=== PATIENT | female | born 1960 | race Caucasian/White ===

== ENCOUNTER 2018-04-07 12:57 | Outpatient (RCR) | payer OTHER, SELFPAY ==
[2018-04-07 13:20] VITALS: BP 145/76; PULSE 82; RESP 18; TEMP 37.1; BMI 44.7
--- NOTE | 2018-04-07 14:40 | PCM.WC.HP ---
(1) Chronic venous insufficiency Status: Chronic Current Visit: Yes Code(s): I87.2 - Venous insufficiency (chronic) (peripheral) (2) Post-phlebitic syndrome Status: Chronic Current Visit: Yes Code(s): I87.009 - Postthrombotic syndrome without complications of unspecified extremity (3) Venous ulcer of left leg Status: Chronic Current Visit: Yes Code(s): I83.029 - Varicose veins of left lower extremity with ulcer of unspecified site; L97.929 - Non-pressure chronic ulcer of unspecified part of left lower leg with unspecified severity (4) Diabetes mellitus Status: Acute Current Visit: No Qualifiers: Diabetes mellitus type: type 2 Code(s): E11.9 - Type 2 diabetes mellitus without complications (5) History of DVT of lower extremity Status: Chronic Current Visit: Yes Code(s): Z86.718 - Personal history of other venous thrombosis and embolism (6) Leg pain, left Status: Chronic Current Visit: Yes Code(s): M79.605 - Pain in left leg (7) Left leg swelling Status: Chronic Current Visit: Yes Code(s): M79.89 - Other specified soft tissue disorders (8) Hypertension Status: Chronic Current Visit: No Code(s): I10 - Essential (primary) hypertension (9) COPD (chronic obstructive pulmonary disease) Status: Chronic Current Visit: No Code(s): J44.9 - Chronic obstructive pulmonary disease, unspecified (10) Hyperlipidemia Status: Chronic Current Visit: No Code(s): E78.5 - Hyperlipidemia, unspecified (11) Morbid obesity with BMI of 40.0-44.9, adult Status: Chronic Current Visit: No Code(s): E66.01 - Morbid (severe) obesity due to excess calories; Z68.41 - Body mass index (BMI) 40.0-44.9, adult (12) Tobacco abuse Status: Chronic Current Visit: No Code(s): Z72.0 - Tobacco use (13) Tobacco abuse counseling Status: Chronic Current Visit: No Code(s): Z71.6 - Tobacco abuse counseling (14) Hyperpigmentation Status: Chronic Current Visit: No Code(s): L81.9 - Disorder of pigmentation, unspecified History of Present Illness Date of Service: 04/07/18 Chief Complaint: Chronic venous insufficiency, postphlebitic syndrome with inflammation, venous ulceration of the left lower extremity, left lower extremity swelling, left lower extremity pain History of Wound: This is a 57-year-old female who presents with an ulceration on the medial aspect of her left calf. The ulceration has been present for several months. Patient has recently developed erythema and redness about the ulceration, thought to be a cellulitis. She was treated by her primary care physician with 2 courses of oral antibiotics, including doxycycline and Cipro. She presents now for definitive management. She suffers from multiple medical problems, including diabetes mellitus, morbid obesity, and has a history of left lower extremity deep vein thrombosis on 2 occasions in the remote past. She intermittently wears compression stockings, which are obtained [id number], and likely of insufficient compression. 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 Her 2 prior episodes of deep vein thrombosis in the past occurred after childbirth in 1978, and after an appendectomy in 1999. Past Medical History Past Medical History: Chronic Problems Chronic venous insufficiency (Chronic) Post-phlebitic syndrome (Chronic) Venous ulcer of left leg (Chronic) History of DVT of lower extremity (Chronic) Leg pain, left (Chronic) Left leg swelling (Chronic) Hypertension (Chronic) COPD (chronic obstructive pulmonary disease) (Chronic) Hyperlipidemia (Chronic) Morbid obesity with BMI of 40.0-44.9, adult (Chronic) Tobacco abuse (Chronic) Tobacco abuse counseling (Chronic) Hyperpigmentation (Chronic) Past Medical History: Patient has a history of borderline diabetes mellitus, hypertension, chronic obstructive pulmonary disease, hyperlipidemia, and obesity. Her history is negative for myocardial infarction, congestive heart failure, cerebrovascular accident, renal disease, and thyroid disease. Surgical History: - - Patient has undergone hysterectomy and appendectomy in the past. Home Medications: Ambulatory Orders Medication Instructions Recorded Hydrochlorothiazide [Hctz] 25 mg PO DAILY 04/07/18 Losartan Potassium 50 mg PO 04/07/18 - Family History Paternal - - Patient's father is 81 years of age, with a history of coronary artery disease, hypertension, and prostate cancer. Patient's mother is 76 years of age and healthy. Social History: The patient is a . 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 She denies use of alcohol. She smokes 1-1/2 packs of cigarettes per day, for many years. Smoking Status: Current every day smoker Tobacco Use: Cigarettes Alcohol: None Drugs: None Review of Systems Constitutional: Denies: Chills, Fever, Weight Change Eyes: Denies: Pain, Vision Change HEENT: Denies: Difficulty Hearing, Difficulty Swallowing, Sinus Congestion Cardiovascular: Denies: Chest Pain, Palpitations Respiratory: Denies: Cough, Shortness of Breath Gastrointestinal: Denies: Diarrhea, Nausea, Vomiting Genitourinary: Denies: Dysuria, Hematuria Endocrine: Denies: Heat/ Cold Intolerance, Polydipsia, Polyuria Hematologic/ Lymphatic: Denies: Easy Bruising, Easy Bleeding - Physical Exam Vital Signs Temp Pulse Resp BP 98.7 F 82 18 145/76 H 04/07/18 13:20 04/07/18 13:20 04/07/18 13:20 04/07/18 13:20 General: Alert, Oriented x3, Cooperative, No apparent distress, Well developed, Well nourished, - - The patient is obese HEENT: Atraumatic, PERRLA, EOMI, Normocephalic Oral: Moist Mucosa, No Gingival or Mucosal Lesions/ Ulcerations Neck: Supple, No JVD, Negative Carotid Bruits, Negative Hepatojugular Reflux, No Nodes, No Nuchal Rigidity, Trachea Midline Lungs: Clear to auscultation, Normal air movement, No rhonchi, No wheeze, No rales Cardiovascular: Regular rate, Regular Rhythm, Normal S1, Normal S2, No murmurs Abdomen: Bowel Sounds Present, Soft, Non Tender, Non-Distended, Obese Extremities: No clubbing, No cyanosis, No Calf Tenderness, Edema, - - Moderate swelling and edema is noted in the left lower extremity. There are clustered ulcerations on the medial aspect of the left mid calf. Dimensions are documented elsewhere. There is mild erythema, appearing to be inflammatory rather than infectious. Mild hyperpigmentation is noted about the ulceration. The ulceration demonstrates a moderate amount of bioburden, and the base of the ulceration is fibrous. Wound Measurements and Assessment WC - Nurse 1 - General Ulcer Measurement Start: 04/07/18 13:05 Freq: Status: Active Protocol: Activity Type Activity Date Activity User E-Sign Co-Sign Detail Recorded Client Recorded Date Recorded By Document 04/07/18 13:20 DL [id number] 04/07/18 13:48 DL 04/07/18 13:20 Wound Center Nurse 1 [Ulcer Assessment] #1 L Med Lower Leg -Current Size (cm) - Length 2 -Current Size (cm) - Width 0.7 -Current Size (cm) - Depth 0.1 -Total Square Cm 1.4 -Photo Taken Yes -Classification - Thickness Partial Thickness -Exudate Amt None Present (0 %) -Wound Margin Flat & Intact -Granulation Amt None Present (0 %) -Necrosis Amt Large (67-100%) -Necrotic Tissue Type Adherent Slough -Structure Exposed N/A -Texture (Wendy-wound Skin Appearance) Localized Edema -Moisture (Wendy-wound Skin Appearance Dry/Scaly ) -Color (Wendy-wound Skin Appearance) Erythema Hemosiderin Staining -Temperature (Wendy-wound Skin No Abnormality Appearance) (Pt Warm) -Tenderness on Palpation (Wendy-wound Yes Skin Appearance) -Ulcer Cleansing Wound Cleanser -Foul Odor after Cleansing No -Anesthetic Used 4% Lidocaine Solution [Edema Assessment] -Right Calf (cm) 43.4 -Right Ankle (cm) 24.5 -Left Calf (cm) 50.5 -Left Ankle (cm) 30 Musculoskeletal: No Muscle Wasting Neurological: Cranial nerves II-XII grossly intact, Neuro grossly intact Psych/Mental Status: Normal Affect, Appropriate, Alert and oriented to time, place, person, mood and affect Debridement Note Laterality: Left - Medial calf Type of Debridement: Excisional debridement Anesthesia Used: 5% Lidocaine Gel Depth: Down to and including healthy tissue, in the subcutaneous layer Percentage of wound debrided: 100 Instrument Used: 7mm curette Severity: Fat Layer Exposed Amount of bleeding with debridement: Mild Bleeding Controlled with: Compression and gauze Patient tolerated procedure well Assessment/Plan Active Problems Chronic venous insufficiency (Chronic) Post-phlebitic syndrome (Chronic) Venous ulcer of left leg (Chronic) History of DVT of lower extremity (Chronic) Leg pain, left (Chronic) Left leg swelling (Chronic) Assessment: This is an obese 57-year-old female with a history of left lower extremity deep vein thrombosis on 2 occasions in the past. She appears to suffer from postphlebitic syndrome in the left lower extremity, with chronic swelling, edema, and pain in the left lower extremity. For several months she has had an ulceration on the left medial calf, which has developed into a cellulitis recently, treated by 2 courses of oral antibiotics as prescribed by her primary care physician. She presents at this time for the purpose of definitive management. Patient has other pre-existing medical problems, which include, but are not limited to, hypertension, obesity, diabetes mellitus, chronic obstructive pulmonary disease, hyperlipidemia, etc. Plan: Conservative treatment measures are to be implemented. A lengthy discussion has been undertaken as to the appropriate measures to be employed. The patient is to elevate her lower extremities as much as possible. She currently sleeps on a flat mattress at night. Leg elevation, even during daytime hours, has been encouraged. Her legs are to be rated level with her heart, or higher. Prolonged idle sitting has been discouraged. Activity has been encouraged. Weight loss has also been recommended. Initially, compression to the left lower extremity will be initiated by means of Tubigrip's, though compression will be enhanced, once the results of her noninvasive lower extremity arterial study are known. We are to obtain a noninvasive lower extremity arterial study, as well as a venous duplex examination. Routine laboratory studies will be obtained, including a CBC, conference of metabolic profile, serum prealbumin, and hemoglobin A1c. We will initiate the use of collagenase Santyl topically, applied by the patient on a daily basis. Patient has been advised in the appropriate means of applying the collagenase Santyl dressing. Patient is return in 1 week for reassessment. Influenza vaccine was not administered today. Patient is a smoker. She has been advised to cease smoking, and of the adverse consequences of the smoking habit. She is to collaborate with her primary care physician in this regard. Patient stands 5 feet 5 inches tall. She weighs 268 pounds. Her BMI is 44.7, which places her in an obese class III category. Weight loss has been recommended, and collaboration with the patient's primary care physician has been advised.
[2018-04-07 16:01] LABS: Hematocrit 44.8 % (37-47); Hemoglobin 14.7 g/dl (12.0-15.0); Mean Corp Hgb Conc 32.8 g/gl (32-36); Mean Corpuscular Hgb 29.9 pg (27.0-32.0); Mean Corpuscular Volume 91.2 fL (81-99); Mean Platelet Vol. 10.2 fl (6.2-12.0); Platelet Count 311 K/mm3 (150-450); RBC Distribution Width CV 12.9 % (11.6-14.6); RBC Distribution Width SD 42.4 fl (35.1-43.9); Red Blood Count 4.91 M/mm3 (4.2-5.4); White Blood Count 7.3 K/mm3 (4.4-11.0)
[2018-04-07 16:08] LABS: Scan Indicated on CBC? Y/N NO
[2018-04-07 16:33] LABS: Hemoglobin A1c 6.6 % (4.2-6.3)
[2018-04-07 16:34] LABS: AST(SGOT) 13 U/L (15-37); Alanine Aminotransfer ALT/SGPT 23 U/L (13-56); Albumin, Serum 3.5 g/dL (3.2-5.0); Alkaline Phosphatase 98 U/L (45-117); Anion Gap 7 (5-15); BUN 10 mg/dL (7-18); BUN/Creat Ratio 19.1 RATIO (10-20); Chloride 102 mmol/L (98-107); Creatinine, Serum 0.52 mg/dL (0.55-1.02); EST Glomerular Filtration Rate 128 mL/min (>60); Est Glom Filt Rate - Afr Amer 155 mL/min (>60); Estimated Creatinine Clearance 107.41 ml/min; Globulin 3.5 g/dL (2.2-4.2); Glucose 105 mg/dL (74-106); Potassium 3.6 mmol/L (3.5-5.1); Prealbumin 18.2 mg/dL (20.0-40.0); Sodium Level 143 mmol/L (136-145)
== END 2018-04-09 23:59 ==
LOC: WC 12:57
PROVIDERS: Visit Provider Surgery
DX: E11.622 Type 2 diabetes mellitus with other skin ulcer (principal); I83.022 Varicose veins of left lower extremity with ulcer of calf; L97.222 Non-pressure chronic ulcer of left calf with fat layer exposed; J44.9 Chronic obstructive pulmonary disease, unspecified; M79.89 Other specified soft tissue disorders; I10 Essential (primary) hypertension; Z86.718 Personal history of other venous thrombosis and embolism; E78.5 Hyperlipidemia, unspecified; E66.01 Morbid (severe) obesity due to excess calories; Z68.41 Body mass index [BMI] 40.0-44.9, adult; Z71.3 Dietary counseling and surveillance
CPT/HCPCS: 11042; 80053; 83036; 84134; 85027; 99204; G0463

== ENCOUNTER 2018-05-05 15:00 | Outpatient (RCR) | payer OTHER, SELFPAY ==
[2018-04-10 02:14] VITALS: BP 145/76; PULSE 82; RESP 18; TEMP 37.1
[2018-04-14 14:30] VITALS: BP 148/70; PULSE 82; RESP 16; TEMP 37.2
--- NOTE | 2018-04-14 16:09 | PCM.WC.HP ---
(1) Chronic venous insufficiency Status: Chronic Current Visit: Yes Code(s): I87.2 - Venous insufficiency (chronic) (peripheral) (2) Post-phlebitic syndrome Status: Chronic Current Visit: Yes Code(s): I87.009 - Postthrombotic syndrome without complications of unspecified extremity (3) Venous ulcer of left leg Status: Chronic Current Visit: Yes Code(s): I83.029 - Varicose veins of left lower extremity with ulcer of unspecified site; L97.929 - Non-pressure chronic ulcer of unspecified part of left lower leg with unspecified severity (4) Diabetes mellitus Status: Chronic Current Visit: No Code(s): E11.9 - Type 2 diabetes mellitus without complications (5) History of DVT of lower extremity Status: Chronic Current Visit: Yes Code(s): Z86.718 - Personal history of other venous thrombosis and embolism (6) Leg pain, left Status: Chronic Current Visit: Yes Code(s): M79.605 - Pain in left leg (7) Left leg swelling Status: Chronic Current Visit: Yes Code(s): M79.89 - Other specified soft tissue disorders (8) Hypertension Status: Chronic Current Visit: No Code(s): I10 - Essential (primary) hypertension (9) COPD (chronic obstructive pulmonary disease) Status: Chronic Current Visit: No Code(s): J44.9 - Chronic obstructive pulmonary disease, unspecified (10) Hyperlipidemia Status: Chronic Current Visit: No Code(s): E78.5 - Hyperlipidemia, unspecified (11) Morbid obesity with BMI of 40.0-44.9, adult Status: Chronic Current Visit: No Code(s): E66.01 - Morbid (severe) obesity due to excess calories; Z68.41 - Body mass index (BMI) 40.0-44.9, adult (12) Tobacco abuse Status: Chronic Current Visit: Yes Code(s): Z72.0 - Tobacco use (13) Tobacco abuse counseling Status: Chronic Current Visit: Yes Code(s): Z71.6 - Tobacco abuse counseling (14) Hyperpigmentation Status: Chronic Current Visit: Yes Code(s): L81.9 - Disorder of pigmentation, unspecified History of Present Illness Chief Complaint: Chronic venous insufficiency, postphlebitic syndrome with inflammation, venous ulceration of the left lower extremity, left lower extremity swelling, left lower extremity pain History of Wound: This is a 57-year-old female who presented with an ulceration on the medial aspect of her left calf. The ulceration has been present for several months. Patient has recently developed erythema and redness about the ulceration, thought to be a cellulitis. She was treated by her primary care physician with 2 courses of oral antibiotics, including doxycycline and Cipro. She presents now for definitive management. She suffers from multiple medical problems, including diabetes mellitus, morbid obesity, and has a history of left lower extremity deep vein thrombosis on 2 occasions in the remote past. She intermittently wears compression stockings, which are obtained [id number], and likely of insufficient compression. 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 Her 2 prior episodes of deep vein thrombosis in the past occurred after childbirth in 1978, and after an appendectomy in 1999. Past Medical History Past Medical History: Chronic Problems Chronic venous insufficiency (Chronic) Post-phlebitic syndrome (Chronic) Venous ulcer of left leg (Chronic) Diabetes mellitus (Chronic) History of DVT of lower extremity (Chronic) Leg pain, left (Chronic) Left leg swelling (Chronic) Hypertension (Chronic) COPD (chronic obstructive pulmonary disease) (Chronic) Hyperlipidemia (Chronic) Morbid obesity with BMI of 40.0-44.9, adult (Chronic) Tobacco abuse (Chronic) Tobacco abuse counseling (Chronic) Hyperpigmentation (Chronic) Surgical History: - - Patient has undergone hysterectomy and appendectomy in the past. Home Medications: Ambulatory Orders Medication Instructions Recorded Hydrochlorothiazide [Hctz] 25 mg PO DAILY 04/07/18 Losartan Potassium 50 mg PO 04/07/18 - Family History Paternal - - Patient's father is 81 years of age, with a history of coronary artery disease, hypertension, and prostate cancer. Patient's mother is 76 years of age and healthy. Smoking Status: Current every day smoker Tobacco Use: Cigarettes Review of Systems Constitutional: Denies: Chills, Fever, Weight Change Eyes: Denies: Pain, Vision Change HEENT: Denies: Difficulty Hearing, Difficulty Swallowing, Sinus Congestion Cardiovascular: Denies: Chest Pain, Palpitations Respiratory: Denies: Cough, Shortness of Breath Gastrointestinal: Denies: Diarrhea, Nausea, Vomiting Genitourinary: Denies: Dysuria, Hematuria Endocrine: Denies: Heat/ Cold Intolerance, Polydipsia, Polyuria Hematologic/ Lymphatic: Denies: Easy Bruising, Easy Bleeding - Physical Exam Vital Signs Temp Pulse Resp BP 98.9 F 82 16 148/70 H 04/14/18 14:30 04/14/18 14:30 04/14/18 14:30 04/14/18 14:30 General: Alert, Oriented x3, Cooperative, No apparent distress, Well developed, Well nourished HEENT: Atraumatic, PERRLA, EOMI, Normocephalic Oral: Moist Mucosa Neck: No JVD Lungs: Normal air movement Abdomen: Non-Distended Extremities: No clubbing, No cyanosis, No Calf Tenderness, Edema, - - Mild swelling and edema persist in the left lower extremity. The ulcerations on the left medial supramalleolar area persist, little changed in size. Chronic hyperpigmentation persists in the area. Limb circumferences and ulcer dimensions are documented elsewhere. There is no sign of infection or cellulitis. There is a moderate amount of bioburden. Wound Measurements and Assessment WC - Nurse 1 - General Ulcer Measurement Start: 04/14/18 14:30 Freq: Status: Active Protocol: Activity Type Activity Date Activity User E-Sign Co-Sign Detail Recorded Client Recorded Date Recorded By Document 04/14/18 14:30 [id number] 04/14/18 14:36 04/14/18 14:30 Wound Center Nurse 1 [Ulcer Assessment] #1 L Med Lower Leg -Combined with other wound No -Current Size (cm) - Length 2.2 -Photo Taken No -Epithelialization None Present -Tunneling No -Undermining/Tunneling No -Circular Undermining No -Exudate Amt Small (1-33%) -Exudate Type Serosanguineous -Wound Margin Flat & Intact -Granulation Amt None Present (0 %) -Slough/Fibrin Yes -Necrosis Amt Large (67-100%) -Necrotic Tissue Type Adherent Slough -Structure Exposed N/A -Texture (Wendy-wound Skin Appearance) Assessed Localized Edema Scarring -Moisture (Wendy-wound Skin Appearance Assessed ) Dry/Scaly -Color (Wendy-wound Skin Appearance) Assessed Hemosiderin Staining -Temperature (Wendy-wound Skin No Abnormality Appearance) (Pt Warm) -Tenderness on Palpation (Wendy-wound No Skin Appearance) -Ulcer Cleansing Rinsed/ Irrigated with Saline -Foul Odor after Cleansing No -Anesthetic Used 4% Lidocaine Solution [Edema Assessment] -Lower Limb Edema Present Yes -Right Calf (cm) 42.4 -Right Ankle (cm) 24.0 -Left Calf (cm) 48.5 -Left Ankle (cm) 29.5 VERONIQUE - Nurse 2 - General Ulcer CM Notes Start: 04/14/18 14:30 Freq: Status: Active Protocol: Activity Type Activity Date Activity User E-Sign Co-Sign Detail Recorded Client Recorded Date Recorded By Document 04/14/18 15:15 [id number] 04/14/18 15:28 04/14/18 15:15 Wound Center Nurse 2 [Procedure/Treatment] #1 L Med Lower Leg -Time 15:15 -Correct Patient Yes -Correct Side, Site, Position Yes -Correct Procedure Yes -Procedure Performed Yes -Type of Procedure Debridement -Clinical Debridement Subcutaneous -Post Debridement Size (cm) - Length 2.0 -Post Debridement Size (cm) - Width 0.9 -Post Debridement Size (cm) - Depth 0.2 -Total Square Cm 1.80 -Wound/Ulcer Outcome Not Healed -Ulcer Cleansing Rinsed/ Irrigated with Saline -Foul Odor after Cleansing No -Bioengineered Tissue No -Topical Lidocaine (%) 4 -Lidocaine (ml) 10 -Bleeding Controlled with NA -Treatment Response Procedure Tolerated Well [See Physician Procedure note for Specifics] Pain Scale: 0-10 Numeric [Pain] -Is Patient Pain Free? Yes Musculoskeletal: No Muscle Wasting Neurological: Cranial nerves II-XII grossly intact, Neuro grossly intact Psych/Mental Status: Normal Affect, Appropriate, Alert and oriented to time, place, person, mood and affect Debridement Note Post-Debridement Measurements/Treatment - Nurse 2 - General Ulcer CM Notes Start: 04/14/18 14:30 Freq: Status: Active Protocol: Activity Type Activity Date Activity User E-Sign Co-Sign Detail Recorded Client Recorded Date Recorded By Document 04/14/18 15:15 [id number] 04/14/18 15:28 04/14/18 15:15 Wound Center Nurse 2 #1 L Med Lower Leg -Time 15:15 -Correct Patient Yes -Correct Side, Site, Position Yes -Correct Procedure Yes -Procedure Performed Yes -Type of Procedure Debridement -Clinical Debridement Subcutaneous -Post Debridement Size (cm) - Length 2.0 -Post Debridement Size (cm) - Width 0.9 -Post Debridement Size (cm) - Depth 0.2 -Total Square Cm 1.80 -Wound/Ulcer Outcome Not Healed -Ulcer Cleansing Rinsed/ Irrigated with Saline -Foul Odor after Cleansing No -Bioengineered Tissue No -Topical Lidocaine (%) 4 -Lidocaine (ml) 10 -Bleeding Controlled with NA -Treatment Response Procedure Tolerated Well Pain Scale: 0-10 Numeric Is Patient Pain Free? Yes Laterality: Left - Medial calf Type of Debridement: Excisional debridement Anesthesia Used: 5% Lidocaine Gel Depth: Down to and including healthy tissue, in the subcutaneous layer Percentage of wound debrided: 100 Instrument Used: 3mm curette Severity: Fat Layer Exposed Amount of bleeding with debridement: Mild Bleeding Controlled with: Compression and gauze Patient tolerated procedure well Assessment/Plan Active Problems Chronic venous insufficiency (Chronic) Post-phlebitic syndrome (Chronic) Venous ulcer of left leg (Chronic) History of DVT of lower extremity (Chronic) Leg pain, left (Chronic) Left leg swelling (Chronic) Tobacco abuse (Chronic) Tobacco abuse counseling (Chronic) Hyperpigmentation (Chronic) Assessment: This is an obese 57-year-old female with a history of left lower extremity deep vein thrombosis on 2 occasions in the past. She appears to suffer from postphlebitic syndrome in the left lower extremity, with chronic swelling, edema, and pain in the left lower extremity. For several months she has had an ulceration on the left medial calf, which has developed into a cellulitis recently, treated by 2 courses of oral antibiotics as prescribed by her primary care physician. She presents at this time for the purpose of definitive management. Patient has other pre-existing medical problems, which include, but are not limited to, hypertension, obesity, diabetes mellitus, chronic obstructive pulmonary disease, hyperlipidemia, etc. Plan: Conservative treatment measures are to be continued. A lengthy discussion has been undertaken as to the appropriate measures to be employed. The patient is to elevate her lower extremities as much as possible. She currently sleeps on a flat mattress at night. Leg elevation, even during daytime hours, has been encouraged. Her legs are to be rated level with her heart, or higher. Prolonged idle sitting has been discouraged. Activity has been encouraged. Weight loss has also been recommended. Initially, compression to the left lower extremity will be initiated by means of Tubigrip's, though compression will be enhanced, once the results of her noninvasive lower extremity arterial study are known. We are to obtain a noninvasive lower extremity arterial study, as well as a venous duplex examination, which are scheduled for later this week. Laboratory results have been reviewed, with results as follows: Glucose 105, BUN 10, creatinine 0.52, total protein 7.0, albumin 3.5, calcium 9.0, AST 13, alkaline phosphatase 98, ALT 23, bilirubin 0.70, sodium 143, potassium 3.6, chloride 102, serum prealbumin 18.2. White blood count 7.3, hemoglobin 14.7, hematocrit 44.8, platelets 311,000. We will continue the use of collagenase Santyl topically, applied by the patient on a daily basis. Patient has been advised in the appropriate means of applying the collagenase Santyl dressing. Patient is return in 1 week for reassessment. Influenza vaccine was not administered today. Patient is a smoker. She has been advised to cease smoking, and of the adverse consequences of the smoking habit. She is to collaborate with her primary care physician in this regard. Patient stands 5 feet 5 inches tall. She weighs 268 pounds. Her BMI is 44.7, which places her in an obese class III category. Weight loss has been recommended, and collaboration with the patient's primary care physician has been advised.
--- NOTE | 2018-04-18 08:52 | VDLE_ITS ---
Reason For Study: Non-healing wound RIGHT LEFT CFV is compressible, spontaneous, phasic, CFV, FV, POP V are patent, compressible, competent and demonstrates normal spontaneous,phasic and demonstrate augmentation. INCOMPETENCY with augmentation. FV is compressible, spontaneous, phasic, T/P trunk is compressible competent and demonstrates normal PTV is compressible augmentation. PER V is compressible POP V is compressible, spontaneous, phasic, competent and demonstrates normal SFJ is competent augmentation. GSV is INCOMPETENT with reflux greater than .5 T/P Trunk is compressible. sec and diameter of .38 x .38 cm PTV is compressible. SSV is INCOMPETENT with reflux greater than .5 RT PerV is compressible. sec and diameter of .25 x .24 cm SFJ is iNCOMPETENT for greater than.5 sec GSV is INCOMPETENT with reflux greater POP V measures 1.8 x 1.7 x 1.6 cm. than .5 sec and diameter of .59 x .59 cm SSV is competent INCOMPETENT bpo specialist 13 cm prox to medial malleolus POP V measures 1.8 x 1.7 x 1.7 cm Hypoechoic structure noted RT medial pop space measuring 3.7 x 1.8 x 4.3 cm. Non- vascular. Procedure Exam performed in department. A preliminary report was called and/or faxed to [facility]. <> Interpretation Summary Deep veins of the lower extremities are bilaterally patent and compressible segmentally. There is no evidence of deep vein thrombosis on either side. Valvular competence appears intact within the proximal deep venous system on the right . The left common femoral vein, femoral vein, and popliteal vein are incompetent. The greater saphenous veins appear bilaterally patent and compressible segmentally. The right sapheno-femoral junction is incompetent . The left sapheno-femoral junction is competent . Segmental valvular incompetence is noted within the greater saphenous veins bilaterally. The right small saphenous vein is patent and competent. The left small saphenous vein is patent and incompetent. An incompetent bpo specialist vein is noted in the right calf, located 13 centimeters proximal to the right medial malleolus. A non-vascular, hypoechoic structure is noted in the right medial popliteal space, measuring 3.7 cm x 1.8 cm x 4.3 cm. This probably represents a popliteal cyst. Clinical correlation is advised. Ordering Physician: Damir Woods Performed By: Geraldine Cartagena RVT
[2018-04-21 14:21] VITALS: BP 130/76; PULSE 86; RESP 20; TEMP 36.6
--- NOTE | 2018-04-21 15:26 | PCM.WC.HP ---
(1) Chronic venous insufficiency Status: Chronic Current Visit: Yes Code(s): I87.2 - Venous insufficiency (chronic) (peripheral) (2) Post-phlebitic syndrome Status: Chronic Current Visit: Yes Code(s): I87.009 - Postthrombotic syndrome without complications of unspecified extremity (3) Venous ulcer of left leg Status: Chronic Current Visit: Yes Code(s): I83.029 - Varicose veins of left lower extremity with ulcer of unspecified site; L97.929 - Non-pressure chronic ulcer of unspecified part of left lower leg with unspecified severity (4) Diabetes mellitus Status: Chronic Current Visit: No Qualifiers: Diabetes mellitus type: type 2 Code(s): E11.9 - Type 2 diabetes mellitus without complications (5) History of DVT of lower extremity Status: Chronic Current Visit: Yes Code(s): Z86.718 - Personal history of other venous thrombosis and embolism (6) Leg pain, left Status: Chronic Current Visit: Yes Code(s): M79.605 - Pain in left leg (7) Left leg swelling Status: Chronic Current Visit: Yes Code(s): M79.89 - Other specified soft tissue disorders (8) Hypertension Status: Chronic Current Visit: No Code(s): I10 - Essential (primary) hypertension (9) COPD (chronic obstructive pulmonary disease) Status: Chronic Current Visit: No Code(s): J44.9 - Chronic obstructive pulmonary disease, unspecified (10) Hyperlipidemia Status: Chronic Current Visit: No Code(s): E78.5 - Hyperlipidemia, unspecified (11) Morbid obesity with BMI of 40.0-44.9, adult Status: Chronic Current Visit: No Code(s): E66.01 - Morbid (severe) obesity due to excess calories; Z68.41 - Body mass index (BMI) 40.0-44.9, adult (12) Tobacco abuse Status: Chronic Current Visit: Yes Code(s): Z72.0 - Tobacco use (13) Tobacco abuse counseling Status: Chronic Current Visit: Yes Code(s): Z71.6 - Tobacco abuse counseling (14) Hyperpigmentation Status: Chronic Current Visit: Yes Code(s): L81.9 - Disorder of pigmentation, unspecified History of Present Illness Chief Complaint: Chronic venous insufficiency, postphlebitic syndrome with inflammation, venous ulceration of the left lower extremity, left lower extremity swelling, left lower extremity pain History of Wound: This is a 57-year-old female who presented with an ulceration on the medial aspect of her left calf. The ulceration has been present for several months. Patient has recently developed erythema and redness about the ulceration, thought to be a cellulitis. She was treated by her primary care physician with 2 courses of oral antibiotics, including doxycycline and Cipro. She presents now for definitive management. She suffers from multiple medical problems, including diabetes mellitus, morbid obesity, and has a history of left lower extremity deep vein thrombosis on 2 occasions in the remote past. She intermittently wears compression stockings, which are obtained [id number], and likely of insufficient compression. 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 Her 2 prior episodes of deep vein thrombosis in the past occurred after childbirth in 1978, and after an appendectomy in 1999. Past Medical History Past Medical History: Chronic Problems Chronic venous insufficiency (Chronic) Post-phlebitic syndrome (Chronic) Venous ulcer of left leg (Chronic) Diabetes mellitus (Chronic) History of DVT of lower extremity (Chronic) Leg pain, left (Chronic) Left leg swelling (Chronic) Hypertension (Chronic) COPD (chronic obstructive pulmonary disease) (Chronic) Hyperlipidemia (Chronic) Morbid obesity with BMI of 40.0-44.9, adult (Chronic) Tobacco abuse (Chronic) Tobacco abuse counseling (Chronic) Hyperpigmentation (Chronic) Surgical History: - - Patient has undergone hysterectomy and appendectomy in the past. Home Medications: Ambulatory Orders Medication Instructions Recorded Hydrochlorothiazide [Hctz] 25 mg PO DAILY 04/07/18 Losartan Potassium 50 mg PO 04/07/18 - Family History Paternal - - Patient's father is 81 years of age, with a history of coronary artery disease, hypertension, and prostate cancer. Patient's mother is 76 years of age and healthy. Smoking Status: Current every day smoker Tobacco Use: Cigarettes Review of Systems Constitutional: Denies: Chills, Fever, Weight Change Eyes: Denies: Pain, Vision Change HEENT: Denies: Difficulty Hearing, Difficulty Swallowing, Sinus Congestion Cardiovascular: Denies: Chest Pain, Palpitations Respiratory: Denies: Cough, Shortness of Breath Gastrointestinal: Denies: Diarrhea, Nausea, Vomiting Genitourinary: Denies: Dysuria, Hematuria Endocrine: Denies: Heat/ Cold Intolerance, Polydipsia, Polyuria Hematologic/ Lymphatic: Denies: Easy Bruising, Easy Bleeding - Physical Exam Vital Signs Temp Pulse Resp BP 97.8 F 86 20 H 130/76 H 04/21/18 14:21 04/21/18 14:21 04/21/18 14:21 04/21/18 14:21 General: Alert, Oriented x3, Cooperative, No apparent distress, Well developed, Well nourished HEENT: Atraumatic, PERRLA, EOMI, Normocephalic Oral: Moist Mucosa Neck: No JVD Lungs: Normal air movement Abdomen: Non-Distended Extremities: No clubbing, No cyanosis, No Calf Tenderness, Edema, - - Mild swelling and edema persist in the left lower extremity. The clustered ulcerations on the left medial calf persist. There is a moderate amount of bioburden. There is no sign of infection or cellulitis. Dimensions are documented elsewhere. Hyperpigmentation is noted in the troy-ulcer area. Skin: No rashes Wound Measurements and Assessment WC - Nurse 1 - General Ulcer Measurement Start: 04/14/18 14:30 Freq: Status: Active Protocol: Activity Type Activity Date Activity User E-Sign Co-Sign Detail Recorded Client Recorded Date Recorded By Document 04/21/18 14:21 [id number] 04/21/18 14:24 04/21/18 14:21 Wound Center Nurse 1 [Ulcer Assessment] #1 L Med Lower Leg -Combined with other wound No -Current Size (cm) - Length 2.0 -Current Size (cm) - Width 0.7 -Current Size (cm) - Depth 0.1 -Total Square Cm 1.40 -Photo Taken No -Epithelialization Small 1-33% -Tunneling No -Undermining/Tunneling No -Circular Undermining No -Exudate Amt Small (1-33%) -Exudate Type Serosanguineous -Wound Margin Flat & Intact -Granulation Amt None Present (0 %) -Slough/Fibrin Yes -Necrosis Amt Large (67-100%) -Necrotic Tissue Type Adherent Slough -Structure Exposed N/A -Texture (Troy-wound Skin Appearance) Assessed Localized Edema -Moisture (Troy-wound Skin Appearance Assessed ) Dry/Scaly -Color (Troy-wound Skin Appearance) Assessed Hemosiderin Staining -Temperature (Troy-wound Skin No Abnormality Appearance) (Pt Warm) -Tenderness on Palpation (Troy-wound No Skin Appearance) -Ulcer Cleansing Rinsed/ Irrigated with Saline -Foul Odor after Cleansing No -Anesthetic Used 4% Lidocaine Solution [Edema Assessment] -Lower Limb Edema Present Yes -Left Calf (cm) 47.5 -Left Ankle (cm) 27.5 - Nurse 2 - General Ulcer CM Notes Start: 04/14/18 14:30 Freq: Status: Active Protocol: Activity Type Activity Date Activity User E-Sign Co-Sign Detail Recorded Client Recorded Date Recorded By Document 04/21/18 15:11 DV [id number] 04/21/18 15:19 DV 04/21/18 15:11 Wound Center Nurse 2 [Procedure/Treatment] #1 L Med Lower Leg -Time 15:14 -Correct Patient Yes -Correct Side, Site, Position Yes -Correct Procedure Yes -Procedure Performed Yes -Type of Procedure Debridement -Clinical Debridement Subcutaneous -Post Debridement Size (cm) - Length 2.0 -Post Debridement Size (cm) - Width 1.0 -Post Debridement Size (cm) - Depth 0.2 -Total Square Cm 2.00 -Wound/Ulcer Outcome Not Healed -Ulcer Cleansing Rinsed/ Irrigated with Saline -Foul Odor after Cleansing No -Bioengineered Tissue No -Bleeding Controlled with NA -Treatment Response Procedure Tolerated Well [See Physician Procedure note for Specifics] Pain Scale: 0-10 Numeric [Pain] -Is Patient Pain Free? Yes Musculoskeletal: No Muscle Wasting Neurological: Cranial nerves II-XII grossly intact, Neuro grossly intact Psych/Mental Status: Normal Affect, Appropriate, Alert and oriented to time, place, person, mood and affect Debridement Note Post-Debridement Measurements/Treatment - Nurse 2 - General Ulcer CM Notes Start: 04/14/18 14:30 Freq: Status: Active Protocol: Activity Type Activity Date Activity User E-Sign Co-Sign Detail Recorded Client Recorded Date Recorded By Document 04/14/18 15:15 JS [id number] 04/14/18 15:28 JS Document 04/21/18 15:11 DV [id number] 04/21/18 15:19 DV 04/14/18 04/21/18 15:15 15:11 Wound Center Nurse 2 #1 L Med Lower Leg -Time 15:15 15:14 -Correct Patient Yes Yes -Correct Side, Site, Position Yes Yes -Correct Procedure Yes Yes -Procedure Performed Yes Yes -Type of Procedure Debridement Debridement -Clinical Debridement Subcutaneous Subcutaneous -Post Debridement Size (cm) - Length 2.0 2.0 -Post Debridement Size (cm) - Width 0.9 1.0 -Post Debridement Size (cm) - Depth 0.2 0.2 -Total Square Cm 1.80 2.00 -Wound/Ulcer Outcome Not Healed Not Healed -Ulcer Cleansing Rinsed/ Rinsed/ Irrigated with Irrigated with Saline Saline -Foul Odor after Cleansing No No -Bioengineered Tissue No No -Topical Lidocaine (%) 4 -Lidocaine (ml) 10 -Bleeding Controlled with NA NA -Treatment Response Procedure Procedure Tolerated Well Tolerated Well Pain Scale: 0-10 Numeric Is Patient Pain Free? Yes Yes Laterality: Left - Medial calf Type of Debridement: Excisional debridement Anesthesia Used: 5% Lidocaine Gel Depth: Down to and including healthy tissue, in the subcutaneous layer Percentage of wound debrided: 100 Instrument Used: 3mm curette Severity: Fat Layer Exposed Amount of bleeding with debridement: Mild Bleeding Controlled with: Compression and gauze Patient tolerated procedure well Assessment/Plan Active Problems Chronic venous insufficiency (Chronic) Post-phlebitic syndrome (Chronic) Venous ulcer of left leg (Chronic) History of DVT of lower extremity (Chronic) Leg pain, left (Chronic) Left leg swelling (Chronic) Tobacco abuse (Chronic) Tobacco abuse counseling (Chronic) Hyperpigmentation (Chronic) Assessment: This is an obese 57-year-old female with a history of left lower extremity deep vein thrombosis on 2 occasions in the past. She appears to suffer from postphlebitic syndrome in the left lower extremity, with chronic swelling, edema, and pain in the left lower extremity. For several months she has had an ulceration on the left medial calf, which has developed into a cellulitis recently, treated by 2 courses of oral antibiotics as prescribed by her primary care physician. She presents at this time for the purpose of definitive management. Patient has other pre-existing medical problems, which include, but are not limited to, hypertension, obesity, diabetes mellitus, chronic obstructive pulmonary disease, hyperlipidemia, etc. recent vascular studies have been completed, with results reviewed. Her noninvasive lower extremity arterial study reveals a normal result. Triphasic waveforms are noted at ankle level bilaterally. Resting ankle?brachial indices are bilaterally normal. Thus, there is no evidence of significant arterial occlusive disease in either lower extremity. The patient's venous duplex examination reveals valvular incompetence involving the left great saphenous vein and the left small saphenous vein. Plan: Conservative treatment measures are to be continued. A lengthy discussion has been undertaken as to the appropriate measures to be employed. The patient is to elevate her lower extremities as much as possible. She currently sleeps on a flat mattress at night. Leg elevation, even during daytime hours, has been encouraged. Her legs are to be elevated level with her heart, or higher. Prolonged idle sitting has been discouraged. Activity has been encouraged. Weight loss has also been recommended. Compression is now to be implemented by means of a 3M 2 layer compression wrap to the left lower extremity, which will be changed twice weekly. We are to use Danitza topically to the ulcerations. Laboratory results have been reviewed, with results as follows: Glucose 105, BUN 10, creatinine 0.52, total protein 7.0, albumin 3.5, calcium 9.0, AST 13, alkaline phosphatase 98, ALT 23, bilirubin 0.70, sodium 143, potassium 3.6, chloride 102, serum prealbumin 18.2. White blood count 7.3, hemoglobin 14.7, hematocrit 44.8, platelets 311,000. Ultimately, given the patient's history, clinical manifestations, and results of her venous duplex examination, patient may be a candidate for endovenous ablation of the incompetent superficial veins in the left lower extremity. Patient is to return in 1 week for reassessment. Influenza vaccine was not administered today. Patient is a smoker. She has been advised to cease smoking, and of the adverse consequences of the smoking habit. She is to collaborate with her primary care physician in this regard. Patient stands 5 feet 5 inches tall. She weighs 268 pounds. Her BMI is 44.7, which places her in an obese class III category. Weight loss has been recommended, and collaboration with the patient's primary care physician has been advised.
[2018-04-24 13:25] VITALS: BP 147/83; PULSE 75; RESP 18; TEMP 37
--- NOTE | 2018-04-27 21:24 | LEAS ---
Arterial Study - Arterial Study Arterial Study: This is a 57-year-old female with a history of hypertension, chronic obstructive pulmonary disease, and tobacco abuse. She presents with a chronic nonhealing wound to the left lower extremity. Suspecting the presence of atherosclerotic peripheral arterial occlusive disease, the patient was brought to the noninvasive vascular laboratory at this time for the purpose of bilateral noninvasive lower extremity arterial assessment. Doppler signal assessment was used to evaluate the pulses at ankle level bilaterally. The posterior tibial and dorsalis pedis pulses were triphasic bilaterally. Segmental limb pressures were obtained bilaterally at ankle level. The right ankle pressure, as determined by posterior tibial pulse, was measured at 147 mmHg. The right ankle pressure, as determined by dorsalis pedis pulse, was measured at 130 mmHg. The left ankle pressure, as determined by posterior tibial pulse, was measured at 132 mmHg. The left ankle pressure, as determined by dorsalis pedis pulse, was measured at 126 mmHg. Pulse?volume recordings were obtained bilaterally and segmentally. Waveform amplitudes appeared to be satisfactory at all levels bilaterally, including low thigh, calf, ankle, and digital levels. Resting ankle?brachial indices were calculated bilaterally. The resting right ankle?brachial index was calculated to be 1.16. The resting left ankle?brachial index was calculated to be 1.04. Impression: Based upon the findings of this resting noninvasive lower extremity arterial study, there is no evidence of significant atherosclerotic peripheral arterial occlusive disease in the lower extremities bilaterally. Triphasic waveforms are noted at ankle level bilaterally. Resting ankle?brachial indices are bilaterally normal. In summary, this represents a normal resting noninvasive lower extremity arterial study bilaterally.
[2018-04-28 15:42] VITALS: RESP 18; TEMP 36.9
--- NOTE | 2018-04-28 16:51 | PCM.WC.HP ---
(1) Chronic venous insufficiency Status: Chronic Current Visit: Yes Code(s): I87.2 - Venous insufficiency (chronic) (peripheral) (2) Post-phlebitic syndrome Status: Chronic Current Visit: Yes Code(s): I87.009 - Postthrombotic syndrome without complications of unspecified extremity (3) Venous ulcer of left leg Status: Chronic Current Visit: Yes Code(s): I83.029 - Varicose veins of left lower extremity with ulcer of unspecified site; L97.929 - Non-pressure chronic ulcer of unspecified part of left lower leg with unspecified severity (4) Diabetes mellitus Status: Chronic Current Visit: No Qualifiers: Diabetes mellitus type: type 2 Code(s): E11.9 - Type 2 diabetes mellitus without complications (5) History of DVT of lower extremity Status: Chronic Current Visit: Yes Code(s): Z86.718 - Personal history of other venous thrombosis and embolism (6) Leg pain, left Status: Chronic Current Visit: Yes Code(s): M79.605 - Pain in left leg (7) Left leg swelling Status: Chronic Current Visit: Yes Code(s): M79.89 - Other specified soft tissue disorders (8) Hypertension Status: Chronic Current Visit: No Code(s): I10 - Essential (primary) hypertension (9) COPD (chronic obstructive pulmonary disease) Status: Chronic Current Visit: No Code(s): J44.9 - Chronic obstructive pulmonary disease, unspecified (10) Hyperlipidemia Status: Chronic Current Visit: No Code(s): E78.5 - Hyperlipidemia, unspecified (11) Morbid obesity with BMI of 40.0-44.9, adult Status: Chronic Current Visit: No Code(s): E66.01 - Morbid (severe) obesity due to excess calories; Z68.41 - Body mass index (BMI) 40.0-44.9, adult (12) Tobacco abuse Status: Chronic Current Visit: Yes Code(s): Z72.0 - Tobacco use (13) Tobacco abuse counseling Status: Chronic Current Visit: Yes Code(s): Z71.6 - Tobacco abuse counseling (14) Hyperpigmentation Status: Chronic Current Visit: Yes Code(s): L81.9 - Disorder of pigmentation, unspecified History of Present Illness Chief Complaint: Chronic venous insufficiency, postphlebitic syndrome with inflammation, venous ulceration of the left lower extremity, left lower extremity swelling, left lower extremity pain History of Wound: This is a 57-year-old female who presented with an ulceration on the medial aspect of her left calf. The ulceration had been present for several months. Patient had recently developed erythema and redness about the ulceration, thought to be a cellulitis. She was treated by her primary care physician with 2 courses of oral antibiotics, including doxycycline and Cipro. She presented here for definitive management. She suffers from multiple medical problems, including diabetes mellitus, morbid obesity, and has a history of left lower extremity deep vein thrombosis on 2 occasions in the remote past. She intermittently wears compression stockings, which are obtained [id number], and likely of insufficient compression. 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 Her 2 prior episodes of deep vein thrombosis in the past occurred after childbirth in 1978, and after an appendectomy in 1999. Past Medical History Past Medical History: Chronic Problems Chronic venous insufficiency (Chronic) Post-phlebitic syndrome (Chronic) Venous ulcer of left leg (Chronic) Diabetes mellitus (Chronic) History of DVT of lower extremity (Chronic) Leg pain, left (Chronic) Left leg swelling (Chronic) Hypertension (Chronic) COPD (chronic obstructive pulmonary disease) (Chronic) Hyperlipidemia (Chronic) Morbid obesity with BMI of 40.0-44.9, adult (Chronic) Tobacco abuse (Chronic) Tobacco abuse counseling (Chronic) Hyperpigmentation (Chronic) Surgical History: - - Patient has undergone hysterectomy and appendectomy in the past. Home Medications: Ambulatory Orders Medication Instructions Recorded Hydrochlorothiazide [Hctz] 25 mg PO DAILY 04/07/18 Losartan Potassium 50 mg PO 04/07/18 - Family History Paternal - - Patient's father is 81 years of age, with a history of coronary artery disease, hypertension, and prostate cancer. Patient's mother is 76 years of age and healthy. Smoking Status: Current every day smoker Tobacco Use: Cigarettes Review of Systems Constitutional: Denies: Chills, Fever, Weight Change Eyes: Denies: Pain, Vision Change HEENT: Denies: Difficulty Hearing, Difficulty Swallowing, Sinus Congestion Cardiovascular: Denies: Chest Pain, Palpitations Respiratory: Denies: Cough, Shortness of Breath Gastrointestinal: Denies: Diarrhea, Nausea, Vomiting Genitourinary: Denies: Dysuria, Hematuria Endocrine: Denies: Heat/ Cold Intolerance, Polydipsia, Polyuria Hematologic/ Lymphatic: Denies: Easy Bruising, Easy Bleeding - Physical Exam Vital Signs Temp Pulse Resp BP 98.4 F 75 18 147/83 H 04/28/18 15:42 04/24/18 13:25 04/28/18 15:42 04/24/18 13:25 General: Alert, Oriented x3, Cooperative, No apparent distress, Well developed, Well nourished HEENT: Atraumatic, PERRLA, EOMI, Normocephalic Oral: Moist Mucosa Neck: No JVD Lungs: Normal air movement Abdomen: Non-Distended Extremities: No clubbing, No cyanosis, No Calf Tenderness, - - Only slight swelling and edema persist in the lower extremities. The clustered ulcerations (2) in the left medial calf persists. There is a moderate amount of bioburden and some nonviable, fibrotic tissue. There is no evidence of infection or cellulitis. Ulcer dimensions are documented elsewhere. Limb circumferences are also documented elsewhere. Skin: No rashes Wound Measurements and Assessment WC - Nurse 1 - General Ulcer Measurement Start: 04/14/18 14:30 Freq: Status: Active Protocol: Activity Type Activity Date Activity User E-Sign Co-Sign Detail Recorded Client Recorded Date Recorded By Document 04/28/18 15:42 [facility] [id number] 04/28/18 15:54 [facility] 04/28/18 15:42 Wound Center Nurse 1 [Ulcer Assessment] #1 L Med Lower Leg -Combined with other wound No -Current Size (cm) - Length 2.1 -Current Size (cm) - Width 0.9 -Current Size (cm) - Depth 0.1 -Total Square Cm 1.89 -Photo Taken No -Epithelialization Small 1-33% -Tunneling No -Undermining/Tunneling No -Circular Undermining No -Exudate Amt Small (1-33%) -Exudate Type Serosanguineous -Wound Margin Distinct, Outline Attached -Granulation Amt Medium (34-66%) -Granulation Quality Red -Slough/Fibrin Yes -Necrosis Amt Medium (34-66%) -Necrotic Tissue Type Adherent Slough -Texture (Wendy-wound Skin Appearance) Scarring -Moisture (Wendy-wound Skin Appearance Dry/Scaly ) -Color (Wendy-wound Skin Appearance) Hemosiderin Staining -Temperature (Wendy-wound Skin No Abnormality Appearance) (Pt Warm) -Tenderness on Palpation (Wendy-wound Yes Skin Appearance) -Ulcer Cleansing Wound Cleanser -Foul Odor after Cleansing No -Anesthetic Used 4% Lidocaine Solution [Edema Assessment] -Lower Limb Edema Present Yes -Right Calf (cm) 41.6 -Right Ankle (cm) 24.7 -Left Calf (cm) 46 -Left Ankle (cm) 27.1 WC - Nurse 2 - General Ulcer CM Notes Start: 04/14/18 14:30 Freq: Status: Active Protocol: Activity Type Activity Date Activity User E-Sign Co-Sign Detail Recorded Client Recorded Date Recorded By Document 04/28/18 16:45 DV [id number] 04/28/18 16:48 DV 04/28/18 16:45 Wound Center Nurse 2 [Procedure/Treatment] #1 L Med Lower Leg -Time 16:47 -Correct Patient Yes -Correct Side, Site, Position Yes -Correct Procedure Yes -Procedure Performed Yes -Type of Procedure Debridement -Clinical Debridement Subcutaneous -Post Debridement Size (cm) - Length 2.5 -Post Debridement Size (cm) - Width 1.0 -Post Debridement Size (cm) - Depth 0.1 -Total Square Cm 2.50 -Wound/Ulcer Outcome Not Healed -Ulcer Cleansing Rinsed/ Irrigated with Saline -Foul Odor after Cleansing No -Bioengineered Tissue No -Bleeding Controlled with Pressure -Treatment Response Procedure Tolerated Well [See Physician Procedure note for Specifics] Pain Scale: 0-10 Numeric [Pain] -Is Patient Pain Free? Yes Musculoskeletal: No Muscle Wasting Neurological: Cranial nerves II-XII grossly intact, Neuro grossly intact Psych/Mental Status: Normal Affect, Appropriate, Alert and oriented to time, place, person, mood and affect Debridement Note Post-Debridement Measurements/Treatment WC - Nurse 2 - General Ulcer CM Notes Start: 04/14/18 14:30 Freq: Status: Active Protocol: Activity Type Activity Date Activity User E-Sign Co-Sign Detail Recorded Client Recorded Date Recorded By Document 04/14/18 15:15 JS [id number] 04/14/18 15:28 JS Document 04/21/18 15:11 DV [id number] 04/21/18 15:19 DV Document 04/28/18 16:45 DV [id number] 04/28/18 16:48 DV 04/14/18 04/21/18 04/28/18 15:15 15:11 16:45 Wound Center Nurse 2 #1 L Med Lower Leg -Time 15:15 15:14 16:47 -Correct Patient Yes Yes Yes -Correct Side, Site, Position Yes Yes Yes -Correct Procedure Yes Yes Yes -Procedure Performed Yes Yes Yes -Type of Procedure Debridement Debridement Debridement -Clinical Debridement Subcutaneous Subcutaneous Subcutaneous -Post Debridement Size (cm) - Length 2.0 2.0 2.5 -Post Debridement Size (cm) - Width 0.9 1.0 1.0 -Post Debridement Size (cm) - Depth 0.2 0.2 0.1 -Total Square Cm 1.80 2.00 2.50 -Wound/Ulcer Outcome Not Healed Not Healed Not Healed -Ulcer Cleansing Rinsed/ Rinsed/ Rinsed/ Irrigated with Irrigated with Irrigated with Saline Saline Saline -Foul Odor after Cleansing No No No -Bioengineered Tissue No No No -Topical Lidocaine (%) 4 -Lidocaine (ml) 10 -Bleeding Controlled with NA NA Pressure -Treatment Response Procedure Procedure Procedure Tolerated Well Tolerated Well Tolerated Well Pain Scale: 0-10 Numeric Is Patient Pain Free? Yes Yes Yes Laterality: Left - Medial calf Type of Debridement: Excisional debridement Anesthesia Used: 5% Lidocaine Gel Depth: Down to and including healthy tissue, in the subcutaneous layer Percentage of wound debrided: 100 Instrument Used: 7mm curette Severity: Fat Layer Exposed Amount of bleeding with debridement: Mild Bleeding Controlled with: Compression and gauze Patient tolerated procedure well Assessment/Plan Active Problems Chronic venous insufficiency (Chronic) Post-phlebitic syndrome (Chronic) Venous ulcer of left leg (Chronic) History of DVT of lower extremity (Chronic) Leg pain, left (Chronic) Left leg swelling (Chronic) Tobacco abuse (Chronic) Tobacco abuse counseling (Chronic) Hyperpigmentation (Chronic) Assessment: This is an obese 57-year-old female with a history of left lower extremity deep vein thrombosis on 2 occasions in the past. She appears to suffer from postphlebitic syndrome in the left lower extremity, with chronic swelling, edema, and pain in the left lower extremity. For several months she has had an ulceration on the left medial calf, which has developed into a cellulitis recently, treated by 2 courses of oral antibiotics as prescribed by her primary care physician. She presents at this time for the purpose of definitive management. Patient has other pre-existing medical problems, which include, but are not limited to, hypertension, obesity, diabetes mellitus, chronic obstructive pulmonary disease, hyperlipidemia, etc. recent vascular studies have been completed, with results reviewed. Her noninvasive lower extremity arterial study reveals a normal result. Triphasic waveforms are noted at ankle level bilaterally. Resting ankle?brachial indices are bilaterally normal. Thus, there is no evidence of significant arterial occlusive disease in either lower extremity. The patient's venous duplex examination reveals valvular incompetence involving the left great saphenous vein and the left small saphenous vein. Plan: Conservative treatment measures are to be continued. A lengthy discussion has been undertaken as to the appropriate measures to be employed. The patient is to elevate her lower extremities as much as possible. She currently sleeps on a flat mattress at night. Leg elevation, even during daytime hours, has been encouraged. Her legs are to be elevated level with her heart, or higher. Prolonged idle sitting has been discouraged. Activity has been encouraged. Weight loss has also been recommended. Compression is to be implemented by means of SurePress, which will be applied by the patient on a daily basis. The patient is to be instructed in the appropriate means of application. Additionally, we will now transition to the use of collagenase Santyl topically, to be applied once daily. Laboratory results have been reviewed, with results as follows: Glucose 105, BUN 10, creatinine 0.52, total protein 7.0, albumin 3.5, calcium 9.0, AST 13, alkaline phosphatase 98, ALT 23, bilirubin 0.70, sodium 143, potassium 3.6, chloride 102, serum prealbumin 18.2. White blood count 7.3, hemoglobin 14.7, hematocrit 44.8, platelets 311,000. Ultimately, given the patient's history, clinical manifestations, and results of her venous duplex examination, patient may be a candidate for endovenous ablation of the incompetent superficial veins in the left lower extremity. The patient has once again been counseled as to the benefits of smoking cessation. Patient is to return in 1 week for reassessment. Influenza vaccine was not administered today. Patient is a smoker. She has been advised to cease smoking, and of the adverse consequences of the smoking habit. She is to collaborate with her primary care physician in this regard. Patient stands 5 feet 5 inches tall. She weighs 268 pounds. Her BMI is 44.7, which places her in an obese class III category. Weight loss has been recommended, and collaboration with the patient's primary care physician has been advised.
[2018-05-05 14:56] VITALS: BP 152/82; PULSE 87; RESP 18; TEMP 36.5
--- NOTE | 2018-05-05 16:22 | PCM.WC.HP ---
(1) Chronic venous insufficiency Status: Chronic Current Visit: Yes Code(s): I87.2 - Venous insufficiency (chronic) (peripheral) (2) Post-phlebitic syndrome Status: Chronic Current Visit: Yes Code(s): I87.009 - Postthrombotic syndrome without complications of unspecified extremity (3) Venous ulcer of left leg Status: Chronic Current Visit: Yes Code(s): I83.029 - Varicose veins of left lower extremity with ulcer of unspecified site; L97.929 - Non-pressure chronic ulcer of unspecified part of left lower leg with unspecified severity (4) Diabetes mellitus Status: Chronic Current Visit: No Qualifiers: Diabetes mellitus type: type 2 Code(s): E11.9 - Type 2 diabetes mellitus without complications (5) History of DVT of lower extremity Status: Chronic Current Visit: Yes Code(s): Z86.718 - Personal history of other venous thrombosis and embolism (6) Leg pain, left Status: Chronic Current Visit: Yes Code(s): M79.605 - Pain in left leg (7) Left leg swelling Status: Chronic Current Visit: Yes Code(s): M79.89 - Other specified soft tissue disorders (8) Hypertension Status: Chronic Current Visit: No Code(s): I10 - Essential (primary) hypertension (9) COPD (chronic obstructive pulmonary disease) Status: Chronic Current Visit: No Code(s): J44.9 - Chronic obstructive pulmonary disease, unspecified (10) Hyperlipidemia Status: Chronic Current Visit: No Code(s): E78.5 - Hyperlipidemia, unspecified (11) Morbid obesity with BMI of 40.0-44.9, adult Status: Chronic Current Visit: No Code(s): E66.01 - Morbid (severe) obesity due to excess calories; Z68.41 - Body mass index (BMI) 40.0-44.9, adult (12) Tobacco abuse Status: Chronic Current Visit: Yes Code(s): Z72.0 - Tobacco use (13) Tobacco abuse counseling Status: Chronic Current Visit: Yes Code(s): Z71.6 - Tobacco abuse counseling (14) Hyperpigmentation Status: Chronic Current Visit: Yes Code(s): L81.9 - Disorder of pigmentation, unspecified History of Present Illness Chief Complaint: Chronic venous insufficiency, postphlebitic syndrome with inflammation, venous ulceration of the left lower extremity, left lower extremity swelling, left lower extremity pain History of Wound: This is a 57-year-old female who presented with an ulceration on the medial aspect of her left calf. The ulceration had been present for several months. Patient had recently developed erythema and redness about the ulceration, thought to be a cellulitis. She was treated by her primary care physician with 2 courses of oral antibiotics, including doxycycline and Cipro. She presented here for definitive management. She suffers from multiple medical problems, including diabetes mellitus, morbid obesity, and has a history of left lower extremity deep vein thrombosis on 2 occasions in the remote past. She intermittently wears compression stockings, which are obtained [id number], and likely of insufficient compression. 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 Her 2 prior episodes of deep vein thrombosis in the past occurred after childbirth in 1978, and after an appendectomy in 1999. Past Medical History Past Medical History: Chronic Problems Chronic venous insufficiency (Chronic) Post-phlebitic syndrome (Chronic) Venous ulcer of left leg (Chronic) Diabetes mellitus (Chronic) History of DVT of lower extremity (Chronic) Leg pain, left (Chronic) Left leg swelling (Chronic) Hypertension (Chronic) COPD (chronic obstructive pulmonary disease) (Chronic) Hyperlipidemia (Chronic) Morbid obesity with BMI of 40.0-44.9, adult (Chronic) Tobacco abuse (Chronic) Tobacco abuse counseling (Chronic) Hyperpigmentation (Chronic) Surgical History: - - Patient has undergone hysterectomy and appendectomy in the past. Home Medications: Ambulatory Orders Medication Instructions Recorded Hydrochlorothiazide [Hctz] 25 mg PO DAILY 04/07/18 Losartan Potassium 50 mg PO 04/07/18 - Family History Paternal - - Patient's father is 81 years of age, with a history of coronary artery disease, hypertension, and prostate cancer. Patient's mother is 76 years of age and healthy. Smoking Status: Current every day smoker Tobacco Use: Cigarettes Review of Systems Constitutional: Denies: Chills, Fever, Weight Change Eyes: Denies: Pain, Vision Change HEENT: Denies: Difficulty Hearing, Difficulty Swallowing, Sinus Congestion Cardiovascular: Denies: Chest Pain, Palpitations Respiratory: Denies: Cough, Shortness of Breath Gastrointestinal: Denies: Diarrhea, Nausea, Vomiting Genitourinary: Denies: Dysuria, Hematuria Endocrine: Denies: Heat/ Cold Intolerance, Polydipsia, Polyuria Hematologic/ Lymphatic: Denies: Easy Bruising, Easy Bleeding - Physical Exam Vital Signs Temp Pulse Resp BP 97.7 F L 87 18 152/82 H 05/05/18 14:56 05/05/18 14:56 05/05/18 14:56 05/05/18 14:56 General: Alert, Oriented x3, Cooperative, No apparent distress, Well developed, Well nourished HEENT: Atraumatic, PERRLA, EOMI, Normocephalic Oral: Moist Mucosa Neck: No JVD Lungs: Normal air movement Abdomen: Non-Distended Extremities: No clubbing, No cyanosis, No Calf Tenderness, - - Slight swelling and edema persist in the left lower extremity, though improving. The paired ulcerations on the left medial calf persist, little changed in size or appearance. There is a moderate amount of bioburden and some nonviable tissue present. Dimensions are documented elsewhere. There is no obvious sign of infection or cellulitis, but cultures have been obtained today, both aerobic and anaerobic by swab. Skin: No rashes Wound Measurements and Assessment WC - Nurse 1 - General Ulcer Measurement Start: 04/14/18 14:30 Freq: Status: Active Protocol: Activity Type Activity Date Activity User E-Sign Co-Sign Detail Recorded Client Recorded Date Recorded By Document 05/05/18 14:56 DL [id number] 05/05/18 15:02 DL 05/05/18 14:56 Wound Center Nurse 1 [Ulcer Assessment] #1 L Med Lower Leg -Current Size (cm) - Length 2 -Current Size (cm) - Width 0.6 -Current Size (cm) - Depth 0.1 -Total Square Cm 1.2 -Photo Taken No -Exudate Amt Small (1-33%) -Exudate Type Serosanguineous -Wound Margin Distinct, Outline Attached -Granulation Amt None Present (0 %) -Necrosis Amt Large (67-100%) -Necrotic Tissue Type Adherent Slough -Structure Exposed N/A -Texture (Wendy-wound Skin Appearance) Scarring -Moisture (Wendy-wound Skin Appearance No Abnormality ) -Color (Wendy-wound Skin Appearance) Hemosiderin Staining -Temperature (Wendy-wound Skin No Abnormality Appearance) (Pt Warm) -Ulcer Cleansing Rinsed/ Irrigated with Saline -Foul Odor after Cleansing No -Anesthetic Used 4% Lidocaine Solution [Edema Assessment] -Right Calf (cm) 41 -Right Ankle (cm) 24 -Left Calf (cm) 45 -Left Ankle (cm) 23.8 VERONIQUE - Nurse 2 - General Ulcer CM Notes Start: 04/14/18 14:30 Freq: Status: Active Protocol: Activity Type Activity Date Activity User E-Sign Co-Sign Detail Recorded Client Recorded Date Recorded By Document 05/05/18 16:17 DV [id number] 05/05/18 16:22 DV 05/05/18 16:17 Wound Center Nurse 2 [Procedure/Treatment] #1 L Med Lower Leg -Time 16:17 -Correct Patient Yes -Correct Side, Site, Position Yes -Correct Procedure Yes -Procedure Performed Yes -Type of Procedure Debridement -Clinical Debridement Subcutaneous -Post Debridement Size (cm) - Length 2.5 -Post Debridement Size (cm) - Width 1.0 -Post Debridement Size (cm) - Depth 0.2 -Total Square Cm 2.50 -Wound/Ulcer Outcome Not Healed -Ulcer Cleansing Rinsed/ Irrigated with Saline -Foul Odor after Cleansing No -Bioengineered Tissue No -Bleeding Controlled with Pressure -Treatment Response Procedure Tolerated Well [See Physician Procedure note for Specifics] Pain Scale: 0-10 Numeric [Pain] -Is Patient Pain Free? Yes Musculoskeletal: No Muscle Wasting Neurological: Cranial nerves II-XII grossly intact, Neuro grossly intact Psych/Mental Status: Normal Affect, Appropriate, Alert and oriented to time, place, person, mood and affect Debridement Note Post-Debridement Measurements/Treatment - Nurse 2 - General Ulcer CM Notes Start: 04/14/18 14:30 Freq: Status: Active Protocol: Activity Type Activity Date Activity User E-Sign Co-Sign Detail Recorded Client Recorded Date Recorded By Document 04/14/18 15:15 JS [id number] 04/14/18 15:28 JS Document 04/21/18 15:11 DV [id number] 04/21/18 15:19 DV Document 04/28/18 16:45 DV [id number] 04/28/18 16:48 DV Document 05/05/18 16:17 DV [id number] 05/05/18 16:22 DV 04/14/18 04/21/18 04/28/18 15:15 15:11 16:45 Wound Center Nurse 2 #1 L [facility] Lower Leg -Time 15:15 15:14 16:47 -Correct Patient Yes Yes Yes -Correct Side, Site, Position Yes Yes Yes -Correct Procedure Yes Yes Yes -Procedure Performed Yes Yes Yes -Type of Procedure Debridement Debridement Debridement -Clinical Debridement Subcutaneous Subcutaneous Subcutaneous -Post Debridement Size (cm) - Length 2.0 2.0 2.5 -Post Debridement Size (cm) - Width 0.9 1.0 1.0 -Post Debridement Size (cm) - Depth 0.2 0.2 0.1 -Total Square Cm 1.80 2.00 2.50 -Wound/Ulcer Outcome Not Healed Not Healed Not Healed -Ulcer Cleansing Rinsed/ Rinsed/ Rinsed/ Irrigated with Irrigated with Irrigated with Saline Saline Saline -Foul Odor after Cleansing No No No -Bioengineered Tissue No No No -Topical Lidocaine (%) 4 -Lidocaine (ml) 10 -Bleeding Controlled with NA NA Pressure -Treatment Response Procedure Procedure Procedure Tolerated Well Tolerated Well Tolerated Well Pain Scale: 0-10 Numeric Is Patient Pain Free? Yes Yes Yes 05/05/18 16:17 Wound Center Nurse 2 #1 L [facility] Lower Leg -Time 16:17 -Correct Patient Yes -Correct Side, Site, Position Yes -Correct Procedure Yes -Procedure Performed Yes -Type of Procedure Debridement -Clinical Debridement Subcutaneous -Post Debridement Size (cm) - Length 2.5 -Post Debridement Size (cm) - Width 1.0 -Post Debridement Size (cm) - Depth 0.2 -Total Square Cm 2.50 -Wound/Ulcer Outcome Not Healed -Ulcer Cleansing Rinsed/ Irrigated with Saline -Foul Odor after Cleansing No -Bioengineered Tissue No -Topical Lidocaine (%) -Lidocaine (ml) -Bleeding Controlled with Pressure -Treatment Response Procedure Tolerated Well Pain Scale: 0-10 Numeric Is Patient Pain Free? Yes Laterality: Left - Medial calf Type of Debridement: Excisional debridement Anesthesia Used: 5% Lidocaine Gel Depth: Down to and including healthy tissue, in the subcutaneous layer Percentage of wound debrided: 100 Instrument Used: 7mm curette Severity: Fat Layer Exposed Amount of bleeding with debridement: Mild Bleeding Controlled with: Compression and gauze Patient tolerated procedure well Because of a relative lack of progression in ulcer healing, swab cultures were obtained today for aerobic and anaerobic bacterial growth. Culture results will be awaited. Assessment/Plan Active Problems Chronic venous insufficiency (Chronic) Post-phlebitic syndrome (Chronic) Venous ulcer of left leg (Chronic) History of DVT of lower extremity (Chronic) Leg pain, left (Chronic) Left leg swelling (Chronic) Tobacco abuse (Chronic) Tobacco abuse counseling (Chronic) Hyperpigmentation (Chronic) Assessment: This is an obese 57-year-old female with a history of left lower extremity deep vein thrombosis on 2 occasions in the past. She appears to suffer from postphlebitic syndrome in the left lower extremity, with chronic swelling, edema, and pain in the left lower extremity. For several months she has had an ulceration on the left medial calf, which has developed into a cellulitis recently, treated by 2 courses of oral antibiotics as prescribed by her primary care physician. She presents at this time for the purpose of definitive management. Patient has other pre-existing medical problems, which include, but are not limited to, hypertension, obesity, diabetes mellitus, chronic obstructive pulmonary disease, hyperlipidemia, etc. recent vascular studies have been completed, with results reviewed. Her noninvasive lower extremity arterial study reveals a normal result. Triphasic waveforms are noted at ankle level bilaterally. Resting ankle?brachial indices are bilaterally normal. Thus, there is no evidence of significant arterial occlusive disease in either lower extremity. The patient's venous duplex examination reveals valvular incompetence involving the left great saphenous vein and the left small saphenous vein. Plan: Conservative treatment measures are to be continued. A lengthy discussion has been undertaken as to the appropriate measures to be employed. The patient is to elevate her lower extremities as much as possible. She currently sleeps on a flat mattress at night. Leg elevation, even during daytime hours, has been encouraged. Her legs are to be elevated level with her heart, or higher. Prolonged idle sitting has been discouraged. Activity has been encouraged. Weight loss has also been recommended. Compression is to be implemented by means of SurePress, which will be applied by the patient on a daily basis. The patient is to be instructed in the appropriate means of application. Additionally, we will now transition to the use of collagenase Santyl topically, to be applied once daily. Laboratory results have been reviewed, with results as follows: Glucose 105, BUN 10, creatinine 0.52, total protein 7.0, albumin 3.5, calcium 9.0, AST 13, alkaline phosphatase 98, ALT 23, bilirubin 0.70, sodium 143, potassium 3.6, chloride 102, serum prealbumin 18.2. White blood count 7.3, hemoglobin 14.7, hematocrit 44.8, platelets 311,000. Ultimately, given the patient's history, clinical manifestations, and results of her venous duplex examination, patient may be a candidate for endovenous ablation of the incompetent superficial veins in the left lower extremity. The patient has once again been counseled as to the benefits of smoking cessation. Patient is to return in 1 week for reassessment. We are to await the results of swab cultures. Influenza vaccine was not administered today. Patient is a smoker. She has been advised to cease smoking, and of the adverse consequences of the smoking habit. She is to collaborate with her primary care physician in this regard. Patient stands 5 feet 5 inches tall. She weighs 268 pounds. Her BMI is 44.7, which places her in an obese class III category. Weight loss has been recommended, and collaboration with the patient's primary care physician has been advised.
--- NOTE | 2018-05-05 16:26 | HP.PCM_ITS ---
(1) Chronic venous insufficiency Status: Chronic Current Visit: Yes Code(s): I87.2 - Venous insufficiency (chronic) (peripheral) (2) Post-phlebitic syndrome Status: Chronic Current Visit: Yes Code(s): I87.009 - Postthrombotic syndrome without complications of unspecified extremity (3) Venous ulcer of left leg Status: Chronic Current Visit: Yes Code(s): I83.029 - Varicose veins of left lower extremity with ulcer of unspecified site; L97.929 - Non-pressure chronic ulcer of unspecified part of left lower leg with unspecified severity (4) Diabetes mellitus Status: Chronic Current Visit: No Qualifiers: Diabetes mellitus type: type 2 Code(s): E11.9 - Type 2 diabetes mellitus without complications (5) History of DVT of lower extremity Status: Chronic Current Visit: Yes Code(s): Z86.718 - Personal history of other venous thrombosis and embolism (6) Leg pain, left Status: Chronic Current Visit: Yes Code(s): M79.605 - Pain in left leg (7) Left leg swelling Status: Chronic Current Visit: Yes Code(s): M79.89 - Other specified soft tissue disorders (8) Hypertension Status: Chronic Current Visit: No Code(s): I10 - Essential (primary) hypertension (9) COPD (chronic obstructive pulmonary disease) Status: Chronic Current Visit: No Code(s): J44.9 - Chronic obstructive pulmonary disease, unspecified (10) Hyperlipidemia Status: Chronic Current Visit: No Code(s): E78.5 - Hyperlipidemia, unspecified (11) Morbid obesity with BMI of 40.0-44.9, adult Status: Chronic Current Visit: No Code(s): E66.01 - Morbid (severe) obesity due to excess calories; Z68.41 - Body mass index (BMI) 40.0-44.9, adult (12) Tobacco abuse Status: Chronic Current Visit: Yes Code(s): Z72.0 - Tobacco use (13) Tobacco abuse counseling Status: Chronic Current Visit: Yes Code(s): Z71.6 - Tobacco abuse counseling (14) Hyperpigmentation Status: Chronic Current Visit: Yes Code(s): L81.9 - Disorder of pigmentation, unspecified History of Present Illness Chief Complaint: Chronic venous insufficiency, postphlebitic syndrome with inflammation, venous ulceration of the left lower extremity, left lower extremity swelling, left lower extremity pain History of Wound: This is a 57-year-old female who presented with an ulceration on the medial aspect of her left calf. The ulceration had been present for several months. Patient had recently developed erythema and redness about the ulceration, thought to be a cellulitis. She was treated by her primary care physician with 2 courses of oral antibiotics, including doxycycline and Cipro. She presented here for definitive management. She suffers from multiple medical problems, including diabetes mellitus, morbid obesity, and has a history of left lower extremity deep vein thrombosis on 2 occasions in the remote past. She intermittently wears compression stockings, which are obtained [id number], and likely of insufficient compression. 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 Her 2 prior episodes of deep vein thrombosis in the past occurred after childbirth in 1978, and after an appendectomy in 1999. Past Medical History Past Medical History: Chronic Problems Chronic venous insufficiency (Chronic) Post-phlebitic syndrome (Chronic) Venous ulcer of left leg (Chronic) Diabetes mellitus (Chronic) History of DVT of lower extremity (Chronic) Leg pain, left (Chronic) Left leg swelling (Chronic) Hypertension (Chronic) COPD (chronic obstructive pulmonary disease) (Chronic) Hyperlipidemia (Chronic) Morbid obesity with BMI of 40.0-44.9, adult (Chronic) Tobacco abuse (Chronic) Tobacco abuse counseling (Chronic) Hyperpigmentation (Chronic) Surgical History: - - Patient has undergone hysterectomy and appendectomy in the past. Home Medications: Ambulatory Orders Medication Instructions Recorded Hydrochlorothiazide [Hctz] 25 mg PO DAILY 04/07/18 Losartan Potassium 50 mg PO 04/07/18 - Family History Paternal - - Patient's father is 81 years of age, with a history of coronary artery disease, hypertension, and prostate cancer. Patient's mother is 76 years of age and healthy. Smoking Status: Current every day smoker Tobacco Use: Cigarettes Review of Systems Constitutional: Denies: Chills, Fever, Weight Change Eyes: Denies: Pain, Vision Change HEENT: Denies: Difficulty Hearing, Difficulty Swallowing, Sinus Congestion Cardiovascular: Denies: Chest Pain, Palpitations Respiratory: Denies: Cough, Shortness of Breath Gastrointestinal: Denies: Diarrhea, Nausea, Vomiting Genitourinary: Denies: Dysuria, Hematuria Endocrine: Denies: Heat/ Cold Intolerance, Polydipsia, Polyuria Hematologic/ Lymphatic: Denies: Easy Bruising, Easy Bleeding - Physical Exam Vital Signs Temp Pulse Resp BP 97.7 F L 87 18 152/82 H 05/05/18 14:56 05/05/18 14:56 05/05/18 14:56 05/05/18 14:56 General: Alert, Oriented x3, Cooperative, No apparent distress, Well developed, Well nourished HEENT: Atraumatic, PERRLA, EOMI, Normocephalic Oral: Moist Mucosa Neck: No JVD Lungs: Normal air movement Abdomen: Non-Distended Extremities: No clubbing, No cyanosis, No Calf Tenderness, - - Slight swelling and edema persist in the left lower extremity, though improving. The paired ulcerations on the left medial calf persist, little changed in size or appearance. There is a moderate amount of bioburden and some nonviable tissue present. Dimensions are documented elsewhere. There is no obvious sign of infection or cellulitis, but cultures have been obtained today, both aerobic and anaerobic by swab. Skin: No rashes Wound Measurements and Assessment WC - Nurse 1 - General Ulcer Measurement Start: 04/14/18 14:30 Freq: Status: Active Protocol: Activity Type Activity Date Activity User E-Sign Co-Sign Detail Recorded Client Recorded Date Recorded By Document 05/05/18 14:56 DL [id number] 05/05/18 15:02 DL 05/05/18 14:56 Wound Center Nurse 1 [Ulcer Assessment] #1 L Med Lower Leg -Current Size (cm) - Length 2 -Current Size (cm) - Width 0.6 -Current Size (cm) - Depth 0.1 -Total Square Cm 1.2 -Photo Taken No -Exudate Amt Small (1-33%) -Exudate Type Serosanguineous -Wound Margin Distinct, Outline Attached -Granulation Amt None Present (0 %) -Necrosis Amt Large (67-100%) -Necrotic Tissue Type Adherent Slough -Structure Exposed N/A -Texture (Wendy-wound Skin Appearance) Scarring -Moisture (Wendy-wound Skin Appearance No Abnormality ) -Color (Wendy-wound Skin Appearance) Hemosiderin Staining -Temperature (Wendy-wound Skin No Abnormality Appearance) (Pt Warm) -Ulcer Cleansing Rinsed/ Irrigated with Saline -Foul Odor after Cleansing No -Anesthetic Used 4% Lidocaine Solution [Edema Assessment] -Right Calf (cm) 41 -Right Ankle (cm) 24 -Left Calf (cm) 45 -Left Ankle (cm) 23.8 VERONIQUE - Nurse 2 - General Ulcer CM Notes Start: 04/14/18 14:30 Freq: Status: Active Protocol: Activity Type Activity Date Activity User E-Sign Co-Sign Detail Recorded Client Recorded Date Recorded By Document 05/05/18 16:17 DV [id number] 05/05/18 16:22 DV 05/05/18 16:17 Wound Center Nurse 2 [Procedure/Treatment] #1 L Med Lower Leg -Time 16:17 -Correct Patient Yes -Correct Side, Site, Position Yes -Correct Procedure Yes -Procedure Performed Yes -Type of Procedure Debridement -Clinical Debridement Subcutaneous -Post Debridement Size (cm) - Length 2.5 -Post Debridement Size (cm) - Width 1.0 -Post Debridement Size (cm) - Depth 0.2 -Total Square Cm 2.50 -Wound/Ulcer Outcome Not Healed -Ulcer Cleansing Rinsed/ Irrigated with Saline -Foul Odor after Cleansing No -Bioengineered Tissue No -Bleeding Controlled with Pressure -Treatment Response Procedure Tolerated Well [See Physician Procedure note for Specifics] Pain Scale: 0-10 Numeric [Pain] -Is Patient Pain Free? Yes Musculoskeletal: No Muscle Wasting Neurological: Cranial nerves II-XII grossly intact, Neuro grossly intact Psych/Mental Status: Normal Affect, Appropriate, Alert and oriented to time, place, person, mood and affect Debridement Note Post-Debridement Measurements/Treatment - Nurse 2 - General Ulcer CM Notes Start: 04/14/18 14:30 Freq: Status: Active Protocol: Activity Type Activity Date Activity User E-Sign Co-Sign Detail Recorded Client Recorded Date Recorded By Document 04/14/18 15:15 JS [id number] 04/14/18 15:28 JS Document 04/21/18 15:11 DV [id number] 04/21/18 15:19 DV Document 04/28/18 16:45 DV [id number] 04/28/18 16:48 DV Document 05/05/18 16:17 DV [id number] 05/05/18 16:22 DV 04/14/18 04/21/18 04/28/18 15:15 15:11 16:45 Wound Center Nurse 2 #1 L [facility] Lower Leg -Time 15:15 15:14 16:47 -Correct Patient Yes Yes Yes -Correct Side, Site, Position Yes Yes Yes -Correct Procedure Yes Yes Yes -Procedure Performed Yes Yes Yes -Type of Procedure Debridement Debridement Debridement -Clinical Debridement Subcutaneous Subcutaneous Subcutaneous -Post Debridement Size (cm) - Length 2.0 2.0 2.5 -Post Debridement Size (cm) - Width 0.9 1.0 1.0 -Post Debridement Size (cm) - Depth 0.2 0.2 0.1 -Total Square Cm 1.80 2.00 2.50 -Wound/Ulcer Outcome Not Healed Not Healed Not Healed -Ulcer Cleansing Rinsed/ Rinsed/ Rinsed/ Irrigated with Irrigated with Irrigated with Saline Saline Saline -Foul Odor after Cleansing No No No -Bioengineered Tissue No No No -Topical Lidocaine (%) 4 -Lidocaine (ml) 10 -Bleeding Controlled with NA NA Pressure -Treatment Response Procedure Procedure Procedure Tolerated Well Tolerated Well Tolerated Well Pain Scale: 0-10 Numeric Is Patient Pain Free? Yes Yes Yes 05/05/18 16:17 Wound Center Nurse 2 #1 L [facility] Lower Leg -Time 16:17 -Correct Patient Yes -Correct Side, Site, Position Yes -Correct Procedure Yes -Procedure Performed Yes -Type of Procedure Debridement -Clinical Debridement Subcutaneous -Post Debridement Size (cm) - Length 2.5 -Post Debridement Size (cm) - Width 1.0 -Post Debridement Size (cm) - Depth 0.2 -Total Square Cm 2.50 -Wound/Ulcer Outcome Not Healed -Ulcer Cleansing Rinsed/ Irrigated with Saline -Foul Odor after Cleansing No -Bioengineered Tissue No -Topical Lidocaine (%) -Lidocaine (ml) -Bleeding Controlled with Pressure -Treatment Response Procedure Tolerated Well Pain Scale: 0-10 Numeric Is Patient Pain Free? Yes Laterality: Left - Medial calf Type of Debridement: Excisional debridement Anesthesia Used: 5% Lidocaine Gel Depth: Down to and including healthy tissue, in the subcutaneous layer Percentage of wound debrided: 100 Instrument Used: 7mm curette Severity: Fat Layer Exposed Amount of bleeding with debridement: Mild Bleeding Controlled with: Compression and gauze Patient tolerated procedure well Because of a relative lack of progression in ulcer healing, swab cultures were obtained today for aerobic and anaerobic bacterial growth. Culture results will be awaited. Assessment/Plan Active Problems Chronic venous insufficiency (Chronic) Post-phlebitic syndrome (Chronic) Venous ulcer of left leg (Chronic) History of DVT of lower extremity (Chronic) Leg pain, left (Chronic) Left leg swelling (Chronic) Tobacco abuse (Chronic) Tobacco abuse counseling (Chronic) Hyperpigmentation (Chronic) Assessment: This is an obese 57-year-old female with a history of left lower extremity deep vein thrombosis on 2 occasions in the past. She appears to suffer from postphlebitic syndrome in the left lower extremity, with chronic swelling, edema, and pain in the left lower extremity. For several months she has had an ulceration on the left medial calf, which has developed into a cellulitis recently, treated by 2 courses of oral antibiotics as prescribed by her primary care physician. She presents at this time for the purpose of definitive management. Patient has other pre-existing medical problems, which include, but are not limited to, hypertension, obesity, diabetes mellitus, chronic obstructive pulmonary disease, hyperlipidemia, etc. recent vascular studies have been completed, with results reviewed. Her noninvasive lower extremity arterial study reveals a normal result. Triphasic waveforms are noted at ankle level bilaterally. Resting ankle?brachial indices are bilaterally normal. Thus, there is no evidence of significant arterial occlusive disease in either lower extremity. The patient's venous duplex examination reveals valvular incompetence involving the left great saphenous vein and the left small saphenous vein. Plan: Conservative treatment measures are to be continued. A lengthy discussion has been undertaken as to the appropriate measures to be employed. The patient is to elevate her lower extremities as much as possible. She currently sleeps on a flat mattress at night. Leg elevation, even during daytime hours, has been encouraged. Her legs are to be elevated level with her heart, or higher. Prolonged idle sitting has been discouraged. Activity has been encouraged. Weight loss has also been recommended. Compression is to be implemented by means of SurePress, which will be applied by the patient on a daily basis. The patient is to be instructed in the appropriate means of application. Additionally, we will now transition to the use of collagenase Santyl topically, to be applied once daily. Laboratory results have been reviewed, with results as follows: Glucose 105, BUN 10, creatinine 0.52, total protein 7.0, albumin 3.5, calcium 9.0, AST 13, alkaline phosphatase 98, ALT 23, bilirubin 0.70, sodium 143, potassium 3.6, chloride 102, serum prealbumin 18.2. White blood count 7.3, hemoglobin 14.7, hematocrit 44.8, platelets 311,000. Jaylin ramirez, given the patient's history, clinical manifestations, and results of her venous duplex examination, patient may be a candidate for endovenous ablation of the incompetent superficial veins in the left lower extremity. The patient has once again been counseled as to the benefits of smoking cessation. Patient is to return in 1 week for reassessment. We are to await the results of swab cultures. Influenza vaccine was not administered today. Patient is a smoker. She has been advised to cease smoking, and of the adverse consequences of the smoking habit. She is to collaborate with her primary care physician in this regard. Patient stands 5 feet 5 inches tall. She weighs 268 pounds. Her BMI is 44.7, which places her in an obese class III category. Weight loss has been recommended, and collaboration with the patient's primary care physician has been advised.
[2018-05-06 17:07] LABS: M R Staph aureus DNA By PCR POSITIVE (Negative); Probe Check PASS; Staph aureus DNA By PCR POSITIVE (Negative)
--- NOTE | 2018-05-09 16:33 | WC ---
Mrs. Bailonter contacted regarding culture results and Rx faxed to her pharmacy ([facility]) Fax confirmation from pharmacy was received.
== END 2018-05-09 23:59 ==
LOC: WC 15:00
PROVIDERS: Referring Provider Surgery; Visit Provider Surgery
DX: E11.622 Type 2 diabetes mellitus with other skin ulcer (principal); I83.022 Varicose veins of left lower extremity with ulcer of calf; L97.222 Non-pressure chronic ulcer of left calf with fat layer exposed; J44.9 Chronic obstructive pulmonary disease, unspecified; M79.89 Other specified soft tissue disorders; I10 Essential (primary) hypertension; Z86.718 Personal history of other venous thrombosis and embolism; E78.5 Hyperlipidemia, unspecified; E66.01 Morbid (severe) obesity due to excess calories; Z68.41 Body mass index [BMI] 40.0-44.9, adult; Z71.3 Dietary counseling and surveillance; F17.210 Nicotine dependence, cigarettes, uncomplicated
CPT/HCPCS: 11042; 29581; 87070; 87075; 87077; 87186; 87205; 87640; 93923; 93970

== ENCOUNTER 2018-06-09 16:30 | Outpatient (RCR) | payer OTHER, SELFPAY ==
[2018-05-10 01:47] VITALS: BP 152/82; PULSE 87; RESP 18; TEMP 36.5
[2018-05-12 14:18] VITALS: BP 144/81; PULSE 93; RESP 18; TEMP 36.3; BMI 44.7
--- NOTE | 2018-05-12 15:33 | HP.PCM_ITS ---
(1) Chronic venous insufficiency Status: Chronic Current Visit: Yes Code(s): I87.2 - Venous insufficiency (chronic) (peripheral) (2) Post-phlebitic syndrome Status: Chronic Current Visit: Yes Code(s): I87.009 - Postthrombotic syndrome without complications of unspecified extremity (3) Venous ulcer of left leg Status: Chronic Current Visit: Yes Code(s): I83.029 - Varicose veins of left lower extremity with ulcer of unspecified site; L97.929 - Non-pressure chronic ulcer of unspecified part of left lower leg with unspecified severity (4) Diabetes mellitus Status: Chronic Current Visit: No Code(s): E11.9 - Type 2 diabetes mellitus without complications (5) History of DVT of lower extremity Status: Chronic Current Visit: No Code(s): Z86.718 - Personal history of other venous thrombosis and embolism (6) Leg pain, left Status: Chronic Current Visit: Yes Code(s): M79.605 - Pain in left leg (7) Left leg swelling Status: Chronic Current Visit: Yes Code(s): M79.89 - Other specified soft tissue disorders (8) Hypertension Status: Chronic Current Visit: No Code(s): I10 - Essential (primary) hypertension (9) COPD (chronic obstructive pulmonary disease) Status: Chronic Current Visit: No Code(s): J44.9 - Chronic obstructive pulmonary disease, unspecified (10) Hyperlipidemia Status: Chronic Current Visit: No Code(s): E78.5 - Hyperlipidemia, unspecified (11) Morbid obesity with BMI of 40.0-44.9, adult Status: Chronic Current Visit: No Code(s): E66.01 - Morbid (severe) obesity due to excess calories; Z68.41 - Body mass index (BMI) 40.0-44.9, adult (12) Tobacco abuse Status: Chronic Current Visit: Yes Code(s): Z72.0 - Tobacco use (13) Tobacco abuse counseling Status: Chronic Current Visit: Yes Code(s): Z71.6 - Tobacco abuse counseling (14) Hyperpigmentation Status: Chronic Current Visit: Yes Code(s): L81.9 - Disorder of pigmentation, unspecified History of Present Illness Chief Complaint: Chronic venous insufficiency, postphlebitic syndrome with inflammation, venous ulceration of the left lower extremity, left lower extremity swelling, left lower extremity pain History of Wound: This is a 57-year-old female who presented with an ulceration on the medial aspect of her left calf. The ulceration had been present for several months. Patient had recently developed erythema and redness about the ulceration, thought to be a cellulitis. She was treated by her primary care physician with 2 courses of oral antibiotics, including doxycycline and Cipro. She presented here for definitive management. She suffers from multiple medical problems, including diabetes mellitus, morbid obesity, and has a history of left lower extremity deep vein thrombosis on 2 occasions in the remote past. She intermittently wears compression stockings, which are obtained [id number], and likely of insufficient compression. 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 Her 2 prior episodes of deep vein thrombosis in the past occurred after childbirth in 1978, and after an appendectomy in 1999. Past Medical History Past Medical History: Chronic Problems Chronic venous insufficiency (Chronic) Post-phlebitic syndrome (Chronic) Venous ulcer of left leg (Chronic) Diabetes mellitus (Chronic) History of DVT of lower extremity (Chronic) Leg pain, left (Chronic) Left leg swelling (Chronic) Hypertension (Chronic) COPD (chronic obstructive pulmonary disease) (Chronic) Hyperlipidemia (Chronic) Morbid obesity with BMI of 40.0-44.9, adult (Chronic) Tobacco abuse (Chronic) Tobacco abuse counseling (Chronic) Hyperpigmentation (Chronic) Surgical History: - - Patient has undergone hysterectomy and appendectomy in the past. Home Medications: Ambulatory Orders Medication Instructions Recorded Hydrochlorothiazide [Hctz] 25 mg PO DAILY 04/07/18 Losartan Potassium 50 mg PO 04/07/18 - Family History Paternal - - Patient's father is 81 years of age, with a history of coronary artery disease, hypertension, and prostate cancer. Patient's mother is 76 years of age and healthy. Smoking Status: Current every day smoker Tobacco Use: Cigarettes Review of Systems Constitutional: Denies: Chills, Fever, Weight Change Eyes: Denies: Pain, Vision Change HEENT: Denies: Difficulty Hearing, Difficulty Swallowing, Sinus Congestion Cardiovascular: Denies: Chest Pain, Palpitations Respiratory: Denies: Cough, Shortness of Breath Gastrointestinal: Denies: Diarrhea, Nausea, Vomiting Genitourinary: Denies: Dysuria, Hematuria Endocrine: Denies: Heat/ Cold Intolerance, Polydipsia, Polyuria Hematologic/ Lymphatic: Denies: Easy Bruising, Easy Bleeding - Physical Exam Vital Signs Temp Pulse Resp BP 97.3 F L 93 18 144/81 H 05/12/18 14:18 05/12/18 14:18 05/12/18 14:18 05/12/18 14:18 General: Alert, Oriented x3, Cooperative, No apparent distress, Well developed, Well nourished HEENT: Atraumatic, PERRLA, EOMI, Normocephalic Oral: Moist Mucosa Neck: No JVD Lungs: Normal air movement Abdomen: Non-Distended Extremities: No clubbing, No cyanosis, No Calf Tenderness, Edema, - - Only mild swelling and edema is noted in the lower extremity. The paired ulcerations on the left medial calf persist, but are superficial and small in size. Dimensions are documented elsewhere. The ulcerations are surrounded by hyperpigmentation. Skin: No rashes Wound Measurements and Assessment WC - Nurse 1 - General Ulcer Measurement Start: 05/12/18 14:18 Freq: Status: Active Protocol: Activity Type Activity Date Activity User E-Sign Co-Sign Detail Recorded Client Recorded Date Recorded By Document 05/12/18 14:18 [id number] 05/12/18 14:20 TM 05/12/18 14:18 Wound Center Nurse 1 [Ulcer Assessment] #1 L Med Lower Leg -Combined with other wound No -Current Size (cm) - Length 2.1 -Current Size (cm) - Width 0.9 -Current Size (cm) - Depth 0.1 -Total Square Cm 1.89 -Photo Taken No -Epithelialization Small 1-33% -Tunneling No -Undermining/Tunneling No -Circular Undermining No -Classification - Thickness Full Thickness without Exposed Support Structure -Exudate Amt Small (1-33%) -Exudate Type Serosanguineous -Wound Margin Distinct, Outline Attached -Granulation Amt Large (67-100%) -Granulation Quality Herculaneum -Slough/Fibrin Yes -Necrosis Amt Small (1-33%) -Necrotic Tissue Type Adherent Slough -Structure Exposed Fascia Fat Layer Exposed -Texture (Wendy-wound Skin Appearance) Assessed Localized Edema Scarring -Moisture (Wendy-wound Skin Appearance No Abnormality ) Assessed -Color (Wendy-wound Skin Appearance) Assessed Hemosiderin Staining -Temperature (Wendy-wound Skin No Abnormality Appearance) (Pt Warm) -Tenderness on Palpation (Wendy-wound No Skin Appearance) -Ulcer Cleansing Rinsed/ Irrigated with Saline -Foul Odor after Cleansing No -Anesthetic Used 4% Lidocaine Solution [Edema Assessment] -Lower Limb Edema Present Yes -Left Calf (cm) 46.5 -Left Ankle (cm) 26.0 - Nurse 2 - General Ulcer CM Notes Start: 05/12/18 14:18 Freq: Status: Active Protocol: Activity Type Activity Date Activity User E-Sign Co-Sign Detail Recorded Client Recorded Date Recorded By Document 05/12/18 15:20 DV [id number] 05/12/18 15:25 DV 05/12/18 15:20 Wound Center Nurse 2 [Procedure/Treatment] #1 L Med Lower Leg -Time 15:22 -Correct Patient Yes -Correct Side, Site, Position Yes -Correct Procedure Yes -Procedure Performed Yes -Type of Procedure Debridement -Clinical Debridement Subcutaneous -Post Debridement Size (cm) - Length 2.0 -Post Debridement Size (cm) - Width 0.6 -Post Debridement Size (cm) - Depth 0.2 -Total Square Cm 1.20 -Wound/Ulcer Outcome Not Healed -Ulcer Cleansing Rinsed/ Irrigated with Saline -Foul Odor after Cleansing No -Bioengineered Tissue No -Bleeding Controlled with Pressure -Offloading No -Treatment Response Procedure Tolerated Well [See Physician Procedure note for Specifics] Pain Scale: 0-10 Numeric [Pain] -Is Patient Pain Free? Yes Neurological: Cranial nerves II-XII grossly intact, Neuro grossly intact Psych/Mental Status: Normal Affect, Appropriate, Alert and oriented to time, place, person, mood and affect Debridement Note Post-Debridement Measurements/Treatment - Nurse 2 - General Ulcer CM Notes Start: 05/12/18 14:18 Freq: Status: Active Protocol: Activity Type Activity Date Activity User E-Sign Co-Sign Detail Recorded Client Recorded Date Recorded By Document 05/12/18 15:20 DV [id number] 05/12/18 15:25 DV 05/12/18 15:20 Wound Center Nurse 2 #1 L Med Lower Leg -Time 15:22 -Correct Patient Yes -Correct Side, Site, Position Yes -Correct Procedure Yes -Procedure Performed Yes -Type of Procedure Debridement -Clinical Debridement Subcutaneous -Post Debridement Size (cm) - Length 2.0 -Post Debridement Size (cm) - Width 0.6 -Post Debridement Size (cm) - Depth 0.2 -Total Square Cm 1.20 -Wound/Ulcer Outcome Not Healed -Ulcer Cleansing Rinsed/ Irrigated with Saline -Foul Odor after Cleansing No -Bioengineered Tissue No -Bleeding Controlled with Pressure -Offloading No -Treatment Response Procedure Tolerated Well Pain Scale: 0-10 Numeric Is Patient Pain Free? Yes Laterality: Left - Medial calf Type of Debridement: Excisional debridement Anesthesia Used: 5% Lidocaine Gel Depth: Down to and including healthy tissue, in the subcutaneous layer Percentage of wound debrided: 100 Instrument Used: 3mm curette Severity: Fat Layer Exposed Amount of bleeding with debridement: Mild Bleeding Controlled with: Compression and gauze Patient tolerated procedure well Assessment/Plan Active Problems Chronic venous insufficiency (Chronic) Post-phlebitic syndrome (Chronic) Venous ulcer of left leg (Chronic) Leg pain, left (Chronic) Left leg swelling (Chronic) Tobacco abuse (Chronic) Tobacco abuse counseling (Chronic) Hyperpigmentation (Chronic) Assessment: This is an obese 57-year-old female with a history of left lower extremity deep vein thrombosis on 2 occasions in the past. She appears to suffer from postphlebitic syndrome in the left lower extremity, with chronic swe lling, edema, and pain in the left lower extremity. For several months she has had an ulceration on the left medial calf, which has developed into a cellulitis recently, treated by 2 courses of oral antibiotics as prescribed by her primary care physician. She presents at this time for the purpose of definitive management. Patient has other pre-existing medical problems, which include, but are not limited to, hypertension, obesity, diabetes mellitus, chronic obstructive pulmonary disease, hyperlipidemia, etc. recent vascular studies have been completed, with results reviewed. Her noninvasive lower extremity arterial study reveals a normal result. Triphasic waveforms are noted at ankle level bilaterally. Resting ankle?brachial indices are bilaterally normal. Thus, there is no evidence of significant arterial occlusive disease in either lower extremity. The patient's venous duplex examination reveals valvular incompetence involving the left great saphenous vein and the left small saphenous vein. The patient's recent cultures were positive for MRSA and Streptococcus agalactiae. In accordance with the patient's culture results, the patient has been placed on clindamycin 450 mg p.o. 3 times daily for 7 days. She is currently in the midst of this prescription. Plan: Conservative treatment measures are to be continued. A lengthy discussion has been undertaken as to the appropriate measures to be employed. The patient is to elevate her lower extremities as much as possible. She currently sleeps on a flat mattress at night. Leg elevation, even during daytime hours, has been encouraged. Her legs are to be elevated level with her heart, or higher. Prolonged idle sitting has been discouraged. Activity has been encouraged. Weight loss has also been recommended. Compression is to be implemented by means of SurePress, which will be applied by the patient on a daily basis. The patient is to be instructed in the appropriate means of application. Additionally, we will continue the use of collagenase Santyl topically, to be applied once daily. Laboratory results have been reviewed, with results as follows: Glucose 105, BUN 10, creatinine 0.52, total protein 7.0, albumin 3.5, calcium 9.0, AST 13, alkaline phosphatase 98, ALT 23, bilirubin 0.70, sodium 143, potassium 3.6, chloride 102, serum prealbumin 18.2. White blood count 7.3, hemoglobin 14.7, hematocrit 44.8, platelets 311,000. Ultimately, given the patient's history, clinical manifestations, and results of her venous duplex examination, patient may be a candidate for endovenous ablation of the incompetent superficial veins in the left lower extremity. The patient has once again been counseled as to the benefits of smoking cessation. Patient is to return in 1 week for reassessment. She may ultimately be a candidate for venous ablation of the incompetent superficial veins of the left lower extremity. Influenza vaccine was not administered today. Patient is a smoker. She has been advised to cease smoking, and of the adverse consequences of the smoking habit. She is to collaborate with her primary care physician in this regard. Patient stands 5 feet 5 inches tall. She weighs 268 pounds. Her BMI is 44.7, which places her in an obese class III category. Weight loss has been recommended, and collaboration with the patient's primary care physician has been advised.
[2018-05-19 13:54] VITALS: BP 158/79; PULSE 86; RESP 18; TEMP 36.2; BMI 44.7
[2018-05-19 14:05] VITALS: BP 158/79; PULSE 86; RESP 20; BMI 44.7
--- NOTE | 2018-05-19 14:18 | PCM.WC.HP ---
(1) Chronic venous insufficiency Status: Chronic Current Visit: Yes Code(s): I87.2 - Venous insufficiency (chronic) (peripheral) (2) Post-phlebitic syndrome Status: Chronic Current Visit: Yes Code(s): I87.009 - Postthrombotic syndrome without complications of unspecified extremity (3) Venous ulcer of left leg Status: Chronic Current Visit: Yes Code(s): I83.029 - Varicose veins of left lower extremity with ulcer of unspecified site; L97.929 - Non-pressure chronic ulcer of unspecified part of left lower leg with unspecified severity (4) Diabetes mellitus Status: Chronic Current Visit: No Qualifiers: Diabetes mellitus type: type 2 Code(s): E11.9 - Type 2 diabetes mellitus without complications (5) History of DVT of lower extremity Status: Chronic Current Visit: No Code(s): Z86.718 - Personal history of other venous thrombosis and embolism (6) Leg pain, left Status: Chronic Current Visit: Yes Code(s): M79.605 - Pain in left leg (7) Left leg swelling Status: Chronic Current Visit: Yes Code(s): M79.89 - Other specified soft tissue disorders (8) Hypertension Status: Chronic Current Visit: No Code(s): I10 - Essential (primary) hypertension (9) COPD (chronic obstructive pulmonary disease) Status: Chronic Current Visit: No Code(s): J44.9 - Chronic obstructive pulmonary disease, unspecified (10) Hyperlipidemia Status: Chronic Current Visit: No Code(s): E78.5 - Hyperlipidemia, unspecified (11) Morbid obesity with BMI of 40.0-44.9, adult Status: Chronic Current Visit: No Code(s): E66.01 - Morbid (severe) obesity due to excess calories; Z68.41 - Body mass index (BMI) 40.0-44.9, adult (12) Tobacco abuse Status: Chronic Current Visit: Yes Code(s): Z72.0 - Tobacco use (13) Tobacco abuse counseling Status: Chronic Current Visit: Yes Code(s): Z71.6 - Tobacco abuse counseling (14) Hyperpigmentation Status: Chronic Current Visit: Yes Code(s): L81.9 - Disorder of pigmentation, unspecified History of Present Illness Chief Complaint: Chronic venous insufficiency, postphlebitic syndrome with inflammation, venous ulceration of the left lower extremity, left lower extremity swelling, left lower extremity pain History of Wound: This is a 57-year-old female who presented with an ulceration on the medial aspect of her left calf. The ulceration had been present for several months. Patient had recently developed erythema and redness about the ulceration, thought to be a cellulitis. She was treated by her primary care physician with 2 courses of oral antibiotics, including doxycycline and Cipro. She presented here for definitive management. She suffers from multiple medical problems, including diabetes mellitus, morbid obesity, and has a history of left lower extremity deep vein thrombosis on 2 occasions in the remote past. She intermittently wears compression stockings, which are obtained [id number], and likely of insufficient compression. 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 Her 2 prior episodes of deep vein thrombosis in the past occurred after childbirth in 1978, and after an appendectomy in 1999. Past Medical History Past Medical History: Chronic Problems Chronic venous insufficiency (Chronic) Post-phlebitic syndrome (Chronic) Venous ulcer of left leg (Chronic) Diabetes mellitus (Chronic) History of DVT of lower extremity (Chronic) Leg pain, left (Chronic) Left leg swelling (Chronic) Hypertension (Chronic) COPD (chronic obstructive pulmonary disease) (Chronic) Hyperlipidemia (Chronic) Morbid obesity with BMI of 40.0-44.9, adult (Chronic) Tobacco abuse (Chronic) Tobacco abuse counseling (Chronic) Hyperpigmentation (Chronic) Surgical History: - - Patient has undergone hysterectomy and appendectomy in the past. Home Medications: Ambulatory Orders Medication Instructions Recorded Hydrochlorothiazide [Hctz] 25 mg PO DAILY 04/07/18 Losartan Potassium 50 mg PO 04/07/18 - Family History Paternal - - Patient's father is 81 years of age, with a history of coronary artery disease, hypertension, and prostate cancer. Patient's mother is 76 years of age and healthy. Smoking Status: Current every day smoker Tobacco Use: Cigarettes Review of Systems Constitutional: Denies: Chills, Fever, Weight Change Eyes: Denies: Pain, Vision Change HEENT: Denies: Difficulty Hearing, Difficulty Swallowing, Sinus Congestion Cardiovascular: Denies: Chest Pain, Palpitations Respiratory: Denies: Cough, Shortness of Breath Gastrointestinal: Denies: Diarrhea, Nausea, Vomiting Genitourinary: Denies: Dysuria, Hematuria Endocrine: Denies: Heat/ Cold Intolerance, Polydipsia, Polyuria Hematologic/ Lymphatic: Denies: Easy Bruising, Easy Bleeding - Physical Exam Vital Signs Temp Pulse Resp BP 97.1 F L 86 20 H 158/79 H 05/19/18 13:54 05/19/18 14:05 05/19/18 14:05 05/19/18 14:05 General: Alert, Oriented x3, Cooperative, No apparent distress, Well developed, Well nourished HEENT: Atraumatic, PERRLA, EOMI, Normocephalic Oral: Moist Mucosa Neck: No JVD Lungs: Normal air movement Abdomen: Non-Distended Extremities: No clubbing, No cyanosis, No Calf Tenderness, Edema, - - Mild swelling and edema are noted in the left lower extremity. Chronic hyperpigmentation is noted on the medial aspect of the left calf. The paired ulcerations on the left medial calf shows some improvement. The base of each ulceration is pink and healthy in appearance, with evidence of active granulation tissue. There is evidence of peripheral epithelialization. There is no sign of infection or cellulitis. Dimensions are documented elsewhere. Skin: No rashes Wound Measurements and Assessment WC - Nurse 1 - General Ulcer Measurement Start: 05/12/18 14:18 Freq: Status: Active Protocol: Activity Type Activity Date Activity User E-Sign Co-Sign Detail Recorded Client Recorded Date Recorded By Document 05/19/18 14:05 DL [id number] 05/19/18 14:08 DL 05/19/18 14:05 Wound Center Nurse 1 [Ulcer Assessment] #1 L Med Lower Leg -Current Size (cm) - Length 1.9 -Current Size (cm) - Width 0.5 -Current Size (cm) - Depth 0.1 -Total Square Cm 0.95 -Photo Taken No -Exudate Amt Small (1-33%) -Exudate Type Serosanguineous -Wound Margin Indistinct, Non -Visible -Granulation Amt Large (67-100%) -Granulation Quality Pale [place] -Necrosis Amt Small (1-33%) -Necrotic Tissue Type Adherent Slough -Structure Exposed N/A -Texture (Wendy-wound Skin Appearance) Scarring -Moisture (Wendy-wound Skin Appearance Maceration ) -Color (Wendy-wound Skin Appearance) Hemosiderin Staining -Temperature (Wendy-wound Skin No Abnormality Appearance) (Pt Warm) -Tenderness on Palpation (Wendy-wound No Skin Appearance) -Ulcer Cleansing Rinsed/ Irrigated with Saline -Foul Odor after Cleansing No -Anesthetic Used 4% Lidocaine Solution [Edema Assessment] -Right Calf (cm) 40 -Right Ankle (cm) 22.6 -Left Calf (cm) 44 -Left Ankle (cm) 24.4 WC - Nurse 2 - General Ulcer CM Notes Start: 05/12/18 14:18 Freq: Status: Active Protocol: Activity Type Activity Date Activity User E-Sign Co-Sign Detail Recorded Client Recorded Date Recorded By Document 05/19/18 13:54 JS [id number] 05/19/18 13:58 JS 05/19/18 13:54 Wound Center Nurse 2 [Procedure/Treatment] #1 L Med Lower Leg -Time 14:12 -Correct Patient Yes -Correct Side, Site, Position Yes -Correct Procedure Yes -Procedure Performed Yes -Type of Procedure Debridement -Clinical Debridement Subcutaneous -Post Debridement Size (cm) - Length 2.0 -Post Debridement Size (cm) - Width 0.8 -Post Debridement Size (cm) - Depth 0.1 -Total Square Cm 1.60 -Wound/Ulcer Outcome Not Healed -Ulcer Cleansing Rinsed/ Irrigated with Saline -Foul Odor after Cleansing No -Bioengineered Tissue No -Injectable Lidocaine (%) 4 -Bleeding Controlled with NA -Offloading No -Treatment Response Procedure Tolerated Well Musculoskeletal: No Muscle Wasting Neurological: Cranial nerves II-XII grossly intact, Neuro grossly intact Psych/Mental Status: Normal Affect, Appropriate, Alert and oriented to time, place, person, mood and affect Debridement Note Post-Debridement Measurements/Treatment - Nurse 2 - General Ulcer CM Notes Start: 05/12/18 14:18 Freq: Status: Active Protocol: Activity Type Activity Date Activity User E-Sign Co-Sign Detail Recorded Client Recorded Date Recorded By Document 05/12/18 15:20 DV [id number] 05/12/18 15:25 DV Document 05/19/18 13:54 JS [id number] 05/19/18 13:58 05/12/18 05/19/18 15:20 13:54 Wound Center Nurse 2 #1 L Med Lower Leg -Time 15:22 14:12 -Correct Patient Yes Yes -Correct Side, Site, Position Yes Yes -Correct Procedure Yes Yes -Procedure Performed Yes Yes -Type of Procedure Debridement Debridement -Clinical Debridement Subcutaneous Subcutaneous -Post Debridement Size (cm) - Length 2.0 2.0 -Post Debridement Size (cm) - Width 0.6 0.8 -Post Debridement Size (cm) - Depth 0.2 0.1 -Total Square Cm 1.20 1.60 -Wound/Ulcer Outcome Not Healed Not Healed -Ulcer Cleansing Rinsed/ Rinsed/ Irrigated with Irrigated with Saline Saline -Foul Odor after Cleansing No No -Bioengineered Tissue No No -Injectable Lidocaine (%) 4 -Bleeding Controlled with Pressure NA -Offloading No No -Treatment Response Procedure Procedure Tolerated Well Tolerated Well Pain Scale: 0-10 Numeric Is Patient Pain Free? Yes Laterality: Left - Medial calf Type of Debridement: Excisional debridement Anesthesia Used: 5% Lidocaine Gel Depth: Down to and including healthy tissue, in the subcutaneous layer Percentage of wound debrided: 100 Instrument Used: 3mm curette Severity: Fat Layer Exposed Amount of bleeding with debridement: Mild Bleeding Controlled with: Compression and gauze Patient tolerated procedure well Assessment/Plan Active Problems Chronic venous insufficiency (Chronic) Post-phlebitic syndrome (Chronic) Venous ulcer of left leg (Chronic) Leg pain, left (Chronic) Left leg swelling (Chronic) Tobacco abuse (Chronic) Tobacco abuse counseling (Chronic) Hyperpigmentation (Chronic) Assessment: This is an obese 57-year-old female with a history of left lower extremity deep vein thrombosis on 2 occasions in the past. She appears to suffer from postphlebitic syndrome in the left lower extremity, with chronic swelling, edema, and pain in the left lower extremity. For several months she has had an ulceration on the left medial calf, which has developed into a cellulitis recently, treated by 2 courses of oral antibiotics as prescribed by her primary care physician. She presented at this time for the purpose of definitive management. Patient has other pre-existing medical problems, which include, but are not limited to, hypertension, obesity, diabetes mellitus, chronic obstructive pulmonary disease, hyperlipidemia, etc. Recent vascular studies have been completed, with results reviewed. Her noninvasive lower extremity arterial study reveals a normal result. Triphasic waveforms are noted at ankle level bilaterally. Resting ankle?brachial indices are bilaterally normal. Thus, there is no evidence of significant arterial occlusive disease in either lower extremity. The patient's venous duplex examination reveals valvular incompetence involving the left great saphenous vein and the left small saphenous vein. The patient's recent cultures were positive for MRSA and Streptococcus agalactiae. In accordance with the patient's culture results, the patient was prescribed clindamycin 450 mg p.o. 3 times daily for 7 days, which has now been completed. Plan: Conservative treatment measures are to be continued. A lengthy discussion has been undertaken as to the appropriate measures to be employed. The patient is to elevate her lower extremities as much as possible. She currently sleeps on a flat mattress at night. Leg elevation, even during daytime hours, has been encouraged. Her legs are to be elevated level with her heart, or higher. Prolonged idle sitting has been discouraged. Activity has been encouraged. Weight loss has also been recommended. Compression is to becontinued by means of SurePress, which will be applied by the patient on a daily basis. The patient is to be instructed in the appropriate means of application. Additionally, we will addition to the use of Danitza topically, which will be changed every other day. Laboratory results have been reviewed, with results as follows: Glucose 105, BUN 10, creatinine 0.52, total protein 7.0, albumin 3.5, calcium 9.0, AST 13, alkaline phosphatase 98, ALT 23, bilirubin 0.70, sodium 143, potassium 3.6, chloride 102, serum prealbumin 18.2. White blood count 7.3, hemoglobin 14.7, hematocrit 44.8, platelets 311,000. Ultimately, given the patient's history, clinical manifestations, and results of her venous duplex examination, the patient may be a candidate for endovenous ablation of the incompetent superficial veins in the left lower extremity. The patient has once again been counseled as to the benefits of smoking cessation. Patient is to return in 1 week for reassessment. She may ultimately be a candidate for endovenous ablation of the incompetent superficial veins of the left lower extremity. Influenza vaccine was not administered today. Patient is a smoker. She has been advised to cease smoking, and of the adverse consequences of the smoking habit. She is to collaborate with her primary care physician in this regard. Patient stands 5 feet 5 inches tall. She weighs 268 pounds. Her BMI is 44.7, which places her in an obese class III category. Weight loss has been recommended, and collaboration with the patient's primary care physician has been advised.
[2018-05-27 11:32] VITALS: BP 145/73; PULSE 79; RESP 13; TEMP 36.6; BMI 44.7
--- NOTE | 2018-05-27 12:43 | HP.PCM_ITS ---
(1) Chronic venous insufficiency Status: Chronic Current Visit: Yes Code(s): I87.2 - Venous insufficiency (chronic) (peripheral) (2) Post-phlebitic syndrome Status: Chronic Current Visit: Yes Code(s): I87.009 - Postthrombotic syndrome without complications of unspecified extremity (3) Venous ulcer of left leg Status: Chronic Current Visit: Yes Code(s): I83.029 - Varicose veins of left lower extremity with ulcer of unspecified site; L97.929 - Non-pressure chronic ulcer of unspecified part of left lower leg with unspecified severity (4) Diabetes mellitus Status: Chronic Current Visit: No Qualifiers: Diabetes mellitus type: type 2 Code(s): E11.9 - Type 2 diabetes mellitus without complications (5) History of DVT of lower extremity Status: Chronic Current Visit: No Code(s): Z86.718 - Personal history of other venous thrombosis and embolism (6) Leg pain, left Status: Chronic Current Visit: Yes Code(s): M79.605 - Pain in left leg (7) Left leg swelling Status: Chronic Current Visit: Yes Code(s): M79.89 - Other specified soft tissue disorders (8) Hypertension Status: Chronic Current Visit: No Code(s): I10 - Essential (primary) hypertension (9) COPD (chronic obstructive pulmonary disease) Status: Chronic Current Visit: No Code(s): J44.9 - Chronic obstructive pulmonary disease, unspecified (10) Hyperlipidemia Status: Chronic Current Visit: No Code(s): E78.5 - Hyperlipidemia, unspecified (11) Morbid obesity with BMI of 40.0-44.9, adult Status: Chronic Current Visit: No Code(s): E66.01 - Morbid (severe) obesity due to excess calories; Z68.41 - Body mass index (BMI) 40.0-44.9, adult (12) Tobacco abuse Status: Chronic Current Visit: Yes Code(s): Z72.0 - Tobacco use (13) Tobacco abuse counseling Status: Chronic Current Visit: Yes Code(s): Z71.6 - Tobacco abuse counseling (14) Hyperpigmentation Status: Chronic Current Visit: Yes Code(s): L81.9 - Disorder of pigmentation, unspecified History of Present Illness Chief Complaint: Chronic venous insufficiency, postphlebitic syndrome with inflammation, venous ulceration of the left lower extremity, left lower extremity swelling, left lower extremity pain History of Wound: This is a 57-year-old female who presented with an ulceration on the medial aspect of her left calf. The ulceration had been present for several months. Patient had recently developed erythema and redness about the ulceration, thought to be a cellulitis. She was treated by her primary care physician with 2 courses of oral antibiotics, including doxycycline and Cipro. She presented here for definitive management. She suffers from multiple medical problems, including diabetes mellitus, morbid obesity, and has a history of left lower extremity deep vein thrombosis on 2 occasions in the remote past. She intermittently wears compression stockings, which are obtained [id number], and likely of insufficient compression. 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 Her 2 prior episodes of deep vein thrombosis in the past occurred after childbirth in 1978, and after an appendectomy in 1999. Past Medical History Past Medical History: Chronic Problems Chronic venous insufficiency (Chronic) Post-phlebitic syndrome (Chronic) Venous ulcer of left leg (Chronic) Diabetes mellitus (Chronic) History of DVT of lower extremity (Chronic) Leg pain, left (Chronic) Left leg swelling (Chronic) Hypertension (Chronic) COPD (chronic obstructive pulmonary disease) (Chronic) Hyperlipidemia (Chronic) Morbid obesity with BMI of 40.0-44.9, adult (Chronic) Tobacco abuse (Chronic) Tobacco abuse counseling (Chronic) Hyperpigmentation (Chronic) Surgical History: - - Patient has undergone hysterectomy and appendectomy in the past. Home Medications: Ambulatory Orders Medication Instructions Recorded Hydrochlorothiazide [Hctz] 25 mg PO DAILY 04/07/18 Losartan Potassium 50 mg PO 04/07/18 - Family History Paternal - - Patient's father is 81 years of age, with a history of coronary artery disease, hypertension, and prostate cancer. Patient's mother is 76 years of age and healthy. Smoking Status: Current every day smoker Tobacco Use: Cigarettes Review of Systems Constitutional: Denies: Chills, Fever, Weight Change Eyes: Denies: Pain, Vision Change HEENT: Denies: Difficulty Hearing, Difficulty Swallowing, Sinus Congestion Cardiovascular: Denies: Chest Pain, Palpitations Respiratory: Denies: Cough, Shortness of Breath Gastrointestinal: Denies: Diarrhea, Nausea, Vomiting Genitourinary: Denies: Dysuria, Hematuria Endocrine: Denies: Heat/ Cold Intolerance, Polydipsia, Polyuria Hematologic/ Lymphatic: Denies: Easy Bruising, Easy Bleeding - Physical Exam Vital Signs Temp Pulse Resp BP 97.8 F 79 13 145/73 H 05/27/18 11:32 05/27/18 11:32 05/27/18 11:32 05/27/18 11:32 General: Alert, Oriented x3, Cooperative, No apparent distress, Well developed, Well nourished HEENT: Atraumatic, PERRLA, EOMI, Normocephalic Oral: Moist Mucosa Neck: No JVD Lungs: Normal air movement Abdomen: Non-Distended Extremities: No clubbing, No cyanosis, No edema, No Calf Tenderness, - - There is no significant swelling or edema in the left lower extremity. Chronic hyperpigmentation persists on the left medial calf, in the gaiter area. The left medial calf ulceration is now nearly completely healed. There is no sign of infection or cellulitis. Ulcer dimensions are documented elsewhere. Wound Measurements and Assessment WC - Nurse 1 - General Ulcer Measurement Start: 05/12/18 14:18 Freq: Status: Active Protocol: Activity Type Activity Date Activity User E-Sign Co-Sign Detail Recorded Client Recorded Date Recorded By Document 05/27/18 11:32 OK [id number] 05/27/18 11:37 OK 05/27/18 11:32 Wound Center Nurse 1 [Ulcer Assessment] #1 L Med Lower Leg -Combined with other wound No -Current Size (cm) - Length 0.1 -Current Size (cm) - Width 0.1 -Current Size (cm) - Depth 0.1 -Total Square Cm 0.01 -Photo Taken No -Epithelialization Large 67-100% -Tunneling No -Undermining/Tunneling No -Circular Undermining No -Exudate Amt None Present (0 %) -Wound Margin Flat & Intact -Granulation Amt None Present (0 %) -Slough/Fibrin No -Structure Exposed N/A -Texture (Wendy-wound Skin Appearance) Assessed Localized Edema -Moisture (Wendy-wound Skin Appearance Assessed ) Dry/Scaly -Color (Wendy-wound Skin Appearance) Assessed Hemosiderin Staining -Temperature (Wendy-wound Skin No Abnormality Appearance) (Pt Warm) -Tenderness on Palpation (Wendy-wound No Skin Appearance) -Ulcer Cleansing Rinsed/ Irrigated with Saline -Foul Odor after Cleansing No [Edema Assessment] -Lower Limb Edema Present Yes -Right Calf (cm) 42.0 -Right Ankle (cm) 23.5 -Left Calf (cm) 46.5 -Left Ankle (cm) 26.0 WC - Nurse 2 - General Ulcer CM Notes Start: 05/12/18 14:18 Freq: Status: Active Protocol: Activity Type Activity Date Activity User E-Sign Co-Sign Detail Recorded Client Recorded Date Recorded By Document 05/27/18 12:33 DV [id number] 05/27/18 12:35 DV 05/27/18 12:33 Wound Center Nurse 2 [Procedure/Treatment] #1 L Med Lower Leg -Time 12:34 -Correct Patient Yes -Correct Side, Site, Position Yes -Correct Procedure Yes -Procedure Performed Yes -Type of Procedure Debridement -Clinical Debridement Subcutaneous -Post Debridement Size (cm) - Length 0.1 -Post Debridement Size (cm) - Width 0.1 -Post Debridement Size (cm) - Depth 0.1 -Total Square Cm 0.01 -Wound/Ulcer Outcome Not Healed -Ulcer Cleansing Rinsed/ Irrigated with Saline -Foul Odor after Cleansing No -Bioengineered Tissue No -Bleeding Controlled with NA -Offloading No -Treatment Response Procedure Tolerated Well [See Physician Procedure note for Specifics] Pain Scale: 0-10 Numeric [Pain] -Is Patient Pain Free? No Musculoskeletal: No Muscle Wasting Neurological: Cranial nerves II-XII grossly intact, Neuro grossly intact Psych/Mental Status: Normal Affect, Appropriate, Alert and oriented to time, place, person, mood and affect Debridement Note Post-Debridement Measurements/Treatment - Nurse 2 - General Ulcer CM Notes Start: 05/12/18 14:18 Freq: Status: Active Protocol: Activity Type Activity Date Activity User E-Sign Co-Sign Detail Recorded Client Recorded Date Recorded By Document 05/12/18 15:20 DV [id number] 05/12/18 15:25 DV Document 05/19/18 13:54 JS [id number] 05/19/18 13:58 JS Document 05/27/18 12:33 DV [id number] 05/27/18 12:35 DV 05/12/18 05/19/18 05/27/18 15:20 13:54 12:33 Wound Center Nurse 2 #1 L Med Lower Leg -Time 15:22 14:12 12:34 -Correct Patient Yes Yes Yes -Correct Side, Site, Position Yes Yes Yes -Correct Procedure Yes Yes Yes -Procedure Performed Yes Yes Yes -Type of Procedure Debridement Debridement Debridement -Clinical Debridement Subcutaneous Subcutaneous Subcutaneous -Post Debridement Size (cm) - Length 2.0 2.0 0.1 -Post Debridement Size (cm) - Width 0.6 0.8 0.1 -Post Debridement Size (cm) - Depth 0.2 0.1 0.1 -Total Square Cm 1.20 1.60 0.01 -Wound/Ulcer Outcome Not Healed Not Healed Not Healed -Ulcer Cleansing Rinsed/ Rinsed/ Rinsed/ Irrigated with Irrigated with Irrigated with Saline Saline Saline -Foul Odor after Cleansing No No No -Bioengineered Tissue No No No -Injectable Lidocaine (%) 4 -Bleeding Controlled with Pressure NA NA -Offloading No No No -Treatment Response Procedure Procedure Procedure Tolerated Well Tolerated Well Tolerated Well Pain Scale: 0-10 Numeric Is Patient Pain Free? Yes No Laterality: Left - Medial calf Type of Debridement: Selective debridement Anesthesia Used: 5% Lidocaine Gel Depth: Down to and including healthy tissue Percentage of wound debrided: 100 Instrument Used: 3mm curette Severity: Limited To Skin Breakdown Amount of bleeding with debridement: Mild Bleeding Controlled with: Compression and gauze Patient tolerated procedure well Assessment/Plan Active Problems Chronic venous insufficiency (Chronic) Post-phlebitic syndrome (Chronic) Venous ulcer of left leg (Chronic) Leg pain, left (Chronic) Left leg swelling (Chronic) Tobacco abuse (Chronic) Tobacco abuse counseling (Chronic) Hyperpigmentation (Chronic) Assessment: This is an obese 57-year-old female with a history of left lower extremity deep vein thrombosis on 2 occasions in the past. She appears to suffer from postphlebitic syndrome in the left lower extremity, with chronic swelling, edema, and pain in the left lower extremity. For several months she has had an ulceration on the left medial calf, which has developed into a cellulitis recently, treated by 2 courses of oral antibiotics as prescribed by her primary care physician. She presented at this time for the purpose of definitive management. Patient has other pre-existing medical problems, which include, but are not limited to, hypertension, obesity, diabetes mellitus, c hronic obstructive pulmonary disease, hyperlipidemia, etc. Recent vascular studies have been completed, with results reviewed. Her noninvasive lower extremity arterial study reveals a normal result. Triphasic waveforms are noted at ankle level bilaterally. Resting ankle?brachial indices are bilaterally normal. Thus, there is no evidence of significant arterial occlusive disease in either lower extremity. The patient's venous duplex examination reveals valvular incompetence involving the left great saphenous vein and the left small saphenous vein. Plan: Conservative treatment measures are to be continued. A lengthy discussion has been undertaken as to the appropriate measures to be employed. The patient is to elevate her lower extremities as much as possible. She currently sleeps on a flat mattress at night. Leg elevation, even during daytime hours, has been encouraged. Her legs are to be elevated level with her heart, or higher. Prolonged idle sitting has been discouraged. Activity has been encouraged. Weight loss has also been recommended. Compression is to be continued by means of SurePress, which will be applied by the patient on a daily basis. The patient is to be instructed in the appropriate means of application. Additionally, we will continue the use of Danitza topically, which will be changed every other day. Laboratory results have been reviewed, with results as follows: Glucose 105, BUN 10, creatinine 0.52, total protein 7.0, albumin 3.5, calcium 9.0, AST 13, alkaline phosphatase 98, ALT 23, bilirubin 0.70, sodium 143, potassium 3.6, chloride 102, serum prealbumin 18.2. White blood count 7.3, hemoglobin 14.7, hematocrit 44.8, platelets 311,000. Ultimately, given the patient's history, clinical manifestations, and results of her venous duplex examination, the patient may be a candidate for endovenous ablation of the incompetent superficial veins in the left lower extremity. The patient has once again been counseled as to the benefits of smoking cessation. Patient is to return in 2 weeks for reassessment. She may ultimately be a candidate for endovenous ablation of the incompetent superficial veins of the left lower extremity. The nature of the procedure has been discussed with the patient once again today. Influenza vaccine was not administered today. Patient is a smoker. She has been advised to cease smoking, and of the adverse consequences of the smoking habit. She is to collaborate with her primary care physician in this regard. Patient stands 5 feet 5 inches tall. She weighs 268 pounds. Her BMI is 44.7, which places her in an obese class III category. Weight loss has been recommended, and collaboration with the patient's primary care physician has been advised.
[2018-06-09 16:31] VITALS: BP 147/89; PULSE 96; RESP 18; TEMP 37.1; BMI 44.7
--- NOTE | 2018-06-09 16:58 | PCM.WC.HP ---
(1) Chronic venous insufficiency Status: Chronic Current Visit: Yes Code(s): I87.2 - Venous insufficiency (chronic) (peripheral) (2) Post-phlebitic syndrome Status: Chronic Current Visit: Yes Code(s): I87.009 - Postthrombotic syndrome without complications of unspecified extremity (3) Venous ulcer of left leg Status: Chronic Current Visit: Yes Code(s): I83.029 - Varicose veins of left lower extremity with ulcer of unspecified site; L97.929 - Non-pressure chronic ulcer of unspecified part of left lower leg with unspecified severity (4) Diabetes mellitus Status: Chronic Current Visit: No Qualifiers: Diabetes mellitus type: type 2 Code(s): E11.9 - Type 2 diabetes mellitus without complications (5) History of DVT of lower extremity Status: Chronic Current Visit: No Code(s): Z86.718 - Personal history of other venous thrombosis and embolism (6) Leg pain, left Status: Chronic Current Visit: Yes Code(s): M79.605 - Pain in left leg (7) Left leg swelling Status: Chronic Current Visit: Yes Code(s): M79.89 - Other specified soft tissue disorders (8) Hypertension Status: Chronic Current Visit: No Code(s): I10 - Essential (primary) hypertension (9) COPD (chronic obstructive pulmonary disease) Status: Chronic Current Visit: No Code(s): J44.9 - Chronic obstructive pulmonary disease, unspecified (10) Hyperlipidemia Status: Chronic Current Visit: No Code(s): E78.5 - Hyperlipidemia, unspecified (11) Morbid obesity with BMI of 40.0-44.9, adult Status: Chronic Current Visit: No Code(s): E66.01 - Morbid (severe) obesity due to excess calories; Z68.41 - Body mass index (BMI) 40.0-44.9, adult (12) Tobacco abuse Status: Chronic Current Visit: Yes Code(s): Z72.0 - Tobacco use (13) Tobacco abuse counseling Status: Chronic Current Visit: Yes Code(s): Z71.6 - Tobacco abuse counseling (14) Hyperpigmentation Status: Chronic Current Visit: Yes Code(s): L81.9 - Disorder of pigmentation, unspecified History of Present Illness Chief Complaint: Chronic venous insufficiency, postphlebitic syndrome with inflammation, venous ulceration of the left lower extremity, left lower extremity swelling, left lower extremity pain History of Wound: This is a 57-year-old female who presented with an ulceration on the medial aspect of her left calf. The ulceration had been present for several months. Patient had recently developed erythema and redness about the ulceration, thought to be a cellulitis. She was treated by her primary care physician with 2 courses of oral antibiotics, including doxycycline and Cipro. She presented here for definitive management. She suffers from multiple medical problems, including diabetes mellitus, morbid obesity, and has a history of left lower extremity deep vein thrombosis on 2 occasions in the remote past. She intermittently wears compression stockings, which are obtained [id number], and likely of insufficient compression. 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 Her 2 prior episodes of deep vein thrombosis in the past occurred after childbirth in 1978, and after an appendectomy in 1999. Past Medical History Past Medical History: Chronic Problems Chronic venous insufficiency (Chronic) Post-phlebitic syndrome (Chronic) Venous ulcer of left leg (Chronic) Diabetes mellitus (Chronic) History of DVT of lower extremity (Chronic) Leg pain, left (Chronic) Left leg swelling (Chronic) Hypertension (Chronic) COPD (chronic obstructive pulmonary disease) (Chronic) Hyperlipidemia (Chronic) Morbid obesity with BMI of 40.0-44.9, adult (Chronic) Tobacco abuse (Chronic) Tobacco abuse counseling (Chronic) Hyperpigmentation (Chronic) Surgical History: - - Patient has undergone hysterectomy and appendectomy in the past. Home Medications: Ambulatory Orders Medication Instructions Recorded Hydrochlorothiazide [Hctz] 25 mg PO DAILY 04/07/18 Losartan Potassium 50 mg PO 04/07/18 - Family History Paternal - - Patient's father is 81 years of age, with a history of coronary artery disease, hypertension, and prostate cancer. Patient's mother is 76 years of age and healthy. Smoking Status: Current every day smoker Tobacco Use: Cigarettes Review of Systems Constitutional: Denies: Chills, Fever, Weight Change Eyes: Denies: Pain, Vision Change HEENT: Denies: Difficulty Hearing, Difficulty Swallowing, Sinus Congestion Cardiovascular: Denies: Chest Pain, Palpitations Respiratory: Denies: Cough, Shortness of Breath Gastrointestinal: Denies: Diarrhea, Nausea, Vomiting Genitourinary: Denies: Dysuria, Hematuria Endocrine: Denies: Heat/ Cold Intolerance, Polydipsia, Polyuria Hematologic/ Lymphatic: Denies: Easy Bruising, Easy Bleeding - Physical Exam Vital Signs Temp Pulse Resp BP 98.7 F 96 18 147/89 H 18 16:31 1218 16:31 1218 16:31 1218 16:31 General: Alert, Oriented x3, Cooperative, No apparent distress, Well developed, Well nourished HEENT: Atraumatic, PERRLA, EOMI, Normocephalic Oral: Moist Mucosa Neck: No JVD Lungs: Normal air movement Abdomen: Non-Distended Extremities: No clubbing, No cyanosis, No Calf Tenderness, - - There is no significant swelling or edema in the patient's lower extremities. Her ulcerations on the left medial calf are now completely healed and epithelialized. The chronic hyperpigmentation in the left medial gaiter area persists. There are no other open wounds or ulcerations. Skin: No rashes Wound Measurements and Assessment WC - Nurse 1 - General Ulcer Measurement Start: 05/12/18 14:18 Freq: Status: Active Protocol: Activity Type Activity Date Activity User E-Sign Co-Sign Detail Recorded Client Recorded Date Recorded By Document 06/09/18 16:31 [id number] 06/09/18 16:36 DL 06/09/18 16:31 Wound Center Nurse 1 [Ulcer Assessment] #1 L Med Lower Leg -Current Size (cm) - Length 0 -Current Size (cm) - Width 0 -Current Size (cm) - Depth 0 -Total Square Cm 0 -Photo Taken Yes -Exudate Amt None Present (0 %) -Wound Margin Flat & Intact -Granulation Amt Large (67-100%) -Granulation Quality [place] -Necrosis Amt None Present (0 %) -Structure Exposed N/A -Texture (Wendy-wound Skin Appearance) Scarring -Moisture (Wendy-wound Skin Appearance No Abnormality ) -Color (Wendy-wound Skin Appearance) No Abnormality Hemosiderin Staining -Temperature (Wendy-wound Skin No Abnormality Appearance) (Pt Warm) -Ulcer Cleansing Rinsed/ Irrigated with Saline -Foul Odor after Cleansing No [Edema Assessment] -Left Calf (cm) 45.5 -Left Ankle (cm) 25.5 WC - Nurse 2 - General Ulcer CM Notes Start: 05/12/18 14:18 Freq: Status: Active Protocol: Activity Type Activity Date Activity User E-Sign Co-Sign Detail Recorded Client Recorded Date Recorded By Document 06/09/18 16:54 [id number] 06/09/18 16:55 06/09/18 16:54 Wound Center Nurse 2 [Procedure/Treatment] #1 L Med Lower Leg -Time 16:54 -Correct Patient Yes -Correct Side, Site, Position Yes -Correct Procedure Yes -Procedure Performed No -Post Debridement Size (cm) - Length 0 -Post Debridement Size (cm) - Width 0 -Post Debridement Size (cm) - Depth 0 -Total Square Cm 0 -Wound/Ulcer Outcome Healed- Epithelialized [See Physician Procedure note for Specifics] Pain Scale: 0-10 Numeric [Pain] -Is Patient Pain Free? Yes Musculoskeletal: No Muscle Wasting Neurological: Cranial nerves II-XII grossly intact, Neuro grossly intact Psych/Mental Status: Normal Affect, Appropriate, Alert and oriented to time, place, person, mood and affect Debridement Note Post-Debridement Measurements/Treatment - Nurse 2 - General Ulcer CM Notes Start: 05/12/18 14:18 Freq: Status: Active Protocol: Activity Type Activity Date Activity User E-Sign Co-Sign Detail Recorded Client Recorded Date Recorded By Document 05/12/18 15:20 DV [id number] 05/12/18 15:25 DV Document 05/19/18 13:54 JS [id number] 05/19/18 13:58 JS Document 05/27/18 12:33 DV [id number] 05/27/18 12:35 DV Document 06/09/18 16:54 [id number] 06/09/18 16:55 JS 05/12/18 05/19/18 05/27/18 15:20 13:54 12:33 Wound Center Nurse 2 #1 L Med Lower Leg -Time 15:22 14:12 12:34 -Correct Patient Yes Yes Yes -Correct Side, Site, Position Yes Yes Yes -Correct Procedure Yes Yes Yes -Procedure Performed Yes Yes Yes -Type of Procedure Debridement Debridement Debridement -Clinical Debridement Subcutaneous Subcutaneous Subcutaneous -Post Debridement Size (cm) - Length 2.0 2.0 0.1 -Post Debridement Size (cm) - Width 0.6 0.8 0.1 -Post Debridement Size (cm) - Depth 0.2 0.1 0.1 -Total Square Cm 1.20 1.60 0.01 -Wound/Ulcer Outcome Not Healed Not Healed Not Healed -Ulcer Cleansing Rinsed/ Rinsed/ Rinsed/ Irrigated with Irrigated with Irrigated with Saline Saline Saline -Foul Odor after Cleansing No No No -Bioengineered Tissue No No No -Injectable Lidocaine (%) 4 -Bleeding Controlled with Pressure NA NA -Offloading No No No -Treatment Response Procedure Procedure Procedure Tolerated Well Tolerated Well Tolerated Well Pain Scale: 0-10 Numeric Is Patient Pain Free? Yes No 06/09/18 16:54 Wound Center Nurse 2 #1 L Med Lower Leg -Time 16:54 -Correct Patient Yes -Correct Side, Site, Position Yes -Correct Procedure Yes -Procedure Performed No -Type of Procedure -Clinical Debridement -Post Debridement Size (cm) - Length 0 -Post Debridement Size (cm) - Width 0 -Post Debridement Size (cm) - Depth 0 -Total Square Cm 0 -Wound/Ulcer Outcome Healed- Epithelialized -Ulcer Cleansing -Foul Odor after Cleansing -Bioengineered Tissue -Injectable Lidocaine (%) -Bleeding Controlled with -Offloading -Treatment Response Pain Scale: 0-10 Numeric Is Patient Pain Free? Yes No debridement was completed today Assessment/Plan Active Problems Chronic venous insufficiency (Chronic) Post-phlebitic syndrome (Chronic) Venous ulcer of left leg (Chronic) Leg pain, left (Chronic) Left leg swelling (Chronic) Tobacco abuse (Chronic) Tobacco abuse counseling (Chronic) Hyperpigmentation (Chronic) Assessment: This is an obese 57-year-old female with a history of left lower extremity deep vein thrombosis on 2 occasions in the past. She appears to suffer from postphlebitic syndrome in the left lower extremity, with chronic swelling, edema, and pain in the left lower extremity. For several months she has had an ulceration on the left medial calf, which developed into a cellulitis, and was treated by 2 courses of oral antibiotics as prescribed by her primary care physician. She presented for the purpose of definitive management. Patient has other pre-existing medical problems, which include, but are not limited to, hypertension, obesity, diabetes mellitus, chronic obstructive pulmonary disease, hyperlipidemia, etc. Recent vascular studies have been completed, with results reviewed. Her noninvasive lower extremity arterial study reveals a normal result. Triphasic waveforms are noted at ankle level bilaterally. Resting ankle?brachial indices are bilaterally normal. Thus, there is no evidence of significant arterial occlusive disease in either lower extremity. The patient's venous duplex examination reveals valvular incompetence involving the left great saphenous vein and the left small saphenous vein. At today's visit, it is noted that the patient's left lower extremity venous ulceration is now completely healed and epithelialized. Plan: The patient's left lower extremity venous ulceration is now completely healed and epithelialized. The patient is to be discharged. Conservative treatment measures are to be continued. A lengthy discussion has been undertaken as to the appropriate measures to be employed. The patient is to elevate her lower extremities as much as possible. She currently sleeps on a flat mattress at night. Leg elevation, even during daytime hours, has been encouraged. Her legs are to be elevated level with her heart, or higher. Prolonged idle sitting has been discouraged. Activity has been encouraged. Weight loss has also been recommended. Compression is to be continued by means of graduated compression stockings, which have been prescribed today. Pression stockings are to be of 20-30 mmHg compression, of knee-high length. As mentioned, conservative treatment measures have been discussed with the patient thoroughly, and she has been encouraged to implement these measures for the long-term. She will be discharged, and will follow-up henceforth on an as-needed basis. Ultimately, given the patient's history, clinical manifestations, and results of her venous duplex examination, the patient may be a candidate for endovenous ablation of the incompetent superficial veins in the left lower extremity. We have briefly discussed the potential benefits of an endovenous ablation procedure of the left lower extremity. The patient wishes to consider this possibility. The patient has once again been counseled as to the benefits of smoking cessation. Influenza vaccine was not administered today. Patient is a smoker. She has been advised to cease smoking, and of the adverse consequences of the smoking habit. She is to collaborate with her primary care physician in this regard. Patient stands 5 feet 5 inches tall. She weighs 268 pounds. Her BMI is 44.7, which places her in an obese class III category. Weight loss has been recommended, and collaboration with the patient's primary care physician has been advised.
--- NOTE | 2018-06-09 17:04 | HP.PCM_ITS ---
(1) Chronic venous insufficiency Status: Chronic Current Visit: Yes Code(s): I87.2 - Venous insufficiency (chronic) (peripheral) (2) Post-phlebitic syndrome Status: Chronic Current Visit: Yes Code(s): I87.009 - Postthrombotic syndrome without complications of unspecified extremity (3) Venous ulcer of left leg Status: Chronic Current Visit: Yes Code(s): I83.029 - Varicose veins of left lower extremity with ulcer of unspecified site; L97.929 - Non-pressure chronic ulcer of unspecified part of left lower leg with unspecified severity (4) Diabetes mellitus Status: Chronic Current Visit: No Qualifiers: Diabetes mellitus type: type 2 Code(s): E11.9 - Type 2 diabetes mellitus without complications (5) History of DVT of lower extremity Status: Chronic Current Visit: No Code(s): Z86.718 - Personal history of other venous thrombosis and embolism (6) Leg pain, left Status: Chronic Current Visit: Yes Code(s): M79.605 - Pain in left leg (7) Left leg swelling Status: Chronic Current Visit: Yes Code(s): M79.89 - Other specified soft tissue disorders (8) Hypertension Status: Chronic Current Visit: No Code(s): I10 - Essential (primary) hypertension (9) COPD (chronic obstructive pulmonary disease) Status: Chronic Current Visit: No Code(s): J44.9 - Chronic obstructive pulmonary disease, unspecified (10) Hyperlipidemia Status: Chronic Current Visit: No Code(s): E78.5 - Hyperlipidemia, unspecified (11) Morbid obesity with BMI of 40.0-44.9, adult Status: Chronic Current Visit: No Code(s): E66.01 - Morbid (severe) obesity due to excess calories; Z68.41 - Body mass index (BMI) 40.0-44.9, adult (12) Tobacco abuse Status: Chronic Current Visit: Yes Code(s): Z72.0 - Tobacco use (13) Tobacco abuse counseling Status: Chronic Current Visit: Yes Code(s): Z71.6 - Tobacco abuse counseling (14) Hyperpigmentation Status: Chronic Current Visit: Yes Code(s): L81.9 - Disorder of pigmentation, unspecified History of Present Illness Chief Complaint: Chronic venous insufficiency, postphlebitic syndrome with inflammation, venous ulceration of the left lower extremity, left lower extremity swelling, left lower extremity pain History of Wound: This is a 57-year-old female who presented with an ulceration on the medial aspect of her left calf. The ulceration had been present for several months. Patient had recently developed erythema and redness about the ulceration, thought to be a cellulitis. She was treated by her primary care physician with 2 courses of oral antibiotics, including doxycycline and Cipro. She presented here for definitive management. She suffers from multiple medical problems, including diabetes mellitus, morbid obesity, and has a history of left lower extremity deep vein thrombosis on 2 occasions in the remote past. She intermittently wears compression stockings, which are obtained [id number], and likely of insufficient compression. 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 Her 2 prior episodes of deep vein thrombosis in the past occurred after childbirth in 1978, and after an appendectomy in 1999. Past Medical History Past Medical History: Chronic Problems Chronic venous insufficiency (Chronic) Post-phlebitic syndrome (Chronic) Venous ulcer of left leg (Chronic) Diabetes mellitus (Chronic) History of DVT of lower extremity (Chronic) Leg pain, left (Chronic) Left leg swelling (Chronic) Hypertension (Chronic) COPD (chronic obstructive pulmonary disease) (Chronic) Hyperlipidemia (Chronic) Morbid obesity with BMI of 40.0-44.9, adult (Chronic) Tobacco abuse (Chronic) Tobacco abuse counseling (Chronic) Hyperpigmentation (Chronic) Surgical History: - - Patient has undergone hysterectomy and appendectomy in the past. Home Medications: Ambulatory Orders Medication Instructions Recorded Hydrochlorothiazide [Hctz] 25 mg PO DAILY 04/07/18 Losartan Potassium 50 mg PO 04/07/18 - Family History Paternal - - Patient's father is 81 years of age, with a history of coronary artery disease, hypertension, and prostate cancer. Patient's mother is 76 years of age and healthy. Smoking Status: Current every day smoker Tobacco Use: Cigarettes Review of Systems Constitutional: Denies: Chills, Fever, Weight Change Eyes: Denies: Pain, Vision Change HEENT: Denies: Difficulty Hearing, Difficulty Swallowing, Sinus Congestion Cardiovascular: Denies: Chest Pain, Palpitations Respiratory: Denies: Cough, Shortness of Breath Gastrointestinal: Denies: Diarrhea, Nausea, Vomiting Genitourinary: Denies: Dysuria, Hematuria Endocrine: Denies: Heat/ Cold Intolerance, Polydipsia, Polyuria Hematologic/ Lymphatic: Denies: Easy Bruising, Easy Bleeding - Physical Exam Vital Signs Temp Pulse Resp BP 98.7 F 96 18 147/89 H 18 16:31 1218 16:31 1218 16:31 1218 16:31 General: Alert, Oriented x3, Cooperative, No apparent distress, Well developed, Well nourished HEENT: Atraumatic, PERRLA, EOMI, Normocephalic Oral: Moist Mucosa Neck: No JVD Lungs: Normal air movement Abdomen: Non-Distended Extremities: No clubbing, No cyanosis, No Calf Tenderness, - - There is no significant swelling or edema in the patient's lower extremities. Her ulcerations on the left medial calf are now completely healed and epithelialized. The chronic hyperpigmentation in the left medial gaiter area persists. There are no other open wounds or ulcerations. Skin: No rashes Wound Measurements and Assessment WC - Nurse 1 - General Ulcer Measurement Start: 05/12/18 14:18 Freq: Status: Active Protocol: Activity Type Activity Date Activity User E-Sign Co-Sign Detail Recorded Client Recorded Date Recorded By Document 06/09/18 16:31 [id number] 06/09/18 16:36 DL 06/09/18 16:31 Wound Center Nurse 1 [Ulcer Assessment] #1 L Med Lower Leg -Current Size (cm) - Length 0 -Current Size (cm) - Width 0 -Current Size (cm) - Depth 0 -Total Square Cm 0 -Photo Taken Yes -Exudate Amt None Present (0 %) -Wound Margin Flat & Intact -Granulation Amt Large (67-100%) -Granulation Quality [place] -Necrosis Amt None Present (0 %) -Structure Exposed N/A -Texture (Wendy-wound Skin Appearance) Scarring -Moisture (Wendy-wound Skin Appearance No Abnormality ) -Color (Wendy-wound Skin Appearance) No Abnormality Hemosiderin Staining -Temperature (Wendy-wound Skin No Abnormality Appearance) (Pt Warm) -Ulcer Cleansing Rinsed/ Irrigated with Saline -Foul Odor after Cleansing No [Edema Assessment] -Left Calf (cm) 45.5 -Left Ankle (cm) 25.5 WC - Nurse 2 - General Ulcer CM Notes Start: 05/12/18 14:18 Freq: Status: Active Protocol: Activity Type Activity Date Activity User E-Sign Co-Sign Detail Recorded Client Recorded Date Recorded By Document 06/09/18 16:54 [id number] 06/09/18 16:55 06/09/18 16:54 Wound Center Nurse 2 [Procedure/Treatment] #1 L Med Lower Leg -Time 16:54 -Correct Patient Yes -Correct Side, Site, Position Yes -Correct Procedure Yes -Procedure Performed No -Post Debridement Size (cm) - Length 0 -Post Debridement Size (cm) - Width 0 -Post Debridement Size (cm) - Depth 0 -Total Square Cm 0 -Wound/Ulcer Outcome Healed- Epithelialized [See Physician Procedure note for Specifics] Pain Scale: 0-10 Numeric [Pain] -Is Patient Pain Free? Yes Musculoskeletal: No Muscle Wasting Neurological: Cranial nerves II-XII grossly intact, Neuro grossly intact Psych/Mental Status: Normal Affect, Appropriate, Alert and oriented to time, place, person, mood and affect Debridement Note Post-Debridement Measurements/Treatment - Nurse 2 - General Ulcer CM Notes Start: 05/12/18 14:18 Freq: Status: Active Protocol: Activity Type Activity Date Activity User E-Sign Co-Sign Detail Recorded Client Recorded Date Recorded By Document 05/12/18 15:20 DV [id number] 05/12/18 15:25 DV Document 05/19/18 13:54 JS [id number] 05/19/18 13:58 JS Document 05/27/18 12:33 DV [id number] 05/27/18 12:35 DV Document 06/09/18 16:54 [id number] 06/09/18 16:55 JS 05/12/18 05/19/18 05/27/18 15:20 13:54 12:33 Wound Center Nurse 2 #1 L Med Lower Leg -Time 15:22 14:12 12:34 -Correct Patient Yes Yes Yes -Correct Side, Site, Position Yes Yes Yes -Correct Procedure Yes Yes Yes -Procedure Performed Yes Yes Yes -Type of Procedure Debridement Debridement Debridement -Clinical Debridement Subcutaneous Subcutaneous Subcutaneous -Post Debridement Size (cm) - Length 2.0 2.0 0.1 -Post Debridement Size (cm) - Width 0.6 0.8 0.1 -Post Debridement Size (cm) - Depth 0.2 0.1 0.1 -Total Square Cm 1.20 1.60 0.01 -Wound/Ulcer Outcome Not Healed Not Healed Not Healed -Ulcer Cleansing Rinsed/ Rinsed/ Rinsed/ Irrigated with Irrigated with Irrigated with Saline Saline Saline -Foul Odor after Cleansing No No No -Bioengineered Tissue No No No -Injectable Lidocaine (%) 4 -Bleeding Controlled with Pressure NA NA -Offloading No No No -Treatment Response Procedure Procedure Procedure Tolerated Well Tolerated Well Tolerated Well Pain Scale: 0-10 Numeric Is Patient Pain Free? Yes No 06/09/18 16:54 Wound Center Nurse 2 #1 L Med Lower Leg -Time 16:54 -Correct Patient Yes -Correct Side, Site, Position Yes -Correct Procedure Yes -Procedure Performed No -Type of Procedure -Clinical Debridement -Post Debridement Size (cm) - Length 0 -Post Debridement Size (cm) - Width 0 -Post Debridement Size (cm) - Depth 0 -Total Square Cm 0 -Wound/Ulcer Outcome Healed- Epithelialized -Ulcer Cleansing -Foul Odor after Cleansing -Bioengineered Tissue -Injectable Lidocaine (%) -Bleeding Controlled with -Offloading -Treatment Response Pain Scale: 0-10 Numeric Is Patient Pain Free? Yes No debridement was completed today Assessment/Plan Active Problems Chronic venous insufficiency (Chronic) Post-phlebitic syndrome (Chronic) Venous ulcer of left leg (Chronic) Leg pain, left (Chronic) Left leg swelling (Chronic) Tobacco abuse (Chronic) Tobacco abuse counseling (Chronic) Hyperpigmentation (Chronic) Assessment: This is an obese 57-year-old female with a history of left lower extremity deep vein thrombosis on 2 occasions in the past. She appears to suffer from postphlebitic syndrome in the left lower extremity, with chronic swelling, edema, and pain in the left lower extremity. For several months she has had an ulceration on the left medial calf, which developed into a cellulitis, and was treated by 2 courses of oral antibiotics as prescribed by her primary care physician. She presented for the purpose of definitive management. Patient has other pre-existing medical problems, which include, but are not limited to, hypertension, obesity, diabetes mellitus, chronic obstructive pulmonary disease, hyperlipidemia, etc. Recent vascular studies have been completed, with results reviewed. Her noninvasive lower extremity arterial study reveals a normal result. Triphasic waveforms are noted at ankle level bilaterally. Resting ankle?brachial indices are bilaterally normal. Thus, there is no evidence of significant arterial occlusive disease in either lower extremity. The patient's venous duplex examination reveals valvular incompetence involving the left great saphenous vein and the left small saphenous vein. At today's visit, it is noted that the patient's left lower extremity venous ulceration is now completely healed and epithelialized. Plan: The patient's left lower extremity venous ulceration is now completely healed and epithelialized. The patient is to be discharged. Conservative treatment measures are to be continued. A lengthy discussion has been undertaken as to the appropriate measures to be employed. The patient is to elevate her lower extremities as much as possible. She currently sleeps on a flat mattress at night. Leg elevation, even during daytime hours, has been encouraged. Her legs are to be elevated level with her heart, or higher. Prolonged idle sitting has been discouraged. Activity has been encouraged. Weight loss has also been recommended. Compression is to be continued by means of graduated compression stockings, which have been prescribed today. Pression stockings are to be of 20-30 mmHg compression, of knee-high length. As mentioned, conservative treatment measures have been discussed with the patient thoroughly, and she has been encouraged to implement these measures for the long-term. She will be discharged, and will follow-up henceforth on an as-need ed basis. Ultimately, given the patient's history, clinical manifestations, and results of her venous duplex examination, the patient may be a candidate for endovenous ablation of the incompetent superficial veins in the left lower extremity. We have briefly discussed the potential benefits of an endovenous ablation procedure of the left lower extremity. The patient wishes to consider this possibility. The patient has once again been counseled as to the benefits of smoking cessation. Influenza vaccine was not administered today. Patient is a smoker. She has been advised to cease smoking, and of the adverse consequences of the smoking habit. She is to collaborate with her primary care physician in this regard. Patient stands 5 feet 5 inches tall. She weighs 268 pounds. Her BMI is 44.7, which places her in an obese class III category. Weight loss has been recommended, and collaboration with the patient's primary care physician has been advised.
== END 2018-06-09 23:59 ==
LOC: WC 16:30
PROVIDERS: Referring Provider Surgery; Visit Provider Surgery
DX: E11.622 Type 2 diabetes mellitus with other skin ulcer (principal); I83.022 Varicose veins of left lower extremity with ulcer of calf; L97.222 Non-pressure chronic ulcer of left calf with fat layer exposed; J44.9 Chronic obstructive pulmonary disease, unspecified; M79.89 Other specified soft tissue disorders; I10 Essential (primary) hypertension; Z86.718 Personal history of other venous thrombosis and embolism; E78.5 Hyperlipidemia, unspecified; E66.01 Morbid (severe) obesity due to excess calories; Z68.41 Body mass index [BMI] 40.0-44.9, adult; Z71.3 Dietary counseling and surveillance; F17.210 Nicotine dependence, cigarettes, uncomplicated; Z86.14 Personal history of Methicillin resistant Staphylococcus aureus infection; L97.221 Non-pressure chronic ulcer of left calf limited to breakdown of skin
CPT/HCPCS: 11042; 97597; 99211; G0463

== ENCOUNTER 2021-04-04 09:45 | Outpatient (RCR) | payer OTHER, SELFPAY ==
[2021-03-14 09:22] VITALS: BP 141/66; PULSE 74; RESP 20; TEMP 36.1; BMI 44.9
--- NOTE | 2021-03-14 13:02 | HP.PCM_ITS ---
History of Present Illness Date of Service: 03/14/21 Chief Complaint: Chronic venous insufficiency, postphlebitic syndrome with inflammation, venous ulceration of the left lower extremity, left lower extremity swelling, left lower extremity pain History of Wound: This is a 60-year-old female who presented with an ulceration on the posterior and medial aspect of her left calf. The ulceration had been present for several months. The patient has had prior ulcerations in these areas in the past. She has been using antibiotic ointment topically, as well as peroxide. She has noted mild redness about the ulcerations. She presented here for definitive management. She suffers from multiple medical problems, including diabetes mellitus, morbid obesity, and has a history of left lower extremity deep vein thrombosis on at least 2 occasions in the remote past. She intermittently wears compression stockings, but has not been doing so recently. She claims to sleep on a flat mattress at night. 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 Prior episodes of deep vein thrombosis in the past occurred after childbirth in 1978, and after an appendectomy in 1999. FORMERLY [facility], 1928–1983 Medical History (Updated 03/14/21 @ 13:[address] Damir Woods MD) Cellulitis and abscess of left leg Medical History no medical history no medical history (Patient has a history of tobacco abuse, diabetes mellitus, hypertension, hyperlipidemia, morbid obesity, chronic obstructive pulmonary disease left leg swelling, left leg pain, history of left lower extremity deep vein thrombosis, and postphlebitic syndrome with inflammation involving her left lower) Home Medications hydrochlorothiazide 25 mg PO DAILY 04/07/18 [History Last Taken Unknown] losartan 50 mg PO 04/07/18 [History Last Taken Unknown] ipratropium-albuterol [Combivent] spray INHALATION 03/14/21 [History Last Taken Unknown] Allergy/AdvReac Type Severity Reaction Status Date / Time No Known Allergies Allergy Verified 03/14/21 09:39 Family History no significant family his no significant family history (Patient's father has a history of coronary artery disease, hypertension, and prostate cancer.) Surgical History no surgical history no surgical history (Patient has a history of hysterectomy and appendectomy in the past.) Social History Smoking Status: Current every day smoker Vital Signs Vital Signs Vital Signs: 03/14/21 09:22 Temperature 97 F L Temperature Source Temporal Pulse Rate 74 Respiratory Rate 20 H Blood Pressure 141/66 H Blood Pressure Mean 91 Blood Pressure Source Monitor Weight Weight: 270 lb 3.969 oz Body Mass Index (BMI) 44.9 Physical Exam Const alert, oriented x3, no apparent distress and well nourished Constitutional Narrative: The patient is morbidly obese. General Appearance: cooperative, comfortable and well developed Orientation / Consciousness: awake, oriented to person, oriented to place and oriented to time HEENT normocephalic and head/scalp atraumatic Head and Scalp: normal to inspection, normocephalic and atraumatic External Ear: external ears normal Eyes PERRL and EOMs intact bilaterally General Eye: normal appearance of both eyes Resp normal respiratory effort, normal air movement, no retractions and no use of accessory muscles Effort and Inspection: able to speak in complete sentences Extremity no calf tenderness Extremity Narrative: The left lower extremity is swollen, edematous, and erythematous. General Extremity: Negative for clubbing or cyanosis Skin Wound Narrative: Ulcerations are noted on the left posterior calf and on the left medial calf. There is a moderate amount of bioburden and nonviable, necrotic tissue. Dimensions are documented elsewhere. Erythema surrounds the ulcerations and is rather diffuse in the left gaiter area. Neuro oriented x3, CN's II-XII intact bilaterally and moves all extremities Sensorium / Orientation: awake, alert, oriented to person, oriented to place and oriented to time Psych Appearance: grossly normal and appropriate Attitude: calm Activity / Motor Behavior: appropriate eye contact Speech: normal speech Mood & Affect: euthymic mood Thought Process: normal thought process Thought Content: normal thought content Attention / Concentration: attention grossly intact Debridement Note Debridement Note Wound debrided: Left medial calf Laterality: Left Type of Debridement: Excisional debridement Anesthesia Used: 5% Lidocaine Gel Depth: Down to and including healthy tissue and in the subcutaneous layer Percentage of wound debrided: 100 Instrument Used: 5mm curette Tissue Removed: Bioburden and nonviable tissue Severity: Fat Layer Exposed Amount of bleeding with debridement: Mild Bleeding Controlled with: Compression and gauze Patient tolerated procedure: Patient tolerated procedure well Debridement Free Text: Because of the amount of nonviable and necrotic tissue containing within the left calf wounds, and the surrounding erythema, which is suspected to be cellulitis, swab cultures have been obtained for both aerobic and anaerobic bacterial growth. Post-Debridement Measurements and Additional Note: Post-Debridement Measurements/Treatment VERONIQUE - Nurse 1 - General Ulcer Assessment Start: 03/14/21 09:17 Freq: Status: Active Protocol: TRISHA Activity Type Activity Date Activity User E-Sign Co-Sign Detail Recorded Client Recorded Date Recorded By Document 03/14/21 09:22 DL [id number] 03/14/21 09:35 DL 03/14/21 09:22 - Today's Visit Information Type of service Initial Visit Arrival Mode Ambulatory Transfer Assistance None Patient Identification Verified (Name & Yes ) Patient Requires Transmission-Based No Precautions Safety Precautions NA Finger Stick Blood Sugar(mg/dl) (if no checked indicated): Blood Sugar Stated by Patient Height and Weight Height 5 ft 5 in Weight 270 lb 3.969 oz Weight in Pounds 270.2 lbs Body Mass Index (BMI) 44.9 BMI Classification Obese BSA - Cat 2.25 Vital Signs Temperature (97.8 F-99.1 F) 97 F L Temperature Source Temporal Pulse Rate (60-100) 74 Pulse Location Monitor Respiratory Rate (12-18) 20 H Respiratory rate source Observation Blood Pressure (90/60-120/80) 141/66 H Blood Pressure Mean 91 Source Monitor Pain Scale: 0-10 Numeric Is Patient Pain Free? Yes Lower Extremity Assessment/ Foot Assessment/ Toe Nail Assessment Left -Posterior Tibial Palpable Yes -Posterior Tibial Doppler Multiphasic -Dorsalis Pedis Palpable Yes -Dorsalis Pedis Doppler Multiphasic -Extremity Color Hemosiderin -Hair Growth on Legs Yes -Hair Growth on Toes Yes -Temperature of Extremity Warm -Capillary Refill Less than 3 Seconds -Dependent Rubor No -Blanched when Elevated No -Lipodermatosclerosis No -Other Deformity No -Prior Foot Ulcer No -Charcot Joint No -Prior Amputation No -Thick Yes -Discolored Yes -Deformed No -Improper Length & Hygeine No Right -Posterior Tibial Palpable Yes -Posterior Tibial Doppler Multiphasic -Dorsalis Pedis Palpable Yes -Dorsalis Pedis Doppler Multiphasic -Extremity Color Hemosiderin -Hair Growth on Legs Yes -Hair Growth on Toes Yes -Temperature of Extremity Warm -Capillary Refill Less than 3 Seconds -Dependent Rubor No -Blanched when Elevated No -Lipodermatosclerosis No -Other Deformity No -Prior Foot Ulcer No -Charcot Joint No -Prior Amputation No -Thick Yes -Discolored Yes -Deformed No -Improper Length & Hygeine No Neuropathy Assessment Feet - Top Side and Bottom <Entered> (a) Communication Assessment Preferred language Latvian Able to Read Yes Able to Write Yes Communication Tools None Right Hearing Abillity Normal Left Hearing Abillity Normal Visual Assistive Devices Glasses Teaching Assessment Preferences Verbal,Written, Demonstration Barriers to Learning None Readiness To Learn Good Willingness to Engage in Self Management Med Activies Readiness to Engage in Self Management Med Activities Anxiety Level Calm Cooperation Cooperative Perception Coherent Interest in Health Problem Asks Questions Education Importance Acknowledges Need Does Patient Smoke tobacco or other Yes substances Smoking Status Current every day smoker Is Patient Diabetic Yes Functional Assessment Recent Decline in Ability to Perform Denies Any Declines Assistive Device With Patient Yes Culture/Caodaism/Commercial Production Editor Cultural/Caodaism Needs that may affect No Treatment Plan Would you allow our [facility] software sales representative to No meet you for the purpose of spiritual/ emotional support? Commercial Production Editor to contact place of congregational No Teaching: Wound Center Plan of Care Reviewed with Patient -Person Taught Patient *Nutrition -Person Taught Patient Dressing Your Wound -Person Taught Patient Smoking Cessation -Person Taught Patient *Wound/Skin Impairment -Person Taught Patient Diagnostic Tests Ordered -Person Taught Patient Control Swelling with Leg Elevation -Person Taught Patient Compression Wraps & Stockings -Person Taught Family *Welcome to the Wound Center -Person Taught Patient (a) 1 - + WC - Nurse 1 - General Ulcer Measurement Start: 03/14/21 09:17 Freq: Status: Active Protocol: Activity Type Activity Date Activity User E-Sign Co-Sign Detail Recorded Client Recorded Date Recorded By Document 03/14/21 09:22 DL [id number] 03/14/21 09:35 DL 03/14/21 09:22 Wound Center Nurse 1 #3 L Calf Cluster -Current Size (cm) - Length 0.7 -Current Size (cm) - Width 3.7 -Current Size (cm) - Depth 0.2 -Total Square Cm 2.59 -Photo Taken Yes -Exudate Amt Medium -Exudate Type Serosanguineous -Wound Margin Distinct, Outline Attached -Granulation Amt None Present (0 %) -Necrosis Amt Large (67-100%) -Necrotic Tissue Type Adherent Slough -Structure Exposed N/A -Texture (Wendy-wound Skin Appearance) Localized Edema ,Scarring -Moisture (Wendy-wound Skin Appearance) No Abnormality -Color (Wendy-wound Skin Appearance) Erythema, Hemosiderin Staining -Temperature (Wendy-wound Skin No Abnormality Appearance) (Pt Warm) -Tenderness on Palpation (Wendy-wound No Skin Appearance) -Anesthetic Used 4% Lidocaine Solution #2 LLe Med Cluster -Current Size (cm) - Length 3.9 -Current Size (cm) - Width 3.6 -Current Size (cm) - Depth 0.2 -Total Square Cm 14.04 -Photo Taken Yes -Exudate Amt Medium -Exudate Type Serosanguineous -Wound Margin Distinct, Outline Attached -Granulation Amt Large (67-100%) -Necrosis Amt Large (67-100%) -Necrotic Tissue Type Adherent Slough -Structure Exposed N/A -Texture (Wendy-wound Skin Appearance) Localized Edema ,Scarring -Moisture (Wendy-wound Skin Appearance) No Abnormality -Color (Wendy-wound Skin Appearance) Erythema, Hemosiderin Staining -Temperature (Wendy-wound Skin No Abnormality Appearance) (Pt Warm) -Tenderness on Palpation (Wendy-wound No Skin Appearance) -Ulcer Cleansing Wound Cleanser -Foul Odor after Cleansing No -Anesthetic Used 4% Lidocaine Solution Right Calf (cm) 42.7 Right Ankle (cm) 23.9 Left Calf (cm) 50.8 Left Ankle (cm) 28.1 WC - Nurse 2 - General Ulcer CM Notes Start: 03/14/21 09:17 Freq: Status: Active Protocol: Activity Type Activity Date Activity User E-Sign Co-Sign Detail Recorded Client Recorded Date Recorded By Document 03/14/21 10:17 [email or web address] [id number] 03/14/21 10:25 PL 03/14/21 10:17 Wound Center Nurse 2 #3 L Calf Cluster -Time 09:54 -Correct Patient Yes -Correct Side, Site, Position Yes -Correct Procedure Yes -Procedure Performed Yes -Type of Procedure Debridement -Clinical Debridement Subcutaneous -Tissue Removed Subcutaneous -Post Debridement (cm) - Length 0.7 -Post Debridement (cm) - Width 3.7 -Post Debridement (cm) - Depth 0.2 -Total Square (Post) (cm) 2.59 -Area of Debridement (cm) - Length 0.7 -Area of Debridement (cm) - Width 3.7 -Total Square (Area) (cm) 2.59 -Tunneling No -Undermining/Tunneling No -Circular Undermining No -Ulcer Cleansing Rinsed/ Irrigated with Saline -Foul Odor after Cleansing No -Bioengineered Tissue No -Bleeding Controlled with Pressure -Treatment Response Procedure Tolerated Well -Debridement - Subq, 1st 20sq cm Yes #2 LLe Med Cluster -Time 09:54 -Correct Patient Yes -Correct Side, Site, Position Yes -Correct Procedure Yes -Procedure Performed Yes -Type of Procedure Debridement -Clinical Debridement Subcutaneous -Tissue Removed Subcutaneous -Post Debridement (cm) - Length 3.9 -Post Debridement (cm) - Width 3.6 -Post Debridement (cm) - Depth 0.2 -Total Square (Post) (cm) 14.04 -Area of Debridement (cm) - Length 3.9 -Area of Debridement (cm) - Width 3.6 -Total Square (Area) (cm) 14.04 -Tunneling No -Undermining/Tunneling No -Circular Undermining No -Ulcer Cleansing Rinsed/ Irrigated with Saline -Foul Odor after Cleansing No -Bioengineered Tissue No -Bleeding Controlled with Pressure -Treatment Response Procedure Tolerated Well -Debridement - Subq, 1st 20sq cm No WC - Nurse 3 - General Ulcer D/C NN Start: 03/14/21 09:17 Freq: Status: Active Protocol: Activity Type Activity Date Activity User E-Sign Co-Sign Detail Recorded Client Recorded Date Recorded By Document 03/14/21 10:09 BEAU [id number] 03/14/21 10:11 BEAU 03/14/21 10:09 Wound Care Nurse 3 #3 L Calf Cluster -Ulcer Cleansing Rinsed/ Irrigated with Saline -Foul Odor after Cleansing No -Negative Pressure Wound Therapy N/A -Primary Dressing Applied Promogran Danitza Matter -Promogran Danitza Matter 1 #2 LLe Med Cluster -Ulcer Cleansing Rinsed/ Irrigated with Saline -Primary Dressing Applied Promogran Danitza Matter -Other Dressing ABD -Primary Dressing Covered/Secured with Secured with Tape -Promogran Danitza Matter 1 Left -Lotion applied to leg before Yes compression wrap -Multi-Layered Wrap Application Multi-Layer Comp - Left ($) WC - Visit Discharge Discharge Condition Stable Ambulatory Status Ambulatory Transportation Private Auto Medication Reconcilliation completed & Yes provided to patient/care provider Clinical Summary of Care Provided Yes Additional Wound Wound debrided: Posterior calf Laterality: Left Type of Debridement: Excisional debridement Anesthesia Used: 5% Lidocaine Gel Depth: Down to and including healthy tissue and in the subcutaneous layer Percentage of wound debrided: 100 Instrument Used: 5mm curette Severity: Fat Layer Exposed Amount of bleeding with debridement: Mild Bleeding Controlled with: Compression and gauze Patient tolerated procedure: Patient tolerated procedure well Assessment/Plan Assessment/Plan (1) Chronic venous insufficiency: CODE(S): I87.2 - Venous insufficiency (chronic) (peripheral) (2) Post-phlebitic syndrome: CODE(S): I87.009 - Postthrombotic syndrome without complications of unspecified extremity (3) Venous ulcer of left leg: CODE(S): I83.029 - Varicose veins of left lower extremity with ulcer of unspecified site; L97.929 - Non-pressure chronic ulcer of unspecified part of left lower leg with unspecified severity (4) Diabetes mellitus: CODE(S): E11.9 - Type 2 diabetes mellitus without complications QUALIFIERS: Diabetes mellitus type: type 2 (5) History of DVT of lower extremity: CODE(S): Z86.718 - Personal history of other venous thrombosis and embolism (6) Leg pain, left: CODE(S): M79.605 - Pain in left leg (7) Left leg swelling: CODE(S): M79.89 - Other specified soft tissue disorders (8) Cellulitis and abscess of left leg: CODE(S): L03.116 - Cellulitis of left lower limb; L02.416 - Cutaneous abscess of left lower limb (9) Hypertension: CODE(S): I10 - Essential (primary) hypertension (10) COPD (chronic obstructive pulmonary disease): CODE(S): J44.9 - Chronic obstructive pulmonary disease, unspecified (11) Hyperlipidemia: CODE(S): E78.5 - Hyperlipidemia, unspecified (12) Morbid obesity with BMI of 40.0-44.9, adult: CODE(S): E66.01 - Morbid (severe) obesity due to excess calories; Z68.41 - Body mass index [BMI] 40.0-44.9, adult (13) Tobacco abuse: CODE(S): Z72.0 - Tobacco use (14) Tobacco abuse counseling: CODE(S): Z71.6 - Tobacco abuse counseling (15) Hyperpigmentation: CODE(S): L81.9 - Disorder of pigmentation, unspecified PLAN: This is a 60-year-old female with a longstanding history of chronic venous disease. She presented with ulcerations on the left medial and posterior calf, consistent with chronic venous disease. She has had previous ulcerations in the left lower extremity in the past. Due to the notable erythema, suspected to be cellulitis, swab cultures have been obtained for both aerobic and anaerobic bacterial growth. Culture results will be awaited, and appropriate management will ensue. Conservative treatment measures are to be implemented, including leg elevation, avoidance of idle standing and sitting, active lifestyle, attempts at weight loss, and compression to the left lower extremity. With regard to the ulcerations, we are to apply Danitza topically, with pressure into the left lower extremity by means of a 3M 2 layer compression wrap, which will be changed twice weekly. It is noted that a noninvasive lower extremity arterial study in April 2018 revealed no evident of significant arterial occlusive disease. A venous duplex at that time revealed incompetence of the left great and small saphenous veins. We are to obtain routine laboratory studies, which will include a CBC, comprehensive metabolic profile, serum prealbumin, and hemoglobin A1c. Patient has been advised to optimize her nutritional intake. She is also been advised to cease her smoking habit. Appropriate counseling in this regard has been undertaken. A venous duplex examination is to be obtained. Patient is to return in 1 week for reevaluation. Total time: 65 minutes
[2021-03-17 12:27] VITALS: BP 124/57; PULSE 73; RESP 18; TEMP 36.6; BMI 44.9
[2021-03-17 13:01] LABS: Absolute Neutrophil Count 4.9 X10^3/uL (2.0-7.7); Basophil# 0.06 X10^3/uL; Basophil% 0.7 % (0-1); Eosinophil# 0.32 X10^3/uL; Hematocrit 45.3 % (37-47); Hemoglobin 15.1 g/dL (12.0-15.0); Lymphocyte % 24.7 % (19-41); Mean Corp Hgb Conc 33.3 g/dL (32-36); Mean Corpuscular Hgb 30.6 pg (27.0-32.0); Mean Corpuscular Volume 91.9 fL (81-99); Mean Platelet Vol. 9.3 fl (6.2-12.0); Monocyte# 0.76 X10^3/uL; Monocyte% 9.4 % (0-10); NRBC Flagged by Analyzer 0 % (0-5); Neutrophil # 4.94 X10^3/uL (2.7-7.7); Platelet Count 364 K/mm3 (150-450); RBC Distribution Width CV 12.6 % (11.6-14.6); RBC Distribution Width SD 42.7 fl (35.1-43.9); Red Blood Count 4.93 M/mm3 (4.2-5.4); White Blood Count 8.1 K/mm3 (4.4-11.0)
[2021-03-17 13:20] LABS: Hemoglobin A1c 6.5 % (3.8-5.6)
[2021-03-17 13:34] LABS: ALB/GLOB Ratio 0.9 RATIO (0.9-2.4); AST(SGOT) 13 U/L (15-37); Alanine Aminotransfer ALT/SGPT 20 U/L (13-56); Albumin, Serum 3.5 g/dL (3.2-5.0); Alkaline Phosphatase 104 U/L (45-117); Anion Gap 4 (5-15); BUN 11 mg/dL (7-18); BUN/Creat Ratio 15.7 RATIO (10-20); Calcium,Total 9.3 mg/dL (8.5-10.1); Chloride 100 mmol/L (98-107); EST Glomerular Filtration Rate 91 mL/min (>60); Est Glom Filt Rate - Afr Amer 110 mL/min (>60); Globulin 3.8 g/dL (2.2-4.2); Glucose 168 mg/dL (74-106); Potassium 3.7 mmol/L (3.5-5.1); Prealbumin 16.7 mg/dL (20.0-40.0); Protein, Total 7.3 g/dL (6.4-8.2); Sodium Level 140 mmol/L (136-145)
[2021-03-21 09:58] VITALS: BP 141/71; PULSE 78; TEMP 36.2; BMI 44.9
--- NOTE | 2021-03-21 10:43 | PCM.WC.HP ---
History of Present Illness Date of Service: 03/21/21 Chief Complaint: Chronic venous insufficiency, postphlebitic syndrome with inflammation, venous ulceration of the left lower extremity, left lower extremity swelling, left lower extremity pain History of Wound: This is a 60-year-old female who presented with an ulceration on the posterior and medial aspect of her left calf. The ulceration had been present for several months. The patient has had prior ulcerations in these areas in the past. She has been using antibiotic ointment topically, as well as peroxide. She has noted mild redness about the ulcerations. She presented here for definitive management. She suffers from multiple medical problems, including diabetes mellitus, morbid obesity, and has a history of left lower extremity deep vein thrombosis on at least 2 occasions in the remote past. She intermittently wears compression stockings, but has not been doing so recently. She claims to sleep on a flat mattress at night. 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 Prior episodes of deep vein thrombosis in the past occurred after childbirth in 1978, and after an appendectomy in 1999. [facility] Medical History (Updated 03/21/21 @ 10:[address] Damir Woods MD) Cellulitis and abscess of left leg MRSA infection (methicillin-resistant Staphylococcus aureus) Medical History no medical history Home Medications hydrochlorothiazide 25 mg PO DAILY 04/07/18 [History Last Taken Unknown] losartan 50 mg PO 04/07/18 [History Last Taken Unknown] ipratropium-albuterol [Combivent] spray INHALATION 03/14/21 [History Last Taken Unknown] Allergy/AdvReac Type Severity Reaction Status Date / Time No Known Allergies Allergy Verified 03/14/21 09:39 Family History no significant family his Surgical History no surgical history Social History Smoking Status: Current every day smoker Vital Signs Vital Signs Vital Signs: 03/21/21 09:58 Temperature 97.1 F L Temperature Source Temporal Pulse Rate 78 Blood Pressure 141/71 H Blood Pressure Mean 94 Blood Pressure Source Monitor Blood Pressure Position Semi-Fowlers Blood Pressure Location Right Arm Weight Weight: 270 lb 3.969 oz Body Mass Index (BMI) 44.9 Physical Exam Const alert, oriented x3, no apparent distress and well nourished General Appearance: cooperative, comfortable and well developed Orientation / Consciousness: awake, oriented to person, oriented to place and oriented to time HEENT normocephalic and head/scalp atraumatic Head and Scalp: normal to inspection, normocephalic and atraumatic External Ear: external ears normal Eyes PERRL and EOMs intact bilaterally General Eye: normal appearance of both eyes Resp normal respiratory effort, normal air movement, no retractions and no use of accessory muscles Effort and Inspection: able to speak in complete sentences Extremity no calf tenderness Extremity Narrative: Mild swelling and edema persist in the left lower extremity. General Extremity: Negative for clubbing or cyanosis Skin Wound Narrative: Clustered ulcerations persist in the left medial and posterior calf. There is surrounding erythema. The base of the ulcerations is yellowish and demonstrates the presence of nonviable tissue. Dimensions are documented elsewhere. There is a large amount of bioburden. The presence of erythema is suggestive of cellulitis. Neuro oriented x3, CN's II-XII intact bilaterally and moves all extremities Psych Appearance: grossly normal and appropriate Attitude: calm Activity / Motor Behavior: appropriate eye contact Speech: normal speech Mood & Affect: euthymic mood Thought Process: normal thought process Thought Content: normal thought content Attention / Concentration: attention grossly intact Debridement Note Debridement Note Wound debrided: Left medial and posterior calf, clustered ulcerations Laterality: Left Type of Debridement: Excisional debridement Anesthesia Used: 5% Lidocaine Gel Depth: Down to and including healthy tissue and in the subcutaneous layer Percentage of wound debrided: 100 Instrument Used: 5mm curette Tissue Removed: Bioburden and nonviable tissue Severity: Fat Layer Exposed Amount of bleeding with debridement: Mild Bleeding Controlled with: Compression and gauze Patient tolerated procedure: Patient tolerated procedure well Post-Debridement Measurements and Additional Note: Post-Debridement Measurements/Treatment VERONIQUE - Nurse 1 - General Ulcer Assessment Start: 03/14/21 09:17 Freq: Status: Active Protocol: TRISHA Activity Type Activity Date Activity User E-Sign Co-Sign Detail Recorded Client Recorded Date Recorded By Document 03/14/21 09:22 DL [id number] 03/14/21 09:35 DL Document 03/17/21 12:27 RB [id number] 03/17/21 12:29 RB Document 03/21/21 09:58 KR [id number] 03/21/21 10:04 KR 03/14/21 03/17/21 03/21/21 09:22 12:27 09:58 WC - Today's Visit Information Type of service Initial Visit Nurse-only Follow-up Visit Visit (Physician/SEO MARKETING SPECIALIST ) Arrival Mode Ambulatory Ambulatory Ambulatory Transfer Assistance None None Patient Identification Verified (Name & Yes Yes Yes ) Patient Requires Transmission-Based No No Precautions Safety Precautions NA Finger Stick Blood Sugar(mg/dl) (if no checked indicated): Blood Sugar Stated by Patient Height and Weight Height 5 ft 5 in Weight 270 lb 3.969 oz Weight in Pounds 270.2 lbs Body Mass Index (BMI) 44.9 44.9 44.9 BMI Classification Obese Obese Obese BSA - Cat 2.25 Vital Signs Temperature (97.8 F-99.1 F) 97 F L 98 F 97.1 F L Temperature Source Temporal Temporal Temporal Pulse Rate (60-100) 74 73 78 Pulse Location Monitor Monitor Monitor Respiratory Rate (12-18) 20 H 18 Respiratory rate source Observation Observation Blood Pressure (90/60-120/80) 141/66 H 124/57 H 141/71 H Blood Pressure Mean 91 79 94 Source Monitor Monitor Monitor Position Semi-Fowlers Semi-Fowlers Blood Pressure Location Left Arm Right Arm History Since Last Visit- (Skip if this is Patient's initial visit) Have you changed medications since your No No last visit? Any new allergies or adverse reactions No No Had a fall/change in ADL's that may No No increase risk of falls Signs or symptoms of abuse and/or No No neglect since last visit Have you been in the hospital since your No No last visit? Has dressing in place as prescribed Yes Yes Has compression in place as prescribed Yes Yes Has offloadiing in place as prescribed No N/A Experienced any changes in pain level or No No management Left Footwear Regular Shoe Regular Shoe Right Footwear Regular Shoe Regular Shoe Pain Scale: 0-10 Numeric Is Patient Pain Free? Yes Yes Yes Lower Extremity Assessment/ Foot Assessment/ Toe Nail Assessment Left -Posterior Tibial Palpable Yes -Posterior Tibial Doppler Multiphasic -Dorsalis Pedis Palpable Yes -Dorsalis Pedis Doppler Multiphasic -Extremity Color Hemosiderin -Hair Growth on Legs Yes -Hair Growth on Toes Yes -Temperature of Extremity Warm -Capillary Refill Less than 3 Seconds -Dependent Rubor No -Blanched when Elevated No -Lipodermatosclerosis No -Other Deformity No -Prior Foot Ulcer No -Charcot Joint No -Prior Amputation No -Thick Yes -Discolored Yes -Deformed No -Improper Length & Hygeine No Right -Posterior Tibial Palpable Yes -Posterior Tibial Doppler Multiphasic -Dorsalis Pedis Palpable Yes -Dorsalis Pedis Doppler Multiphasic -Extremity Color Hemosiderin -Hair Growth on Legs Yes -Hair Growth on Toes Yes -Temperature of Extremity Warm -Capillary Refill Less than 3 Seconds -Dependent Rubor No -Blanched when Elevated No -Lipodermatosclerosis No -Other Deformity No -Prior Foot Ulcer No -Charcot Joint No -Prior Amputation No -Thick Yes -Discolored Yes -Deformed No -Improper Length & Hygeine No Neuropathy Assessment Feet - Top Side and Bottom <Entered> (a) Communication Assessment Preferred language Ukrainian Able to Read Yes Able to Write Yes Communication Tools None Right Hearing Abillity Normal Left Hearing Abillity Normal Visual Assistive Devices Glasses Teaching Assessment Preferences Verbal,Written, Demonstration Barriers to Learning None Readiness To Learn Good Willingness to Engage in Self Management Med Activies Readiness to Engage in Self Management Med Activities Anxiety Level Calm Cooperation Cooperative Perception Coherent Interest in Health Problem Asks Questions Education Importance Acknowledges Need Does Patient Smoke tobacco or other Yes substances Smoking Status Current every day smoker Is Patient Diabetic Yes Functional Assessment Recent Decline in Ability to Perform Denies Any Declines Assistive Device With Patient Yes Culture/Anglican/Practice Lead Cultural/Anglican Needs that may affect No Treatment Plan Would you allow our hospital biomedical engineer to No meet you for the purpose of spiritual/ emotional support? Practice Lead to contact place of mandaen No Teaching: Wound Center Plan of Care Reviewed with Patient -Person Taught Patient *Nutrition -Person Taught Patient Dressing Your Wound -Person Taught Patient Smoking Cessation -Person Taught Patient *Wound/Skin Impairment -Person Taught Patient Diagnostic Tests Ordered -Person Taught Patient Control Swelling with Leg Elevation -Person Taught Patient Compression Wraps & Stockings -Person Taught Family *Welcome to the Wound Center -Person Taught Patient (a) 1 - + WC - Nurse 1 - General Ulcer Measurement Start: 03/14/21 09:17 Freq: Status: Active Protocol: Activity Type Activity Date Activity User E-Sign Co-Sign Detail Recorded Client Recorded Date Recorded By Document 03/14/21 09:22 DL [id number] 03/14/21 09:35 DL Document 03/17/21 12:27 RB [id number] 03/17/21 12:29 RB Document 03/21/21 09:58 KR [id number] 03/21/21 10:04 KR 03/14/21 03/17/21 03/21/21 09:22 12:27 09:58 Wound Center Nurse 1 #3 L Calf Cluster -Current Size (cm) - Length 0.7 0.8 -Current Size (cm) - Width 3.7 4 -Current Size (cm) - Depth 0.2 0.2 -Total Square Cm 2.59 3.2 -Photo Taken Yes -Tunneling No -Undermining/Tunneling No -Circular Undermining No -Exudate Amt Medium Medium Small -Exudate Type Serosanguineous Serosanguineous Serosanguineous -Wound Margin Distinct, Distinct, Distinct, Outline Outline Outline Attached Attached Attached -Granulation Amt None Present (0 Medium (34-66%) Medium (34-66%) %) -Granulation Quality [place] Red -Slough/Fibrin Yes -Necrosis Amt Large (67-100%) Large (67-100%) Small (1-33%) -Necrotic Tissue Type Adherent Slough Adherent Slough Adherent Slough -Structure Exposed N/A N/A -Texture (Wendy-wound Skin Appearance) Localized Edema Assessed Assessed, ,Scarring Scarring -Moisture (Wendy-wound Skin Appearance) No Abnormality Assessed No Abnormality, Assessed -Color (Wendy-wound Skin Appearance) Erythema, Hemosiderin No Abnormality, Hemosiderin Staining Assessed Staining -Temperature (Wendy-wound Skin No Abnormality No Abnormality No Abnormality Appearance) (Pt Warm) (Pt Warm) (Pt Warm) -Tenderness on Palpation (Wendy-wound No No No Skin Appearance) -Ulcer Cleansing Wound Cleanser Soap and Water -Foul Odor after Cleansing No No -Anesthetic Used 4% Lidocaine 5% Lidocaine Solution Gel #2 LLe Med Cluster -Current Size (cm) - Length 3.9 4.2 -Current Size (cm) - Width 3.6 3.2 -Current Size (cm) - Depth 0.2 0.1 -Total Square Cm 14.04 13.44 -Photo Taken Yes -Exudate Amt Medium Medium Small -Exudate Type Serosanguineous Serosanguineous Serosanguineous -Wound Margin Distinct, Distinct, Distinct, Outline Outline Outline Attached Attached Attached -Granulation Amt Large (67-100%) Medium (34-66%) Medium (34-66%) -Granulation Quality [place] Red -Slough/Fibrin Yes -Necrosis Amt Large (67-100%) Small (1-33%) Small (1-33%) -Necrotic Tissue Type Adherent Slough Adherent Slough Adherent Slough -Structure Exposed N/A N/A -Texture (Wendy-wound Skin Appearance) Localized Edema Assessed Assessed, ,Scarring Scarring -Moisture (Wendy-wound Skin Appearance) No Abnormality Assessed No Abnormality, Assessed -Color (Wendy-wound Skin Appearance) Erythema, Hemosiderin No Abnormality, Hemosiderin Staining Assessed Staining -Temperature (Wendy-wound Skin No Abnormality No Abnormality No Abnormality Appearance) (Pt Warm) (Pt Warm) (Pt Warm) -Tenderness on Palpation (Wendy-wound No No No Skin Appearance) -Ulcer Cleansing Wound Cleanser Wound Cleanser Soap and Water -Foul Odor after Cleansing No No No -Anesthetic Used 4% Lidocaine 5% Lidocaine Solution Gel Lower Limb Edema Present Yes Right Calf (cm) 42.7 Right Ankle (cm) 23.9 Left Calf (cm) 50.8 47 46 Left Ankle (cm) 28.1 26.5 28 WC - Nurse 2 - General Ulcer CM Notes Start: 03/14/21 09:17 Freq: Status: Active Protocol: Activity Type Activity Date Activity User E-Sign Co-Sign Detail Recorded Client Recorded Date Recorded By Document 03/14/21 10:17 PL [id number] 03/14/21 10:25 PL 03/14/21 10:17 Wound Center Nurse 2 #3 L Calf Cluster -Time 09:54 -Correct Patient Yes -Correct Side, Site, Position Yes -Correct Procedure Yes -Procedure Performed Yes -Type of Procedure Debridement -Clinical Debridement Subcutaneous -Tissue Removed Subcutaneous -Post Debridement (cm) - Length 0.7 -Post Debridement (cm) - Width 3.7 -Post Debridement (cm) - Depth 0.2 -Total Square (Post) (cm) 2.59 -Area of Debridement (cm) - Length 0.7 -Area of Debridement (cm) - Width 3.7 -Total Square (Area) (cm) 2.59 -Tunneling No -Undermining/Tunneling No -Circular Undermining No -Ulcer Cleansing Rinsed/ Irrigated with Saline -Foul Odor after Cleansing No -Bioengineered Tissue No -Bleeding Controlled with Pressure -Treatment Response Procedure Tolerated Well -Debridement - Subq, 1st 20sq cm Yes #2 LLe Med Cluster -Time 09:54 -Correct Patient Yes -Correct Side, Site, Position Yes -Correct Procedure Yes -Procedure Performed Yes -Type of Procedure Debridement -Clinical Debridement Subcutaneous -Tissue Removed Subcutaneous -Post Debridement (cm) - Length 3.9 -Post Debridement (cm) - Width 3.6 -Post Debridement (cm) - Depth 0.2 -Total Square (Post) (cm) 14.04 -Area of Debridement (cm) - Length 3.9 -Area of Debridement (cm) - Width 3.6 -Total Square (Area) (cm) 14.04 -Tunneling No -Undermining/Tunneling No -Circular Undermining No -Ulcer Cleansing Rinsed/ Irrigated with Saline -Foul Odor after Cleansing No -Bioengineered Tissue No -Bleeding Controlled with Pressure -Treatment Response Procedure Tolerated Well -Debridement - Subq, 1st 20sq cm No WC - Nurse 3 - General Ulcer D/C NN Start: 03/14/21 09:17 Freq: Status: Active Protocol: Activity Type Activity Date Activity User E-Sign Co-Sign Detail Recorded Client Recorded Date Recorded By Document 03/14/21 10:09 AK [id number] 03/14/21 10:11 AK Document 03/17/21 12:27 RB [id number] 03/17/21 12:29 RB 03/14/21 03/17/21 10:09 12:27 Wound Care Nurse 3 #3 L Calf Cluster -Ulcer Cleansing Rinsed/ Wound Cleanser Irrigated with Saline -Foul Odor after Cleansing No -Negative Pressure Wound Therapy N/A -Primary Dressing Applied Promogran Ly Matter -Other Dressing ly/abd -Primary Dressing Covered/Secured with Dry Gauze -Promogran Ly Matter 1 #2 LLe Med Cluster -Ulcer Cleansing Rinsed/ Rinsed/ Irrigated with Irrigated with Saline Saline -Primary Dressing Applied Promogran Ly Matter -Other Dressing ABD ly/abd -Primary Dressing Covered/Secured with Secured with Tape -Promogran Ly Matter 1 Left -Lotion applied to leg before Yes compression wrap -Multi-Layered Wrap Application Multi-Layer Multi-Layer Comp - Left ($) Comp - Left ($) Treatment Response Procedure Tolerated Well Vital Signs Temperature (97.8 F-99.1 F) 98 F Temperature Source Temporal Pulse Rate (60-100) 73 Pulse Location Monitor Respiratory Rate (12-18) 18 Respiratory rate source Observation Blood Pressure (90/60-120/80) 124/57 H Blood Pressure Mean 79 Source Monitor Position Semi-Fowlers Blood Pressure Location Left Arm Pain Scale: 0-10 Numeric Is Patient Pain Free? Yes WC - Visit Discharge Discharge Condition Stable Stable Ambulatory Status Ambulatory Ambulatory Transportation Private Auto Private Auto Medication Reconcilliation completed & Yes No provided to patient/care provider Clinical Summary of Care Provided Yes Yes Lab / Micro Data Result Diagrams: 03/17/21 12:47 03/17/21 12:47 Assessment/Plan Assessment/Plan (1) MRSA infection (methicillin-resistant Staphylococcus aureus): CODE(S): A49.02 - Methicillin resistant Staphylococcus aureus infection, unspecified site (2) Cellulitis and abscess of left leg: CODE(S): L03.116 - Cellulitis of left lower limb; L02.416 - Cutaneous abscess of left lower limb (3) Chronic venous insufficiency: CODE(S): I87.2 - Venous insufficiency (chronic) (peripheral) (4) Venous ulcer of left leg: CODE(S): I83.029 - Varicose veins of left lower extremity with ulcer of unspecified site; L97.929 - Non-pressure chronic ulcer of unspecified part of left lower leg with unspecified severity (5) Post-phlebitic syndrome: CODE(S): I87.009 - Postthrombotic syndrome without complications of unspecified extremity (6) Diabetes mellitus: CODE(S): E11.9 - Type 2 diabetes mellitus without complications QUALIFIERS: Diabetes mellitus type: type 2 (7) History of DVT of lower extremity: CODE(S): Z86.718 - Personal history of other venous thrombosis and embolism (8) Leg pain, left: CODE(S): M79.605 - Pain in left leg (9) Left leg swelling: CODE(S): M79.89 - Other specified soft tissue disorders (10) Hypertension: CODE(S): I10 - Essential (primary) hypertension (11) COPD (chronic obstructive pulmonary disease): CODE(S): J44.9 - Chronic obstructive pulmonary disease, unspecified (12) Hyperlipidemia: CODE(S): E78.5 - Hyperlipidemia, unspecified (13) Morbid obesity with BMI of 40.0-44.9, adult: CODE(S): E66.01 - Morbid (severe) obesity due to excess calories; Z68.41 - Body mass index [BMI] 40.0-44.9, adult (14) Tobacco abuse: CODE(S): Z72.0 - Tobacco use (15) Tobacco abuse counseling: CODE(S): Z71.6 - Tobacco abuse counseling (16) Hyperpigmentation: CODE(S): L81.9 - Disorder of pigmentation, unspecified PLAN: This is a 60-year-old female with a longstanding history of chronic venous disease. She presented with ulcerations on the left medial and posterior calf, consistent with chronic venous disease. She has had previous ulcerations in the left lower extremity in the past. Due to the notable erythema, suspected to be cellulitis, swab cultures have been obtained for both aerobic and anaerobic bacterial growth. Culture results revealed the presence of MRSA. The patient has previously had an ulceration in the same area, approximately 2 years ago, which was positive for MRSA. Based upon sensitivity results, patient is to be started on Bactrim double strength, 2 tabs p.o. twice daily for a total of 10 days. In addition, given her prior history of MRSA, we are to implement a regimen which will include mupirocin 2% ointment applied intranasally bilaterally twice a day. Hibiclens 4% daily showers will also be initiated. Conservative treatment measures are to be continued, including leg elevation, avoidance of idle standing and sitting, active lifestyle, attempts at weight loss, and compression to the left lower extremity. With regard to the ulcerations, we are to apply PHMB foam topically, with compression to the left lower extremity by means of a 3M 2 layer compression wrap, which will be changed twice weekly. It is noted that a noninvasive lower extremity arterial study in April 2018 revealed no evident of significant arterial occlusive disease. A venous duplex at that time revealed incompetence of the left great and small saphenous veins. We have obtain routine laboratory studies, which are relatively unremarkable. CBC is unremarkable. Hemoglobin A1c is 6.5, chemistries are relatively normal, with a slightly elevated glucose, 168, normal protein and albumin, and normal renal function. Patient has been advised to optimize her nutritional intake. She is also been advised to cease her smoking habit. Appropriate counseling in this regard has been undertaken. A venous duplex examination is to be obtained later today. Patient is to return in 1 week for reevaluation. Total time: 29 minutes
--- NOTE | 2021-03-21 12:38 | VDLE_ITS ---
Reason For Study: Non healing wound RIGHT LEFT CFV is compressible, spontaneous, phasic, GSV is normal. competent and demonstrates normal CFV is compressible, spontaneous, phasic, augmentation. competent, and demonstrates normal FV is compressible, spontaneous, phasic, augmentation. competent and demonstrates normal FV is compressible, spontaneous, phasic, augmentation. competent and demonstrates normal POP V is compressible, spontaneous, phasic, augmentation. competent and demonstrates normal POP V is compressible, spontaneous, phasic, augmentation. competent and demonstrates normal T/P Trunk is compressible. augmentation. PTV is compressible. T/P Trunk is compressible. RT PerV is compressible. PTV is compressible. SFJ is competent and measures 1.30 x 1.55 cm. LT PerV is compressible. GSV proximal thigh measures 0.53 x 0.57 cm. SFJ is INCOMPETENT and measures 1.13 x 1.06 GSV at knee measures 0.48 x 0.49 cm. cm. GSV INCOMPETENT throughout for greater than GSV proximal thigh measures 0.71 x 0.74 cm. 0.5 seconds. GSV above knee is INCOMPETENT for greater ASV mid thigh is INCOMPETENT for greater than than 0.5 seconds. 0.5 seconds and measures 0.33 x 0.32 cm. GSV at knee measures 0.56 x 0.57 cm. SSV at junction is competent and measures GSV below knee is competent. 0.34 x 0.33 cm. ASV proximal calf is INCOMPETENT for greater Nonvascularized structure noted in the right than 0.5 seconds and measures 0.45 x 0.48 popliteal fossa measuring approximently 1.65 cm. x .4.04 x 4.47 cm. SSV at junction is competent and measures Procedure 0.25 x 0.24 cm. This is a venous duplex using B-mode, color flow and spectral Doppler. Exam performed in department. A preliminary report was called and/or faxed to . VL/Venous Duplex US - Barry Extrem Interpretation Summary Deep veins of the lower extremities are bilaterally patent and compressible seg mentally. There is no evidence of deep vein thrombosis on either side. Valvular competence appears in tact within the proximal deep venous systems bilaterally. The great saphenous veins appear bila terally patent and compressible segmentally. The right sapheno-femoral junction is competent . The left sapheno-femoral junction is incompetent . The right great saphenous vein appears segmentally in competent. The left great saphenous vein appears incompetent above the knee. The left great sapheno us vein appears competent below the knee. Small saphenous veins are patent and competent bilate rally. The accessory saphenous vein in the right mid-thigh is incompetent. The accessory saphenous v ein in the left proximal calf is incompetent. A non-vascular, hypoechoic structure is noted in the right popliteal space, measuring 1.65 cm x 4.04 cm x 4.47 cm. This may represent a popliteal cy st. Clinical correlation is advised. Ordering Physician: Damir Woods Referring Physician: Thomas Chang Performed By: Hina Peterson RVT
[2021-03-24 12:13] VITALS: BP 130/56; PULSE 74; RESP 18; TEMP 36.7; BMI 44.9
[2021-03-28 10:05] VITALS: BP 132/55; PULSE 84; TEMP 35.8; BMI 44.9
--- NOTE | 2021-03-28 10:52 | HP.PCM_ITS ---
History of Present Illness Date of Service: 03/28/21 Chief Complaint: Chronic venous insufficiency, postphlebitic syndrome with inflammation, venous ulceration of the left lower extremity, left lower extremity swelling, left lower extremity pain History of Wound: This is a 60-year-old female who presented with an ulceration on the posterior and medial aspect of her left calf. The ulceration had been present for several months. The patient has had prior ulcerations in these areas in the past. She has been using antibiotic ointment topically, as well as peroxide. She has noted mild redness about the ulcerations. She presented here for definitive management. She suffers from multiple medical problems, including diabetes mellitus, morbid obesity, and has a history of left lower extremity deep vein thrombosis on at least 2 occasions in the remote past. She intermittently wears compression stockings, but has not been doing so recently. She claims to sleep on a flat mattress at night. 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 Prior episodes of deep vein thrombosis in the past occurred after childbirth in 1978, and after an appendectomy in 1999. [facility] Medical History Cellulitis and abscess of left leg MRSA infection (methicillin-resistant Staphylococcus aureus) Medical History no medical history Home Medications hydrochlorothiazide 25 mg PO DAILY 04/07/18 [History Last Taken Unknown] losartan 50 mg PO 04/07/18 [History Last Taken Unknown] ipratropium-albuterol [Combivent] spray INHALATION 03/14/21 [History Last Taken Unknown] Allergy/AdvReac Type Severity Reaction Status Date / Time No Known Allergies Allergy Verified 03/14/21 09:39 Family History no significant family his Surgical History no surgical history Social History Smoking Status: Current every day smoker Vital Signs Vital Signs Vital Signs: 03/28/21 10:05 Temperature 96.5 F L Temperature Source Oral Pulse Rate 84 Blood Pressure 132/55 H Blood Pressure Mean 80 Blood Pressure Source Monitor Blood Pressure Position Semi-Fowlers Blood Pressure Location Left Arm Weight Weight: 270 lb 3.969 oz Body Mass Index (BMI) 44.9 Physical Exam Const alert, oriented x3, no apparent distress and well nourished General Appearance: cooperative and well developed Orientation / Consciousness: awake, oriented to person, oriented to place and oriented to time HEENT normocephalic and head/scalp atraumatic Head and Scalp: normal to inspection, normocephalic and atraumatic External Ear: external ears normal Eyes PERRL and EOMs intact bilaterally General Eye: normal appearance of both eyes Resp normal respiratory effort, normal air movement, no retractions and no use of accessory muscles Effort and Inspection: able to speak in complete sentences Extremity no calf tenderness Extremity Narrative: Slight swelling and edema is noted in the patient's left lower extremity. General Extremity: Negative for clubbing or cyanosis Skin Wound Narrative: Clustered ulcerations remain on the left medial and posterior calf. Dimensions are documented elsewhere. A moderate amount of bioburden is present. There is also noted to be necrotic and nonviable tissue at each of the ulcerations. Neuro oriented x3, CN's II-XII intact bilaterally and moves all extremities Sensorium / Orientation: awake, alert, oriented to person, oriented to place and oriented to time Psych Appearance: grossly normal and appropriate Attitude: calm Activity / Motor Behavior: appropriate eye contact Speech: normal speech Mood & Affect: euthymic mood Thought Process: normal thought process Thought Content: normal thought content Attention / Concentration: attention grossly intact Debridement Note Debridement Note Wound debrided: Left medial and posterior calf Laterality: Left Type of Debridement: Excisional debridement Anesthesia Used: 5% Lidocaine Gel Depth: Down to and including healthy tissue and in the subcutaneous layer Percentage of wound debrided: 100 Instrument Used: 5mm curette Tissue Removed: Bioburden and necrotic/nonviable tissue Severity: Fat Layer Exposed Amount of bleeding with debridement: Mild Bleeding Controlled with: Compression and gauze Patient tolerated procedure: Patient tolerated procedure well Post-Debridement Measurements and Additional Note: Post-Debridement Measurements/Treatment VERONIQUE - Nurse 1 - General Ulcer Assessment Start: 03/14/21 09:17 Freq: Status: Active Protocol: TRISHA Activity Type Activity Date Activity User E-Sign Co-Sign Detail Recorded Client Recorded Date Recorded By Document 03/14/21 09:22 DL [id number] 03/14/21 09:35 DL Document 03/17/21 12:27 RB [id number] 03/17/21 12:29 RB Document 03/21/21 09:58 KR [id number] 03/21/21 10:04 KR Document 03/24/21 12:13 DL [id number] 03/24/21 12:27 DL Document 03/28/21 10:05 KR [id number] 03/28/21 10:08 KR 03/14/21 03/17/21 03/21/21 09:22 12:27 09:58 WC - Today's Visit Information Type of service Initial Visit Nurse-only Follow-up Visit Visit (Physician/INSPECTOR METAL CAN ) Arrival Mode Ambulatory Ambulatory Ambulatory Transfer Assistance None None Patient Identification Verified (Name & Yes Yes Yes ) Patient Requires Transmission-Based No No Precautions Safety Precautions NA Finger Stick Blood Sugar(mg/dl) (if no checked indicated): Blood Sugar Stated by Patient Height and Weight Height 5 ft 5 in Weight 270 lb 3.969 oz Weight in Pounds 270.2 lbs Body Mass Index (BMI) 44.9 44.9 44.9 BMI Classification Obese Obese Obese BSA - Cat 2.25 Vital Signs Temperature (97.8 F-99.1 F) 97 F L 98 F 97.1 F L Temperature Source Temporal Temporal Temporal Pulse Rate (60-100) 74 73 78 Pulse Location Monitor Monitor Monitor Respiratory Rate (12-18) 20 H 18 Respiratory rate source Observation Observation Blood Pressure (90/60-120/80) 141/66 H 124/57 H 141/71 H Blood Pressure Mean 91 79 94 Source Monitor Monitor Monitor Position Semi-Fowlers Semi-Fowlers Blood Pressure Location Left Arm Right Arm History Since Last Visit- (Skip if this is Patient's initial visit) Have you changed medications since your No No last visit? Any new allergies or adverse reactions No No Had a fall/change in ADL's that may No No increase risk of falls Signs or symptoms of abuse and/or No No neglect since last visit Have you been in the hospital since your No No last visit? Has dressing in place as prescribed Yes Yes Has compression in place as prescribed Yes Yes Has offloadiing in place as prescribed No N/A Experienced any changes in pain level or No No management Left Footwear Regular Shoe Regular Shoe Right Footwear Regular Shoe Regular Shoe Pain Scale: 0-10 Numeric Is Patient Pain Free? Yes Yes Yes Lower Extremity Assessment/ Foot Assessment/ Toe Nail Assessment Left -Posterior Tibial Palpable Yes -Posterior Tibial Doppler Multiphasic -Dorsalis Pedis Palpable Yes -Dorsalis Pedis Doppler Multiphasic -Extremity Color Hemosiderin -Hair Growth on Legs Yes -Hair Growth on Toes Yes -Temperature of Extremity Warm -Capillary Refill Less than 3 Seconds -Dependent Rubor No -Blanched when Elevated No -Lipodermatosclerosis No -Other Deformity No -Prior Foot Ulcer No -Charcot Joint No -Prior Amputation No -Thick Yes -Discolored Yes -Deformed No -Improper Length & Hygeine No Right -Posterior Tibial Palpable Yes -Posterior Tibial Doppler Multiphasic -Dorsalis Pedis Palpable Yes -Dorsalis Pedis Doppler Multiphasic -Extremity Color Hemosiderin -Hair Growth on Legs Yes -Hair Growth on Toes Yes -Temperature of Extremity Warm -Capillary Refill Less than 3 Seconds -Dependent Rubor No -Blanched when Elevated No -Lipodermatosclerosis No -Other Deformity No -Prior Foot Ulcer No -Charcot Joint No -Prior Amputation No -Thick Yes -Discolored Yes -Deformed No -Improper Length & Hygeine No Neuropathy Assessment Feet - Top Side and Bottom <Entered> (a) Communication Assessment Preferred language Persian Able to Read Yes Able to Write Yes Communication Tools None Right Hearing Abillity Normal Left Hearing Abillity Normal Visual Assistive Devices Glasses Teaching Assessment Preferences Verbal,Written, Demonstration Barriers to Learning None Readiness To Learn Good Willingness to Engage in Self Management Med Activies Readiness to Engage in Self Management Med Activities Anxiety Level Calm Cooperation Cooperative Perception Coherent Interest in Health Problem Asks Questions Education Importance Acknowledges Need Does Patient Smoke tobacco or other Yes substances Smoking Status Current every day smoker Is Patient Diabetic Yes Functional Assessment Recent Decline in Ability to Perform Denies Any Declines Assistive Device With Patient Yes Culture/Mu-Ism/Business Solutions Director Cultural/Mu-Ism Needs that may affect No Treatment Plan Would you allow our hospital senior control systems engineer to No meet you for the purpose of spiritual/ emotional support? Business Solutions Director to contact place of anabaptism No Teaching: Wound Center Plan of Care Reviewed with Patient -Person Taught Patient *Nutrition -Person Taught Patient Dressing Your Wound -Person Taught Patient Smoking Cessation -Person Taught Patient *Wound/Skin Impairment -Person Taught Patient Diagnostic Tests Ordered -Person Taught Patient Control Swelling with Leg Elevation -Person Taught Patient Compression Wraps & Stockings -Person Taught Family *Welcome to the Wound Center -Person Taught Patient 03/24/21 03/28/21 12:13 10:05 WC - Today's Visit Information Type of service Nurse-only Follow-up Visit Visit (Physician/INSPECTOR METAL CAN ) Arrival Mode Ambulatory Ambulatory Transfer Assistance None Patient Identification Verified (Name & Yes Yes ) Patient Requires Transmission-Based No Precautions Safety Precautions Finger Stick Blood Sugar(mg/dl) (if indicated): Blood Sugar Height and Weight Height Weight Weight in Pounds Body Mass Index (BMI) 44.9 44.9 BMI Classification Obese Obese BSA - Cat Vital Signs Temperature (97.8 F-99.1 F) 98.1 F 96.5 F L Temperature Source Temporal Oral Pulse Rate (60-100) 74 84 Pulse Location Monitor Monitor Respiratory Rate (12-18) 18 Respiratory rate source Observation Blood Pressure (90/60-120/80) 130/56 H 132/55 H Blood Pressure Mean 80 80 Source Monitor Monitor Position Semi-Fowlers Blood Pressure Location Left Arm History Since Last Visit- (Skip if this is Patient's initial visit) Have you changed medications since your No No last visit? Any new allergies or adverse reactions No No Had a fall/change in ADL's that may No No increase risk of falls Signs or symptoms of abuse and/or No No neglect since last visit Have you been in the hospital since your No No last visit? Has dressing in place as prescribed Yes Yes Has compression in place as prescribed Yes Yes Has offloadiing in place as prescribed N/A Experienced any changes in pain level or No No management Left Footwear Regular Shoe Right Footwear Regular Shoe Pain Scale: 0-10 Numeric Is Patient Pain Free? Yes Yes Lower Extremity Assessment/ Foot Assessment/ Toe Nail Assessment Left -Posterior Tibial Palpable -Posterior Tibial Doppler -Dorsalis Pedis Palpable -Dorsalis Pedis Doppler -Extremity Color -Hair Growth on Legs -Hair Growth on Toes -Temperature of Extremity -Capillary Refill -Dependent Rubor -Blanched when Elevated -Lipodermatosclerosis -Other Deformity -Prior Foot Ulcer -Charcot Joint -Prior Amputation -Thick -Discolored -Deformed -Improper Length & Hygeine Right -Posterior Tibial Palpable -Posterior Tibial Doppler -Dorsalis Pedis Palpable -Dorsalis Pedis Doppler -Extremity Color -Hair Growth on Legs -Hair Growth on Toes -Temperature of Extremity -Capillary Refill -Dependent Rubor -Blanched when Elevated -Lipodermatosclerosis -Other Deformity -Prior Foot Ulcer -Charcot Joint -Prior Amputation -Thick -Discolored -Deformed -Improper Length & Hygeine Neuropathy Assessment Feet - Top Side and Bottom Communication Assessment Preferred language Able to Read Able to Write Communication Tools Right Hearing Abillity Left Hearing Abillity Visual Assistive Devices Teaching Assessment Preferences Barriers to Learning Readiness To Learn Willingness to Engage in Self Management Activies Readiness to Engage in Self Management Activities Anxiety Level Cooperation Perception Interest in Health Problem Education Importance Does Patient Smoke tobacco or other substances Smoking Status Is Patient Diabetic Functional Assessment Recent Decline in Ability to Perform Assistive Device With Patient Culture/Mu-Ism/Business Solutions Director Cultural/Mu-Ism Needs that may affect Treatment Plan Would you allow our hospital senior control systems engineer to meet you for the purpose of spiritual/ emotional support? Business Solutions Director to contact place of anabaptism Teaching: Wound Center Plan of Care Reviewed with Patient -Person Taught *Nutrition -Person Taught Dressing Your Wound -Person Taught Smoking Cessation -Person Taught *Wound/Skin Impairment -Person Taught Diagnostic Tests Ordered -Person Taught Control Swelling with Leg Elevation -Person Taught Compression Wraps & Stockings -Person Taught *Welcome to the Wound Center -Person Taught (a) 1 - + WC - Nurse 1 - General Ulcer Measurement Start: 03/14/21 09:17 Freq: Status: Active Protocol: Activity Type Activity Date Activity User E-Sign Co-Sign Detail Recorded Client Recorded Date Recorded By Document 03/14/21 09:22 DL [id number] 03/14/21 09:35 DL Document 03/17/21 12:27 RB [id number] 03/17/21 12:29 RB Document 03/21/21 09:58 KR [id number] 03/21/21 10:04 KR Document 03/24/21 12:13 DL [id number] 03/24/21 12:27 DL Document 03/28/21 10:05 KR [id number] 03/28/21 10:08 KR 03/14/21 03/17/21 03/21/21 09:22 12:27 09:58 Wound Center Nurse 1 #3 L Calf Cluster -Current Size (cm) - Length 0.7 0.8 -Current Size (cm) - Width 3.7 4 -Current Size (cm) - Depth 0.2 0.2 -Total Square Cm 2.59 3.2 -Photo Taken Yes -Tunneling No -Undermining/Tunneling No -Circular Undermining No -Exudate Amt Medium Medium Small -Exudate Type Serosanguineous Serosanguineous Serosanguineous -Wound Margin Distinct, Distinct, Distinct, Outline Outline Outline Attached Attached Attached -Granulation Amt None Present (0 Medium (34-66%) Medium (34-66%) %) -Granulation Quality [place] Red -Slough/Fibrin Yes -Necrosis Amt Large (67-100%) Large (67-100%) Small (1-33%) -Necrotic Tissue Type Adherent Slough Adherent Slough Adherent Slough -Structure Exposed N/A N/A -Texture (Wendy-wound Skin Appearance) Localized Edema Assessed Assessed, ,Scarring Scarring -Moisture (Wendy-wound Skin Appearance) No Abnormality Assessed No Abnormality, Assessed -Color (Wendy-wound Skin Appearance) Erythema, Hemosiderin No Abnormality, Hemosiderin Staining Assessed Staining -Temperature (Wendy-wound Skin No Abnormality No Abnormality No Abnormality Appearance) (Pt Warm) (Pt Warm) (Pt Warm) -Tenderness on Palpation (Wendy-wound No No No Skin Appearance) -Ulcer Cleansing Wound Cleanser Soap and Water -Foul Odor after Cleansing No No -Anesthetic Used 4% Lidocaine 5% Lidocaine Solution Gel #2 LLe Med Cluster -Current Size (cm) - Length 3.9 4.2 -Current Size (cm) - Width 3.6 3.2 -Current Size (cm) - Depth 0.2 0.1 -Total Square Cm 14.04 13.44 -Photo Taken Yes -Exudate Amt Medium Medium Small -Exudate Type Serosanguineous Serosanguineous Serosanguineous -Wound Margin Distinct, Distinct, Distinct, Outline Outline Outline Attached Attached Attached -Granulation Amt Large (67-100%) Medium (34-66%) Medium (34-66%) -Granulation Quality [place] Red -Slough/Fibrin Yes -Necrosis Amt Large (67-100%) Small (1-33%) Small (1-33%) -Necrotic Tissue Type Adherent Slough Adherent Slough Adherent Slough -Structure Exposed N/A N/A -Texture (Wendy-wound Skin Appearance) Localized Edema Assessed Assessed, ,Scarring Scarring -Moisture (Wendy-wound Skin Appearance) No Abnormality Assessed No Abnormality, Assessed -Color (Wendy-wound Skin Appearance) Erythema, Hemosiderin No Abnormality, Hemosiderin Staining Assessed Staining -Temperature (Wendy-wound Skin No Abnormality No Abnormality No Abnormality Appearance) (Pt Warm) (Pt Warm) (Pt Warm) -Tenderness on Palpation (Wendy-wound No No No Skin Appearance) -Ulcer Cleansing Wound Cleanser Wound Cleanser Soap and Water -Foul Odor after Cleansing No No No -Anesthetic Used 4% Lidocaine 5% Lidocaine Solution Gel Lower Limb Edema Present Yes Right Calf (cm) 42.7 Right Ankle (cm) 23.9 Left Calf (cm) 50.8 47 46 Left Ankle (cm) 28.1 26.5 28 03/24/21 03/28/21 12:13 10:05 Wound Center Nurse 1 #3 L Calf Cluster -Current Size (cm) - Length 4.8 -Current Size (cm) - Width 9.5 -Current Size (cm) - Depth 0.2 -Total Square Cm 45.60 -Photo Taken No -Tunneling -Undermining/Tunneling -Circular Undermining -Exudate Amt Medium Medium -Exudate Type Serosanguineous Serosanguineous -Wound Margin Distinct, Distinct, Outline Outline Attached Attached -Granulation Amt Medium (34-66%) -Granulation Quality Red -Slough/Fibrin -Necrosis Amt Medium (34-66%) -Necrotic Tissue Type Adherent Slough -Structure Exposed N/A -Texture (Wendy-wound Skin Appearance) Scarring Assessed, Scarring -Moisture (Wendy-wound Skin Appearance) No Abnormality, Assessed -Color (Wendy-wound Skin Appearance) Hemosiderin No Abnormality, Staining Assessed -Temperature (Wendy-wound Skin No Abnormality No Abnormality Appearance) (Pt Warm) (Pt Warm) -Tenderness on Palpation (Wendy-wound No No Skin Appearance) -Ulcer Cleansing Soap and Water Soap and Water -Foul Odor after Cleansing No No -Anesthetic Used 5% Lidocaine Gel #2 LLe Med Cluster -Current Size (cm) - Length -Current Size (cm) - Width -Current Size (cm) - Depth -Total Square Cm -Photo Taken No -Exudate Amt Medium -Exudate Type Serosanguineous -Wound Margin Distinct, Outline Attached -Granulation Amt -Granulation Quality -Slough/Fibrin -Necrosis Amt -Necrotic Tissue Type -Structure Exposed N/A -Texture (Wendy-wound Skin Appearance) Scarring -Moisture (Wendy-wound Skin Appearance) No Abnormality -Color (Wendy-wound Skin Appearance) Hemosiderin Staining -Temperature (Wendy-wound Skin No Abnormality Appearance) (Pt Warm) -Tenderness on Palpation (Wendy-wound No Skin Appearance) -Ulcer Cleansing Soap and Water -Foul Odor after Cleansing No -Anesthetic Used Lower Limb Edema Present Right Calf (cm) Right Ankle (cm) Left Calf (cm) 46 45.5 Left Ankle (cm) 27 26.5 WC - Nurse 2 - General Ulcer CM Notes Start: 03/14/21 09:17 Freq: Status: Active Protocol: Activity Type Activity Date Activity User E-Sign Co-Sign Detail Recorded Client Recorded Date Recorded By Document 03/14/21 10:17 PL [id number] 03/14/21 10:25 PL Document 03/21/21 12:46 PL [id number] 03/21/21 12:52 PL Document 03/28/21 10:36 PL [id number] 03/28/21 10:39 PL 03/14/21 03/21/21 03/28/21 10:17 12:46 10:36 Wound Center Nurse 2 #3 L Calf Cluster -Time 09:54 10:14 10:14 -Correct Patient Yes Yes Yes -Correct Side, Site, Position Yes Yes Yes -Correct Procedure Yes Yes Yes -Procedure Performed Yes Yes Yes -Type of Procedure Debridement Debridement Debridement -Clinical Debridement Subcutaneous Subcutaneous Subcutaneous -Tissue Removed Subcutaneous Subcutaneous Subcutaneous -Post Debridement (cm) - Length 0.7 0.8 4.8 -Post Debridement (cm) - Width 3.7 4.0 9.5 -Post Debridement (cm) - Depth 0.2 0.2 0.2 -Total Square (Post) (cm) 2.59 3.20 45.60 -Area of Debridement (cm) - Length 0.7 0.8 1.0 -Area of Debridement (cm) - Width 3.7 4.0 2.0 -Total Square (Area) (cm) 2.59 3.20 2.00 -Tunneling No No No -Undermining/Tunneling No No No -Circular Undermining No No No -Wound/Ulcer Outcome Not Healed Not Healed -Ulcer Cleansing Rinsed/ Rinsed/ Rinsed/ Irrigated with Irrigated with Irrigated with Saline Saline Saline -Foul Odor after Cleansing No No No -Bioengineered Tissue No No No -Bleeding Controlled with Pressure Pressure Pressure -Treatment Response Procedure Procedure Procedure Tolerated Well Tolerated Well Tolerated Well -Debridement - Subq, 1st 20sq cm Yes Yes Yes #2 LLe Med Cluster -Time 09:54 10:14 -Correct Patient Yes Yes -Correct Side, Site, Position Yes Yes -Correct Procedure Yes Yes -Procedure Performed Yes Yes -Type of Procedure Debridement Debridement -Clinical Debridement Subcutaneous Subcutaneous -Tissue Removed Subcutaneous Subcutaneous -Post Debridement (cm) - Length 3.9 4.2 -Post Debridement (cm) - Width 3.6 3.2 -Post Debridement (cm) - Depth 0.2 0.1 -Total Square (Post) (cm) 14.04 13.44 -Area of Debridement (cm) - Length 3.9 4.2 -Area of Debridement (cm) - Width 3.6 3.2 -Total Square (Area) (cm) 14.04 13.44 -Tunneling No No -Undermining/Tunneling No No -Circular Undermining No No -Wound/Ulcer Outcome Not Healed -Ulcer Cleansing Rinsed/ Rinsed/ Irrigated with Irrigated with Saline Saline -Foul Odor after Cleansing No No -Bioengineered Tissue No No -Bleeding Controlled with Pressure Pressure -Treatment Response Procedure Procedure Tolerated Well Tolerated Well -Debridement - Subq, 1st 20sq cm No No WC - Nurse 3 - General Ulcer D/C NN Start: 03/14/21 09:17 Freq: Status: Active Protocol: Activity Type Activity Date Activity User E-Sign Co-Sign Detail Recorded Client Recorded Date Recorded By Document 03/14/21 10:09 AK [id number] 03/14/21 10:11 AK Document 03/17/21 12:27 RB [id number] 03/17/21 12:29 RB Document 03/21/21 14:18 PL [id number] 03/21/21 14:19 PL Document 03/24/21 12:27 DL [id number] 03/24/21 12:29 DL 03/14/21 03/17/21 03/21/21 10:09 12:27 14:18 Wound Care Nurse 3 #3 L Calf Cluster -Ulcer Cleansing Rinsed/ Wound Cleanser Rinsed/ Irrigated with Irrigated with Saline Saline -Foul Odor after Cleansing No No -Negative Pressure Wound Therapy N/A -Primary Dressing Applied Promogran Promogran Ly Matter Ly Matter -Other Dressing ly/abd ABD -Primary Dressing Covered/Secured with Dry Gauze -Promogran Ly Matter 1 1 #2 LLe Med Cluster -Ulcer Cleansing Rinsed/ Rinsed/ Rinsed/ Irrigated with Irrigated with Irrigated with Saline Saline Saline -Foul Odor after Cleansing No -Primary Dressing Applied Promogran Ly Matter -Other Dressing ABD ly/abd Ly, ABD -Primary Dressing Covered/Secured with Secured with Tape -Promogran Yl Matter 1 Left -Lotion applied to leg before Yes compression wrap -Multi-Layered Wrap Application Multi-Layer Multi-Layer Multi-Layer Comp - Left ($) Comp - Left ($) Comp - Left ($) Treatment Response Procedure Tolerated Well Vital Signs Temperature (97.8 F-99.1 F) 98 F Temperature Source Temporal Pulse Rate (60-100) 73 Pulse Location Monitor Respiratory Rate (12-18) 18 Respiratory rate source Observation Blood Pressure (90/60-120/80) 124/57 H Blood Pressure Mean 79 Source Monitor Position Semi-Fowlers Blood Pressure Location Left Arm Pain Scale: 0-10 Numeric Is Patient Pain Free? Yes WC - Visit Discharge Discharge Condition Stable Stable Stable Ambulatory Status Ambulatory Ambulatory Ambulatory Transportation Private Auto Private Auto Private Auto Medication Reconcilliation completed & Yes No provided to patient/care provider Clinical Summary of Care Provided Yes Yes Yes 03/24/21 12:27 Wound Care Nurse 3 #3 L Calf Cluster -Ulcer Cleansing Soap and Water -Foul Odor after Cleansing No -Negative Pressure Wound Therapy -Primary Dressing Applied -Other Dressing AMD Foam Drsg -Primary Dressing Covered/Secured with Dry Gauze & Roll Gauze, Secured with Tape -Promogran Ly Matter #2 LLe Med Cluster -Ulcer Cleansing Soap and Water -Foul Odor after Cleansing No -Primary Dressing Applied -Other Dressing AMD Foam Drsg -Primary Dressing Covered/Secured with Dry Gauze & Roll Gauze, Secured with Tape -Promogran Ly Matter Left -Lotion applied to leg before compression wrap -Multi-Layered Wrap Application Multi-Layer Comp - Left ($) Treatment Response Procedure Tolerated Well Vital Signs Temperature (97.8 F-99.1 F) Temperature Source Pulse Rate (60-100) Pulse Location Respiratory Rate (12-18) Respiratory rate source Blood Pressure (90/60-120/80) Blood Pressure Mean Source Position Blood Pressure Location Pain Scale: 0-10 Numeric Is Patient Pain Free? Yes WC - Visit Discharge Discharge Condition Stable Ambulatory Status Ambulatory Transportation Private Auto Medication Reconcilliation completed & provided to patient/care provider Clinical Summary of Care Provided Lab / Micro Data Result Diagrams: 03/17/21 12:47 03/17/21 12:47 Assessment/Plan Assessment/Plan (1) MRSA infection (methicillin-resistant Staphylococcus aureus): CODE(S): A49.02 - Methicillin resistant Staphylococcus aureus infection, unspecified site (2) Cellulitis and abscess of left leg: CODE(S): L03.116 - Cellulitis of left lower limb; L02.416 - Cutaneous abscess of left lower limb (3) Chronic venous insufficiency: CODE(S): I87.2 - Venous insufficiency (chronic) (peripheral) (4) Post-phlebitic syndrome: CODE(S): I87.009 - Postthrombotic syndrome without complications of unspecified extremity (5) Venous ulcer of left leg: CODE(S): I83.029 - Varicose veins of left lower extremity with ulcer of unspecified site; L97.929 - Non-pressure chronic ulcer of unspecified part of left lower leg with unspecified severity (6) Diabetes mellitus: CODE(S): E11.9 - Type 2 diabetes mellitus without complications QUALIFIERS: Diabetes mellitus type: type 2 (7) History of DVT of lower extremity: CODE(S): Z86.718 - Personal history of other venous thrombosis and embolism (8) Leg pain, left: CODE(S): M79.605 - Pain in left leg (9) Left leg swelling: CODE(S): M79.89 - Other specified soft tissue disorders (10) Hypertension: CODE(S): I10 - Essential (primary) hypertension (11) COPD (chronic obstructive pulmonary disease): CODE(S): J44.9 - Chronic obstructive pulmonary disease, unspecified (12) Morbid obesity with BMI of 40.0-44.9, adult: CODE(S): E66.01 - Morbid (severe) obesity due to excess calories; Z68.41 - Body mass index [BMI] 40.0-44.9, adult (13) Hyperlipidemia: CODE(S): E78.5 - Hyperlipidemia, unspecified (14) Tobacco abuse: CODE(S): Z72.0 - Tobacco use (15) Tobacco abuse counseling: CODE(S): Z71.6 - Tobacco abuse counseling (16) Hyperpigmentation: CODE(S): L81.9 - Disorder of pigmentation, unspecified PLAN: This is a 60-year-old female with a longstanding history of chronic venous disease. She presented with ulcerations on the left medial and posterior calf, consistent with chronic venous disease. She has had previous ulcerations in the left lower extremity in the past. Due to the notable erythema, suspected to be cellulitis, swab cultures have been obtained for both aerobic and anaerobic bacterial growth. Culture results revealed the presence of MRSA. The patient has previously had an ulceration in the same area, approximately 2 years ago, which was positive for MRSA. Based upon sensitivity results, patient is to be started on Bactrim double strength, 2 tabs p.o. twice daily for a total of 10 days. The Bactrim continues until the current time. In addition, given her prior history of MRSA, we have implemented a regimen including mupirocin 2% ointment applied intranasally bilaterally twice a day. Hibiclens 4% daily showers have also been initiated. Conservative treatment measures are to be continued, including leg elevation, avoidance of idle standing and sitting, active lifestyle, attempts at weight loss, and compression to the left lower extremity. With regard to the ulcerations, we are to transition from the use of PHMB foam topically, with compression to the left lower extremity by means of a 3M 2 layer compression wrap, to the use of collagenase Santyl, applied on a d aily basis, with compression by means of SurePress which will be applied by the patient daily. It is noted that a noninvasive lower extremity arterial study in April 2018 revealed no evident of significant arterial occlusive disease. A venous duplex at that time revealed incompetence of the left great and small saphenous veins. We have obtain routine laboratory studies, which are relatively unremarkable. CBC is unremarkable. Hemoglobin A1c is 6.5, chemistries are relatively normal, with a slightly elevated glucose, 168, normal protein and albumin, and normal renal function. Patient has been advised to optimize her nutritional intake. She is also been advised to cease her smoking habit. Appropriate counseling in this regard has been undertaken. A venous duplex examination obtained on March 21, 2021, reveals the left great saphenous vein to be incompetent above the knee. An accessory saphenous vein in the left proximal calf is incompetent. The patient is to return in 1 week for reevaluation. Total time: 28 minutes
[2021-04-04 09:50] VITALS: BP 156/79; PULSE 91; RESP 20; TEMP 36.6; BMI 44.9
--- NOTE | 2021-04-04 10:17 | PCM.WC.HP ---
History of Present Illness Date of Service: 04/04/21 Chief Complaint: Chronic venous insufficiency, postphlebitic syndrome with inflammation, venous ulceration of the left lower extremity, left lower extremity swelling, left lower extremity pain History of Wound: This is a 60-year-old female who presented with an ulceration on the posterior and medial aspect of her left calf. The ulceration had been present for several months. The patient has had prior ulcerations in these areas in the past. She has been using antibiotic ointment topically, as well as peroxide. She has noted mild redness about the ulcerations. She presented here for definitive management. She suffers from multiple medical problems, including diabetes mellitus, morbid obesity, and has a history of left lower extremity deep vein thrombosis on at least 2 occasions in the remote past. She intermittently wears compression stockings, but has not been doing so recently. She claims to sleep on a flat mattress at night. 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 Prior episodes of deep vein thrombosis in the past occurred after childbirth in 1978, and after an appendectomy in 1999. [facility] Medical History Cellulitis and abscess of left leg MRSA infection (methicillin-resistant Staphylococcus aureus) Medical History no medical history Home Medications hydrochlorothiazide 25 mg PO DAILY 04/07/18 [History Last Taken Unknown] losartan 50 mg PO 04/07/18 [History Last Taken Unknown] ipratropium-albuterol [Combivent] spray INHALATION 03/14/21 [History Last Taken Unknown] Allergy/AdvReac Type Severity Reaction Status Date / Time No Known Allergies Allergy Verified 03/14/21 09:39 Family History no significant family his Surgical History no surgical history Social History Smoking Status: Current every day smoker Vital Signs Vital Signs Vital Signs: 04/04/21 09:50 Temperature 98 F Temperature Source Temporal Pulse Rate 91 Respiratory Rate 20 H Blood Pressure 156/79 H Blood Pressure Mean 104 Blood Pressure Source Monitor Weight Weight: 270 lb 3.969 oz Body Mass Index (BMI) 44.9 Physical Exam Const alert, oriented x3, no apparent distress and well nourished General Appearance: cooperative and well developed Orientation / Consciousness: awake, oriented to person, oriented to place and oriented to time HEENT normocephalic and head/scalp atraumatic Head and Scalp: normal to inspection, normocephalic and atraumatic External Ear: external ears normal Eyes PERRL and EOMs intact bilaterally General Eye: normal appearance of both eyes Resp normal respiratory effort, normal air movement, no retractions and no use of accessory muscles Effort and Inspection: able to speak in complete sentences Extremity no calf tenderness General Extremity: Negative for clubbing or cyanosis Skin Wound Narrative: Slight swelling and edema are noted in the patient's left lower extremity. Chronic hyperpigmentation is noted in the gaiter area. Clustered ulcerations are noted on the left posterior medial calf. There is a moderate amount of bioburden and nonviable tissue present. There is no obvious sign of infection or cellulitis. Dimensions are documented elsewhere. Neuro oriented x3, CN's II-XII intact bilaterally and moves all extremities Sensorium / Orientation: awake, alert, oriented to person, oriented to place and oriented to time Psych Appearance: grossly normal and appropriate Attitude: calm Activity / Motor Behavior: appropriate eye contact Speech: normal speech Mood & Affect: euthymic mood Thought Process: normal thought process Thought Content: normal thought content Attention / Concentration: attention grossly intact Debridement Note Debridement Note Wound debrided: Left posterior and medial calf Laterality: Left Type of Debridement: Excisional debridement Anesthesia Used: 5% Lidocaine Gel Depth: Down to and including healthy tissue and in the subcutaneous layer Percentage of wound debrided: 100 Instrument Used: 5mm curette Tissue Removed: Bioburden and nonviable tissue Severity: Fat Layer Exposed Amount of bleeding with debridement: Mild Bleeding Controlled with: Compression and gauze Patient tolerated procedure: Patient tolerated procedure well Post-Debridement Measurements and Additional Note: Post-Debridement Measurements/Treatment VERONIQUE - Nurse 1 - General Ulcer Assessment Start: 03/14/21 09:17 Freq: Status: Active Protocol: TRISHA Activity Type Activity Date Activity User E-Sign Co-Sign Detail Recorded Client Recorded Date Recorded By Document 03/14/21 09:22 DL [id number] 03/14/21 09:35 DL Document 03/17/21 12:27 RB [id number] 03/17/21 12:29 RB Document 03/21/21 09:58 KR [id number] 03/21/21 10:04 KR Document 03/24/21 12:13 DL [id number] 03/24/21 12:27 DL Document 03/28/21 10:05 KR [id number] 03/28/21 10:08 KR Document 04/04/21 09:50 DL [id number] 04/04/21 09:56 DL 03/14/21 03/17/21 03/21/21 09:22 12:27 09:58 WC - Today's Visit Information Type of service Initial Visit Nurse-only Follow-up Visit 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 ) Arrival Mode Ambulatory Ambulatory Ambulatory Transfer Assistance None None Patient Identification Verified (Name & Yes Yes Yes ) Patient Requires Transmission-Based No No Precautions Safety Precautions NA Finger Stick Blood Sugar(mg/dl) (if no checked indicated): Blood Sugar Stated by Patient Height and Weight Height 5 ft 5 in Weight 270 lb 3.969 oz Weight in Pounds 270.2 lbs Body Mass Index (BMI) 44.9 44.9 44.9 BMI Classification Obese Obese Obese BSA - Cat 2.25 Vital Signs Temperature (97.8 F-99.1 F) 97 F L 98 F 97.1 F L Temperature Source Temporal Temporal Temporal Pulse Rate (60-100) 74 73 78 Pulse Location Monitor Monitor Monitor Respiratory Rate (12-18) 20 H 18 Respiratory rate source Observation Observation Blood Pressure (90/60-120/80) 141/66 H 124/57 H 141/71 H Blood Pressure Mean 91 79 94 Source Monitor Monitor Monitor Position Semi-Fowlers Semi-Fowlers Blood Pressure Location Left Arm Right Arm History Since Last Visit- (Skip if this is Patient's initial visit) Have you changed medications since your No No last visit? Any new allergies or adverse reactions No No Had a fall/change in ADL's that may No No increase risk of falls Signs or symptoms of abuse and/or No No neglect since last visit Have you been in the hospital since your No No last visit? Has dressing in place as prescribed Yes Yes Has compression in place as prescribed Yes Yes Has offloadiing in place as prescribed No N/A Experienced any changes in pain level or No No management Left Footwear Regular Shoe Regular Shoe Right Footwear Regular Shoe Regular Shoe Pain Scale: 0-10 Numeric Is Patient Pain Free? Yes Yes Yes Lower Extremity Assessment/ Foot Assessment/ Toe Nail Assessment Left -Posterior Tibial Palpable Yes -Posterior Tibial Doppler Multiphasic -Dorsalis Pedis Palpable Yes -Dorsalis Pedis Doppler Multiphasic -Extremity Color Hemosiderin -Hair Growth on Legs Yes -Hair Growth on Toes Yes -Temperature of Extremity Warm -Capillary Refill Less than 3 Seconds -Dependent Rubor No -Blanched when Elevated No -Lipodermatosclerosis No -Other Deformity No -Prior Foot Ulcer No -Charcot Joint No -Prior Amputation No -Thick Yes -Discolored Yes -Deformed No -Improper Length & Hygeine No Right -Posterior Tibial Palpable Yes -Posterior Tibial Doppler Multiphasic -Dorsalis Pedis Palpable Yes -Dorsalis Pedis Doppler Multiphasic -Extremity Color Hemosiderin -Hair Growth on Legs Yes -Hair Growth on Toes Yes -Temperature of Extremity Warm -Capillary Refill Less than 3 Seconds -Dependent Rubor No -Blanched when Elevated No -Lipodermatosclerosis No -Other Deformity No -Prior Foot Ulcer No -Charcot Joint No -Prior Amputation No -Thick Yes -Discolored Yes -Deformed No -Improper Length & Hygeine No Neuropathy Assessment Feet - Top Side and Bottom <Entered> (a) Communication Assessment Preferred language Uz[place] Able to Read Yes Able to Write Yes Communication Tools None Right Hearing Abillity Normal Left Hearing Abillity Normal Visual Assistive Devices Glasses Teaching Assessment Preferences Verbal,Written, Demonstration Barriers to Learning None Readiness To Learn Good Willingness to Engage in Self Management Med Activies Readiness to Engage in Self Management Med Activities Anxiety Level Calm Cooperation Cooperative Perception Coherent Interest in Health Problem Asks Questions Education Importance Acknowledges Need Does Patient Smoke tobacco or other Yes substances Smoking Status Current every day smoker Is Patient Diabetic Yes Functional Assessment Recent Decline in Ability to Perform Denies Any Declines Assistive Device With Patient Yes Culture/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 Photographic Lithographer to contact place of taoist No Teaching: Wound Center Plan of Care Reviewed with Patient -Person Taught Patient *Nutrition -Person Taught Patient Dressing Your Wound -Person Taught Patient Smoking Cessation -Person Taught Patient *Wound/Skin Impairment -Person Taught Patient Diagnostic Tests Ordered -Person Taught Patient Control Swelling with Leg Elevation -Person Taught Patient Compression Wraps & Stockings -Person Taught Family *Welcome to the Wound Center -Person Taught Patient 03/24/21 03/28/21 04/04/21 12:13 10:05 09:50 WC - Today's Visit Information Type of service Nurse-only Follow-up Visit Follow-up Visit 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 (Physician/WINE CELLAR WORKER ) ) Arrival Mode Ambulatory Ambulatory Ambulatory Transfer Assistance None None Patient Identification Verified (Name & Yes Yes Yes ) Patient Requires Transmission-Based No No Precautions Safety Precautions Finger Stick Blood Sugar(mg/dl) (if indicated): Blood Sugar Height and Weight Height Weight Weight in Pounds Body Mass Index (BMI) 44.9 44.9 44.9 BMI Classification Obese Obese Obese BSA - Cat Vital Signs Temperature (97.8 F-99.1 F) 98.1 F 96.5 F L 98 F Temperature Source Temporal Oral Temporal Pulse Rate (60-100) 74 84 91 Pulse Location Monitor Monitor Monitor Respiratory Rate (12-18) 18 20 H Respiratory rate source Observation Observation Blood Pressure (90/60-120/80) 130/56 H 132/55 H 156/79 H Blood Pressure Mean 80 80 104 Source Monitor Monitor Monitor Position Semi-Fowlers Blood Pressure Location Left Arm History Since Last Visit- (Skip if this is Patient's initial visit) Have you changed medications since your No No No last visit? Any new allergies or adverse reactions No No No Had a fall/change in ADL's that may No No No increase risk of falls Signs or symptoms of abuse and/or No No No neglect since last visit Have you been in the hospital since your No No No last visit? Has dressing in place as prescribed Yes Yes Yes Has compression in place as prescribed Yes Yes Yes Has offloadiing in place as prescribed N/A N/A Experienced any changes in pain level or No No No management Left Footwear Regular Shoe Right Footwear Regular Shoe Pain Scale: 0-10 Numeric Is Patient Pain Free? Yes Yes Yes Lower Extremity Assessment/ Foot Assessment/ Toe Nail Assessment Left -Posterior Tibial Palpable -Posterior Tibial Doppler -Dorsalis Pedis Palpable -Dorsalis Pedis Doppler -Extremity Color -Hair Growth on Legs -Hair Growth on Toes -Temperature of Extremity -Capillary Refill -Dependent Rubor -Blanched when Elevated -Lipodermatosclerosis -Other Deformity -Prior Foot Ulcer -Charcot Joint -Prior Amputation -Thick -Discolored -Deformed -Improper Length & Hygeine Right -Posterior Tibial Palpable -Posterior Tibial Doppler -Dorsalis Pedis Palpable -Dorsalis Pedis Doppler -Extremity Color -Hair Growth on Legs -Hair Growth on Toes -Temperature of Extremity -Capillary Refill -Dependent Rubor -Blanched when Elevated -Lipodermatosclerosis -Other Deformity -Prior Foot Ulcer -Charcot Joint -Prior Amputation -Thick -Discolored -Deformed -Improper Length & Hygeine Neuropathy Assessment Feet - Top Side and Bottom Communication Assessment Preferred language Able to Read Able to Write Communication Tools Right Hearing Abillity Left Hearing Abillity Visual Assistive Devices Teaching Assessment Preferences Barriers to Learning Readiness To Learn Willingness to Engage in Self Management Activies Readiness to Engage in Self Management Activities Anxiety Level Cooperation Perception Interest in Health Problem Education Importance Does Patient Smoke tobacco or other substances Smoking Status Is Patient Diabetic Functional Assessment Recent Decline in Ability to Perform Assistive Device With Patient Culture/Jainism/Photographic Lithographer Cultural/Jainism Needs that may affect Treatment Plan Would you allow our hospital nuclear operations specialist to meet you for the purpose of spiritual/ emotional support? Photographic Lithographer to contact place of taoist Teaching: Wound Center Plan of Care Reviewed with Patient -Person Taught *Nutrition -Person Taught Dressing Your Wound -Person Taught Smoking Cessation -Person Taught *Wound/Skin Impairment -Person Taught Diagnostic Tests Ordered -Person Taught Control Swelling with Leg Elevation -Person Taught Compression Wraps & Stockings -Person Taught *Welcome to the Wound Center -Person Taught (a) 1 - + WC - Nurse 1 - General Ulcer Measurement Start: 03/14/21 09:17 Freq: Status: Active Protocol: Activity Type Activity Date Activity User E-Sign Co-Sign Detail Recorded Client Recorded Date Recorded By Document 03/14/21 09:22 DL [id number] 03/14/21 09:35 DL Document 03/17/21 12:27 RB [id number] 03/17/21 12:29 RB Document 03/21/21 09:58 KR [id number] 03/21/21 10:04 KR Document 03/24/21 12:13 DL [id number] 03/24/21 12:27 DL Document 03/28/21 10:05 KR [id number] 03/28/21 10:08 KR Document 04/04/21 09:50 DL [id number] 04/04/21 09:56 DL 10/05/21 10/08/21 10/12/21 09:22 12:27 09:58 Wound Center Nurse 1 #3 L Calf Cluster -Current Size (cm) - Length 0.7 0.8 -Current Size (cm) - Width 3.7 4 -Current Size (cm) - Depth 0.2 0.2 -Total Square Cm 2.59 3.2 -Photo Taken Yes -Tunneling No -Undermining/Tunneling No -Circular Undermining No -Exudate Amt Medium Medium Small -Exudate Type Serosanguineous Serosanguineous Serosanguineous -Wound Margin Distinct, Distinct, Distinct, Outline Outline Outline Attached Attached Attached -Granulation Amt None Present (0 Medium (34-66%) Medium (34-66%) %) -Granulation Quality [place] Red -Slough/Fibrin Yes -Necrosis Amt Large (67-100%) Large (67-100%) Small (1-33%) -Necrotic Tissue Type Adherent Slough Adherent Slough Adherent Slough -Structure Exposed N/A N/A -Texture (Wendy-wound Skin Appearance) Localized Edema Assessed Assessed, ,Scarring Scarring -Moisture (Wendy-wound Skin Appearance) No Abnormality Assessed No Abnormality, Assessed -Color (Wendy-wound Skin Appearance) Erythema, Hemosiderin No Abnormality, Hemosiderin Staining Assessed Staining -Temperature (Wendy-wound Skin No Abnormality No Abnormality No Abnormality Appearance) (Pt Warm) (Pt Warm) (Pt Warm) -Tenderness on Palpation (Wendy-wound No No No Skin Appearance) -Ulcer Cleansing Wound Cleanser Soap and Water -Foul Odor after Cleansing No No -Anesthetic Used 4% Lidocaine 5% Lidocaine Solution Gel #2 LLe Med Cluster -Current Size (cm) - Length 3.9 4.2 -Current Size (cm) - Width 3.6 3.2 -Current Size (cm) - Depth 0.2 0.1 -Total Square Cm 14.04 13.44 -Photo Taken Yes -Exudate Amt Medium Medium Small -Exudate Type Serosanguineous Serosanguineous Serosanguineous -Wound Margin Distinct, Distinct, Distinct, Outline Outline Outline Attached Attached Attached -Granulation Amt Large (67-100%) Medium (34-66%) Medium (34-66%) -Granulation Quality [place] Red -Slough/Fibrin Yes -Necrosis Amt Large (67-100%) Small (1-33%) Small (1-33%) -Necrotic Tissue Type Adherent Slough Adherent Slough Adherent Slough -Structure Exposed N/A N/A -Texture (Wendy-wound Skin Appearance) Localized Edema Assessed Assessed, ,Scarring Scarring -Moisture (Wendy-wound Skin Appearance) No Abnormality Assessed No Abnormality, Assessed -Color (Wendy-wound Skin Appearance) Erythema, Hemosiderin No Abnormality, Hemosiderin Staining Assessed Staining -Temperature (Wendy-wound Skin No Abnormality No Abnormality No Abnormality Appearance) (Pt Warm) (Pt Warm) (Pt Warm) -Tenderness on Palpation (Wendy-wound No No No Skin Appearance) -Ulcer Cleansing Wound Cleanser Wound Cleanser Soap and Water -Foul Odor after Cleansing No No No -Anesthetic Used 4% Lidocaine 5% Lidocaine Solution Gel Lower Limb Edema Present Yes Right Calf (cm) 42.7 Right Ankle (cm) 23.9 Left Calf (cm) 50.8 47 46 Left Ankle (cm) 28.1 26.5 28 03/24/21 03/28/21 04/04/21 12:13 10:05 09:50 Wound Center Nurse 1 #3 L Calf Cluster -Current Size (cm) - Length 4.8 5.8 -Current Size (cm) - Width 9.5 9.3 -Current Size (cm) - Depth 0.2 0.2 -Total Square Cm 45.60 53.94 -Photo Taken No No -Tunneling -Undermining/Tunneling -Circular Undermining -Exudate Amt Medium Medium Small -Exudate Type Serosanguineous Serosanguineous Serosanguineous -Wound Margin Distinct, Distinct, Distinct, Outline Outline Outline Attached Attached Attached -Granulation Amt Medium (34-66%) Small (1-33%) -Granulation Quality Red [place] -Slough/Fibrin -Necrosis Amt Medium (34-66%) Large (67-100%) -Necrotic Tissue Type Adherent Slough Adherent Slough -Structure Exposed N/A N/A -Texture (Wendy-wound Skin Appearance) Scarring Assessed, Scarring Scarring -Moisture (Wendy-wound Skin Appearance) No Abnormality, No Abnormality Assessed -Color (Wendy-wound Skin Appearance) Hemosiderin No Abnormality, Hemosiderin Staining Assessed Staining -Temperature (Wendy-wound Skin No Abnormality No Abnormality No Abnormality Appearance) (Pt Warm) (Pt Warm) (Pt Warm) -Tenderness on Palpation (Wendy-wound No No No Skin Appearance) -Ulcer Cleansing Soap and Water Soap and Water Soap and Water -Foul Odor after Cleansing No No No -Anesthetic Used 5% Lidocaine 5% Lidocaine Gel Gel #2 LLe Med Cluster -Current Size (cm) - Length -Current Size (cm) - Width -Current Size (cm) - Depth -Total Square Cm -Photo Taken No -Exudate Amt Medium -Exudate Type Serosanguineous -Wound Margin Distinct, Outline Attached -Granulation Amt -Granulation Quality -Slough/Fibrin -Necrosis Amt -Necrotic Tissue Type -Structure Exposed N/A -Texture (Wendy-wound Skin Appearance) Scarring -Moisture (Wendy-wound Skin Appearance) No Abnormality -Color (Wendy-wound Skin Appearance) Hemosiderin Staining -Temperature (Wendy-wound Skin No Abnormality Appearance) (Pt Warm) -Tenderness on Palpation (Wendy-wound No Skin Appearance) -Ulcer Cleansing Soap and Water -Foul Odor after Cleansing No -Anesthetic Used Lower Limb Edema Present Right Calf (cm) Right Ankle (cm) Left Calf (cm) 46 45.5 45 Left Ankle (cm) 27 26.5 24.8 WC - Nurse 2 - General Ulcer CM Notes Start: 03/14/21 09:17 Freq: Status: Active Protocol: Activity Type Activity Date Activity User E-Sign Co-Sign Detail Recorded Client Recorded Date Recorded By Document 03/14/21 10:17 PL [id number] 03/14/21 10:25 PL Document 03/21/21 12:46 PL [id number] 03/21/21 12:52 PL Document 03/28/21 10:36 PL [id number] 03/28/21 10:39 PL 03/14/21 03/21/21 03/28/21 10:17 12:46 10:36 Wound Center Nurse 2 #3 L Calf Cluster -Time 09:54 10:14 10:14 -Correct Patient Yes Yes Yes -Correct Side, Site, Position Yes Yes Yes -Correct Procedure Yes Yes Yes -Procedure Performed Yes Yes Yes -Type of Procedure Debridement Debridement Debridement -Clinical Debridement Subcutaneous Subcutaneous Subcutaneous -Tissue Removed Subcutaneous Subcutaneous Subcutaneous -Post Debridement (cm) - Length 0.7 0.8 4.8 -Post Debridement (cm) - Width 3.7 4.0 9.5 -Post Debridement (cm) - Depth 0.2 0.2 0.2 -Total Square (Post) (cm) 2.59 3.20 45.60 -Area of Debridement (cm) - Length 0.7 0.8 1.0 -Area of Debridement (cm) - Width 3.7 4.0 2.0 -Total Square (Area) (cm) 2.59 3.20 2.00 -Tunneling No No No -Undermining/Tunneling No No No -Circular Undermining No No No -Wound/Ulcer Outcome Not Healed Not Healed -Ulcer Cleansing Rinsed/ Rinsed/ Rinsed/ Irrigated with Irrigated with Irrigated with Saline Saline Saline -Foul Odor after Cleansing No No No -Bioengineered Tissue No No No -Bleeding Controlled with Pressure Pressure Pressure -Treatment Response Procedure Procedure Procedure Tolerated Well Tolerated Well Tolerated Well -Debridement - Subq, 1st 20sq cm Yes Yes Yes #2 LLe Med Cluster -Time 09:54 10:14 -Correct Patient Yes Yes -Correct Side, Site, Position Yes Yes -Correct Procedure Yes Yes -Procedure Performed Yes Yes -Type of Procedure Debridement Debridement -Clinical Debridement Subcutaneous Subcutaneous -Tissue Removed Subcutaneous Subcutaneous -Post Debridement (cm) - Length 3.9 4.2 -Post Debridement (cm) - Width 3.6 3.2 -Post Debridement (cm) - Depth 0.2 0.1 -Total Square (Post) (cm) 14.04 13.44 -Area of Debridement (cm) - Length 3.9 4.2 -Area of Debridement (cm) - Width 3.6 3.2 -Total Square (Area) (cm) 14.04 13.44 -Tunneling No No -Undermining/Tunneling No No -Circular Undermining No No -Wound/Ulcer Outcome Not Healed -Ulcer Cleansing Rinsed/ Rinsed/ Irrigated with Irrigated with Saline Saline -Foul Odor after Cleansing No No -Bioengineered Tissue No No -Bleeding Controlled with Pressure Pressure -Treatment Response Procedure Procedure Tolerated Well Tolerated Well -Debridement - Subq, 1st 20sq cm No No WC - Nurse 3 - General Ulcer D/C NN Start: 03/14/21 09:17 Freq: Status: Active Protocol: Activity Type Activity Date Activity User E-Sign Co-Sign Detail Recorded Client Recorded Date Recorded By Document 03/14/21 10:09 AK [id number] 03/14/21 10:11 AK Document 03/17/21 12:27 RB [id number] 03/17/21 12:29 RB Document 03/21/21 14:18 PL [id number] 03/21/21 14:19 PL Document 03/24/21 12:27 DL [id number] 03/24/21 12:29 DL Document 03/28/21 11:24 KR [id number] 03/28/21 11:25 KR 03/14/21 03/17/21 03/21/21 10:09 12:27 14:18 Wound Care Nurse 3 #3 L Calf Cluster -Ulcer Cleansing Rinsed/ Wound Cleanser Rinsed/ Irrigated with Irrigated with Saline Saline -Foul Odor after Cleansing No No -Negative Pressure Wound Therapy N/A -Primary Dressing Applied Promogran Promogran Ly Matter Ly Matter -Other Dressing ly/abd ABD -Primary Dressing Covered/Secured with Dry Gauze -Promogran Ly Matter 1 1 #2 LLe Med Cluster -Ulcer Cleansing Rinsed/ Rinsed/ Rinsed/ Irrigated with Irrigated with Irrigated with Saline Saline Saline -Foul Odor after Cleansing No -Primary Dressing Applied Promogran Ly Matter -Other Dressing ABD ly/abd Ly, ABD -Primary Dressing Covered/Secured with Secured with Tape -Promogran Ly Matter 1 Left -Lotion applied to leg before Yes compression wrap -Multi-Layered Wrap Application Multi-Layer Multi-Layer Multi-Layer Comp - Left ($) Comp - Left ($) Comp - Left ($) -Compression Wrap Treatment Response Procedure Tolerated Well Vital Signs Temperature (97.8 F-99.1 F) 98 F Temperature Source Temporal Pulse Rate (60-100) 73 Pulse Location Monitor Respiratory Rate (12-18) 18 Respiratory rate source Observation Blood Pressure (90/60-120/80) 124/57 H Blood Pressure Mean 79 Source Monitor Position Semi-Fowlers Blood Pressure Location Left Arm Pain Scale: 0-10 Numeric Is Patient Pain Free? Yes WC - Visit Discharge Discharge Condition Stable Stable Stable Ambulatory Status Ambulatory Ambulatory Ambulatory Transportation Private Auto Private Auto Private Auto Accompanied by Medication Reconcilliation completed & Yes No provided to patient/care provider Clinical Summary of Care Provided Yes Yes Yes 03/24/21 03/28/21 12:27 11:24 Wound Care Nurse 3 #3 L Calf Cluster -Ulcer Cleansing Soap and Water Rinsed/ Irrigated with Saline -Foul Odor after Cleansing No -Negative Pressure Wound Therapy -Primary Dressing Applied C Hydrogel ($) -Other Dressing AMD Foam Drsg -Primary Dressing Covered/Secured with Dry Gauze & Dry Gauze,Dry Roll Gauze, Gauze & Roll Secured with Gauze Tape -Promogran Ly Matter #2 LLe Med Cluster -Ulcer Cleansing Soap and Water -Foul Odor after Cleansing No -Primary Dressing Applied -Other Dressing AMD Foam Drsg -Primary Dressing Covered/Secured with Dry Gauze & Roll Gauze, Secured with Tape -Promogran Ly Matter Left -Lotion applied to leg before compression wrap -Multi-Layered Wrap Application Multi-Layer Comp - Left ($) -Compression Wrap Surepress ($) Treatment Response Procedure Procedure Tolerated Well Tolerated Well Vital Signs Temperature (97.8 F-99.1 F) Temperature Source Pulse Rate (60-100) Pulse Location Respiratory Rate (12-18) Respiratory rate source Blood Pressure (90/60-120/80) Blood Pressure Mean Source Position Blood Pressure Location Pain Scale: 0-10 Numeric Is Patient Pain Free? Yes Yes WC - Visit Discharge Discharge Condition Stable Stable Ambulatory Status Ambulatory Ambulatory Transportation Private Auto Private Auto Accompanied by self Medication Reconcilliation completed & provided to patient/care provider Clinical Summary of Care Provided Lab / Micro Data Result Diagrams: 03/17/21 12:47 03/17/21 12:47 Assessment/Plan Assessment/Plan (1) Venous ulcer of left leg: CODE(S): I83.029 - Varicose veins of left lower extremity with ulcer of unspecified site; L97.929 - Non-pressure chronic ulcer of unspecified part of left lower leg with unspecified severity (2) MRSA infection (methicillin-resistant Staphylococcus aureus): CODE(S): A49.02 - Methicillin resistant Staphylococcus aureus infection, unspecified site (3) Cellulitis and abscess of left leg: CODE(S): L03.116 - Cellulitis of left lower limb; L02.416 - Cutaneous abscess of left lower limb (4) Chronic venous insufficiency: CODE(S): I87.2 - Venous insufficiency (chronic) (peripheral) (5) Post-phlebitic syndrome: CODE(S): I87.009 - Postthrombotic syndrome without complications of unspecified extremity (6) Diabetes mellitus: CODE(S): E11.9 - Type 2 diabetes mellitus without complications QUALIFIERS: Diabetes mellitus type: type 2 (7) History of DVT of lower extremity: CODE(S): Z86.718 - Personal history of other venous thrombosis and embolism (8) Leg pain, left: CODE(S): M79.605 - Pain in left leg (9) Left leg swelling: CODE(S): M79.89 - Other specified soft tissue disorders (10) Hypertension: CODE(S): I10 - Essential (primary) hypertension (11) COPD (chronic obstructive pulmonary disease): CODE(S): J44.9 - Chronic obstructive pulmonary disease, unspecified (12) Hyperlipidemia: CODE(S): E78.5 - Hyperlipidemia, unspecified (13) Morbid obesity with BMI of 40.0-44.9, adult: CODE(S): E66.01 - Morbid (severe) obesity due to excess calories; Z68.41 - Body mass index [BMI] 40.0-44.9, adult (14) Tobacco abuse: CODE(S): Z72.0 - Tobacco use (15) Tobacco abuse counseling: CODE(S): Z71.6 - Tobacco abuse counseling (16) Hyperpigmentation: CODE(S): L81.9 - Disorder of pigmentation, unspecified PLAN: This is a 60-year-old female with a longstanding history of chronic venous disease. She presented with ulcerations on the left medial and posterior calf, consistent with chronic venous disease. She has had previous ulcerations in the left lower extremity in the past. Due to the notable erythema, suspected to be cellulitis, swab cultures have been obtained for both aerobic and anaerobic bacterial growth. Culture results revealed the presence of MRSA. The patient has previously had an ulceration in the same area, approximately 2 years ago, which was positive for MRSA. Based upon sensitivity results, patient was started on Bactrim double strength, 2 tabs p.o. twice daily for a total of 10 days. This has now been completed. In addition, given her prior history of MRSA, we have implemented a regimen including mupirocin 2% ointment applied intranasally bilaterally twice a day. Hibiclens 4% daily showers have also been initiated. Conservative treatment measures are to be continued, including leg elevation, avoidance of idle standing and sitting, active lifestyle, attempts at weight loss, and compression to the left lower extremity. With regard to the ulcerations, we have transitioned from the use of PHMB foam topically, with compression to the left lower extremity by means of a 3M 2 layer compression wrap, to the use of collagenase Santyl, applied on a daily basis, with compression by means of SurePress which will be applied by the patient daily. It is noted that a noninvasive lower extremity arterial study in April 2018 revealed no evidence of significant arterial occlusive disease. A venous duplex examination which was performed on 03/21/2021 revealed incompetence of the left saphenofemoral junction, great saphenous vein above the knee, and the left accessory saphenous vein in the proximal calf. The patient may be a candidate for endovenous ablation in the future. We have obtained routine laboratory studies, which are relatively unremarkable. CBC is unremarkable. Hemoglobin A1c is 6.5, chemistries are relatively normal, with a slightly elevated glucose, 168, normal protein and albumin, and normal renal function. Patient has been advised to optimize her nutritional intake. She is also been advised to cease her smoking habit. Appropriate counseling in this regard has been undertaken. The patient is to return in 1 week for reevaluation. Total time: 29 minutes
== END 2021-04-09 23:59 ==
LOC: WC 09:45
PROVIDERS: PCP Family Medicine; Referring Provider Surgery; Visit Provider Surgery
DX: E11.622 Type 2 diabetes mellitus with other skin ulcer (principal); L97.222 Non-pressure chronic ulcer of left calf with fat layer exposed; I87.2 Venous insufficiency (chronic) (peripheral); L02.416 Cutaneous abscess of left lower limb; M79.89 Other specified soft tissue disorders; Z86.718 Personal history of other venous thrombosis and embolism; E66.01 Morbid (severe) obesity due to excess calories; Z68.41 Body mass index [BMI] 40.0-44.9, adult; Z79.899 Other long term (current) drug therapy; E78.5 Hyperlipidemia, unspecified; I10 Essential (primary) hypertension; J44.9 Chronic obstructive pulmonary disease, unspecified; F17.200 Nicotine dependence, unspecified, uncomplicated
CPT/HCPCS: 11042; 11045; 29581; 36415; 80053; 83036; 84134; 85025; 87070; 87075; 87077; 87186; 87205; 93970; 99213; G0463

== ENCOUNTER 2021-05-09 08:30 | Outpatient (RCR) | payer OTHER, SELFPAY ==
[2021-04-10 00:05] VITALS: BP 156/79; PULSE 91; RESP 20; TEMP 36.6; BMI 44.9
[2021-04-11 10:38] VITALS: BP 135/54; PULSE 78; RESP 20; TEMP 36.4; BMI 44.9
--- NOTE | 2021-04-11 13:24 | PCM.WC.HP ---
History of Present Illness Date of Service: 04/11/21 Chief Complaint: Chronic venous insufficiency, postphlebitic syndrome with inflammation, venous ulceration of the left lower extremity, left lower extremity swelling, left lower extremity pain History of Wound: This is a 60-year-old female who presented with an ulceration on the posterior and medial aspect of her left calf. The ulceration had been present for several months. The patient has had prior ulcerations in these areas in the past. She has been using antibiotic ointment topically, as well as peroxide. She has noted mild redness about the ulcerations. She presented here for definitive management. She suffers from multiple medical problems, including diabetes mellitus, morbid obesity, and has a history of left lower extremity deep vein thrombosis on at least 2 occasions in the remote past. She intermittently wears compression stockings, but has not been doing so recently. She claims to sleep on a flat mattress at night. 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 Prior episodes of deep vein thrombosis in the past occurred after childbirth in 1978, and after an appendectomy in 1999. [facility] Medical History Cellulitis and abscess of left leg MRSA infection (methicillin-resistant Staphylococcus aureus) Medical History no medical history Home Medications hydrochlorothiazide 25 mg PO DAILY 04/07/18 [History Last Taken Unknown] losartan 50 mg PO 04/07/18 [History Last Taken Unknown] ipratropium-albuterol [Combivent] spray INHALATION 03/14/21 [History Last Taken Unknown] Allergy/AdvReac Type Severity Reaction Status Date / Time No Known Allergies Allergy Verified 03/14/21 09:39 Family History no significant family his Surgical History no surgical history Social History Smoking Status: Current every day smoker Vital Signs Vital Signs Vital Signs: 04/11/21 10:38 Temperature 97.5 F L Temperature Source Temporal Pulse Rate 78 Respiratory Rate 20 H Blood Pressure 135/54 H Blood Pressure Mean 81 Blood Pressure Source Monitor Weight Weight: 270 lb 3.969 oz Body Mass Index (BMI) 44.9 Physical Exam Const alert, oriented x3, no apparent distress and well nourished General Appearance: cooperative, comfortable, well kempt and well developed Orientation / Consciousness: awake, oriented to person, oriented to place and oriented to time HEENT normocephalic and head/scalp atraumatic Head and Scalp: normal to inspection, normocephalic and atraumatic External Ear: external ears normal Eyes PERRL and EOMs intact bilaterally General Eye: normal appearance of both eyes Resp normal respiratory effort, normal air movement, no retractions and no use of accessory muscles Effort and Inspection: able to speak in complete sentences Extremity no calf tenderness General Extremity: Negative for clubbing or cyanosis Skin Wound Narrative: The ulcerations on the left posterior and medial calf persist. There are clustered, and number approximately four in close proximity. There is a moderate amount of bioburden. Dimensions are documented elsewhere. There is no sign of infection or cellulitis. Neuro oriented x3, CN's II-XII intact bilaterally and moves all extremities Sensorium / Orientation: awake, alert, oriented to person, oriented to place and oriented to time Psych Appearance: grossly normal and appropriate Attitude: calm Activity / Motor Behavior: appropriate eye contact Speech: normal speech Mood & Affect: euthymic mood Thought Process: normal thought process Thought Content: normal thought content Attention / Concentration: attention grossly intact Debridement Note Debridement Note Wound debrided: Left posterior and medial calf ulcerations Laterality: Left Type of Debridement: Excisional debridement Anesthesia Used: 5% Lidocaine Gel Depth: Down to and including healthy tissue and in the subcutaneous layer Percentage of wound debrided: 100 Instrument Used: 5mm curette Tissue Removed: Bioburden Severity: Fat Layer Exposed Amount of bleeding with debridement: Mild Bleeding Controlled with: Compression and gauze Patient tolerated procedure: Patient tolerated procedure well Post-Debridement Measurements and Additional Note: Post-Debridement Measurements/Treatment - Nurse 1 - General Ulcer Assessment Start: 04/11/21 10:37 Freq: Status: Active Protocol: TRISHA Activity Type Activity Date Activity User E-Sign Co-Sign Detail Recorded Client Recorded Date Recorded By Document 04/11/21 10:38 JOHAN [id number] 04/11/21 10:48 JOHAN 04/11/21 10:38 - Today's Visit Information Type of service 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 ) Arrival Mode Ambulatory Transfer Assistance None Patient Identification Verified (Name & Yes ) Patient Requires Transmission-Based No Precautions Height and Weight Body Mass Index (BMI) 44.9 BMI Classification Obese Vital Signs Temperature (97.8 F-99.1 F) 97.5 F L Temperature Source Temporal Pulse Rate (60-100) 78 Pulse Location Monitor Respiratory Rate (12-18) 20 H Respiratory rate source Observation Blood Pressure (90/60-120/80) 135/54 H Blood Pressure Mean 81 Source Monitor History Since Last Visit- (Skip if this is Patient's initial visit) Have you changed medications since your No last visit? Any new allergies or adverse reactions No Had a fall/change in ADL's that may No increase risk of falls Have you been in the hospital since your No last visit? Has dressing in place as prescribed Yes Has compression in place as prescribed Yes Experienced any changes in pain level or No management Left Footwear Surgical Shoe with pressure relief insole Right Footwear Regular Shoe Pain Scale: 0-10 Numeric Is Patient Pain Free? Yes WC - Nurse 1 - General Ulcer Measurement Start: 04/11/21 10:37 Freq: Status: Active Protocol: Activity Type Activity Date Activity User E-Sign Co-Sign Detail Recorded Client Recorded Date Recorded By Document 04/11/21 10:38 DL [id number] 04/11/21 10:48 DL 04/11/21 10:38 Wound Center Nurse 1 #3 L Calf Cluster -Current Size (cm) - Length 5.5 -Current Size (cm) - Width 8.5 -Current Size (cm) - Depth 0.3 -Total Square Cm 46.75 -Photo Taken No -Exudate Amt Medium -Wound Margin Distinct, Outline Attached -Granulation Amt Medium (34-66%) -Granulation Quality Red -Necrosis Amt Medium (34-66%) -Necrotic Tissue Type Adherent Slough -Structure Exposed N/A -Texture (Wendy-wound Skin Appearance) Scarring -Moisture (Wendy-wound Skin Appearance) No Abnormality -Color (Wendy-wound Skin Appearance) Hemosiderin Staining -Temperature (Wendy-wound Skin No Abnormality Appearance) (Pt Warm) -Tenderness on Palpation (Wendy-wound No Skin Appearance) -Ulcer Cleansing Rinsed/ Irrigated with Saline -Foul Odor after Cleansing No -Anesthetic Used 5% Lidocaine Gel Left Calf (cm) 44 Left Ankle (cm) 23.5 WC - Nurse 2 - General Ulcer CM Notes Start: 04/11/21 10:37 Freq: Status: Active Protocol: Activity Type Activity Date Activity User E-Sign Co-Sign Detail Recorded Client Recorded Date Recorded By Document 04/11/21 13:11 [id number] 04/11/21 13:13 PL 04/11/21 13:11 Wound Center Nurse 2 #3 L Calf Cluster -Time 11:05 -Correct Patient Yes -Correct Side, Site, Position Yes -Correct Procedure Yes -Procedure Performed Yes -Type of Procedure Debridement -Clinical Debridement Subcutaneous -Tissue Removed Subcutaneous -Post Debridement (cm) - Length 5.5 -Post Debridement (cm) - Width 8.5 -Post Debridement (cm) - Depth 0.3 -Total Square (Post) (cm) 46.75 -Area of Debridement (cm) - Length 2.5 -Area of Debridement (cm) - Width 4.0 -Total Square (Area) (cm) 10.00 -Tunneling No -Undermining/Tunneling No -Circular Undermining No -Wound/Ulcer Outcome Not Healed -Ulcer Cleansing Rinsed/ Irrigated with Saline -Foul Odor after Cleansing No -Bioengineered Tissue No -Bleeding Controlled with Pressure -Treatment Response Procedure Tolerated Well -Debridement - Subq, 1st 20sq cm Yes WC - Nurse 3 - General Ulcer D/C NN Start: 04/11/21 10:37 Freq: Status: Active Protocol: Activity Type Activity Date Activity User E-Sign Co-Sign Detail Recorded Client Recorded Date Recorded By Document 04/11/21 11:19 [facility] [id number] 04/11/21 11:19 [facility] 04/11/21 11:19 Wound Care Nurse 3 -Ulcer Cleansing Rinsed/ Irrigated with Saline -Foul Odor after Cleansing No -Primary Dressing Applied Other -Other Dressing santyl -Primary Dressing Covered/Secured with Secured with Tape,Other -Other Covering abd Left -Other applied pts own surepress Treatment Response Procedure Tolerated Well Pain Scale: 0-10 Numeric Is Patient Pain Free? Yes WC - Visit Discharge Discharge Condition Stable Ambulatory Status Ambulatory Transportation Private Auto Assessment/Plan Assessment/Plan (1) MRSA infection (methicillin-resistant Staphylococcus aureus): CODE(S): A49.02 - Methicillin resistant Staphylococcus aureus infection, unspecified site (2) Chronic venous insufficiency: CODE(S): I87.2 - Venous insufficiency (chronic) (peripheral) (3) Post-phlebitic syndrome: CODE(S): I87.009 - Postthrombotic syndrome without complications of unspecified extremity (4) Venous ulcer of left leg: CODE(S): I83.029 - Varicose veins of left lower extremity with ulcer of unspecified site; L97.929 - Non-pressure chronic ulcer of unspecified part of left lower leg with unspecified severity (5) Diabetes mellitus: CODE(S): E11.9 - Type 2 diabetes mellitus without complications QUALIFIERS: Diabetes mellitus type: type 2 (6) History of DVT of lower extremity: CODE(S): Z86.718 - Personal history of other venous thrombosis and embolism (7) Leg pain, left: CODE(S): M79.605 - Pain in left leg (8) Left leg swelling: CODE(S): M79.89 - Other specified soft tissue disorders (9) Hypertension: CODE(S): I10 - Essential (primary) hypertension (10) COPD (chronic obstructive pulmonary disease): CODE(S): J44.9 - Chronic obstructive pulmonary disease, unspecified (11) Hyperlipidemia: CODE(S): E78.5 - Hyperlipidemia, unspecified (12) Morbid obesity with BMI of 40.0-44.9, adult: CODE(S): E66.01 - Morbid (severe) obesity due to excess calories; Z68.41 - Body mass index [BMI] 40.0-44.9, adult (13) Tobacco abuse: CODE(S): Z72.0 - Tobacco use (14) Tobacco abuse counseling: CODE(S): Z71.6 - Tobacco abuse counseling PLAN: This is a 60-year-old female with a longstanding history of chronic venous disease. She presented with ulcerations on the left medial and posterior calf, consistent with chronic venous disease. She has had previous ulcerations in the left lower extremity in the past. Due to the notable erythema, suspected to be cellulitis, swab cultures have been obtained for both aerobic and anaerobic bacterial growth. Culture results revealed the presence of MRSA. The patient has previously had an ulceration in the same area, approximately 2 years ago, which was positive for MRSA. Based upon sensitivity results, patient was started on Bactrim double strength, 2 tabs p.o. twice daily for a total of 10 days. This has now been completed. In addition, given her prior history of MRSA, we have implemented a regimen including mupirocin 2% ointment applied intranasally bilaterally twice a day. Hibiclens 4% daily showers have also been initiated. Conservative treatment measures are to be continued, including leg elevation, avoidance of idle standing and sitting, active lifestyle, attempts at weight loss, and compression to the left lower extremity. With regard to the ulcerations, we have transitioned from the use of PHMB foam topically, with compression to the left lower extremity by means of a 3M 2 layer compression wrap, to the use of collagenase Santyl, applied on a daily basis, with compression by means of SurePress which will be applied by the patient daily. It is noted that a noninvasive lower extremity arterial study in April 2018 revealed no evidence of significant arterial occlusive disease. A venous duplex examination which was performed on 03/21/2021 revealed incompetence of the left saphenofemoral junction, great saphenous vein above the knee, and the left accessory saphenous vein in the proximal calf. The patient may be a candidate for endovenous ablation in the future. We have obtained routine laboratory studies, which are relatively unremarkable. CBC is unremarkable. Hemoglobin A1c is 6.5, chemistries are relatively normal, with a slightly elevated glucose, 168, normal protein and albumin, and normal renal function. Patient has been advised to optimize her nutritional intake. She is also been advised to cease her smoking habit. Appropriate counseling in this regard has been undertaken. We are to continue the use of collagenase Santyl topically on a daily basis, and SurePress compression wraps daily. The patient is to return in 1 week for reevaluation. Total time: 28 minutes
[2021-04-18 10:13] VITALS: BP 128/73; PULSE 97; RESP 18; TEMP 36.8; BMI 44.9
--- NOTE | 2021-04-18 11:57 | HP.PCM_ITS ---
History of Present Illness Date of Service: 04/18/21 Chief Complaint: Chronic venous insufficiency, postphlebitic syndrome with inflammation, venous ulceration of the left lower extremity, left lower extremity swelling, left lower extremity pain History of Wound: This is a 60-year-old female who presented with an ulceration on the posterior and medial aspect of her left calf. The ulceration had been present for several months. The patient has had prior ulcerations in these areas in the past. She has been using antibiotic ointment topically, as well as peroxide. She has noted mild redness about the ulcerations. She presented here for definitive management. She suffers from multiple medical problems, including diabetes mellitus, morbid obesity, and has a history of left lower extremity deep vein thrombosis on at least 2 occasions in the remote past. She intermittently wears compression stockings, but has not been doing so recently. She claims to sleep on a flat mattress at night. 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 Prior episodes of deep vein thrombosis in the past occurred after childbirth in 1978, and after an appendectomy in 1999. [facility] Medical History Cellulitis and abscess of left leg MRSA infection (methicillin-resistant Staphylococcus aureus) Medical History no medical history Home Medications hydrochlorothiazide 25 mg PO DAILY 04/07/18 [History Last Taken Unknown] losartan 50 mg PO 04/07/18 [History Last Taken Unknown] ipratropium-albuterol [Combivent] spray INHALATION 03/14/21 [History Last Taken Unknown] Allergy/AdvReac Type Severity Reaction Status Date / Time No Known Allergies Allergy Verified 03/14/21 09:39 Family History no significant family his Surgical History no surgical history Social History Smoking Status: Current every day smoker Vital Signs Vital Signs Vital Signs: 04/18/21 10:13 Temperature 98.3 F Temperature Source Temporal Pulse Rate 97 Respiratory Rate 18 Blood Pressure 128/73 H Blood Pressure Mean 91 Blood Pressure Source Monitor Weight Weight: 270 lb 3.969 oz Body Mass Index (BMI) 44.9 Physical Exam Const alert, oriented x3, no apparent distress and well nourished General Appearance: cooperative, comfortable and well developed Orientation / Consciousness: awake, oriented to person, oriented to place and oriented to time HEENT normocephalic and head/scalp atraumatic Head and Scalp: normal to inspection, normocephalic and atraumatic External Ear: external ears normal Eyes PERRL and EOMs intact bilaterally General Eye: normal appearance of both eyes Resp normal respiratory effort, normal air movement, no retractions and no use of accessory muscles Effort and Inspection: able to speak in complete sentences Extremity no calf tenderness General Extremity: Negative for clubbing or cyanosis Skin Wound Narrative: There is no significant swelling or edema in the patient's left lower extremity. The clustered ulcerations on the left medial and posterior portion of her calf persist. There is a small amount of nonviable tissue and bioburden. In general, the ulcerations are pinker and healthier in appearance. There is no sign of infection or cellulitis. Dimensions are documented elsewhere. Neuro oriented x3, CN's II-XII intact bilaterally and moves all extremities Sensorium / Orientation: awake, alert, oriented to person, oriented to place and oriented to time Psych Appearance: grossly normal and appropriate Attitude: calm Activity / Motor Behavior: appropriate eye contact Speech: normal speech Mood & Affect: euthymic mood Thought Process: normal thought process Thought Content: normal thought content Attention / Concentration: attention grossly intact Debridement Note Debridement Note Wound debrided: Left medial and posterior calf Laterality: Left Type of Debridement: Excisional debridement Anesthesia Used: 5% Lidocaine Gel Depth: Down to and including healthy tissue and in the subcutaneous layer Percentage of wound debrided: 100 Instrument Used: 5mm curette Tissue Removed: Bioburden and nonviable tissue Severity: Fat Layer Exposed Amount of bleeding with debridement: Mild Bleeding Controlled with: Compression and gauze Patient tolerated procedure: Patient tolerated procedure well Post-Debridement Measurements and Additional Note: Post-Debridement Measurements/Treatment VERONIQUE - Nurse 1 - General Ulcer Assessment Start: 04/11/21 10:37 Freq: Status: Active Protocol: TRISHA Activity Type Activity Date Activity User E-Sign Co-Sign Detail Recorded Client Recorded Date Recorded By Document 04/11/21 10:38 DL [id number] 04/11/21 10:48 DL Document 04/18/21 10:13 DL [id number] 04/18/21 10:22 DL 04/11/21 04/18/21 10:38 10:13 - Today's Visit Information Type of service Follow-up Visit Follow-up Visit (Physician/[employer] SET UP TECHNICIAN (Physician/[employer] SET UP TECHNICIAN ) ) Arrival Mode Ambulatory Ambulatory Transfer Assistance None Transfer Board Patient Identification Verified (Name & Yes Yes ) Patient Requires Transmission-Based No No Precautions Height and Weight Body Mass Index (BMI) 44.9 44.9 BMI Classification Obese Obese Vital Signs Temperature (97.8 F-99.1 F) 97.5 F L 98.3 F Temperature Source Temporal Temporal Pulse Rate (60-100) 78 97 Pulse Location Monitor Monitor Respiratory Rate (12-18) 20 H 18 Respiratory rate source Observation Observation Blood Pressure (90/60-120/80) 135/54 H 128/73 H Blood Pressure Mean 81 91 Source Monitor Monitor History Since Last Visit- (Skip if this is Patient's initial visit) Have you changed medications since your No No last visit? Any new allergies or adverse reactions No No Had a fall/change in ADL's that may No No increase risk of falls Signs or symptoms of abuse and/or No neglect since last visit Have you been in the hospital since your No No last visit? Has dressing in place as prescribed Yes Yes Has compression in place as prescribed Yes Yes Has offloadiing in place as prescribed N/A Experienced any changes in pain level or No No management Left Footwear Surgical Shoe with pressure relief insole Right Footwear Regular Shoe Pain Scale: 0-10 Numeric Is Patient Pain Free? Yes Yes - Nurse 1 - General Ulcer Measurement Start: 04/11/21 10:37 Freq: Status: Active Protocol: Activity Type Activity Date Activity User E-Sign Co-Sign Detail Recorded Client Recorded Date Recorded By Document 04/11/21 10:38 DL [id number] 04/11/21 10:48 DL Document 04/18/21 10:13 DL [id number] 04/18/21 10:22 DL 04/11/21 04/18/21 10:38 10:13 Wound Center Nurse 1 #3 L Calf Cluster -Current Size (cm) - Length 5.5 5 -Current Size (cm) - Width 8.5 9.2 -Current Size (cm) - Depth 0.3 0.3 -Total Square Cm 46.75 46.0 -Photo Taken No No -Exudate Amt Medium Medium -Exudate Type Serosanguineous -Wound Margin Distinct, Distinct, Outline Outline Attached Attached -Granulation Amt Medium (34-66%) Medium (34-66%) -Granulation Quality Red Red -Necrosis Amt Medium (34-66%) Medium (34-66%) -Necrotic Tissue Type Adherent Slough Adherent Slough -Structure Exposed N/A N/A -Texture (Wendy-wound Skin Appearance) Scarring Scarring -Moisture (Wendy-wound Skin Appearance) No Abnormality -Color (Wendy-wound Skin Appearance) Hemosiderin Hemosiderin Staining Staining -Temperature (Wendy-wound Skin No Abnormality No Abnormality Appearance) (Pt Warm) (Pt Warm) -Tenderness on Palpation (Wendy-wound No No Skin Appearance) -Ulcer Cleansing Rinsed/ Rinsed/ Irrigated with Irrigated with Saline Saline -Foul Odor after Cleansing No No -Anesthetic Used 5% Lidocaine 5% Lidocaine Gel Gel Left Calf (cm) 44 43.5 Left Ankle (cm) 23.5 24 WC - Nurse 2 - General Ulcer CM Notes Start: 04/11/21 10:37 Freq: Status: Active Protocol: Activity Type Activity Date Activity User E-Sign Co-Sign Detail Recorded Client Recorded Date Recorded By Document 04/11/21 13:11 PL [id number] 04/11/21 13:13 PL 04/11/21 13:11 Wound Center Nurse 2 #3 L Calf Cluster -Time 11:05 -Correct Patient Yes -Correct Side, Site, Position Yes -Correct Procedure Yes -Procedure Performed Yes -Type of Procedure Debridement -Clinical Debridement Subcutaneous -Tissue Removed Subcutaneous -Post Debridement (cm) - Length 5.5 -Post Debridement (cm) - Width 8.5 -Post Debridement (cm) - Depth 0.3 -Total Square (Post) (cm) 46.75 -Area of Debridement (cm) - Length 2.5 -Area of Debridement (cm) - Width 4.0 -Total Square (Area) (cm) 10.00 -Tunneling No -Undermining/Tunneling No -Circular Undermining No -Wound/Ulcer Outcome Not Healed -Ulcer Cleansing Rinsed/ Irrigated with Saline -Foul Odor after Cleansing No -Bioengineered Tissue No -Bleeding Controlled with Pressure -Treatment Response Procedure Tolerated Well -Debridement - Subq, 1st 20sq cm Yes WC - Nurse 3 - General Ulcer D/C NN Start: 04/11/21 10:37 Freq: Status: Active Protocol: Activity Type Activity Date Activity User E-Sign Co-Sign Detail Recorded Client Recorded Date Recorded By Document 04/11/21 11:19 [facility] [id number] 04/11/21 11:19 [facility] Document 04/18/21 11:04 [facility] [id number] 04/18/21 11:06 [facility] 04/11/21 04/18/21 11:19 11:04 Wound Care Nurse 3 #3 L Calf Cluster -Ulcer Cleansing Rinsed/ Rinsed/ Irrigated with Irrigated with Saline Saline -Foul Odor after Cleansing No No -Primary Dressing Applied Other -Other Dressing santyl santyl -Primary Dressing Covered/Secured with Secured with Other Tape,Other -Other Covering abd abd Left -Other applied pts own surepress surepress Treatment Response Procedure Procedure Tolerated Well Tolerated Well Pain Scale: 0-10 Numeric Is Patient Pain Free? Yes Yes WC - Visit Discharge Discharge Condition Stable Stable Ambulatory Status Ambulatory Ambulatory Transportation Private Auto Private Auto Assessment/Plan Assessment/Plan (1) Venous ulcer of left leg: CODE(S): I83.029 - Varicose veins of left lower extremity with ulcer of unspecified site; L97.929 - Non-pressure chronic ulcer of unspecified part of left lower leg with unspecified severity (2) Chronic venous insufficiency: CODE(S): I87.2 - Venous insufficiency (chronic) (peripheral) (3) Post-phlebitic syndrome: CODE(S): I87.009 - Postthrombotic syndrome without complications of unspecified extremity (4) Left leg swelling: CODE(S): M79.89 - Other specified soft tissue disorders (5) Diabetes mellitus: CODE(S): E11.9 - Type 2 diabetes mellitus without complications QUALIFIERS: Diabetes mellitus type: type 2 (6) MRSA infection (methicillin-resistant Staphylococcus aureus): CODE(S): A49.02 - Methicillin resistant Staphylococcus aureus infection, unspecified site (7) Cellulitis and abscess of left leg: CODE(S): L03.116 - Cellulitis of left lower limb; L02.416 - Cutaneous abscess of left lower limb (8) History of DVT of lower extremity: CODE(S): Z86.718 - Personal history of other venous thrombosis and embolism (9) Hypertension: CODE(S): I10 - Essential (primary) hypertension (10) COPD (chronic obstructive pulmonary disease): CODE(S): J44.9 - Chronic obstructive pulmonary disease, unspecified (11) Hyperlipidemia: CODE(S): E78.5 - Hyperlipidemia, unspecified (12) Morbid obesity with BMI of 40.0-44.9, adult: CODE(S): E66.01 - Morbid (severe) obesity due to excess calories; Z68.41 - Body mass index [BMI] 40.0-44.9, adult (13) Tobacco abuse: CODE(S): Z72.0 - Tobacco use (14) Tobacco abuse counseling: CODE(S): Z71.6 - Tobacco abuse counseling (15) Hyperpigmentation: CODE(S): L81.9 - Disorder of pigmentation, unspecified PLAN: This is a 60-year-old female with a longstanding history of chronic venous disease. She presented with ulcerations on the left medial and posterior calf, consistent with chronic venous disease. She has had previous ulcerations in the left lower extremity in the past. Due to the notable erythema, suspected to be cellulitis, swab cultures have been obtained for both aerobic and anaerobic bacterial growth. Culture results revealed the presence of MRSA. The patient has previously had an ulceration in the same area, approximately 2 years ago, which was positive for MRSA. Based upon sensitivity results, patient was started on Bactrim double strength, 2 tabs p.o. twice daily for a total of 10 days. This has now been completed. In addition, given her prior history of MRSA, we have implemented a regimen including mupirocin 2% ointment applied intranasally bilaterally twice a day. Hibiclens 4% daily showers have also been initiated. Conservative treatment measures are to be continued, including leg elevation, avoidance of idle standing and sitting, active lifestyle, attempts at weight loss, and compression to the left lower extremity. 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 She has been advised that this is detrimental regarding her venous disease and the healing of her ulcerations. With regard to the ulcerations, we have transitioned from the use of PHMB foam topically, with compression to the left lower extremity by means of a 3M 2 layer compression wrap, to the use of collagenase Santyl, applied on a daily basis, with compression by means of SurePress which is applied by the patient daily. It is noted that a noninvasive lower extremity arterial study in April 2018 revealed no evidence of significant arterial occlusive disease. A venous duplex examination which was performed on 03/21/2021 revealed incompetence of the left saphenofemoral junction, great saphenous vein above the knee, and the left accessory saphenous vein in the proximal calf. The patient may be a candidate for endovenous ablation in the future. We have obtained routine laboratory studies, which are relatively unremarkable. CBC is unremarkable. Hemoglobin A1c is 6.5, chemistries are relatively normal, with a slightly elevated glucose, 168, normal protein and albumin, and normal renal function. Patient has been advised to optimize her nutritional intake. She is also been advised to cease her smoking habit. Appropriate counseling in this regard has been undertaken. We are to continue the use of collagenase Santyl topically on a daily basis, and SurePress compression wraps daily. The patient is to return in 1 week for reevaluation. Total time: 29 minutes
[2021-04-25 09:27] VITALS: BP 133/66; PULSE 91; RESP 20; TEMP 36.7; BMI 44.9
--- NOTE | 2021-04-25 14:40 | HP.PCM_ITS ---
History of Present Illness Date of Service: 04/25/21 Chief Complaint: Chronic venous insufficiency, postphlebitic syndrome with inflammation, venous ulceration of the left lower extremity, left lower extremity swelling, left lower extremity pain History of Wound: This is a 60-year-old female who presented with an ulceration on the posterior and medial aspect of her left calf. The ulceration had been present for several months. The patient has had prior ulcerations in these areas in the past. She has been using antibiotic ointment topically, as well as peroxide. She has noted mild redness about the ulcerations. She presented here for definitive management. She suffers from multiple medical problems, including diabetes mellitus, morbid obesity, and has a history of left lower extremity deep vein thrombosis on at least 2 occasions in the remote past. She intermittently wears compression stockings, but has not been doing so recently. She claims to sleep on a flat mattress at night. 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 Prior episodes of deep vein thrombosis in the past occurred after childbirth in 1978, and after an appendectomy in 1999. [facility] Medical History Cellulitis and abscess of left leg MRSA infection (methicillin-resistant Staphylococcus aureus) Medical History no medical history Home Medications hydrochlorothiazide 25 mg PO DAILY 04/07/18 [History Last Taken Unknown] losartan 50 mg PO 04/07/18 [History Last Taken Unknown] ipratropium-albuterol [Combivent] spray INHALATION 03/14/21 [History Last Taken Unknown] Allergy/AdvReac Type Severity Reaction Status Date / Time No Known Allergies Allergy Verified 03/14/21 09:39 Family History no significant family his Surgical History no surgical history Social History Smoking Status: Current every day smoker Vital Signs Vital Signs Vital Signs: 04/25/21 09:27 Temperature 98.1 F Temperature Source Temporal Pulse Rate 91 Respiratory Rate 20 H Blood Pressure 133/66 H Blood Pressure Mean 88 Blood Pressure Source Monitor Weight Weight: 270 lb 3.969 oz Body Mass Index (BMI) 44.9 Physical Exam Const alert, oriented x3, no apparent distress and well nourished General Appearance: cooperative and well developed Orientation / Consciousness: awake, oriented to person, oriented to place and oriented to time HEENT normocephalic and head/scalp atraumatic Head and Scalp: normal to inspection, normocephalic and atraumatic External Ear: external ears normal Eyes PERRL and EOMs intact bilaterally General Eye: normal appearance of both eyes Resp normal respiratory effort, normal air movement, no retractions and no use of accessory muscles Effort and Inspection: able to speak in complete sentences Extremity no calf tenderness General Extremity: Negative for clubbing or cyanosis Skin Wound Narrative: The ulcerations on the left medial and posterior calf persists, though they are smaller in size. There is a small amount of bioburden and necrotic/nonviable tissue. There is no sign of infection or cellulitis. Dimensions are documented elsewhere. Neuro oriented x3 and CN's II-XII intact bilaterally Sensorium / Orientation: awake, alert, oriented to person, oriented to place and oriented to time Psych Appearance: grossly normal and appropriate Attitude: calm Activity / Motor Behavior: appropriate eye contact Speech: normal speech Mood & Affect: euthymic mood Thought Process: normal thought process Thought Content: normal thought content Attention / Concentration: attention grossly intact Debridement Note Debridement Note Wound debrided: Left medial and posterior calf Laterality: Left Type of Debridement: Excisional debridement Anesthesia Used: 5% Lidocaine Gel Depth: Down to and including healthy tissue and in the subcutaneous layer Percentage of wound debrided: 100 Instrument Used: 5mm curette Severity: Fat Layer Exposed Amount of bleeding with debridement: Mild Bleeding Controlled with: Compression and gauze Patient tolerated procedure: Patient tolerated procedure well Post-Debridement Measurements and Additional Note: Post-Debridement Measurements/Treatment - Nurse 1 - General Ulcer Assessment Start: 04/11/21 10:37 Freq: Status: Active Protocol: VERONIQUE.DEL Activity Type Activity Date Activity User E-Sign Co-Sign Detail Recorded Client Recorded Date Recorded By Document 04/11/21 10:38 DL [id number] 04/11/21 10:48 DL Document 04/18/21 10:13 DL [id number] 04/18/21 10:22 DL Document 04/25/21 09:27 DL [id number] 04/25/21 09:35 DL 04/11/21 04/18/21 04/25/21 10:38 10:13 09:27 - Today's Visit Information Type of service Follow-up Visit Follow-up Visit Follow-up Visit (Physician/SHIPYARD PAINTER HELPER (Physician/SHIPYARD PAINTER HELPER (Physician/SHIPYARD PAINTER HELPER ) ) ) Arrival Mode Ambulatory Ambulatory Ambulatory Transfer Assistance None Transfer Board None Patient Identification Verified (Name & Yes Yes Yes ) Patient Requires Transmission-Based No No No Precautions Height and Weight Body Mass Index (BMI) 44.9 44.9 44.9 BMI Classification Obese Obese Obese Vital Signs Temperature (97.8 F-99.1 F) 97.5 F L 98.3 F 98.1 F Temperature Source Temporal Temporal Temporal Pulse Rate (60-100) 78 97 91 Pulse Location Monitor Monitor Monitor Respiratory Rate (12-18) 20 H 18 20 H Respiratory rate source Observation Observation Observation Blood Pressure (90/60-120/80) 135/54 H 128/73 H 133/66 H Blood Pressure Mean 81 91 88 Source Monitor Monitor Monitor History Since Last Visit- (Skip if this is Patient's initial visit) Have you changed medications since your No No No last visit? Any new allergies or adverse reactions No No No Had a fall/change in ADL's that may No No No increase risk of falls Signs or symptoms of abuse and/or No No neglect since last visit Have you been in the hospital since your No No No last visit? Has dressing in place as prescribed Yes Yes Yes Has compression in place as prescribed Yes Yes Yes Has offloadiing in place as prescribed N/A N/A Experienced any changes in pain level or No No No management Left Footwear Surgical Shoe with pressure relief insole Right Footwear Regular Shoe Pain Scale: 0-10 Numeric Is Patient Pain Free? Yes Yes Yes WC - Nurse 1 - General Ulcer Measurement Start: 04/11/21 10:37 Freq: Status: Active Protocol: Activity Type Activity Date Activity User E-Sign Co-Sign Detail Recorded Client Recorded Date Recorded By Document 04/11/21 10:38 DL [id number] 04/11/21 10:48 DL Document 04/18/21 10:13 DL [id number] 04/18/21 10:22 DL Document 04/25/21 09:27 DL [id number] 04/25/21 09:35 DL 04/11/21 04/18/21 04/25/21 10:38 10:13 09:27 Wound Center Nurse 1 #3 L Calf Cluster -Current Size (cm) - Length 5.5 5 5 -Current Size (cm) - Width 8.5 9.2 9 -Current Size (cm) - Depth 0.3 0.3 0.2 -Total Square Cm 46.75 46.0 45 -Photo Taken No No No -Exudate Amt Medium Medium Small -Exudate Type Serosanguineous Serosanguineous -Wound Margin Distinct, Distinct, Distinct, Outline Outline Outline Attached Attached Attached -Granulation Amt Medium (34-66%) Medium (34-66%) Medium (34-66%) -Granulation Quality Red Red Stephens,Red -Necrosis Amt Medium (34-66%) Medium (34-66%) Medium (34-66%) -Necrotic Tissue Type Adherent Slough Adherent Slough Adherent Slough -Structure Exposed N/A N/A N/A -Texture (Wendy-wound Skin Appearance) Scarring Scarring Scarring -Moisture (Wendy-wound Skin Appearance) No Abnormality No Abnormality -Color (Wendy-wound Skin Appearance) Hemosiderin Hemosiderin Hemosiderin Staining Staining Staining -Temperature (Wendy-wound Skin No Abnormality No Abnormality No Abnormality Appearance) (Pt Warm) (Pt Warm) (Pt Warm) -Tenderness on Palpation (Wendy-wound No No No Skin Appearance) -Ulcer Cleansing Rinsed/ Rinsed/ Soap and Water Irrigated with Irrigated with Saline Saline -Foul Odor after Cleansing No No No -Anesthetic Used 5% Lidocaine 5% Lidocaine 4% Lidocaine Gel Gel Solution Left Calf (cm) 44 43.5 44 Left Ankle (cm) 23.5 24 24 WC - Nurse 2 - General Ulcer CM Notes Start: 04/11/21 10:37 Freq: Status: Active Protocol: Activity Type Activity Date Activity User E-Sign Co-Sign Detail Recorded Client Recorded Date Recorded By Document 04/11/21 13:11 PL [id number] 04/11/21 13:13 PL Document 04/18/21 12:21 PL [id number] 04/18/21 12:23 PL Document 04/25/21 13:04 PL [id number] 04/25/21 13:05 PL 04/11/21 04/18/21 04/25/21 13:11 12:21 13:04 Wound Center Nurse 2 #3 L Calf Cluster -Time 11:05 10:41 09:50 -Correct Patient Yes Yes Yes -Correct Side, Site, Position Yes Yes Yes -Correct Procedure Yes Yes Yes -Procedure Performed Yes Yes Yes -Type of Procedure Debridement Debridement Debridement -Clinical Debridement Subcutaneous Subcutaneous Subcutaneous -Tissue Removed Subcutaneous Subcutaneous Subcutaneous -Post Debridement (cm) - Length 5.5 5.0 5.0 -Post Debridement (cm) - Width 8.5 9.2 9.0 -Post Debridement (cm) - Depth 0.3 0.3 0.2 -Total Square (Post) (cm) 46.75 46.00 45.00 -Area of Debridement (cm) - Length 2.5 5.0 5.0 -Area of Debridement (cm) - Width 4.0 9.2 9.0 -Total Square (Area) (cm) 10.00 46.00 45.00 -Tunneling No No No -Undermining/Tunneling No No No -Circular Undermining No No No -Wound/Ulcer Outcome Not Healed Not Healed Not Healed -Ulcer Cleansing Rinsed/ Rinsed/ Rinsed/ Irrigated with Irrigated with Irrigated with Saline Saline Saline -Foul Odor after Cleansing No No No -Bioengineered Tissue No No No -Bleeding Controlled with Pressure Pressure Pressure -Treatment Response Procedure Procedure Procedure Tolerated Well Tolerated Well Tolerated Well -Debridement - Subq, 1st 20sq cm Yes Yes Yes -Debridement, SubQ, ea addt'l 20sq cm 2 2 or part thereof WC - Nurse 3 - General Ulcer D/C NN Start: 04/11/21 10:37 Freq: Status: Active Protocol: Activity Type Activity Date Activity User E-Sign Co-Sign Detail Recorded Client Recorded Date Recorded By Document 04/11/21 11:19 [facility] [id number] 04/11/21 11:19 [facility] Document 04/18/21 11:04 [facility] [id number] 04/18/21 11:06 [facility] Document 04/25/21 10:02 [facility] [id number] 04/25/21 10:03 [facility] 04/11/21 04/18/21 04/25/21 11:19 11:04 10:02 Wound Care Nurse 3 #3 L Calf Cluster -Ulcer Cleansing Rinsed/ Rinsed/ Rinsed/ Irrigated with Irrigated with Irrigated with Saline Saline Saline -Foul Odor after Cleansing No No No -Primary Dressing Applied Other Other -Other Dressing santyl santyl santyl -Primary Dressing Covered/Secured with Secured with Other Secured with Tape,Other Tape,Other -Other Covering abd abd abd Left -Other applied pts own surepress surepress surepress Treatment Response Procedure Procedure Procedure Tolerated Well Tolerated Well Tolerated Well Pain Scale: 0-10 Numeric Is Patient Pain Free? Yes Yes Yes WC - Visit Discharge Discharge Condition Stable Stable Stable Ambulatory Status Ambulatory Ambulatory Ambulatory Transportation Private Auto Private Auto Assessment/Plan Assessment/Plan (1) Venous ulcer of left leg: CODE(S): I83.029 - Varicose veins of left lower extremity with ulcer of unspecified site; L97.929 - Non-pressure chronic ulcer of unspecified part of left lower leg with unspecified severity (2) MRSA infection (methicillin-resistant Staphylococcus aureus): CODE(S): A49.02 - Methicillin resistant Staphylococcus aureus infection, unspecified site (3) Cellulitis and abscess of left leg: CODE(S): L03.116 - Cellulitis of left lower limb; L02.416 - Cutaneous abscess of left lower limb (4) Chronic venous insufficiency: CODE(S): I87.2 - Venous insufficiency (chronic) (peripheral) (5) Post-phlebitic syndrome: CODE(S): I87.009 - Postthrombotic syndrome without complications of unspecified extremity (6) Diabetes mellitus: CODE(S): E11.9 - Type 2 diabetes mellitus without complications QUALIFIERS: Diabetes mellitus type: type 2 (7) History of DVT of lower extremity: CODE(S): Z86.718 - Personal history of other venous thrombosis and embolism (8) Leg pain, left: CODE(S): M79.605 - Pain in left leg (9) Left leg swelling: CODE(S): M79.89 - Other specified soft tissue disorders (10) Hypertension: CODE(S): I10 - Essential (primary) hypertension (11) COPD (chronic obstructive pulmonary disease): CODE(S): J44.9 - Chronic obstructive pulmonary disease, unspecified (12) Hyperlipidemia: CODE(S): E78.5 - Hyperlipidemia, unspecified (13) Morbid obesity with BMI of 40.0-44.9, adult: CODE(S): E66.01 - Morbid (severe) obesity due to excess calories; Z68.41 - Body mass index [BMI] 40.0-44.9, adult (14) Tobacco abuse: CODE(S): Z72.0 - Tobacco use (15) Tobacco abuse counseling: CODE(S): Z71.6 - Tobacco abuse counseling PLAN: This is a 60-year-old female with a longstanding history of chronic venous disease. She presented with ulcerations on the left medial and posterior calf, consistent with chronic venous disease. She has had previous ulcerations in the left lower extremity in the past. Due to the notable erythema, suspected to be cellulitis, swab cultures have been obtained for both aerobic and an aerobic bacterial growth. Culture results revealed the presence of MRSA. The patient has previously had an ulceration in the same area, approximately 2 years ago, which was positive for MRSA. Based upon sensitivity results, patient was started on Bactrim double strength, 2 tabs p.o. twice daily for a total of 10 days. This has now been completed. In addition, given her prior history of MRSA, we have implemented a regimen including mupirocin 2% ointment applied intranasally bilaterally twice a day. Hibiclens 4% daily showers have also been initiated. Conservative treatment measures are to be continued, including leg elevation, avoidance of idle standing and sitting, active lifestyle, attempts at weight loss, and compression to the left lower extremity. 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 She has been advised that this is detrimental regarding her venous disease and the healing of her ulcerations. With regard to the ulcerations, we have transitioned from the use of PHMB foam topically, with compression to the left lower extremity by means of a 3M 2 layer compression wrap, to the use of collagenase Santyl, applied on a daily basis, with compression by means of SurePress which is applied by the patient daily. It is noted that a noninvasive lower extremity arterial study in April 2018 revealed no evidence of significant arterial occlusive disease. A venous duplex examination which was performed on 03/21/2021 revealed incompetence of the left saphenofemoral junction, great saphenous vein above the knee, and the left accessory saphenous vein in the proximal calf. The patient may be a candidate for endovenous ablation in the future. We have obtained routine laboratory studies, which are relatively unremarkable. CBC is unremarkable. Hemoglobin A1c is 6.5, chemistries are relatively normal, with a slightly elevated glucose, 168, normal protein and albumin, and normal renal function. Patient has been advised to optimize her nutritional intake. She is also been advised to cease her smoking habit. Appropriate counseling in this regard has been undertaken. We are to continue the use of collagenase Santyl topically on a daily basis, and SurePress compression wraps daily. The patient is to return in 1 week for reevaluation. We may consider the use of an allograft/skin graft substitute in the near future. Total time: 28 minutes
[2021-05-02 11:16] VITALS: BP 156/57; PULSE 93; RESP 22; TEMP 36.6; BMI 44.9
--- NOTE | 2021-05-02 12:58 | PCM.WC.HP ---
History of Present Illness Date of Service: 05/02/21 Chief Complaint: Chronic venous insufficiency, postphlebitic syndrome with inflammation, venous ulceration of the left lower extremity, left lower extremity swelling, left lower extremity pain History of Wound: This is a 60-year-old female who presented with an ulceration on the posterior and medial aspect of her left calf. The ulceration had been present for several months. The patient has had prior ulcerations in these areas in the past. She has been using antibiotic ointment topically, as well as peroxide. She has noted mild redness about the ulcerations. She presented here for definitive management. She suffers from multiple medical problems, including diabetes mellitus, morbid obesity, and has a history of left lower extremity deep vein thrombosis on at least 2 occasions in the remote past. She intermittently wears compression stockings, but has not been doing so recently. She claims to sleep on a flat mattress at night. 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 Prior episodes of deep vein thrombosis in the past occurred after childbirth in 1978, and after an appendectomy in 1999. [facility] Medical History Cellulitis and abscess of left leg Chronic venous stasis dermatitis of left lower extremity MRSA infection (methicillin-resistant Staphylococcus aureus) Medical History no medical history Home Medications hydrochlorothiazide 25 mg PO DAILY 04/07/18 [History Last Taken Unknown] losartan 50 mg PO 04/07/18 [History Last Taken Unknown] ipratropium-albuterol [Combivent] spray INHALATION 03/14/21 [History Last Taken Unknown] Allergy/AdvReac Type Severity Reaction Status Date / Time No Known Allergies Allergy Verified 03/14/21 09:39 Family History no significant family his Surgical History no surgical history Social History Smoking Status: Current every day smoker Vital Signs Vital Signs Vital Signs: 05/02/21 11:16 Temperature 97.8 F Temperature Source Temporal Pulse Rate 93 Respiratory Rate 22 H Blood Pressure 156/57 H Blood Pressure Mean 90 Blood Pressure Source Monitor Weight Weight: 270 lb 3.969 oz Body Mass Index (BMI) 44.9 Physical Exam Const alert, oriented x3, no apparent distress and well nourished General Appearance: cooperative and well developed Orientation / Consciousness: awake, oriented to person, oriented to place and oriented to time HEENT normocephalic and head/scalp atraumatic Head and Scalp: normal to inspection, normocephalic and atraumatic External Ear: external ears normal Eyes PERRL and EOMs intact bilaterally General Eye: normal appearance of both eyes Resp normal respiratory effort, normal air movement, no retractions and no use of accessory muscles Effort and Inspection: able to speak in complete sentences Extremity no calf tenderness General Extremity: Negative for clubbing or cyanosis Skin Wound Narrative: The patient has a chronic venous stasis ulceration on the left medial and posterior calf. This is a clustered ulceration. There are 3 separate ulcerations, adjacent to each other. The largest is located on the medial aspect of the left calf. There is a small amount of bioburden. There is no sign of infection or cellulitis. Dimensions are documented elsewhere. In addition to the ulcerations, there are chronic venous changes, most notable hyperpigmentation and large varicosities in the left gaiter area. Neuro oriented x3, CN's II-XII intact bilaterally and moves all extremities Sensorium / Orientation: awake, alert, oriented to person, oriented to place and oriented to time Psych Appearance: grossly normal and appropriate Attitude: calm Activity / Motor Behavior: appropriate eye contact Speech: normal speech Mood & Affect: euthymic mood Thought Process: normal thought process Thought Content: normal thought content Attention / Concentration: attention grossly intact Debridement Note Debridement Note Wound debrided: Left medial and posterior calf Laterality: Left Type of Debridement: Excisional debridement Anesthesia Used: 5% Lidocaine Gel Depth: Down to and including healthy tissue and in the subcutaneous layer Percentage of wound debrided: 100 Instrument Used: 5mm curette Tissue Removed: Bioburden Severity: Fat Layer Exposed Amount of bleeding with debridement: Mild Bleeding Controlled with: Compression and gauze Patient tolerated procedure: Patient tolerated procedure well Debridement Free Text: A routine excisional debridement was performed, which was well-tolerated by the patient. The excisional debridement was performed of each of the 3 adjacent ulcerations. A mild amount of bleeding was encountered, which was easily controlled with manual pressure. Following the excisional debridement, which was well-tolerated by the patient, the decision was made to proceed with application of an EpiFix allograft. An 18 mm allograft was selected. It was removed from its sterile packaging, and was then cut to the appropriate dimensions. The larger portion was applied to the largest of the 3 adjacent ulcerations. The allograft was then anchored in place by applying Adaptic Touch and Steri-Strips. The remaining portion of the allograft was then used to apply topically to the 2nd largest of the 3 ulcerations. Once applied in the appropriate orientation, Adaptic Touch was placed, and anchored using Steri-Strips. Collagen hydrogel was applied over the allografts, and then applied topically to the remaining small open ulceration. The entire area was covered with gauze, secured in place, and the left lower extremity was wrapped with SurePress. The procedure was well-tolerated by the patient, who is to leave the dressings in place until her return visit in 1 week. Today's allograft application represents the 1st such EpiFix application. Post-Debridement Measurements and Additional Note: Post-Debridement Measurements/Treatment WC - Nurse 1 - General Ulcer Assessment Start: 04/11/21 10:37 Freq: Status: Active Protocol: TRISHA Activity Type Activity Date Activity User E-Sign Co-Sign Detail Recorded Client Recorded Date Recorded By Document 04/11/21 10:38 DL [id number] 04/11/21 10:48 DL Document 04/18/21 10:13 DL [id number] 04/18/21 10:22 DL Document 04/25/21 09:27 DL [id number] 04/25/21 09:35 DL Document 05/02/21 11:16 DL [id number] 05/02/21 11:23 DL 04/11/21 04/18/21 04/25/21 10:38 10:13 09:27 - Today's Visit Information Type of service Follow-up Visit Follow-up Visit Follow-up Visit (Physician/SCRAP BALER (Physician/SCRAP BALER (Physician/SCRAP BALER ) ) ) Arrival Mode Ambulatory Ambulatory Ambulatory Transfer Assistance None Transfer Board None Patient Identification Verified (Name & Yes Yes Yes ) Patient Requires Transmission-Based No No No Precautions Height and Weight Body Mass Index (BMI) 44.9 44.9 44.9 BMI Classification Obese Obese Obese Vital Signs Temperature (97.8 F-99.1 F) 97.5 F L 98.3 F 98.1 F Temperature Source Temporal Temporal Temporal Pulse Rate (60-100) 78 97 91 Pulse Location Monitor Monitor Monitor Respiratory Rate (12-18) 20 H 18 20 H Respiratory rate source Observation Observation Observation Blood Pressure (90/60-120/80) 135/54 H 128/73 H 133/66 H Blood Pressure Mean 81 91 88 Source Monitor Monitor Monitor History Since Last Visit- (Skip if this is Patient's initial visit) Have you changed medications since your No No No last visit? Any new allergies or adverse reactions No No No Had a fall/change in ADL's that may No No No increase risk of falls Signs or symptoms of abuse and/or No No neglect since last visit Have you been in the hospital since your No No No last visit? Has dressing in place as prescribed Yes Yes Yes Has compression in place as prescribed Yes Yes Yes Has offloadiing in place as prescribed N/A N/A Experienced any changes in pain level or No No No management Left Footwear Surgical Shoe with pressure relief insole Right Footwear Regular Shoe Pain Scale: 0-10 Numeric Is Patient Pain Free? Yes Yes Yes 05/02/21 11:16 WC - Today's Visit Information Type of service Follow-up Visit (Physician/SCRAP BALER ) Arrival Mode Ambulatory Transfer Assistance None Patient Identification Verified (Name & Yes ) Patient Requires Transmission-Based No Precautions Height and Weight Body Mass Index (BMI) 44.9 BMI Classification Obese Vital Signs Temperature (97.8 F-99.1 F) 97.8 F Temperature Source Temporal Pulse Rate (60-100) 93 Pulse Location Monitor Respiratory Rate (12-18) 22 H Respiratory rate source Observation Blood Pressure (90/60-120/80) 156/57 H Blood Pressure Mean 90 Source Monitor History Since Last Visit- (Skip if this is Patient's initial visit) Have you changed medications since your No last visit? Any new allergies or adverse reactions No Had a fall/change in ADL's that may No increase risk of falls Signs or symptoms of abuse and/or No neglect since last visit Have you been in the hospital since your No last visit? Has dressing in place as prescribed Yes Has compression in place as prescribed Yes Has offloadiing in place as prescribed N/A Experienced any changes in pain level or No management Left Footwear Right Footwear Pain Scale: 0-10 Numeric Is Patient Pain Free? Yes - Nurse 1 - General Ulcer Measurement Start: 04/11/21 10:37 Freq: Status: Active Protocol: Activity Type Activity Date Activity User E-Sign Co-Sign Detail Recorded Client Recorded Date Recorded By Document 04/11/21 10:38 DL [id number] 04/11/21 10:48 DL Document 04/18/21 10:13 DL [id number] 04/18/21 10:22 DL Document 04/25/21 09:27 DL [id number] 04/25/21 09:35 DL Document 05/02/21 11:16 DL [id number] 05/02/21 11:23 DL 04/11/21 04/18/21 04/25/21 10:38 10:13 09:27 Wound Center Nurse 1 #3 L Calf Cluster -Current Size (cm) - Length 5.5 5 5 -Current Size (cm) - Width 8.5 9.2 9 -Current Size (cm) - Depth 0.3 0.3 0.2 -Total Square Cm 46.75 46.0 45 -Photo Taken No No No -Exudate Amt Medium Medium Small -Exudate Type Serosanguineous Serosanguineous -Wound Margin Distinct, Distinct, Distinct, Outline Outline Outline Attached Attached Attached -Granulation Amt Medium (34-66%) Medium (34-66%) Medium (34-66%) -Granulation Quality Red Red [place],Red -Necrosis Amt Medium (34-66%) Medium (34-66%) Medium (34-66%) -Necrotic Tissue Type Adherent Slough Adherent Slough Adherent Slough -Structure Exposed N/A N/A N/A -Texture (Wendy-wound Skin Appearance) Scarring Scarring Scarring -Moisture (Wendy-wound Skin Appearance) No Abnormality No Abnormality -Color (Wendy-wound Skin Appearance) Hemosiderin Hemosiderin Hemosiderin Staining Staining Staining -Temperature (Wendy-wound Skin No Abnormality No Abnormality No Abnormality Appearance) (Pt Warm) (Pt Warm) (Pt Warm) -Tenderness on Palpation (Wendy-wound No No No Skin Appearance) -Ulcer Cleansing Rinsed/ Rinsed/ Soap and Water Irrigated with Irrigated with Saline Saline -Foul Odor after Cleansing No No No -Anesthetic Used 5% Lidocaine 5% Lidocaine 4% Lidocaine Gel Gel Solution Left Calf (cm) 44 43.5 44 Left Ankle (cm) 23.5 24 24 05/02/21 11:16 Wound Center Nurse 1 #3 L Calf Cluster -Current Size (cm) - Length 7 -Current Size (cm) - Width 9 -Current Size (cm) - Depth 0.2 -Total Square Cm 63 -Photo Taken No -Exudate Amt Small -Exudate Type Serosanguineous -Wound Margin Distinct, Outline Attached -Granulation Amt Medium (34-66%) -Granulation Quality [place] -Necrosis Amt Medium (34-66%) -Necrotic Tissue Type Adherent Slough -Structure Exposed N/A -Texture (Wendy-wound Skin Appearance) Scarring -Moisture (Wendy-wound Skin Appearance) Dry/Scaly -Color (Wendy-wound Skin Appearance) Hemosiderin Staining -Temperature (Wendy-wound Skin No Abnormality Appearance) (Pt Warm) -Tenderness on Palpation (Wendy-wound No Skin Appearance) -Ulcer Cleansing Not Cleansed -Foul Odor after Cleansing No -Anesthetic Used 5% Lidocaine Gel Left Calf (cm) 43.5 Left Ankle (cm) 24.5 WC - Nurse 2 - General Ulcer CM Notes Start: 04/11/21 10:37 Freq: Status: Active Protocol: Activity Type Activity Date Activity User E-Sign Co-Sign Detail Recorded Client Recorded Date Recorded By Document 04/11/21 13:11 PL [id number] 04/11/21 13:13 PL Document 04/18/21 12:21 PL [id number] 04/18/21 12:23 PL Document 04/25/21 13:04 PL [id number] 04/25/21 13:05 PL 04/11/21 04/18/21 04/25/21 13:11 12:21 13:04 Wound Center Nurse 2 #3 L Calf Cluster -Time 11:05 10:41 09:50 -Correct Patient Yes Yes Yes -Correct Side, Site, Position Yes Yes Yes -Correct Procedure Yes Yes Yes -Procedure Performed Yes Yes Yes -Type of Procedure Debridement Debridement Debridement -Clinical Debridement Subcutaneous Subcutaneous Subcutaneous -Tissue Removed Subcutaneous Subcutaneous Subcutaneous -Post Debridement (cm) - Length 5.5 5.0 5.0 -Post Debridement (cm) - Width 8.5 9.2 9.0 -Post Debridement (cm) - Depth 0.3 0.3 0.2 -Total Square (Post) (cm) 46.75 46.00 45.00 -Area of Debridement (cm) - Length 2.5 5.0 5.0 -Area of Debridement (cm) - Width 4.0 9.2 9.0 -Total Square (Area) (cm) 10.00 46.00 45.00 -Tunneling No No No -Undermining/Tunneling No No No -Circular Undermining No No No -Wound/Ulcer Outcome Not Healed Not Healed Not Healed -Ulcer Cleansing Rinsed/ Rinsed/ Rinsed/ Irrigated with Irrigated with Irrigated with Saline Saline Saline -Foul Odor after Cleansing No No No -Bioengineered Tissue No No No -Bleeding Controlled with Pressure Pressure Pressure -Treatment Response Procedure Procedure Procedure Tolerated Well Tolerated Well Tolerated Well -Debridement - Subq, 1st 20sq cm Yes Yes Yes -Debridement, SubQ, ea addt'l 20sq cm 2 2 or part thereof - Nurse 3 - General Ulcer D/C NN Start: 04/11/21 10:37 Freq: Status: Active Protocol: Activity Type Activity Date Activity User E-Sign Co-Sign Detail Recorded Client Recorded Date Recorded By Document 04/11/21 11:19 [facility] [id number] 04/11/21 11:19 [facility] Document 04/18/21 11:04 [facility] [id number] 04/18/21 11:06 [facility] Document 04/25/21 10:02 [facility] [id number] 04/25/21 10:03 [facility] Document 05/02/21 12:01 [facility] [id number] 05/02/21 12:09 [facility] 04/11/21 04/18/21 04/25/21 11:19 11:04 10:02 Wound Care Nurse 3 #3 L Calf Cluster -Ulcer Cleansing Rinsed/ Rinsed/ Rinsed/ Irrigated with Irrigated with Irrigated with Saline Saline Saline -Foul Odor after Cleansing No No No -Primary Dressing Applied Other Other -Other Dressing santyl santyl santyl -Primary Dressing Covered/Secured with Secured with Other Secured with Tape,Other Tape,Other -Other Covering abd abd abd Left -Compression Wrap -Other applied pts own surepress surepress surepress Treatment Response Procedure Procedure Procedure Tolerated Well Tolerated Well Tolerated Well Pain Scale: 0-10 Numeric Is Patient Pain Free? Yes Yes Yes - Visit Discharge Discharge Condition Stable Stable Stable Ambulatory Status Ambulatory Ambulatory Ambulatory Transportation Private Auto Private Auto 05/02/21 12:01 Wound Care Nurse 3 #3 L Calf Cluster -Ulcer Cleansing -Foul Odor after Cleansing -Primary Dressing Applied -Other Dressing EPIFIX -Primary Dressing Covered/Secured with Secured with Tape,Other -Other Covering ABD, DRSG PER [place] CHIEF ORTHOPTIST Left -Compression Wrap Surepress ($) -Other Treatment Response Procedure Tolerated Well Pain Scale: 0-10 Numeric Is Patient Pain Free? Yes WC - Visit Discharge Discharge Condition Stable Ambulatory Status Ambulatory Transportation Private Auto Assessment/Plan Assessment/Plan (1) Chronic venous stasis dermatitis of left lower extremity: CODE(S): I87.2 - Venous insufficiency (chronic) (peripheral) (2) Chronic venous insufficiency: CODE(S): I87.2 - Venous insufficiency (chronic) (peripheral) (3) Post-phlebitic syndrome: CODE(S): I87.009 - Postthrombotic syndrome without complications of unspecified extremity (4) Venous ulcer of left leg: CODE(S): I83.029 - Varicose veins of left lower extremity with ulcer of unspecified site; L97.929 - Non-pressure chronic ulcer of unspecified part of left lower leg with unspecified severity (5) Diabetes mellitus: CODE(S): E11.9 - Type 2 diabetes mellitus without complications QUALIFIERS: Diabetes mellitus type: type 2 (6) History of DVT of lower extremity: CODE(S): Z86.718 - Personal history of other venous thrombosis and embolism (7) Leg pain, left: CODE(S): M79.605 - Pain in left leg (8) Left leg swelling: CODE(S): M79.89 - Other specified soft tissue disorders (9) Hypertension: CODE(S): I10 - Essential (primary) hypertension (10) COPD (chronic obstructive pulmonary disease): CODE(S): J44.9 - Chronic obstructive pulmonary disease, unspecified (11) Hyperlipidemia: CODE(S): E78.5 - Hyperlipidemia, unspecified (12) Morbid obesity with BMI of 40.0-44.9, adult: CODE(S): E66.01 - Morbid (severe) obesity due to excess calories; Z68.41 - Body mass index [BMI] 40.0-44.9, adult (13) Tobacco abuse: CODE(S): Z72.0 - Tobacco use (14) Tobacco abuse counseling: CODE(S): Z71.6 - Tobacco abuse counseling (15) Hyperpigmentation: CODE(S): L81.9 - Disorder of pigmentation, unspecified PLAN: The patient is to continue with conservative treatment measures relative to her left lower extremity venous ulceration. This is to include leg elevation, avoidance of idle standing and sitting, active lifestyle, weight control measures, and the use of compression to the left lower extremity on a daily basis. At this time, compression is to be applied by means of SurePress. The patient is to continue with nutritional optimization. Her glycemic control is also to be optimized. She has once again been advised to stop smoking. She is to continue daily compression to the left lower extremity, leaving the allograft applied today undisturbed. She is to return in 1 week for reevaluation. Total time: 29 minutes
[2021-05-09 08:29] VITALS: BP 148/79; PULSE 98; RESP 16; TEMP 36.2; BMI 44.9
--- NOTE | 2021-05-09 13:25 | PCM.WC.HP ---
History of Present Illness Date of Service: 05/09/21 Chief Complaint: Chronic venous insufficiency, postphlebitic syndrome with inflammation, venous ulceration of the left lower extremity, left lower extremity swelling, left lower extremity pain History of Wound: This is a 60-year-old female who presented with an ulceration on the posterior and medial aspect of her left calf. The ulceration had been present for several months. The patient has had prior ulcerations in these areas in the past. She has been using antibiotic ointment topically, as well as peroxide. She has noted mild redness about the ulcerations. She presented here for definitive management. She suffers from multiple medical problems, including diabetes mellitus, morbid obesity, and has a history of left lower extremity deep vein thrombosis on at least 2 occasions in the remote past. She intermittently wears compression stockings, but has not been doing so recently. She claims to sleep on a flat mattress at night. 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 Prior episodes of deep vein thrombosis in the past occurred after childbirth in 1978, and after an appendectomy in 1999. [facility] Medical History (Updated 05/09/21 @ 13:[address] Damir Woods MD) Cellulitis and abscess of left leg Chronic venous stasis dermatitis of left lower extremity MRSA infection (methicillin-resistant Staphylococcus aureus) Postphlebetic syndrome with ulcer and inflammation Medical History no medical history Home Medications hydrochlorothiazide 25 mg PO DAILY 04/07/18 [History Last Taken Unknown] losartan 50 mg PO 04/07/18 [History Last Taken Unknown] ipratropium-albuterol [Combivent] spray INHALATION 03/14/21 [History Last Taken Unknown] Allergy/AdvReac Type Severity Reaction Status Date / Time No Known Allergies Allergy Verified 03/14/21 09:39 Family History no significant family his Surgical History no surgical history Social History Smoking Status: Current every day smoker Vital Signs Vital Signs Vital Signs: 05/09/21 08:29 Temperature 97.2 F L Temperature Source Temporal Pulse Rate 98 Respiratory Rate 16 Blood Pressure 148/79 H Blood Pressure Mean 102 Blood Pressure Source Monitor Blood Pressure Position Sitting Blood Pressure Location Right Arm Oxygen Delivery Method Room Air Weight Weight: 270 lb 3.969 oz Body Mass Index (BMI) 44.9 Physical Exam Const alert, oriented x3, no apparent distress and well nourished General Appearance: cooperative and well developed Orientation / Consciousness: awake, oriented to person, oriented to place and oriented to time HEENT normocephalic and head/scalp atraumatic Head and Scalp: normal to inspection, normocephalic and atraumatic External Ear: external ears normal Eyes PERRL and EOMs intact bilaterally General Eye: normal appearance of both eyes Resp normal respiratory effort, normal air movement, no retractions and no use of accessory muscles Effort and Inspection: able to speak in complete sentences Extremity no calf tenderness General Extremity: Negative for clubbing or cyanosis Skin Wound Narrative: The cluster of ulcerations on the patient's left medial and posterior calf persist. There is a moderate amount of bioburden. Dimensions are documented elsewhere. Significant erythema is noted, suspicious for cellulitis. As result, swab cultures were obtained for both aerobic and anaerobic bacterial growth. Neuro oriented x3, CN's II-XII intact bilaterally and moves all extremities Sensorium / Orientation: awake, alert, oriented to person, oriented to place and oriented to time Psych Appearance: grossly normal and appropriate Attitude: calm Activity / Motor Behavior: appropriate eye contact Speech: normal speech Mood & Affect: euthymic mood Thought Process: normal thought process Thought Content: normal thought content Attention / Concentration: attention grossly intact Debridement Note Debridement Note Wound debrided: Left medial and posterior calf Laterality: Left Type of Debridement: Excisional debridement Anesthesia Used: 5% Lidocaine Gel Depth: Down to and including healthy tissue and in the subcutaneous layer Percentage of wound debrided: 100 Instrument Used: 3mm curette Tissue Removed: Bioburden Severity: Fat Layer Exposed Amount of bleeding with debridement: Mild Bleeding Controlled with: Compression and gauze Patient tolerated procedure: Patient tolerated procedure well Debridement Free Text: Because of associated erythema of the skin in the area of the patient's ulcerations, swab cultures were obtained for both aerobic and anaerobic bacterial growth. Post-Debridement Measurements and Additional Note: Post-Debridement Measurements/Treatment WC - Nurse 1 - General Ulcer Assessment Start: 04/11/21 10:37 Freq: Status: Active Protocol: VERONIQUE.DEL Activity Type Activity Date Activity User E-Sign Co-Sign Detail Recorded Client Recorded Date Recorded By Document 04/11/21 10:38 DL [id number] 04/11/21 10:48 DL Document 04/18/21 10:13 DL [id number] 04/18/21 10:22 DL Document 04/25/21 09:27 DL [id number] 04/25/21 09:35 DL Document 05/02/21 11:16 DL [id number] 05/02/21 11:23 DL Document 05/09/21 08:29 KR [id number] 05/09/21 08:34 KR 04/11/21 04/18/21 04/25/21 10:38 10:13 09:27 WC - Today's Visit Information Type of service Follow-up Visit Follow-up Visit Follow-up Visit (Physician/MANAGER [place] (Physician/MANAGER [place]TRY (Physician/MANAGER [place]TRY ) ) ) Arrival Mode Ambulatory Ambulatory Ambulatory Transfer Assistance None Transfer Board None Patient Identification Verified (Name & Yes Yes Yes ) Patient Requires Transmission-Based No No No Precautions Height and Weight Body Mass Index (BMI) 44.9 44.9 44.9 BMI Classification Obese Obese Obese Vital Signs Temperature (97.8 F-99.1 F) 97.5 F L 98.3 F 98.1 F Temperature Source Temporal Temporal Temporal Pulse Rate (60-100) 78 97 91 Pulse Location Monitor Monitor Monitor Respiratory Rate (12-18) 20 H 18 20 H Respiratory rate source Observation Observation Observation Oxygen Delivery Method Blood Pressure (90/60-120/80) 135/54 H 128/73 H 133/66 H Blood Pressure Mean 81 91 88 Source Monitor Monitor Monitor Position Blood Pressure Location History Since Last Visit- (Skip if this is Patient's initial visit) Have you changed medications since your No No No last visit? Any new allergies or adverse reactions No No No Had a fall/change in ADL's that may No No No increase risk of falls Signs or symptoms of abuse and/or No No neglect since last visit Have you been in the hospital since your No No No last visit? Has dressing in place as prescribed Yes Yes Yes Has compression in place as prescribed Yes Yes Yes Has offloadiing in place as prescribed N/A N/A Experienced any changes in pain level or No No No management Left Footwear Surgical Shoe with pressure relief insole Right Footwear Regular Shoe Pain Scale: 0-10 Numeric Is Patient Pain Free? Yes Yes Yes 05/02/21 05/09/21 11:16 08:29 - Today's Visit Information Type of service Follow-up Visit Follow-up Visit (Physician/MANAGER [place]TRY (Physician/MANAGER [place] ) ) Arrival Mode Ambulatory Ambulatory Transfer Assistance None None Patient Identification Verified (Name & Yes Yes ) Patient Requires Transmission-Based No No Precautions Height and Weight Body Mass Index (BMI) 44.9 44.9 BMI Classification Obese Obese Vital Signs Temperature (97.8 F-99.1 F) 97.8 F 97.2 F L Temperature Source Temporal Temporal Pulse Rate (60-100) 93 98 Pulse Location Monitor Monitor Respiratory Rate (12-18) 22 H 16 Respiratory rate source Observation Observation Oxygen Delivery Method Room Air Blood Pressure (90/60-120/80) 156/57 H 148/79 H Blood Pressure Mean 90 102 Source Monitor Monitor Position Sitting Blood Pressure Location Right Arm History Since Last Visit- (Skip if this is Patient's initial visit) Have you changed medications since your No No last visit? Any new allergies or adverse reactions No No Had a fall/change in ADL's that may No No increase risk of falls Signs or symptoms of abuse and/or No No neglect since last visit Have you been in the hospital since your No No last visit? Has dressing in place as prescribed Yes Yes Has compression in place as prescribed Yes Yes Has offloadiing in place as prescribed N/A N/A Experienced any changes in pain level or No No management Left Footwear Regular Shoe Right Footwear Regular Shoe Pain Scale: 0-10 Numeric Is Patient Pain Free? Yes Yes - Nurse 1 - General Ulcer Measurement Start: 04/11/21 10:37 Freq: Status: Active Protocol: Activity Type Activity Date Activity User E-Sign Co-Sign Detail Recorded Client Recorded Date Recorded By Document 04/11/21 10:38 DL [id number] 04/11/21 10:48 DL Document 04/18/21 10:13 DL [id number] 04/18/21 10:22 DL Document 04/25/21 09:27 DL [id number] 04/25/21 09:35 DL Document 05/02/21 11:16 DL [id number] 05/02/21 11:23 DL Document 05/09/21 08:29 KR [id number] 05/09/21 08:34 KR 04/11/21 04/18/2121 10:38 10:13 09:27 Wound Center Nurse 1 #3 L Calf Cluster -Combined with other wound -Current Size (cm) - Length 5.5 5 5 -Current Size (cm) - Width 8.5 9.2 9 -Current Size (cm) - Depth 0.3 0.3 0.2 -Total Square Cm 46.75 46.0 45 -Photo Taken No No No -Epithelialization -Tunneling -Undermining/Tunneling -Circular Undermining -Exudate Amt Medium Medium Small -Exudate Type Serosanguineous Serosanguineous -Wound Margin Distinct, Distinct, Distinct, Outline Outline Outline Attached Attached Attached -Granulation Amt Medium (34-66%) Medium (34-66%) Medium (34-66%) -Granulation Quality Red Red [employer],Red -Slough/Fibrin -Necrosis Amt Medium (34-66%) Medium (34-66%) Medium (34-66%) -Necrotic Tissue Type Adherent Slough Adherent Slough Adherent Slough -Structure Exposed N/A N/A N/A -Texture (Wendy-wound Skin Appearance) Scarring Scarring Scarring -Moisture (Wendy-wound Skin Appearance) No Abnormality No Abnormality -Color (Wendy-wound Skin Appearance) Hemosiderin Hemosiderin Hemosiderin Staining Staining Staining -Temperature (Wendy-wound Skin No Abnormality No Abnormality No Abnormality Appearance) (Pt Warm) (Pt Warm) (Pt Warm) -Tenderness on Palpation (Wendy-wound No No No Skin Appearance) -Ulcer Cleansing Rinsed/ Rinsed/ Soap and Water Irrigated with Irrigated with Saline Saline -Foul Odor after Cleansing No No No -Anesthetic Used 5% Lidocaine 5% Lidocaine 4% Lidocaine Gel Gel Solution Lower Limb Edema Present Left Calf (cm) 44 43.5 44 Left Ankle (cm) 23.5 24 24 05/02/21 05/09/21 11:16 08:29 Wound Center Nurse 1 #3 L Calf Cluster -Combined with other wound No -Current Size (cm) - Length 7 0.7 -Current Size (cm) - Width 9 9.6 -Current Size (cm) - Depth 0.2 0.2 -Total Square Cm 63 6.72 -Photo Taken No -Epithelialization None Present -Tunneling No -Undermining/Tunneling No -Circular Undermining No -Exudate Amt Small Medium -Exudate Type Serosanguineous Serosanguineous -Wound Margin Distinct, Distinct, Outline Outline Attached Attached -Granulation Amt Medium (34-66%) Medium (34-66%) -Granulation Quality [employer] Red -Slough/Fibrin Yes -Necrosis Amt Medium (34-66%) Medium (34-66%) -Necrotic Tissue Type Adherent Slough Adherent Slough -Structure Exposed N/A -Texture (Wendy-wound Skin Appearance) Scarring Assessed, Scarring -Moisture (Wendy-wound Skin Appearance) Dry/Scaly Assessed -Color (Wendy-wound Skin Appearance) Hemosiderin Assessed Staining -Temperature (Wendy-wound Skin No Abnormality No Abnormality Appearance) (Pt Warm) (Pt Warm) -Tenderness on Palpation (Wendy-wound No No Skin Appearance) -Ulcer Cleansing Not Cleansed Soap and Water -Foul Odor after Cleansing No No -Anesthetic Used 5% Lidocaine 5% Lidocaine Gel Gel Lower Limb Edema Present Yes Left Calf (cm) 43.5 45.4 Left Ankle (cm) 24.5 27.1 WC - Nurse 2 - General Ulcer CM Notes Start: 04/11/21 10:37 Freq: Status: Active Protocol: Activity Type Activity Date Activity User E-Sign Co-Sign Detail Recorded Client Recorded Date Recorded By Document 04/11/21 13:11 PL [id number] 04/11/21 13:13 PL Document 04/18/21 12:21 PL [id number] 04/18/21 12:23 PL Document 04/25/21 13:04 PL [id number] 04/25/21 13:05 PL Document 05/02/21 14:03 PL [id number] 05/02/21 14:05 PL Edit Result 05/02/21 14:03 PL (1) [id number] 05/03/21 07:06 PL Document 05/09/21 10:13 PL [id number] 05/09/21 10:14 PL (1) #3 L Calf Cluster - Apply Skin Sub - 1st 25 sq cm - Legs => 1 04/11/21 04/18/21 04/25/21 13:11 12:21 13:04 Wound Center Nurse 2 #3 L Calf Cluster -Time 11:05 10:41 09:50 -Correct Patient Yes Yes Yes -Correct Side, Site, Position Yes Yes Yes -Correct Procedure Yes Yes Yes -Procedure Performed Yes Yes Yes -Type of Procedure Debridement Debridement Debridement -Clinical Debridement Subcutaneous Subcutaneous Subcutaneous -Tissue Removed Subcutaneous Subcutaneous Subcutaneous -Post Debridement (cm) - Length 5.5 5.0 5.0 -Post Debridement (cm) - Width 8.5 9.2 9.0 -Post Debridement (cm) - Depth 0.3 0.3 0.2 -Total Square (Post) (cm) 46.75 46.00 45.00 -Area of Debridement (cm) - Length 2.5 5.0 5.0 -Area of Debridement (cm) - Width 4.0 9.2 9.0 -Total Square (Area) (cm) 10.00 46.00 45.00 -Tunneling No No No -Undermining/Tunneling No No No -Circular Undermining No No No -Wound/Ulcer Outcome Not Healed Not Healed Not Healed -Ulcer Cleansing Rinsed/ Rinsed/ Rinsed/ Irrigated with Irrigated with Irrigated with Saline Saline Saline -Foul Odor after Cleansing No No No -Bioengineered Tissue No No No -Type of Bioengineered Tissue -Expiration Date -Product Lot Number -Percent Used -Bleeding Controlled with Pressure Pressure Pressure -Treatment Response Procedure Procedure Procedure Tolerated Well Tolerated Well Tolerated Well -Debridement - Subq, 1st 20sq cm Yes Yes Yes -Debridement, SubQ, ea addt'l 20sq cm 2 2 or part thereof -Apply Skin Sub - 1st 25 sq cm - Legs -Epifix 18mm Disc 05/02/21 05/09/21 14:03 10:13 Wound Center Nurse 2 #3 L Calf Cluster -Time 11:45 08:46 -Correct Patient Yes Yes -Correct Side, Site, Position Yes Yes -Correct Procedure Yes Yes -Procedure Performed Yes Yes -Type of Procedure Debridement Debridement -Clinical Debridement Subcutaneous Subcutaneous -Tissue Removed Subcutaneous Subcutaneous -Post Debridement (cm) - Length 7.0 7.0 -Post Debridement (cm) - Width 9.0 9.6 -Post Debridement (cm) - Depth 0.2 0.2 -Total Square (Post) (cm) 63.00 67.20 -Area of Debridement (cm) - Length 7.0 7.0 -Area of Debridement (cm) - Width 6.0 9.6 -Total Square (Area) (cm) 42.00 67.20 -Tunneling No No -Undermining/Tunneling No No -Circular Undermining No No -Wound/Ulcer Outcome Not Healed Not Healed -Ulcer Cleansing Rinsed/ Rinsed/ Irrigated with Irrigated with Saline Saline -Foul Odor after Cleansing No No -Bioengineered Tissue Yes No -Type of Bioengineered Tissue Epifix 18mm Disc -Expiration Date 04/10/24 -Product Lot Number [id number] -Percent Used 100 -Bleeding Controlled with Pressure -Treatment Response Procedure Tolerated Well -Debridement - Subq, 1st 20sq cm No Yes -Debridement, SubQ, ea addt'l 20sq cm 3 or part thereof -Apply Skin Sub - 1st 25 sq cm - Legs 1 -Epifix 18mm Disc 3 WC - Nurse 3 - General Ulcer D/C NN Start: 04/11/21 10:37 Freq: Status: Active Protocol: Activity Type Activity Date Activity User E-Sign Co-Sign Detail Recorded Client Recorded Date Recorded By Document 04/11/21 11:19 BMF [id number] 04/11/21 11:19 BMF Document 04/18/21 11:04 BMF [id number] 04/18/21 11:06 BMF Document 04/25/21 10:02 BMF [id number] 04/25/21 10:03 BMF Document 05/02/21 12:01 BMF [id number] 05/02/21 12:09 BMF Document 05/09/21 08:58 BMF [id number] 05/09/21 08:59 BMF Edit Result 05/09/21 08:58 BMF (1) [id number] 05/09/21 09:02 BMF (1) #3 L Calf Cluster - Promogran 1 => 2 04/11/21 04/18/21 04/25/21 11:19 11:04 10:02 Wound Care Nurse 3 #3 L Calf Cluster -Ulcer Cleansing Rinsed/ Rinsed/ Rinsed/ Irrigated with Irrigated with Irrigated with Saline Saline Saline -Foul Odor after Cleansing No No No -Primary Dressing Applied Other Other -Other Dressing santyl santyl santyl -Primary Dressing Covered/Secured with Secured with Other Secured with Tape,Other Tape,Other -Other Covering abd abd abd -Promogran Left -Compression Wrap -Other applied pts own surepress surepress surepress Treatment Response Procedure Procedure Procedure Tolerated Well Tolerated Well Tolerated Well Pain Scale: 0-10 Numeric Is Patient Pain Free? Yes Yes Yes WC - Visit Discharge Discharge Condition Stable Stable Stable Ambulatory Status Ambulatory Ambulatory Ambulatory Transportation [facility] 05/02/21 05/09/21 12:01 08:58 Wound Care Nurse 3 #3 L Calf Cluster -Ulcer Cleansing Rinsed/ Irrigated with Saline -Foul Odor after Cleansing No -Primary Dressing Applied Promogran -Other Dressing EPIFIX drsg per kr gas flow regulator -Primary Dressing Covered/Secured with Secured with Secured with Tape,Other Tape,Other -Other Covering ABD, DRSG PER abd [place] [employer] -Promogran 2 Left -Compression Wrap Surepress ($) -Other applied pts own surepress Treatment Response Procedure Tolerated Well Pain Scale: 0-10 Numeric Is Patient Pain Free? Yes Yes WC - Visit Discharge Discharge Condition Stable Stable Ambulatory Status Ambulatory Ambulatory [facility] Assessment/Plan Assessment/Plan (1) Postphlebetic syndrome with ulcer and inflammation: CODE(S): I87.039 - Postthrombotic syndrome with ulcer and inflammation of unspecified lower extremity (2) Venous ulcer of left leg: CODE(S): I83.029 - Varicose veins of left lower extremity with ulcer of unspecified site; L97.929 - Non-pressure chronic ulcer of unspecified part of left lower leg with unspecified severity (3) Chronic venous stasis dermatitis of left lower extremity: CODE(S): I87.2 - Venous insufficiency (chronic) (peripheral) (4) Cellulitis and abscess of left leg: CODE(S): L03.116 - Cellulitis of left lower limb; L02.416 - Cutaneous abscess of left lower limb (5) Chronic venous insufficiency: CODE(S): I87.2 - Venous insufficiency (chronic) (peripheral) (6) Post-phlebitic syndrome: CODE(S): I87.009 - Postthrombotic syndrome without complications of unspecified extremity (7) Diabetes mellitus: CODE(S): E11.9 - Type 2 diabetes mellitus without complications QUALIFIERS: Diabetes mellitus type: type 2 (8) History of DVT of lower extremity: CODE(S): Z86.718 - Personal history of other venous thrombosis and embolism (9) Leg pain, left: CODE(S): M79.605 - Pain in left leg (10) Left leg swelling: CODE(S): M79.89 - Other specified soft tissue disorders (11) Hypertension: CODE(S): I10 - Essential (primary) hypertension (12) COPD (chronic obstructive pulmonary disease): CODE(S): J44.9 - Chronic obstructive pulmonary disease, unspecified (13) Hyperlipidemia: CODE(S): E78.5 - Hyperlipidemia, unspecified (14) Morbid obesity with BMI of 40.0-44.9, adult: CODE(S): E66.01 - Morbid (severe) obesity due to excess calories; Z68.41 - Body mass index [BMI] 40.0-44.9, adult (15) Tobacco abuse: CODE(S): Z72.0 - Tobacco use (16) Tobacco abuse counseling: CODE(S): Z71.6 - Tobacco abuse counseling (17) Hyperpigmentation: CODE(S): L81.9 - Disorder of pigmentation, unspecified PLAN: The patient is to continue with conservative treatment measures relative to her left lower extremity venous ulceration. This is to include leg elevation, avoidance of idle standing and sitting, active lifestyle, weight control measures, and the use of compression to the left lower extremity on a daily basis. At this time, compression is to be applied by means of SurePress. The patient is to continue with nutritional optimization. Her glycemic control is also to be optimized. She has once again been advised to stop smoking. We have obtained a swab culture of the patient's clustered wound, for both aerobic and anaerobic bacterial growth. Results will be awaited. As result of the suspected cellulitis, the second allograft was not placed today. Rather, we are to have the patient apply Promogran topically on a daily basis. She has been instructed in the appropriate means of application. She is to return in 1 week for reevaluation. Total time: 29 minutes
== END 2021-05-09 23:59 ==
LOC: WC 08:30
PROVIDERS: PCP Family Medicine; Referring Provider Surgery; Visit Provider Surgery
DX: E11.622 Type 2 diabetes mellitus with other skin ulcer (principal); L97.222 Non-pressure chronic ulcer of left calf with fat layer exposed; Z86.718 Personal history of other venous thrombosis and embolism; E66.01 Morbid (severe) obesity due to excess calories; F17.200 Nicotine dependence, unspecified, uncomplicated; Z68.41 Body mass index [BMI] 40.0-44.9, adult; Z86.14 Personal history of Methicillin resistant Staphylococcus aureus infection; Z79.899 Other long term (current) drug therapy; M79.89 Other specified soft tissue disorders; J44.9 Chronic obstructive pulmonary disease, unspecified; E78.5 Hyperlipidemia, unspecified
CPT/HCPCS: 11042; 11045; 15271; 87070; 87075; 87077; 87186; 87205; Q4186

== ENCOUNTER 2021-06-06 09:00 | Outpatient (RCR) | payer OTHER, SELFPAY ==
[2021-05-10 00:12] VITALS: BP 148/79; PULSE 98; RESP 16; TEMP 36.2; BMI 44.9
[2021-05-16 09:07] VITALS: BP 125/58; PULSE 89; TEMP 36.4; BMI 44.9
--- NOTE | 2021-05-16 14:11 | HP.PCM_ITS ---
History of Present Illness Date of Service: 05/16/21 Chief Complaint: Chronic venous insufficiency, postphlebitic syndrome with inflammation, venous ulceration of the left lower extremity, left lower extremity swelling, left lower extremity pain History of Wound: This is a 60-year-old female who presented with an ulceration on the posterior and medial aspect of her left calf. The ulceration had been present for several months. The patient has had prior ulcerations in these areas in the past. She has been using antibiotic ointment topically, as well as peroxide. She has noted mild redness about the ulcerations. She presented here for definitive management. She suffers from multiple medical problems, including diabetes mellitus, morbid obesity, and has a history of left lower extremity deep vein thrombosis on at least 2 occasions in the remote past. She intermittently wears compression stockings, but has not been doing so recently. She claims to sleep on a flat mattress at night. 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 Prior episodes of deep vein thrombosis in the past occurred after childbirth in 1978, and after an appendectomy in 1999. [facility] Medical History Cellulitis and abscess of left leg Chronic venous stasis dermatitis of left lower extremity MRSA infection (methicillin-resistant Staphylococcus aureus) Postphlebetic syndrome with ulcer and inflammation Medical History no medical history Home Medications hydrochlorothiazide 25 mg PO DAILY 04/07/18 [History Last Taken Unknown] losartan 50 mg PO 04/07/18 [History Last Taken Unknown] ipratropium-albuterol [Combivent] spray INHALATION 03/14/21 [History Last Taken Unknown] Allergy/AdvReac Type Severity Reaction Status Date / Time No Known Allergies Allergy Verified 03/14/21 09:39 Family History no significant family his Surgical History no surgical history Social History Smoking Status: Current every day smoker Vital Signs Vital Signs Vital Signs: 05/16/21 09:07 Temperature 97.5 F L Temperature Source Temporal Pulse Rate 89 Blood Pressure 125/58 H Blood Pressure Mean 80 Blood Pressure Source Monitor Blood Pressure Position Sitting Blood Pressure Location Right Arm Weight Weight: 270 lb 3.969 oz Body Mass Index (BMI) 44.9 Physical Exam Const alert, oriented x3, no apparent distress and well nourished General Appearance: cooperative and well developed Orientation / Consciousness: awake, oriented to person, oriented to place and oriented to time HEENT normocephalic and head/scalp atraumatic Head and Scalp: normal to inspection, normocephalic and atraumatic External Ear: external ears normal Eyes PERRL and EOMs intact bilaterally General Eye: normal appearance of both eyes Resp normal respiratory effort, normal air movement, no retractions and no use of accessory muscles Effort and Inspection: able to speak in complete sentences Extremity no calf tenderness General Extremity: Negative for clubbing or cyanosis Skin Wound Narrative: The ulcerations persist on the patient's left medial and posterior calf. They appear to be slightly smaller in size. There is a moderate amount of bioburden and nonviable tissue present. Slight periulcer erythema is noted. Dimensions are documented elsewhere. Neuro oriented x3 and CN's II-XII intact bilaterally Psych Appearance: grossly normal and appropriate Attitude: calm Activity / Motor Behavior: appropriate eye contact Speech: normal speech Mood & Affect: euthymic mood Thought Process: normal thought process Thought Content: normal thought content Attention / Concentration: attention grossly intact Debridement Note Debridement Note Wound debrided: Left medial and posterior calf Laterality: Left Type of Debridement: Excisional debridement Anesthesia Used: 5% Lidocaine Gel Depth: Down to and including healthy tissue and in the subcutaneous layer Percentage of wound debrided: 100 Instrument Used: 5mm curette Tissue Removed: Bioburden and nonviable tissue Severity: Fat Layer Exposed Amount of bleeding with debridement: Mild Bleeding Controlled with: Compression and gauze Patient tolerated procedure: Patient tolerated procedure well Post-Debridement Measurements and Additional Note: Post-Debridement Measurements/Treatment - Nurse 1 - General Ulcer Assessment Start: 05/16/21 09:07 Freq: Status: Active Protocol: VERONIQUE.DEL Activity Type Activity Date Activity User E-Sign Co-Sign Detail Recorded Client Recorded Date Recorded By Document 05/16/21 09:07 ROMAIN [id number] 05/16/21 09:11 ROMAIN 05/16/21 09:07 - Today's Visit Information Type of service Follow-up Visit (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 Any new allergies or adverse reactions No Had a fall/change in ADL's that may No increase risk of falls Signs or symptoms of abuse and/or No neglect since last visit Have you been in the hospital since your No last visit? Has dressing in place as prescribed Yes Has compression in place as prescribed Yes Has offloadiing in place as prescribed N/A Experienced any changes in pain level or No management Left Footwear Regular Shoe Right Footwear Regular Shoe Pain Scale: 0-10 Numeric Is Patient Pain Free? Yes WC - Nurse 1 - General Ulcer Measurement Start: 05/16/21 09:07 Freq: Status: Active Protocol: Activity Type Activity Date Activity User E-Sign Co-Sign Detail Recorded Client Recorded Date Recorded By Document 05/16/21 09:07 ROMAIN [id number] 05/16/21 09:11 KR 05/16/21 09:07 Wound Center Nurse 1 #3 L Calf Cluster -Current Size (cm) - Length 5 -Current Size (cm) - Width 5 -Current Size (cm) - Depth 0.1 -Total Square Cm 25 -Exudate Amt Small -Exudate Type Yellow/Green -Wound Margin Distinct, Outline Attached -Granulation Amt Small (1-33%) -Granulation Quality [place] -Necrosis Amt Small (1-33%) -Necrotic Tissue Type Adherent Slough -Texture (Wendy-wound Skin Appearance) Assessed, Scarring -Moisture (Wendy-wound Skin Appearance) Assessed,Dry/ Scaly -Color (Wendy-wound Skin Appearance) Assessed, Hemosiderin Staining -Temperature (Wendy-wound Skin No Abnormality Appearance) (Pt Warm) -Tenderness on Palpation (Wendy-wound No Skin Appearance) -Ulcer Cleansing Rinsed/ Irrigated with Saline -Foul Odor after Cleansing No -Anesthetic Used 4% Lidocaine Solution Left Calf (cm) 44 Left Ankle (cm) 25.1 WC - Nurse 2 - General Ulcer CM Notes Start: 05/16/21 09:07 Freq: Status: Active Protocol: Activity Type Activity Date Activity User E-Sign Co-Sign Detail Recorded Client Recorded Date Recorded By Document 05/16/21 09:52 PL [id number] 05/16/21 09:53 PL 05/16/21 09:52 Wound Center Nurse 2 #3 L Calf Cluster -Time 09:19 -Correct Patient Yes -Correct Side, Site, Position Yes -Correct Procedure Yes -Procedure Performed Yes -Type of Procedure Debridement -Clinical Debridement Subcutaneous -Tissue Removed Subcutaneous -Post Debridement (cm) - Length 5.0 -Post Debridement (cm) - Width 5.0 -Post Debridement (cm) - Depth 0.1 -Total Square (Post) (cm) 25.00 -Area of Debridement (cm) - Length 3.0 -Area of Debridement (cm) - Width 3.0 -Total Square (Area) (cm) 9.00 -Tunneling No -Undermining/Tunneling No -Circular Undermining No -Wound/Ulcer Outcome Not Healed -Ulcer Cleansing Rinsed/ Irrigated with Saline -Foul Odor after Cleansing No -Bioengineered Tissue No -Bleeding Controlled with Pressure -Treatment Response Procedure Tolerated Well -Debridement - Subq, 1st 20sq cm Yes WC - Nurse 3 - General Ulcer D/C NN Start: 05/16/21 09:07 Freq: Status: Active Protocol: Activity Type Activity Date Activity User E-Sign Co-Sign Detail Recorded Client Recorded Date Recorded By Document 05/16/21 09:27 KR [id number] 05/16/21 09:27 KR 05/16/21 09:27 Wound Care Nurse 3 -Ulcer Cleansing Rinsed/ Irrigated with Saline -Primary Dressing Applied Promogran -Primary Dressing Covered/Secured with Dry Gauze, Secured with Tape -Promogran 1 Pain Scale: 0-10 Numeric Is Patient Pain Free? Yes WC - Visit Discharge Discharge Condition Stable Ambulatory Status Ambulatory Transportation Private Auto Accompanied by self Assessment/Plan Assessment/Plan (1) Postphlebetic syndrome with ulcer and inflammation: CODE(S): I87.039 - Postthrombotic syndrome with ulcer and inflammation of unspecified lower extremity (2) Chronic venous stasis dermatitis of left lower extremity: CODE(S): I87.2 - Venous insufficiency (chronic) (peripheral) (3) MRSA infection (methicillin-resistant Staphylococcus aureus): CODE(S): A49.02 - Methicillin resistant Staphylococcus aureus infection, unspecified site (4) Cellulitis and abscess of left leg: CODE(S): L03.116 - Cellulitis of left lower limb; L02.416 - Cutaneous abscess of left lower limb (5) Chronic venous insufficiency: CODE(S): I87.2 - Venous insufficiency (chronic) (peripheral) (6) Post-phlebitic syndrome: CODE(S): I87.009 - Postthrombotic syndrome without complications of unspecified extremity (7) Venous ulcer of left leg: CODE(S): I83.029 - Varicose veins of left lower extremity with ulcer of unspecified site; L97.929 - Non-pressure chronic ulcer of unspecified part of left lower leg with unspecified severity (8) Diabetes mellitus: CODE(S): E11.9 - Type 2 diabetes mellitus without complications QUALIFIERS: Diabetes mellitus type: type 2 (9) History of DVT of lower extremity: CODE(S): Z86.718 - Personal history of other venous thrombosis and embolism (10) Leg pain, left: CODE(S): M79.605 - Pain in left leg (11) Left leg swelling: CODE(S): M79.89 - Other specified soft tissue disorders (12) Hypertension: CODE(S): I10 - Essential (primary) hypertension (13) Hyperlipidemia: CODE(S): E78.5 - Hyperlipidemia, unspecified (14) Morbid obesity with BMI of 40.0-44.9, adult: CODE(S): E66.01 - Morbid (severe) obesity due to excess calories; Z68.41 - Body mass index [BMI] 40.0-44.9, adult (15) COPD (chronic obstructive pulmonary disease): CODE(S): J44.9 - Chronic obstructive pulmonary disease, unspecified (16) Tobacco abuse: CODE(S): Z72.0 - Tobacco use (17) Tobacco abuse counseling: CODE(S): Z71.6 - Tobacco abuse counseling (18) Hyperpigmentation: CODE(S): L81.9 - Disorder of pigmentation, unspecified PLAN: The patient is to continue with conservative treatment measures relative to her left lower extremity venous ulceration. This is to include leg elevation, avoidance of idle standing and sitting, active lifestyle, weight control measures, and the use of compression to the left lower extremity on a d aily basis. At this time, compression is to be applied by means of SurePress. The patient is to continue with nutritional optimization. Her glycemic control is also to be optimized. She has once again been advised to stop smoking. We have obtained a swab culture of the patient's clustered wound, for both aerobic and anaerobic bacterial growth. MRSA has again been isolated, as has been isolated on several occasions in the past. Based upon sensitivity results, the patient has been placed on doxycycline 100 mg p.o. twice daily for 10 days. In addition, the patient is to reinitiate the use of mupirocin 2% ointment intranasally twice daily, and to shower daily with Hibiclens. The patient lives alone, and cannot identify anyone in her household who may be a vector for the MRSA. She does, however, have a colleague at work who is diabetic and has been off the job for 3 months with a diabetic foot wound. She does not know whether MRSA may have been isolated, but we will attempt to ascertain the details. We are to have the patient apply Promogran topically on a daily basis. She has been instructed in the appropriate means of application. She is to return in 1 week for reevaluation. Total time: 28 minutes
[2021-05-23 08:58] VITALS: BP 117/46; PULSE 83; RESP 22; TEMP 36.8; BMI 44.9
--- NOTE | 2021-05-23 09:27 | HP.PCM_ITS ---
History of Present Illness Date of Service: 05/23/21 Chief Complaint: Chronic venous insufficiency, postphlebitic syndrome with inflammation, venous ulceration of the left lower extremity, left lower extremity swelling, left lower extremity pain History of Wound: This is a 60-year-old female who presented with an ulceration on the posterior and medial aspect of her left calf. The ulceration had been present for several months. The patient has had prior ulcerations in these areas in the past. She has been using antibiotic ointment topically, as well as peroxide. She has noted mild redness about the ulcerations. She presented here for definitive management. She suffers from multiple medical problems, including diabetes mellitus, morbid obesity, and has a history of left lower extremity deep vein thrombosis on at least 2 occasions in the remote past. She intermittently wears compression stockings, but has not been doing so recently. She claims to sleep on a flat mattress at night. 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 Prior episodes of deep vein thrombosis in the past occurred after childbirth in 1978, and after an appendectomy in 1999. [facility] Medical History Cellulitis and abscess of left leg Chronic venous stasis dermatitis of left lower extremity MRSA infection (methicillin-resistant Staphylococcus aureus) Postphlebetic syndrome with ulcer and inflammation Medical History no medical history Home Medications hydrochlorothiazide 25 mg PO DAILY 04/07/18 [History Last Taken Unknown] losartan 50 mg PO 04/07/18 [History Last Taken Unknown] ipratropium-albuterol [Combivent] spray INHALATION 03/14/21 [History Last Taken Unknown] Allergy/AdvReac Type Severity Reaction Status Date / Time No Known Allergies Allergy Verified 03/14/21 09:39 Family History no significant family his Surgical History no surgical history Social History Smoking Status: Current every day smoker Vital Signs Vital Signs Vital Signs: 05/23/21 08:58 Temperature 98.2 F Temperature Source Temporal Pulse Rate 83 Respiratory Rate 22 H Blood Pressure 117/46 L Blood Pressure Mean 69 Blood Pressure Source Monitor Weight Weight: 270 lb 3.969 oz Body Mass Index (BMI) 44.9 Physical Exam Const alert, oriented x3, no apparent distress and well nourished General Appearance: cooperative and well developed Orientation / Consciousness: awake, oriented to person, oriented to place and oriented to time HEENT normocephalic and head/scalp atraumatic Head and Scalp: normal to inspection, normocephalic and atraumatic External Ear: external ears normal Eyes PERRL and EOMs intact bilaterally General Eye: normal appearance of both eyes Resp normal respiratory effort, normal air movement, no retractions and no use of accessory muscles Effort and Inspection: able to speak in complete sentences Extremity no calf tenderness General Extremity: Negative for clubbing or cyanosis Skin Wound Narrative: The ulcerations on the left medial and posterior calf persist. However, they are significantly smaller in size. Dimensions are documented elsewhere. There is no sign of infection or cellulitis. There is a moderate amount of bioburden. Neuro oriented x3, CN's II-XII intact bilaterally, moves all extremities and no focal motor deficits Sensorium / Orientation: awake, alert, oriented to person, oriented to place and oriented to time Psych Appearance: grossly normal and appropriate Attitude: calm Activity / Motor Behavior: appropriate eye contact Speech: normal speech Mood & Affect: euthymic mood Thought Process: normal thought process Thought Content: normal thought content Attention / Concentration: attention grossly intact Debridement Note Debridement Note Wound debrided: Left medial/posterior calf Laterality: Left Type of Debridement: Excisional debridement Anesthesia Used: 5% Lidocaine Gel Depth: Down to and including healthy tissue and in the subcutaneous layer Percentage of wound debrided: 100 Instrument Used: 3mm curette Tissue Removed: Bioburden Severity: Fat Layer Exposed Amount of bleeding with debridement: Mild Bleeding Controlled with: Compression and gauze Patient tolerated procedure: Patient tolerated procedure well Post-Debridement Measurements and Additional Note: Post-Debridement Measurements/Treatment VERONIQUE - Nurse 1 - General Ulcer Assessment Start: 05/16/21 09:07 Freq: Status: Active Protocol: TRISHA Activity Type Activity Date Activity User E-Sign Co-Sign Detail Recorded Client Recorded Date Recorded By Document 05/16/21 09:07 KR [id number] 05/16/21 09:11 KR Document 05/23/21 08:58 DL [id number] 05/23/21 09:11 DL 05/16/21 05/23/21 09:07 08:58 - Today's Visit Information Type of service Follow-up Visit Follow-up Visit (Physician/CONFERENCE SERVICES COORDINATOR (Physician/CONFERENCE SERVICES COORDINATOR ) ) Arrival Mode Ambulatory Ambulatory Transfer Assistance None Patient Identification Verified (Name & Yes Yes ) Height and Weight Body Mass Index (BMI) 44.9 44.9 BMI Classification Obese Obese Vital Signs Temperature (97.8 F-99.1 F) 97.5 F L 98.2 F Temperature Source Temporal Temporal Pulse Rate (60-100) 89 83 Pulse Location Monitor Monitor Respiratory Rate (12-18) 22 H Respiratory rate source Observation Blood Pressure (90/60-120/80) 125/58 H 117/46 L Blood Pressure Mean 80 69 Source Monitor Monitor Position Sitting Blood Pressure Location Right Arm History Since Last Visit- (Skip if this is Patient's initial visit) Have you changed medications since your No No last visit? Any new allergies or adverse reactions No No Had a fall/change in ADL's that may No No increase risk of falls Signs or symptoms of abuse and/or No No neglect since last visit Have you been in the hospital since your No No last visit? Has dressing in place as prescribed Yes Yes Has compression in place as prescribed Yes Yes Has offloadiing in place as prescribed N/A N/A Experienced any changes in pain level or No No management Left Footwear Regular Shoe Right Footwear Regular Shoe Pain Scale: 0-10 Numeric Is Patient Pain Free? Yes Yes - Nurse 1 - General Ulcer Measurement Start: 05/16/21 09:07 Freq: Status: Active Protocol: Activity Type Activity Date Activity User E-Sign Co-Sign Detail Recorded Client Recorded Date Recorded By Document 05/16/21 09:07 KR [id number] 05/16/21 09:11 KR Document 05/23/21 08:58 DL [id number] 05/23/21 09:11 DL 05/16/21 05/23/21 09:07 08:58 Wound Center Nurse 1 #3 L Calf Cluster -Current Size (cm) - Length 5 4.4 -Current Size (cm) - Width 5 8 -Current Size (cm) - Depth 0.1 0.2 -Total Square Cm 25 35.2 -Photo Taken No -Exudate Amt Small Small -Exudate Type Yellow/Green -Wound Margin Distinct, Distinct, Outline Outline Attached Attached -Granulation Amt Small (1-33%) Medium (34-66%) -Granulation Quality [place] -Necrosis Amt Small (1-33%) Medium (34-66%) -Necrotic Tissue Type Adherent Slough Adherent Slough -Texture (Wendy-wound Skin Appearance) Assessed, Scarring Scarring -Moisture (Wendy-wound Skin Appearance) Assessed,Dry/ No Abnormality Scaly -Color (Wendy-wound Skin Appearance) Assessed, Hemosiderin Hemosiderin Staining Staining -Temperature (Wendy-wound Skin No Abnormality No Abnormality Appearance) (Pt Warm) (Pt Warm) -Tenderness on Palpation (Wendy-wound No Skin Appearance) -Ulcer Cleansing Rinsed/ Soap and Water Irrigated with Saline -Foul Odor after Cleansing No No -Anesthetic Used 4% Lidocaine 5% Lidocaine Solution Gel Right Calf (cm) 43.6 Right Ankle (cm) 25 Left Calf (cm) 44 Left Ankle (cm) 25.1 WC - Nurse 2 - General Ulcer CM Notes Start: 05/16/21 09:07 Freq: Status: Active Protocol: Activity Type Activity Date Activity User E-Sign Co-Sign Detail Recorded Client Recorded Date Recorded By Document 05/16/21 09:52 PL [id number] 05/16/21 09:53 PL Document 05/23/21 09:23 PL [id number] 05/23/21 09:24 PL 05/16/21 05/23/21 09:52 09:23 Wound Center Nurse 2 #3 L Calf Cluster -Time 09:19 09:16 -Correct Patient Yes Yes -Correct Side, Site, Position Yes Yes -Correct Procedure Yes Yes -Procedure Performed Yes Yes -Type of Procedure Debridement Debridement -Clinical Debridement Subcutaneous Subcutaneous -Tissue Removed Subcutaneous Subcutaneous -Post Debridement (cm) - Length 5.0 4.4 -Post Debridement (cm) - Width 5.0 8.0 -Post Debridement (cm) - Depth 0.1 0.2 -Total Square (Post) (cm) 25.00 35.20 -Area of Debridement (cm) - Length 3.0 4.4 -Area of Debridement (cm) - Width 3.0 8.0 -Total Square (Area) (cm) 9.00 35.20 -Tunneling No No -Undermining/Tunneling No No -Circular Undermining No No -Wound/Ulcer Outcome Not Healed Not Healed -Ulcer Cleansing Rinsed/ Rinsed/ Irrigated with Irrigated with Saline Saline -Foul Odor after Cleansing No No -Bioengineered Tissue No No -Bleeding Controlled with Pressure Pressure -Treatment Response Procedure Procedure Tolerated Well Tolerated Well -Debridement - Subq, 1st 20sq cm Yes Yes -Debridement, SubQ, ea addt'l 20sq cm 1 or part thereof WC - Nurse 3 - General Ulcer D/C NN Start: 05/16/21 09:07 Freq: Status: Active Protocol: Activity Type Activity Date Activity User E-Sign Co-Sign Detail Recorded Client Recorded Date Recorded By Document 05/16/21 09:27 ROMAIN [id number] 05/16/21 09:27 ROMAIN 05/16/21 09:27 Wound Care Nurse 3 -Ulcer Cleansing Rinsed/ Irrigated with Saline -Primary Dressing Applied Promogran -Primary Dressing Covered/Secured with Dry Gauze, Secured with Tape -Promogran 1 Pain Scale: 0-10 Numeric Is Patient Pain Free? Yes WC - Visit Discharge Discharge Condition Stable Ambulatory Status Ambulatory Transportation Private Auto Accompanied by self Assessment/Plan Assessment/Plan (1) Postphlebetic syndrome with ulcer and inflammation: CODE(S): I87.039 - Postthrombotic syndrome with ulcer and inflammation of unspecified lower extremity (2) Chronic venous stasis dermatitis of left lower extremity: CODE(S): I87.2 - Venous insufficiency (chronic) (peripheral) (3) MRSA infection (methicillin-resistant Staphylococcus aureus): CODE(S): A49.02 - Methicillin resistant Staphylococcus aureus infection, unspecified site (4) Cellulitis and abscess of left leg: CODE(S): L03.116 - Cellulitis of left lower limb; L02.416 - Cutaneous abscess of left lower limb (5) Chronic venous insufficiency: CODE(S): I87.2 - Venous insufficiency (chronic) (peripheral) (6) Post-phlebitic syndrome: CODE(S): I87.009 - Postthrombotic syndrome without complications of unspecified extremity (7) Venous ulcer of left leg: CODE(S): I83.029 - Varicose veins of left lower extremity with ulcer of unspecified site; L97.929 - Non-pressure chronic ulcer of unspecified part of left lower leg with unspecified severity (8) Diabetes mellitus: CODE(S): E11.9 - Type 2 diabetes mellitus without complications QUALIFIERS: Diabetes mellitus type: type 2 (9) History of DVT of lower extremity: CODE(S): Z86.718 - Personal history of other venous thrombosis and embolism (10) Leg pain, left: CODE(S): M79.605 - Pain in left leg (11) Left leg swelling: CODE(S): M79.89 - Other specified soft tissue disorders (12) Hypertension: CODE(S): I10 - Essential (primary) hypertension (13) COPD (chronic obstructive pulmonary disease): CODE(S): J44.9 - Chronic obstructive pulmonary disease, unspecified (14) Hyperlipidemia: CODE(S): E78.5 - Hyperlipidemia, unspecified (15) Morbid obesity with BMI of 40.0-44.9, adult: CODE(S): E66.01 - Morbid (severe) obesity due to excess calories; Z68.41 - Body mass index [BMI] 40.0-44.9, adult (16) Tobacco abuse: CODE(S): Z72.0 - Tobacco use (17) Tobacco abuse counseling: CODE(S): Z71.6 - Tobacco abuse counseling (18) Hyperpigmentation: CODE(S): L81.9 - Disorder of pigmentation, unspecified PLAN: The patient is to continue with conservative treatment measures relative to her left lower extremity venous ulceration. This is to include leg elevation, avoidance of idle standing and sitting, active lifestyle, weight control measures, and the use of compression to the left lower extremity on a daily basis. At this time, compression is to be applied by means of SurePress. The patient is to continue with nutritional optimization. Her glycemic control is also to be optimized. She has once again been advised to stop smoking. She remains on a protocol relative to recent positive culture for MRSA. She is in the final phases of her doxycycline prescription, 100 mg p.o. twice daily. She continues to use mupirocin twice daily in her nose, and to shower daily with Hibiclens. These measures are to continue. The patient lives alone, and cannot identify anyone in her household or at work who may be a vector for the MRSA. We are to have the patient apply Promogran topically on a daily basis. She has been instructed in the appropriate means of application. There has been recent improvement in the status of her left lower extremity ulcerations. She is to return in 2 weeks for reevaluation. Total time: 29 minutes
[2021-06-06 08:58] VITALS: BP 132/62; PULSE 95; RESP 20; TEMP 36.5; BMI 44.9
--- NOTE | 2021-06-06 09:23 | PCM.WC.HP ---
History of Present Illness Date of Service: 06/06/21 Chief Complaint: Chronic venous insufficiency, postphlebitic syndrome with inflammation, venous ulceration of the left lower extremity, left lower extremity swelling, left lower extremity pain History of Wound: This is a 60-year-old female who presented with an ulceration on the posterior and medial aspect of her left calf. The ulceration had been present for several months. The patient has had prior ulcerations in these areas in the past. She has been using antibiotic ointment topically, as well as peroxide. She has noted mild redness about the ulcerations. She presented here for definitive management. She suffers from multiple medical problems, including diabetes mellitus, morbid obesity, and has a history of left lower extremity deep vein thrombosis on at least 2 occasions in the remote past. She intermittently wears compression stockings, but has not been doing so recently. She claims to sleep on a flat mattress at night. 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 Prior episodes of deep vein thrombosis in the past occurred after childbirth in 1978, and after an appendectomy in 1999. [facility] Medical History Cellulitis and abscess of left leg Chronic venous stasis dermatitis of left lower extremity MRSA infection (methicillin-resistant Staphylococcus aureus) Postphlebetic syndrome with ulcer and inflammation Medical History no medical history Home Medications hydrochlorothiazide 25 mg PO DAILY 04/07/18 [History Last Taken Unknown] losartan 50 mg PO 04/07/18 [History Last Taken Unknown] ipratropium-albuterol [Combivent] spray INHALATION 03/14/21 [History Last Taken Unknown] Allergy/AdvReac Type Severity Reaction Status Date / Time No Known Allergies Allergy Verified 03/14/21 09:39 Family History no significant family his Surgical History no surgical history Social History Smoking Status: Current every day smoker Vital Signs Vital Signs Vital Signs: 06/06/21 08:58 Temperature 97.7 F L Temperature Source Temporal Pulse Rate 95 Respiratory Rate 20 H Blood Pressure 132/62 H Blood Pressure Mean 85 Blood Pressure Source Monitor Weight Weight: 270 lb 3.969 oz Body Mass Index (BMI) 44.9 Physical Exam Const alert, oriented x3, no apparent distress, healthy appearing and well nourished General Appearance: cooperative, comfortable, well kempt and well developed Orientation / Consciousness: awake, oriented to person, oriented to place and oriented to time HEENT normocephalic and head/scalp atraumatic Head and Scalp: normal to inspection, normocephalic and atraumatic External Ear: external ears normal Eyes PERRL and EOMs intact bilaterally General Eye: normal appearance of both eyes Resp normal respiratory effort, normal air movement, no retractions and no use of accessory muscles Effort and Inspection: able to speak in complete sentences Extremity no calf tenderness General Extremity: Negative for clubbing or cyanosis Skin Wound Narrative: No significant swelling or edema are noted in the patient's left lower extremity. Mild hyperpigmentation is noted in the gaiter area on the left. The ulceration on the left medial calf appears much smaller in size. Dimensions are documented elsewhere. There is no sign of infection or cellulitis. There is a small amount of bioburden. Neuro oriented x3, CN's II-XII intact bilaterally and moves all extremities Sensorium / Orientation: awake, alert, oriented to person, oriented to place and oriented to time Psych Appearance: grossly normal and appropriate Attitude: calm Activity / Motor Behavior: appropriate eye contact Speech: normal speech Mood & Affect: euthymic mood Thought Process: normal thought process Thought Content: normal thought content Attention / Concentration: attention grossly intact Debridement Note Debridement Note Wound debrided: Left medial calf Laterality: Left Type of Debridement: Excisional debridement Anesthesia Used: 5% Lidocaine Gel Depth: Down to and including healthy tissue and in the subcutaneous layer Percentage of wound debrided: 100 Instrument Used: 3mm curette Tissue Removed: Bioburden Severity: Fat Layer Exposed Amount of bleeding with debridement: Mild Bleeding Controlled with: Compression and gauze Patient tolerated procedure: Patient tolerated procedure well Post-Debridement Measurements and Additional Note: Post-Debridement Measurements/Treatment VERONIQUE - Nurse 1 - General Ulcer Assessment Start: 05/16/21 09:07 Freq: Status: Active Protocol: TRISHA Activity Type Activity Date Activity User E-Sign Co-Sign Detail Recorded Client Recorded Date Recorded By Document 05/16/21 09:07 KR [id number] 05/16/21 09:11 KR Document 05/23/21 08:58 DL [id number] 05/23/21 09:11 DL Document 06/06/21 08:58 DL [id number] 06/06/21 09:03 DL 05/16/21 05/23/21 06/06/21 09:07 08:58 08:58 - Today's Visit Information Type of service Follow-up Visit Follow-up Visit Follow-up Visit (Physician/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 (Physician/PRODUCT 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 (Physician/PRODUCT 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 ) ) ) Arrival Mode Ambulatory Ambulatory Ambulatory Transfer Assistance None None Patient Identification Verified (Name & Yes Yes ) Patient Requires Transmission-Based No Precautions Height and Weight Body Mass Index (BMI) 44.9 44.9 44.9 BMI Classification Obese Obese Obese Vital Signs Temperature (97.8 F-99.1 F) 97.5 F L 98.2 F 97.7 F L Temperature Source Temporal Temporal Temporal Pulse Rate (60-100) 89 83 95 Pulse Location Monitor Monitor Monitor Respiratory Rate (12-18) 22 H 20 H Respiratory rate source Observation Observation Blood Pressure (90/60-120/80) 125/58 H 117/46 L 132/62 H Blood Pressure Mean 80 69 85 Source Monitor Monitor Monitor Position Sitting Blood Pressure Location Right Arm History Since Last Visit- (Skip if this is Patient's initial visit) Have you changed medications since your No No No last visit? Any new allergies or adverse reactions No No No Had a fall/change in ADL's that may No No No increase risk of falls Signs or symptoms of abuse and/or No No No neglect since last visit Have you been in the hospital since your No No No last visit? Has dressing in place as prescribed Yes Yes Yes Has compression in place as prescribed Yes Yes Yes Has offloadiing in place as prescribed N/A N/A N/A Experienced any changes in pain level or No No No management Left Footwear Regular Shoe Regular Shoe Right Footwear Regular Shoe Regular Shoe Pain Scale: 0-10 Numeric Is Patient Pain Free? Yes Yes Yes - Nurse 1 - General Ulcer Measurement Start: 05/16/21 09:07 Freq: Status: Active Protocol: Activity Type Activity Date Activity User E-Sign Co-Sign Detail Recorded Client Recorded Date Recorded By Document 05/16/21 09:07 KR [id number] 05/16/21 09:11 KR Document 05/23/21 08:58 DL [id number] 05/23/21 09:11 DL Document 06/06/21 08:58 DL [id number] 06/06/21 09:03 DL 05/16/21 05/23/21 06/06/21 09:07 08:58 08:58 Wound Center Nurse 1 #3 L Calf Cluster -Combined with other wound No -Current Size (cm) - Length 5 4.4 0.2 -Current Size (cm) - Width 5 8 0.2 -Current Size (cm) - Depth 0.1 0.2 0.2 -Total Square Cm 25 35.2 0.04 -Photo Taken No No -Epithelialization Medium 34-66% -Tunneling No -Undermining/Tunneling No -Circular Undermining No -Exudate Amt Small Small Small -Exudate Type Yellow/Green Serosanguineous -Wound Margin Distinct, Distinct, Flat & Intact Outline Outline Attached Attached -Granulation Amt Small (1-33%) Medium (34-66%) Large (67-100%) -Granulation Quality [place] Red -Slough/Fibrin No -Necrosis Amt Small (1-33%) Medium (34-66%) None Present (0 %) -Necrotic Tissue Type Adherent Slough Adherent Slough -Texture (Wendy-wound Skin Appearance) Assessed, Scarring Assessed, Scarring Scarring -Moisture (Wendy-wound Skin Appearance) Assessed,Dry/ No Abnormality Assessed Scaly -Color (Wendy-wound Skin Appearance) Assessed, Hemosiderin Assessed Hemosiderin Staining Staining -Temperature (Wendy-wound Skin No Abnormality No Abnormality No Abnormality Appearance) (Pt Warm) (Pt Warm) (Pt Warm) -Tenderness on Palpation (Wendy-wound No No Skin Appearance) -Ulcer Cleansing Rinsed/ Soap and Water Soap and Water Irrigated with Saline -Foul Odor after Cleansing No No Yes, Due to Product Use -Anesthetic Used 4% Lidocaine 5% Lidocaine 5% Lidocaine Solution Gel Gel Lower Limb Edema Present Yes Right Calf (cm) 43.6 Right Ankle (cm) 25 Left Calf (cm) 44 41.5 Left Ankle (cm) 25.1 24 WC - Nurse 2 - General Ulcer CM Notes Start: 05/16/21 09:07 Freq: Status: Active Protocol: Activity Type Activity Date Activity User E-Sign Co-Sign Detail Recorded Client Recorded Date Recorded By Document 05/16/21 09:52 PL [id number] 05/16/21 09:53 PL Document 05/23/21 09:23 PL [id number] 05/23/21 09:24 PL 05/16/21 05/23/21 09:52 09:23 Wound Center Nurse 2 #3 L Calf Cluster -Time 09:19 09:16 -Correct Patient Yes Yes -Correct Side, Site, Position Yes Yes -Correct Procedure Yes Yes -Procedure Performed Yes Yes -Type of Procedure Debridement Debridement -Clinical Debridement Subcutaneous Subcutaneous -Tissue Removed Subcutaneous Subcutaneous -Post Debridement (cm) - Length 5.0 4.4 -Post Debridement (cm) - Width 5.0 8.0 -Post Debridement (cm) - Depth 0.1 0.2 -Total Square (Post) (cm) 25.00 35.20 -Area of Debridement (cm) - Length 3.0 4.4 -Area of Debridement (cm) - Width 3.0 8.0 -Total Square (Area) (cm) 9.00 35.20 -Tunneling No No -Undermining/Tunneling No No -Circular Undermining No No -Wound/Ulcer Outcome Not Healed Not Healed -Ulcer Cleansing Rinsed/ Rinsed/ Irrigated with Irrigated with Saline Saline -Foul Odor after Cleansing No No -Bioengineered Tissue No No -Bleeding Controlled with Pressure Pressure -Treatment Response Procedure Procedure Tolerated Well Tolerated Well -Debridement - Subq, 1st 20sq cm Yes Yes -Debridement, SubQ, ea addt'l 20sq cm 1 or part thereof WC - Nurse 3 - General Ulcer D/C NN Start: 05/16/21 09:07 Freq: Status: Active Protocol: Activity Type Activity Date Activity User E-Sign Co-Sign Detail Recorded Client Recorded Date Recorded By Document 05/16/21 09:27 KR [id number] 05/16/21 09:27 KR Document 05/23/21 09:29 DL [id number] 05/23/21 09:29 DL Document 06/06/21 09:16 DL [id number] 06/06/21 09:18 DL 05/16/21 05/23/21 06/06/21 09:27 09:29 09:16 Wound Care Nurse 3 #3 L Calf Cluster -Ulcer Cleansing Rinsed/ Rinsed/ Rinsed/ Irrigated with Irrigated with Irrigated with Saline Saline Saline -Foul Odor after Cleansing No No -Primary Dressing Applied Promogran Promogran Promogran -Primary Dressing Covered/Secured with Dry Gauze, Dry Gauze, Dry Gauze Secured with Secured with Tape Tape -Promogran 1 1 1 Left -Compression Wrap Surepress ($) -Other Surepress Treatment Response Procedure Procedure Tolerated Well Tolerated Well Pain Scale: 0-10 Numeric Is Patient Pain Free? Yes Yes Yes WC - Visit Discharge Discharge Condition Stable Stable Stable Ambulatory Status Ambulatory Ambulatory Ambulatory Transportation Private Auto Private Auto Private Auto Accompanied by self Assessment/Plan Assessment/Plan (1) Venous ulcer of left leg: CODE(S): I83.029 - Varicose veins of left lower extremity with ulcer of unspecified site; L97.929 - Non-pressure chronic ulcer of unspecified part of left lower leg with unspecified severity (2) Postphlebetic syndrome with ulcer and inflammation: CODE(S): I87.039 - Postthrombotic syndrome with ulcer and inflammation of unspecified lower extremity (3) Chronic venous stasis dermatitis of left lower extremity: CODE(S): I87.2 - Venous insufficiency (chronic) (peripheral) (4) Chronic venous insufficiency: CODE(S): I87.2 - Venous insufficiency (chronic) (peripheral) (5) Post-phlebitic syndrome: CODE(S): I87.009 - Postthrombotic syndrome without complications of unspecified extremity (6) MRSA infection (methicillin-resistant Staphylococcus aureus): CODE(S): A49.02 - Methicillin resistant Staphylococcus aureus infection, unspecified site (7) Cellulitis and abscess of left leg: CODE(S): L03.116 - Cellulitis of left lower limb; L02.416 - Cutaneous abscess of left lower limb (8) Diabetes mellitus: CODE(S): E11.9 - Type 2 diabetes mellitus without complications QUALIFIERS: Diabetes mellitus type: type 2 (9) History of DVT of lower extremity: CODE(S): Z86.718 - Personal history of other venous thrombosis and embolism (10) Leg pain, left: CODE(S): M79.605 - Pain in left leg (11) Left leg swelling: CODE(S): M79.89 - Other specified soft tissue disorders (12) Hypertension: CODE(S): I10 - Essential (primary) hypertension (13) COPD (chronic obstructive pulmonary disease): CODE(S): J44.9 - Chronic obstructive pulmonary disease, unspecified (14) Hyperlipidemia: CODE(S): E78.5 - Hyperlipidemia, unspecified (15) Morbid obesity with BMI of 40.0-44.9, adult: CODE(S): E66.01 - Morbid (severe) obesity due to excess calories; Z68.41 - Body mass index [BMI] 40.0-44.9, adult (16) Tobacco abuse: CODE(S): Z72.0 - Tobacco use (17) Tobacco abuse counseling: CODE(S): Z71.6 - Tobacco abuse counseling (18) Hyperpigmentation: CODE(S): L81.9 - Disorder of pigmentation, unspecified PLAN: The patient is to continue with conservative treatment measures relative to her left lower extremity venous ulceration. This is to include leg elevation, avoidance of idle standing and sitting, active lifestyle, weight control measures, and the use of compression to the left lower extremity on a daily basis. Compression is to be applied by means of SurePress. The patient is to continue with nutritional optimization. Her glycemic control is also to be optimized. She has once again been advised to stop smoking. She has recently implemented a protocol relative to recent positive culture for MRSA. This has included doxycycline 100 mg p.o. twice daily, mupirocin twice daily in her nose, and showering daily with Hibiclens. The patient is to continue to apply Promogran topically on a daily basis. She has been instructed in the appropriate means of application. There has been a great deal of improvement within the last several weeks. This is attributable, in part, to fewer hours on her feet at work. Her venous ulcerations are much smaller in size. The patient has been provided a prescription for graduated compression stockings today, which are of 20 to 30 mmHg compression, knee-high length. She is to obtain these at her earliest convenience. She is to follow-up for reevaluation in 1 week. Ultimately, patient will likely benefit from superficial venous ablation of the incompetent left great saphenous vein and accessory saphenous vein. These are procedures which will be discussed with the patient in more detail in the near future. It would be expected that a superficial venous ablation would likely reduce recurrence of venous ulcerations in the future. Total time: 28 minutes
== END 2021-06-09 23:59 ==
LOC: WC 09:00
PROVIDERS: PCP Family Medicine; Referring Provider Surgery; Visit Provider Surgery
DX: E11.622 Type 2 diabetes mellitus with other skin ulcer (principal); I87.2 Venous insufficiency (chronic) (peripheral); M79.89 Other specified soft tissue disorders; E66.01 Morbid (severe) obesity due to excess calories; F17.200 Nicotine dependence, unspecified, uncomplicated; Z68.41 Body mass index [BMI] 40.0-44.9, adult; L97.222 Non-pressure chronic ulcer of left calf with fat layer exposed; L02.416 Cutaneous abscess of left lower limb; Z86.718 Personal history of other venous thrombosis and embolism; Z86.14 Personal history of Methicillin resistant Staphylococcus aureus infection; Z79.899 Other long term (current) drug therapy; L03.116 Cellulitis of left lower limb; E78.5 Hyperlipidemia, unspecified; I10 Essential (primary) hypertension; J44.9 Chronic obstructive pulmonary disease, unspecified
CPT/HCPCS: 11042; 11045

== ENCOUNTER 2021-07-04 08:30 | Outpatient (RCR) | payer OTHER, SELFPAY ==
[2021-06-10 00:14] VITALS: BP 132/62; PULSE 95; RESP 20; TEMP 36.5; BMI 44.9
[2021-06-13 08:57] VITALS: BP 143/69; PULSE 75; RESP 16; TEMP 36.4; BMI 44.9
--- NOTE | 2021-06-13 09:11 | HP.PCM_ITS ---
History of Present Illness Date of Service: 06/13/21 Chief Complaint: Chronic venous insufficiency, postphlebitic syndrome with inflammation, venous ulceration of the left lower extremity, left lower extremity swelling, left lower extremity pain History of Wound: This is a 60-year-old female who presented with an ulceration on the posterior and medial aspect of her left calf. The ulceration had been present for several months. The patient has had prior ulcerations in these areas in the past. She has been using antibiotic ointment topically, as well as peroxide. She has noted mild redness about the ulcerations. She presented here for definitive management. She suffers from multiple medical problems, including diabetes mellitus, morbid obesity, and has a history of left lower extremity deep vein thrombosis on at least 2 occasions in the remote past. She intermittently wears compression stockings, but has not been doing so recently. She claims to sleep on a flat mattress at night. 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 Prior episodes of deep vein thrombosis in the past occurred after childbirth in 1978, and after an appendectomy in 1999. [facility] Medical History Cellulitis and abscess of left leg Chronic venous stasis dermatitis of left lower extremity MRSA infection (methicillin-resistant Staphylococcus aureus) Postphlebetic syndrome with ulcer and inflammation Medical History no medical history Home Medications hydrochlorothiazide 25 mg PO DAILY 04/07/18 [History Last Taken Unknown] losartan 50 mg PO 04/07/18 [History Last Taken Unknown] ipratropium-albuterol [Combivent] spray INHALATION 03/14/21 [History Last Taken Unknown] Allergy/AdvReac Type Severity Reaction Status Date / Time No Known Allergies Allergy Verified 03/14/21 09:39 Family History no significant family his Surgical History no surgical history Social History Smoking Status: Current every day smoker Vital Signs Vital Signs Vital Signs: 06/13/21 08:57 Temperature 97.5 F L Temperature Source Temporal Pulse Rate 75 Respiratory Rate 16 Blood Pressure 143/69 H Blood Pressure Mean 93 Blood Pressure Source Monitor Blood Pressure Position Sitting Blood Pressure Location Right Arm Oxygen Delivery Method Room Air Weight Weight: 270 lb 3.969 oz Body Mass Index (BMI) 44.9 Physical Exam Const alert, oriented x3, no apparent distress and well nourished General Appearance: cooperative and well developed Orientation / Consciousness: awake, oriented to person, oriented to place and oriented to time HEENT normocephalic and head/scalp atraumatic Head and Scalp: normal to inspection, normocephalic and atraumatic External Ear: external ears normal Eyes PERRL and EOMs intact bilaterally General Eye: normal appearance of both eyes Resp normal respiratory effort, normal air movement, no retractions and no use of accessory muscles Effort and Inspection: able to speak in complete sentences Extremity no calf tenderness General Extremity: Negative for clubbing or cyanosis Skin Wound Narrative: An ulceration persists on the patient's left medial calf. It is little changed in size and appearance from the patient's prior visit. It is approximately 3 mm in diameter, relatively small. There is a moderate amount of bioburden. There is no sign of infection or cellulitis. Neuro oriented x3 and CN's II-XII intact bilaterally Sensorium / Orientation: awake, alert, oriented to person, oriented to place and oriented to time Psych Appearance: grossly normal and appropriate Attitude: calm Activity / Motor Behavior: appropriate eye contact Speech: normal speech Mood & Affect: euthymic mood Thought Process: normal thought process Thought Content: normal thought content Attention / Concentration: attention grossly intact Debridement Note Debridement Note Wound debrided: Left medial calf Laterality: Left Type of Debridement: Excisional debridement Anesthesia Used: 5% Lidocaine Gel Depth: Down to and including healthy tissue and in the subcutaneous layer Percentage of wound debrided: 100 Instrument Used: 3mm curette Tissue Removed: Bioburden Severity: Fat Layer Exposed Amount of bleeding with debridement: Mild Bleeding Controlled with: Compression and gauze Patient tolerated procedure: Patient tolerated procedure well Post-Debridement Measurements and Additional Note: Post-Debridement Measurements/Treatment VERONIQUE - Nurse 1 - General Ulcer Assessment Start: 06/13/21 08:56 Freq: Status: Active Protocol: TRISHA Activity Type Activity Date Activity User E-Sign Co-Sign Detail Recorded Client Recorded Date Recorded By Document 06/13/21 08:57 MW [id number] 06/13/21 09:03 MW 06/13/21 08:57 - Today's Visit Information Type of service Follow-up Visit (Physician/[facility] [employer] ) Arrival Mode Ambulatory Transfer Assistance None Accompanied by self Patient Identification Verified (Name & Yes ) Patient Requires Transmission-Based No Precautions Safety Precautions NA Height and Weight Body Mass Index (BMI) 44.9 BMI Classification Obese Vital Signs Temperature (97.8 F-99.1 F) 97.5 F L Temperature Source Temporal Pulse Rate (60-100) 75 Pulse Location Monitor Respiratory Rate (12-18) 16 Respiratory rate source Observation Oxygen Delivery Method Room Air Blood Pressure (90/60-120/80) 143/69 H Blood Pressure Mean 93 Source Monitor Position Sitting Blood Pressure Location Right Arm History Since Last Visit- (Skip if this is Patient's initial visit) Have you changed medications since your No last visit? Any new allergies or adverse reactions No Had a fall/change in ADL's that may No increase risk of falls Signs or symptoms of abuse and/or No neglect since last visit Have you been in the hospital since your No last visit? Has dressing in place as prescribed Yes Has compression in place as prescribed Yes Has offloadiing in place as prescribed N/A Experienced any changes in pain level or No management Left Footwear Regular Shoe Right Footwear Regular Shoe Pain Scale: 0-10 Numeric Is Patient Pain Free? Yes WC - Nurse 1 - General Ulcer Measurement Start: 06/13/21 08:56 Freq: Status: Active Protocol: Activity Type Activity Date Activity User E-Sign Co-Sign Detail Recorded Client Recorded Date Recorded By Document 06/13/21 08:57 MW [id number] 06/13/21 09:03 MW 06/13/21 08:57 Wound Center Nurse 1 #3 L Calf Cluster -Combined with other wound No -Current Size (cm) - Length 0.2 -Current Size (cm) - Width 0.2 -Current Size (cm) - Depth 0.1 -Total Square Cm 0.04 -Photo Taken No -Epithelialization Small 1-33% -Tunneling No -Undermining/Tunneling No -Circular Undermining No -Exudate Amt Small -Exudate Type Serosanguineous -Wound Margin Flat & Intact -Granulation Amt Small (1-33%) -Granulation Quality Pale -Slough/Fibrin Yes -Necrosis Amt Medium (34-66%) -Necrotic Tissue Type Adherent Slough -Structure Exposed N/A -Texture (Wendy-wound Skin Appearance) Assessed, Localized Edema -Moisture (Wendy-wound Skin Appearance) Assessed, Maceration -Color (Wendy-wound Skin Appearance) No Abnormality, Assessed -Temperature (Wendy-wound Skin No Abnormality Appearance) (Pt Warm) -Tenderness on Palpation (Wendy-wound No Skin Appearance) -Ulcer Cleansing Rinsed/ Irrigated with Saline -Foul Odor after Cleansing No -Anesthetic Used 5% Lidocaine Gel Lower Limb Edema Present Yes Left Calf (cm) 43.5 Left Ankle (cm) 25.5 Assessment/Plan Assessment/Plan (1) Postphlebetic syndrome with ulcer and inflammation: CODE(S): I87.039 - Postthrombotic syndrome with ulcer and inflammation of unspecified lower extremity (2) Chronic venous stasis dermatitis of left lower extremity: CODE(S): I87.2 - Venous insufficiency (chronic) (peripheral) (3) Chronic venous insufficiency: CODE(S): I87.2 - Venous insufficiency (chronic) (peripheral) (4) Post-phlebitic syndrome: CODE(S): I87.009 - Postthrombotic syndrome without complications of unspecified extremity (5) Venous ulcer of left leg: CODE(S): I83.029 - Varicose veins of left lower extremity with ulcer of unspecified site; L97.929 - Non-pressure chronic ulcer of unspecified part of left lower leg with unspecified severity (6) Diabetes mellitus: CODE(S): E11.9 - Type 2 diabetes mellitus without complications QUALIFIERS: Diabetes mellitus type: type 2 (7) History of DVT of lower extremity: CODE(S): Z86.718 - Personal history of other venous thrombosis and embolism (8) Leg pain, left: CODE(S): M79.605 - Pain in left leg (9) Left leg swelling: CODE(S): M79.89 - Other specified soft tissue disorders (10) Hypertension: CODE(S): I10 - Essential (primary) hypertension (11) COPD (chronic obstructive pulmonary disease): CODE(S): J44.9 - Chronic obstructive pulmonary disease, unspecified (12) Hyperlipidemia: CODE(S): E78.5 - Hyperlipidemia, unspecified (13) Morbid obesity with BMI of 40.0-44.9, adult: CODE(S): E66.01 - Morbid (severe) obesity due to excess calories; Z68.41 - Body mass index [BMI] 40.0-44.9, adult (14) Tobacco abuse: CODE(S): Z72.0 - Tobacco use (15) Tobacco abuse counseling: CODE(S): Z71.6 - Tobacco abuse counseling (16) Hyperpigmentation: CODE(S): L81.9 - Disorder of pigmentation, unspecified PLAN: The patient is to continue with conservative treatment measures relative to her left lower extremity venous ulceration. This is to include leg elevation, avoidance of idle standing and sitting, active lifestyle, weight control measures, and the use of compression to the left lower extremity on a daily basis. Compression is to be applied by means of SurePress. The patient is to continue with nutritional optimization. Her glycemic control is also to be optimized. She has once again been advised to stop smoking. She has recently implemented a protocol relative to recent positive culture for MRSA. This has included doxycycline 100 mg p.o. twice daily, mupirocin twice daily in her nose, and showering daily with Hibiclens. The patient is to continue to apply Promogran topically on a daily basis. She has been instructed in the appropriate means of application. There has been a great deal of improvement within the last several weeks. This is attributable, in part, to fewer hours on her feet at work. However, at today's visit an increase in the swelling and edema are noted, with some pitting edema noted. This is attributable to a recent increase in her work schedule. The patient has been cautioned against long periods of standing while at work, and has been encouraged to elevate her legs as much as possible, to heart level, or higher. The patient has been provided a prescription for graduated compression stockings, which are of 20 to 30 mmHg compression, knee-high length. She is to obtain these at her earliest convenience. She is to follow-up for reevaluation in 1 week. Ultimately, patient will likely benefit from superficial venous ablation of the incompetent left great saphenous vein and accessory saphenous vein. These are procedures which will be discussed with the patient in more detail in the near future. It would be expected that a superficial venous ablation would likely reduce recurrence of venous ulcerations in the future. Total time: 29 minutes
[2021-06-20 08:20] VITALS: BP 156/62; PULSE 91; RESP 16; TEMP 35.9; BMI 44.9
--- NOTE | 2021-06-20 13:04 | HP.PCM_ITS ---
History of Present Illness Date of Service: 06/20/21 Chief Complaint: Chronic venous insufficiency, postphlebitic syndrome with inflammation, venous ulceration of the left lower extremity, left lower extremity swelling, left lower extremity pain History of Wound: This is a 60-year-old female who presented with an ulceration on the posterior and medial aspect of her left calf. The ulceration had been present for several months. The patient has had prior ulcerations in these areas in the past. She has been using antibiotic ointment topically, as well as peroxide. She has noted mild redness about the ulcerations. She presented here for definitive management. She suffers from multiple medical problems, including diabetes mellitus, morbid obesity, and has a history of left lower extremity deep vein thrombosis on at least 2 occasions in the remote past. She intermittently wears compression stockings, but has not been doing so recently. She claims to sleep on a flat mattress at night. 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 Prior episodes of deep vein thrombosis in the past occurred after childbirth in 1978, and after an appendectomy in 1999. [facility] Medical History Cellulitis and abscess of left leg Chronic venous stasis dermatitis of left lower extremity MRSA infection (methicillin-resistant Staphylococcus aureus) Postphlebetic syndrome with ulcer and inflammation Medical History no medical history Home Medications hydrochlorothiazide 25 mg PO DAILY 04/07/18 [History Last Taken Unknown] losartan 50 mg PO 04/07/18 [History Last Taken Unknown] ipratropium-albuterol [Combivent] spray INHALATION 03/14/21 [History Last Taken Unknown] Allergy/AdvReac Type Severity Reaction Status Date / Time No Known Allergies Allergy Verified 03/14/21 09:39 Family History no significant family his Surgical History no surgical history Social History Smoking Status: Current every day smoker Vital Signs Vital Signs Vital Signs: 06/20/21 08:20 Temperature 96.7 F L Temperature Source Temporal Pulse Rate 91 Respiratory Rate 16 Blood Pressure 156/62 H Blood Pressure Mean 93 Blood Pressure Source Monitor Blood Pressure Position Sitting Blood Pressure Location Left Arm Oxygen Delivery Method Room Air Weight Weight: 270 lb 3.969 oz Body Mass Index (BMI) 44.9 Physical Exam Const alert, oriented x3, no apparent distress and well nourished General Appearance: cooperative and well developed Orientation / Consciousness: awake, oriented to person, oriented to place and oriented to time HEENT normocephalic and head/scalp atraumatic Head and Scalp: normal to inspection, normocephalic and atraumatic External Ear: external ears normal Eyes PERRL and EOMs intact bilaterally General Eye: normal appearance of both eyes Resp normal respiratory effort, normal air movement, no retractions and no use of accessory muscles Effort and Inspection: able to speak in complete sentences Extremity no calf tenderness General Extremity: Negative for clubbing or cyanosis Skin Wound Narrative: The left medial calf ulceration is smaller in size. It is now nearly totally healed. Dimensions are documented elsewhere. There is no sign of infection or cellulitis. There is a small amount of bioburden. Neuro oriented x3, CN's II-XII intact bilaterally and moves all extremities Sensorium / Orientation: awake, alert, oriented to person, oriented to place and oriented to time Psych Appearance: grossly normal and appropriate Attitude: calm Activity / Motor Behavior: appropriate eye contact Speech: normal speech Mood & Affect: euthymic mood Thought Process: normal thought process Thought Content: normal thought content Attention / Concentration: attention grossly intact Debridement Note Debridement Note Wound debrided: Left medial calf Laterality: Left Type of Debridement: Excisional debridement Anesthesia Used: 5% Lidocaine Gel Depth: Down to and including healthy tissue and in the subcutaneous layer Percentage of wound debrided: 100 Instrument Used: 3mm curette Tissue Removed: Bioburden Severity: Fat Layer Exposed Amount of bleeding with debridement: Mild Bleeding Controlled with: Compression and gauze Patient tolerated procedure: Patient tolerated procedure well Post-Debridement Measurements and Additional Note: Post-Debridement Measurements/Treatment VERONIQUE - Nurse 1 - General Ulcer Assessment Start: 06/13/21 08:56 Freq: Status: Active Protocol: TRISHA Activity Type Activity Date Activity User E-Sign Co-Sign Detail Recorded Client Recorded Date Recorded By Document 06/13/21 08:57 MW [id number] 06/13/21 09:03 MW Document 06/20/21 08:20 BMF [id number] 06/20/21 08:25 BMF 06/13/21 06/20/21 08:57 08:20 - Today's Visit Information Type of service Follow-up Visit Follow-up Visit (Physician/[facility] (Physician/[facility] ) ) Arrival Mode Ambulatory Ambulatory Transfer Assistance None None Accompanied by self Patient Identification Verified (Name & Yes Yes ) Patient Requires Transmission-Based No No Precautions Safety Precautions NA Height and Weight Body Mass Index (BMI) 44.9 44.9 BMI Classification Obese Obese Vital Signs Temperature (97.8 F-99.1 F) 97.5 F L 96.7 F L Temperature Source Temporal Temporal Pulse Rate (60-100) 75 91 Pulse Location Monitor Monitor Respiratory Rate (12-18) 16 16 Respiratory rate source Observation Observation Oxygen Delivery Method Room Air Room Air Blood Pressure (90/60-120/80) 143/69 H 156/62 H Blood Pressure Mean 93 93 Source Monitor Monitor Position Sitting Sitting Blood Pressure Location Right Arm Left Arm History Since Last Visit- (Skip if this is Patient's initial visit) Have you changed medications since your No No last visit? Any new allergies or adverse reactions No No Had a fall/change in ADL's that may No No increase risk of falls Signs or symptoms of abuse and/or No No neglect since last visit Have you been in the hospital since your No No last visit? Has dressing in place as prescribed Yes Yes Has compression in place as prescribed Yes Yes Has offloadiing in place as prescribed N/A N/A Experienced any changes in pain level or No No management Left Footwear Regular Shoe Regular Shoe Right Footwear Regular Shoe Regular Shoe Pain Scale: 0-10 Numeric Is Patient Pain Free? Yes Yes - Nurse 1 - General Ulcer Measurement Start: 06/13/21 08:56 Freq: Status: Active Protocol: Activity Type Activity Date Activity User E-Sign Co-Sign Detail Recorded Client Recorded Date Recorded By Document 06/13/21 08:57 MW [id number] 06/13/21 09:03 MW Document 06/20/21 08:20 [facility] [id number] 06/20/21 08:25 BMF 06/13/21 06/20/21 08:57 08:20 Wound Center Nurse 1 #3 L Calf Cluster -Combined with other wound No No -Current Size (cm) - Length 0.2 0.1 -Current Size (cm) - Width 0.2 0.1 -Current Size (cm) - Depth 0.1 0.1 -Total Square Cm 0.04 0.01 -Photo Taken No No -Epithelialization Small 1-33% Large 67-100% -Tunneling No No -Undermining/Tunneling No No -Circular Undermining No No -Exudate Amt Small None Present -Exudate Type Serosanguineous -Wound Margin Flat & Intact -Granulation Amt Small (1-33%) -Granulation Quality Pale -Slough/Fibrin Yes -Necrosis Amt Medium (34-66%) -Necrotic Tissue Type Adherent Slough -Structure Exposed N/A -Texture (Wendy-wound Skin Appearance) Assessed, Assessed, Localized Edema Scarring -Moisture (Wendy-wound Skin Appearance) Assessed, Assessed Maceration -Color (Wendy-wound Skin Appearance) No Abnormality, Assessed Assessed -Temperature (Wendy-wound Skin No Abnormality No Abnormality Appearance) (Pt Warm) (Pt Warm) -Tenderness on Palpation (Wendy-wound No No Skin Appearance) -Ulcer Cleansing Rinsed/ Rinsed/ Irrigated with Irrigated with Saline Saline -Foul Odor after Cleansing No No -Anesthetic Used 5% Lidocaine 5% Lidocaine Gel Gel Lower Limb Edema Present Yes Yes Left Calf (cm) 43.5 44 Left Ankle (cm) 25.5 25.3 WC - Nurse 2 - General Ulcer CM Notes Start: 06/13/21 08:56 Freq: Status: Active Protocol: Activity Type Activity Date Activity User E-Sign Co-Sign Detail Recorded Client Recorded Date Recorded By Document 06/13/21 13:12 HERNANDEZ [id number] 06/13/21 13:13 PL Document 06/20/21 12:35 [id number] 06/20/21 12:36 PL 06/13/21 06/20/21 13:12 12:35 Wound Center Nurse 2 #3 L Calf Cluster -Time 09:06 08:39 -Correct Patient Yes Yes -Correct Side, Site, Position Yes Yes -Correct Procedure Yes Yes -Procedure Performed Yes Yes -Type of Procedure Debridement Debridement -Clinical Debridement Subcutaneous Subcutaneous -Tissue Removed Subcutaneous Subcutaneous -Post Debridement (cm) - Length 0.3 0.1 -Post Debridement (cm) - Width 0.3 0.1 -Post Debridement (cm) - Depth 0.2 0.1 -Total Square (Post) (cm) 0.09 0.01 -Area of Debridement (cm) - Length 0.3 0.1 -Area of Debridement (cm) - Width 0.3 0.1 -Total Square (Area) (cm) 0.09 0.01 -Tunneling No No -Undermining/Tunneling No No -Circular Undermining No No -Wound/Ulcer Outcome Not Healed Not Healed -Ulcer Cleansing Rinsed/ Rinsed/ Irrigated with Irrigated with Saline Saline -Foul Odor after Cleansing No No -Bioengineered Tissue No No -Bleeding Controlled with Pressure Pressure -Treatment Response Procedure Procedure Tolerated Well Tolerated Well -Debridement - Subq, 1st 20sq cm Yes Yes Pain Scale: 0-10 Numeric Is Patient Pain Free? Yes - Nurse 3 - General Ulcer D/C NN Start: 06/13/21 08:56 Freq: Status: Active Protocol: Activity Type Activity Date Activity User E-Sign Co-Sign Detail Recorded Client Recorded Date Recorded By Document 06/13/21 09:17 DL [id number] 06/13/21 09:17 DL Document 06/20/21 08:46 [facility] [id number] 06/20/21 08:47 BM 06/13/21 06/20/21 09:17 08:46 Wound Care Nurse 3 #3 L Calf Cluster -Ulcer Cleansing Rinsed/ Irrigated with Saline -Foul Odor after Cleansing No No -Primary Dressing Applied Other -Other Dressing promogran promogran -Primary Dressing Covered/Secured with Dry Gauze, Dry Gauze, Secured with Secured with Tape Tape Left -Other own surepress applied Treatment Response Procedure Procedure Tolerated Well Tolerated Well Pain Scale: 0-10 Numeric Is Patient Pain Free? Yes Yes - Visit Discharge Discharge Condition Stable Stable Ambulatory Status Ambulatory Ambulatory Transportation Private Auto Private Auto Assessment/Plan Assessment/Plan (1) Postphlebetic syndrome with ulcer and inflammation: CODE(S): I87.039 - Postthrombotic syndrome with ulcer and inflammation of unspecified lower extremity (2) Chronic venous stasis dermatitis of left lower extremity: CODE(S): I87.2 - Venous insufficiency (chronic) (peripheral) (3) Chronic venous insufficiency: CODE(S): I87.2 - Venous insufficiency (chronic) (peripheral) (4) Post-phlebitic syndrome: CODE(S): I87.009 - Postthrombotic syndrome without complications of unspecified extremity (5) Venous ulcer of left leg: CODE(S): I83.029 - Varicose veins of left lower extremity with ulcer of unspecified site; L97.929 - Non-pressure chronic ulcer of unspecified part of left lower leg with unspecified severity (6) Diabetes mellitus: CODE(S): E11.9 - Type 2 diabetes mellitus without complications QUALIFIERS: Diabetes mellitus type: type 2 (7) History of DVT of lower extremity: CODE(S): Z86.718 - Personal history of other venous thrombosis and embolism (8) Leg pain, left: CODE(S): M79.605 - Pain in left leg (9) Left leg swelling: CODE(S): M79.89 - Other specified soft tissue disorders (10) Hypertension: CODE(S): I10 - Essential (primary) hypertension (11) COPD (chronic obstructive pulmonary disease): CODE(S): J44.9 - Chronic obstructive pulmonary disease, unspecified (12) Hyperlipidemia: CODE(S): E78.5 - Hyperlipidemia, unspecified (13) Morbid obesity with BMI of 40.0-44.9, adult: CODE(S): E66.01 - Morbid (severe) obesity due to excess calories; Z68.41 - Body mass index [BMI] 40.0-44.9, adult (14) Tobacco abuse: CODE(S): Z72.0 - Tobacco use (15) Tobacco abuse counseling: CODE(S): Z71.6 - Tobacco abuse counseling (16) Hyperpigmentation: CODE(S): L81.9 - Disorder of pigmentation, unspecified PLAN: The patient is to continue with conservative treatment measures relative to her left lower extremity venous ulceration. This is to include leg elevation, avoidance of idle standing and sitting, active lifestyle, weight control measures, and the use of compression to the left lower extremity on a daily basis. Compression is to be applied by means of SurePress. She has been provided a prescription for graduated compression stockings of 20 to 30 mmHg compression, which have been ordered, and are awaited. The patient is to continue with nutritional optimization. Her glycemic control is also to be optimized. She has once again been advised to stop smoking. She has recently implemented a protocol relative to recent positive culture for MRSA. This has included doxycycline 100 mg p.o. twice daily, mupirocin twice daily in her nose, and showering daily with Hibiclens. The patient is to continue to apply Promogran topically on a daily basis. She has been instructed in the appropri ate means of application. There has been a great deal of improvement within the last several weeks. The patient has been cautioned against long periods of standing while at work, and has been encouraged to elevate her legs as much as possible, to heart level, or higher. The patient is to is to follow-up for reevaluation in 2 weeks. Ultimately, patient will likely benefit from superficial venous ablation of the incompetent left great saphenous vein and accessory saphenous vein. These are procedures which will be discussed with the patient in more detail in the near future. It would be expected that a superficial venous ablation would likely reduce recurrence of venous ulcerations in the future. Total time: 28 minutes
[2021-07-04 08:18] VITALS: BP 149/70; PULSE 89; RESP 16; TEMP 36.2; BMI 44.9
--- NOTE | 2021-07-04 09:05 | PCM.WC.HP ---
History of Present Illness Date of Service: 07/04/21 Chief Complaint: Chronic venous insufficiency, postphlebitic syndrome with inflammation, venous ulceration of the left lower extremity, left lower extremity swelling, left lower extremity pain History of Wound: This is a 60-year-old female who presented with an ulceration on the posterior and medial aspect of her left calf. The ulceration had been present for several months. The patient has had prior ulcerations in these areas in the past. She has been using antibiotic ointment topically, as well as peroxide. She has noted mild redness about the ulcerations. She presented here for definitive management. She suffers from multiple medical problems, including diabetes mellitus, morbid obesity, and has a history of left lower extremity deep vein thrombosis on at least 2 occasions in the remote past. She intermittently wears compression stockings, but has not been doing so recently. She claims to sleep on a flat mattress at night. 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 Prior episodes of deep vein thrombosis in the past occurred after childbirth in 1978, and after an appendectomy in 1999. [facility] Medical History Cellulitis and abscess of left leg Chronic venous stasis dermatitis of left lower extremity MRSA infection (methicillin-resistant Staphylococcus aureus) Postphlebetic syndrome with ulcer and inflammation Medical History no medical history Home Medications hydrochlorothiazide 25 mg PO DAILY 04/07/18 [History Last Taken Unknown] losartan 50 mg PO 04/07/18 [History Last Taken Unknown] ipratropium-albuterol [Combivent] spray INHALATION 03/14/21 [History Last Taken Unknown] Allergy/AdvReac Type Severity Reaction Status Date / Time No Known Allergies Allergy Verified 03/14/21 09:39 Family History no significant family his Surgical History no surgical history Social History Smoking Status: Current every day smoker Vital Signs Vital Signs Vital Signs: 07/04/21 08:18 Temperature 97.1 F L Temperature Source Temporal Pulse Rate 89 Respiratory Rate 16 Blood Pressure 149/70 H Blood Pressure Mean 96 Blood Pressure Source Monitor Blood Pressure Position Sitting Blood Pressure Location Left Arm Oxygen Delivery Method Room Air Weight Weight: 270 lb 3.969 oz Body Mass Index (BMI) 44.9 Physical Exam Const alert, oriented x3, no apparent distress and well nourished General Appearance: cooperative and well developed Orientation / Consciousness: awake, oriented to person, oriented to place and oriented to time HEENT normocephalic and head/scalp atraumatic Head and Scalp: normal to inspection, normocephalic and atraumatic External Ear: external ears normal Eyes PERRL and EOMs intact bilaterally General Eye: normal appearance of both eyes Resp normal respiratory effort, normal air movement, no retractions and no use of accessory muscles Effort and Inspection: able to speak in complete sentences Extremity no calf tenderness General Extremity: Negative for clubbing or cyanosis Skin Wound Narrative: The ulcerations on the patient's left calf are now completely healed and epithelialized. There are no open wounds or ulcerations, and no evidence of infection or cellulitis. Neuro oriented x3, CN's II-XII intact bilaterally and moves all extremities Sensorium / Orientation: awake, alert, oriented to person, oriented to place and oriented to time Psych Appearance: grossly normal and appropriate Attitude: calm Activity / Motor Behavior: appropriate eye contact Speech: normal speech Mood & Affect: euthymic mood Thought Process: normal thought process Thought Content: normal thought content Attention / Concentration: attention grossly intact Debridement Note Debridement Note No debridement was completed: No debridement was completed today (The patient's left calf ulcerations are completely healed and epithelialized.) Post-Debridement Measurements and Additional Note: Post-Debridement Measurements/Treatment - Nurse 1 - General Ulcer Assessment Start: 06/13/21 08:56 Freq: Status: Active Protocol: TRISHA Activity Type Activity Date Activity User E-Sign Co-Sign Detail Recorded Client Recorded Date Recorded By Document 06/13/21 08:57 [id number] 06/13/21 09:03 Document 06/20/21 08:20 [facility] [id number] 06/20/21 08:25 [facility] Document 07/04/21 08:18 [facility] [id number] 07/04/21 08:22 BMF 06/13/21 06/20/21 07/04/21 08:57 08:20 08:18 - Today's Visit Information Type of service Follow-up Visit Follow-up Visit Nurse-only (Physician/CAR PAINTER (Physician/CAR PAINTER Visit ) ) Arrival Mode Ambulatory Ambulatory Ambulatory Transfer Assistance None None None Accompanied by self Patient Identification Verified (Name & Yes Yes Yes ) Patient Requires Transmission-Based No No No Precautions Safety Precautions NA Height and Weight Body Mass Index (BMI) 44.9 44.9 44.9 BMI Classification Obese Obese Obese Vital Signs Temperature (97.8 F-99.1 F) 97.5 F L 96.7 F L 97.1 F L Temperature Source Temporal Temporal Temporal Pulse Rate (60-100) 75 91 89 Pulse Location Monitor Monitor Monitor Respiratory Rate (12-18) 16 16 16 Respiratory rate source Observation Observation Observation Oxygen Delivery Method Room Air Room Air Room Air Blood Pressure (90/60-120/80) 143/69 H 156/62 H 149/70 H Blood Pressure Mean 93 93 96 Source Monitor Monitor Monitor Position Sitting Sitting Sitting Blood Pressure Location Right Arm Left Arm Left Arm History Since Last Visit- (Skip if this is Patient's initial visit) Have you changed medications since your No No No last visit? Any new allergies or adverse reactions No No No Had a fall/change in ADL's that may No No No increase risk of falls Signs or symptoms of abuse and/or No No No neglect since last visit Have you been in the hospital since your No No No last visit? Has dressing in place as prescribed Yes Yes Yes Has compression in place as prescribed Yes Yes Yes Has offloadiing in place as prescribed N/A N/A N/A Experienced any changes in pain level or No No No management Left Footwear Regular Shoe Regular Shoe Regular Shoe Right Footwear Regular Shoe Regular Shoe Regular Shoe Pain Scale: 0-10 Numeric Is Patient Pain Free? Yes Yes Yes WC - Nurse 1 - General Ulcer Measurement Start: 06/13/21 08:56 Freq: Status: Active Protocol: Activity Type Activity Date Activity User E-Sign Co-Sign Detail Recorded Client Recorded Date Recorded By Document 06/13/21 08:57 [id number] 06/13/21 09:03 Document 06/20/21 08:20 [facility] [id number] 06/20/21 08:25 [facility] Document 07/04/21 08:18 [facility] [id number] 07/04/21 08:22 BMF 06/13/21 06/20/21 07/04/21 08:57 08:20 08:18 Wound Center Nurse 1 #3 L Calf Cluster -Combined with other wound No No No -Current Size (cm) - Length 0.2 0.1 0.1 -Current Size (cm) - Width 0.2 0.1 0.1 -Current Size (cm) - Depth 0.1 0.1 0.1 -Total Square Cm 0.04 0.01 0.01 -Photo Taken No No -Epithelialization Small 1-33% Large 67-100% Large 67-100% -Tunneling No No -Undermining/Tunneling No No -Circular Undermining No No -Exudate Amt Small None Present -Exudate Type Serosanguineous -Wound Margin Flat & Intact -Granulation Amt Small (1-33%) -Granulation Quality Pale -Slough/Fibrin Yes -Necrosis Amt Medium (34-66%) -Necrotic Tissue Type Adherent Slough -Structure Exposed N/A -Texture (Wendy-wound Skin Appearance) Assessed, Assessed, Assessed, Localized Edema Scarring Scarring -Moisture (Wendy-wound Skin Appearance) Assessed, Assessed Assessed Maceration -Color (Wendy-wound Skin Appearance) No Abnormality, Assessed Assessed Assessed -Temperature (Wendy-wound Skin No Abnormality No Abnormality No Abnormality Appearance) (Pt Warm) (Pt Warm) (Pt Warm) -Tenderness on Palpation (Wendy-wound No No No Skin Appearance) -Ulcer Cleansing Rinsed/ Rinsed/ Rinsed/ Irrigated with Irrigated with Irrigated with Saline Saline Saline -Foul Odor after Cleansing No No No -Anesthetic Used 5% Lidocaine 5% Lidocaine Gel Gel Lower Limb Edema Present Yes Yes Yes Left Calf (cm) 43.5 44 45.6 Left Ankle (cm) 25.5 25.3 25 WC - Nurse 2 - General Ulcer CM Notes Start: 06/13/21 08:56 Freq: Status: Active Protocol: Activity Type Activity Date Activity User E-Sign Co-Sign Detail Recorded Client Recorded Date Recorded By Document 06/13/21 13:12 PL [id number] 06/13/21 13:13 PL Document 06/20/21 12:35 PL [id number] 06/20/21 12:36 PL 06/13/21 06/20/21 13:12 12:35 Wound Center Nurse 2 #3 L Calf Cluster -Time 09:06 08:39 -Correct Patient Yes Yes -Correct Side, Site, Position Yes Yes -Correct Procedure Yes Yes -Procedure Performed Yes Yes -Type of Procedure Debridement Debridement -Clinical Debridement Subcutaneous Subcutaneous -Tissue Removed Subcutaneous Subcutaneous -Post Debridement (cm) - Length 0.3 0.1 -Post Debridement (cm) - Width 0.3 0.1 -Post Debridement (cm) - Depth 0.2 0.1 -Total Square (Post) (cm) 0.09 0.01 -Area of Debridement (cm) - Length 0.3 0.1 -Area of Debridement (cm) - Width 0.3 0.1 -Total Square (Area) (cm) 0.09 0.01 -Tunneling No No -Undermining/Tunneling No No -Circular Undermining No No -Wound/Ulcer Outcome Not Healed Not Healed -Ulcer Cleansing Rinsed/ Rinsed/ Irrigated with Irrigated with Saline Saline -Foul Odor after Cleansing No No -Bioengineered Tissue No No -Bleeding Controlled with Pressure Pressure -Treatment Response Procedure Procedure Tolerated Well Tolerated Well -Debridement - Subq, 1st 20sq cm Yes Yes Pain Scale: 0-10 Numeric Is Patient Pain Free? Yes - Nurse 3 - General Ulcer D/C NN Start: 06/13/21 08:56 Freq: Status: Active Protocol: Activity Type Activity Date Activity User E-Sign Co-Sign Detail Recorded Client Recorded Date Recorded By Document 06/13/21 09:17 [id number] 06/13/21 09:17 DL Document 06/20/21 08:46 [facility] [id number] 06/20/21 08:47 [facility] 06/13/21 06/20/21 09:17 08:46 Wound Care Nurse 3 #3 L Calf Cluster -Ulcer Cleansing Rinsed/ Irrigated with Saline -Foul Odor after Cleansing No No -Primary Dressing Applied Other -Other Dressing promogran promogran -Primary Dressing Covered/Secured with Dry Gauze, Dry Gauze, Secured with Secured with Tape Tape Left -Other own surepress applied Treatment Response Procedure Procedure Tolerated Well Tolerated Well Pain Scale: 0-10 Numeric Is Patient Pain Free? Yes Yes - Visit Discharge Discharge Condition Stable Stable Ambulatory Status Ambulatory Ambulatory Transportation Private Auto Private Auto Assessment/Plan Assessment/Plan (1) Postphlebetic syndrome with ulcer and inflammation: CODE(S): I87.039 - Postthrombotic syndrome with ulcer and inflammation of unspecified lower extremity (2) Chronic venous stasis dermatitis of left lower extremity: CODE(S): I87.2 - Venous insufficiency (chronic) (peripheral) (3) Chronic venous insufficiency: CODE(S): I87.2 - Venous insufficiency (chronic) (peripheral) (4) Post-phlebitic syndrome: CODE(S): I87.009 - Postthrombotic syndrome without complications of unspecified extremity (5) Venous ulcer of left leg: CODE(S): I83.029 - Varicose veins of left lower extremity with ulcer of unspecified site; L97.929 - Non-pressure chronic ulcer of unspecified part of left lower leg with unspecified severity (6) Diabetes mellitus: CODE(S): E11.9 - Type 2 diabetes mellitus without complications QUALIFIERS: Diabetes mellitus type: type 2 (7) History of DVT of lower extremity: CODE(S): Z86.718 - Personal history of other venous thrombosis and embolism (8) Leg pain, left: CODE(S): M79.605 - Pain in left leg (9) Left leg swelling: CODE(S): M79.89 - Other specified soft tissue disorders (10) Hypertension: CODE(S): I10 - Essential (primary) hypertension (11) COPD (chronic obstructive pulmonary disease): CODE(S): J44.9 - Chronic obstructive pulmonary disease, unspecified (12) Hyperlipidemia: CODE(S): E78.5 - Hyperlipidemia, unspecified (13) Morbid obesity with BMI of 40.0-44.9, adult: CODE(S): E66.01 - Morbid (severe) obesity due to excess calories; Z68.41 - Body mass index [BMI] 40.0-44.9, adult (14) Tobacco abuse: CODE(S): Z72.0 - Tobacco use (15) Tobacco abuse counseling: CODE(S): Z71.6 - Tobacco abuse counseling (16) Hyperpigmentation: CODE(S): L81.9 - Disorder of pigmentation, unspecified PLAN: The patient's ulcerations are now completely healed and epithelialized. The patient will be discharged, to follow-up at our wound care facility as needed. The patient is to continue with conservative treatment measures relative to her lower extremity venous disease. This is to include leg elevation, avoidance of idle standing and sitting, active lifestyle, weight control measures, and the use of compression to the left lower extremity on a daily basis. The patient has obtained graduated compression stockings of 20 to 30 mmHg compression, which are to be worn on a daily basis. These are to be donned upon arising in the morning, and doffed at night prior to bedtime. She has once again been advised to stop smoking. The patient has been cautioned against long periods of standing while at work, and has been encouraged to elevate her legs as much as possible, to heart level, or higher. Ultimately, the patient will likely benefit from superficial venous ablation of the incompetent left great saphenous vein and accessory saphenous vein. These are procedures which have been discussed with the patient at several of her recent visits. Patient is to be discharged from the [facility]. She is to consider the issues that have been discussed with respect to the benefits of venous ablation of the incompetent superficial veins in her left lower extremity. The potential benefits have been thoroughly explained. If she wishes to pursue this pathway, she is to contact my office for further discussion of the options, risk and benefit analysis, etc. Patient has been provided the appropriate contact phone number. It would be expected that a superficial venous ablation would likely reduce recurrence of venous ulcerations in the future. Total time: 29 minutes
== END 2021-07-04 09:11 | disposition home or self-care (01) ==
LOC: WC 08:30
PROVIDERS: PCP Family Medicine; Referring Provider Surgery; Visit Provider Surgery
DX: I83.022 Varicose veins of left lower extremity with ulcer of calf (principal); E11.622 Type 2 diabetes mellitus with other skin ulcer; L97.222 Non-pressure chronic ulcer of left calf with fat layer exposed; J44.9 Chronic obstructive pulmonary disease, unspecified; E66.01 Morbid (severe) obesity due to excess calories; Z68.41 Body mass index [BMI] 40.0-44.9, adult; E78.5 Hyperlipidemia, unspecified; I10 Essential (primary) hypertension; M79.89 Other specified soft tissue disorders; Z86.14 Personal history of Methicillin resistant Staphylococcus aureus infection; Z86.718 Personal history of other venous thrombosis and embolism; Z79.899 Other long term (current) drug therapy; F17.200 Nicotine dependence, unspecified, uncomplicated
CPT/HCPCS: 11042; 99213; G0463